=== PATIENT | male | born 1945 | race Caucasian/White ===

== ENCOUNTER 2017-03-13 11:14 | Outpatient (CLI) | payer MEDICARE ==
--- NOTE | 2017-03-13 13:13 | XRAY Report ---
TWO-VIEW CHEST: 03/13/2017 CLINICAL INDICATION: Dyspnea on exertion. FINDINGS: Frontal and lateral views of the chest demonstrate a normal cardiac silhouette. The lungs are clear. No effusion or pneumothorax is present. IMPRESSION: NORMAL CHEST. JOB #: [id number] EXT JOB #:[id number]
== END 2017-03-13 11:15 | disposition home or self-care (01) ==
LOC: DI 11:14
PROVIDERS: ATTEND Physician Assistant
DX: R06.09 Other forms of dyspnea (principal); I51.7 Cardiomegaly; I35.0 Nonrheumatic aortic (valve) stenosis
CPT/HCPCS: 71020; 93306

== ENCOUNTER 2017-03-13 13:24 | Outpatient (CLI) | payer MEDICARE | END 2017-03-13 13:25 | disposition critical access hospital (66) | LOC: EMS 13:24 | PROVIDERS: ATTEND Surgery | DX: M25.512 Pain in left shoulder (principal); M25.511 Pain in right shoulder; V00.811A Fall from moving wheelchair (powered), initial encounter; Y92.89 Other specified places as the place of occurrence of the external cause | CPT/HCPCS: A0425; A0429 ==

== ENCOUNTER 2017-03-13 13:31 | Emergency (ER) | payer MEDICARE ==
[2017-03-13] MEDS ORDERED: HYDROcod/ACETAM 5/325 MG TABLET PO STA (14:54)
[2017-03-13] MEDS ORDERED: HYDROcod/ACETAM 5/325 MG TABLET ONE (15:03)
--- NOTE | 2017-03-13 16:05 | XRAY Preliminary Report ---
Exam: XR Shoulder 3 View BILAT IMPRESSION: 1. Impacted fracture of right humeral surgical neck and vertically oriented fracture through the grea ter tuberosity to proximal diaphysis. 2. Unusual appearance of left humeral head on the AP view, question projectional artifact versus impa ction of medial humeral head. 3. 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 [facility] SITE ID: [id number]
--- NOTE | 2017-03-13 16:07 | XRAY Report ---
EXAM: BILATERAL SHOULDER RADIOGRAPHY EXAM DATE: 03/13/2017 03:33 PM. CLINICAL HISTORY: Bilateral shoulder pain-- fell out of wheelchair. COMPARISON: None. TECHNIQUE: 3 views each shoulder. FINDINGS: RIGHT: Bones: Impacted fracture of humeral surgical neck. Vertically oriented fracture lucency through the g reater tuberosity to proximal diaphysis. Joints: No subluxation. Mild to moderate degenerative changes glenohumeral and acromioclavicular join ts. Soft tissues: No periarticular calcification. LEFT: Bones: Unusual double density superior humeral head on the AP view, question projectional artifact ve rsus mild impaction fracture of medial aspect of the humeral head. Joints: No subluxation. Moderate acromioclavicular and mild glenohumeral DJD. Soft tissues: Smooth calcification along the superior acromioclavicular joint. IMPRESSION: 1. Impacted fracture of right humeral surgical neck and vertically oriented fracture through the grea ter tuberosity to proximal diaphysis. 2. Unusual appearance of left humeral head on the AP view, question projectional artifact versus impa ction of medial humeral head. 3. 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 [facility] Referring Provider Line: [phone] SITE ID: [id number]
[2017-03-13] MEDS ORDERED: oxyCOD/ACETAMIN 5 MG/325 MG TABLET PO STA (16:14)
--- NOTE | 2017-03-13 16:24 | ED Physician Documentation ---
PD HPI UPPER EXT INJURY - Stated complaint Stated Complaint: JEFRY SHOULDER PX - Chief complaint Chief Complaint: Ext Problem - History obtained from History obtained from: Patient - History of Present Illness Location: Right, Left, Shoulder Type of injury: Fall Where injury occurred: Other ([facility].) Timing - onset: Today (Just prior to arrival.) - Additonal information Additional information: The patient is a morbidly obese male who [place] [facility] just prior to arrival, when the front wheels of his wheelchair got stuck between boards. He landed on his chest and right shoulder, and presents now complaining of pain in both shoulders, but more on the right than the left, as well as pain in his upper back. He denies headache, chest pain, or shortness of breath. Review of Systems Constitutional: denies: Fever Eyes: denies: Decreased vision Nose: denies: Congestion Cardiac: denies: Chest pain / pressure Respiratory: denies: Cough GI: denies: Abdominal Pain, Nausea, Vomiting Skin: reports: Abrasion (s) (Reports very slight abrasion at his left knee.). denies: Rash Musculoskeletal: reports: Neck pain, Back pain, Extremity pain (Right shoulder more than left.) Neurologic: denies: Headache, Head injury, LOC PD PAST MEDICAL HISTORY - Past Medical History Cardiovascular: Hypertension Respiratory: Sleep apnea Endocrine/Autoimmune: Type 2 diabetes : Benign prostate hypertrophy - Past Surgical History Past Surgical History: Yes General: Other Ortho: Other - Present Medications Home Medications: Ambulatory Orders Medication Instructions Recorded Confirmed Aspirin [Aspir 81] 81 mg PO DAILY 01/28/15 03/13/17 Citalopram Hydrobromide 40 mg PO DAILY 01/28/15 03/13/17 [Citalopram HBr] Finasteride 5 mg PO DAILY 01/28/15 03/13/17 Insulin NPH Human [NovoLIN N] 55 units SQ DAILY 01/28/15 03/13/17 Lisinopril 20 mg PO DAILY 01/28/15 03/13/17 Metformin HCl [Metformin HCl ER] 1,000 mg PO DAILY 01/28/15 03/13/17 Simvastatin 40 mg PO DAILY 01/27/16 03/13/17 Terazosin [Hytrin] 15 mg PO DAILY 01/27/16 03/13/17 oxyCODONE [Roxicodone] 10 mg PO Q4HR 01/27/16 03/13/17 oxyCODONE/ACET 5/325 [Percocet 5 1 - 2 tab PO Q4-6H PRN #20 tablet 03/13/17 mg/325 mg] - Allergies Allergies/Adverse Reactions: Allergies Allergy/AdvReac Type Severity Reaction Status Date / Time No Known Drug Allergies Allergy Verified 01/28/15 00:38 - Social History Does the pt smoke?: No Smoking Status: Never smoker Does the pt drink ETOH?: No Does the pt have substance abuse?: No - Immunizations Immunizations are current?: Yes - POLST Patient has POLST: No PD ED PE NORMAL - Vitals Vital signs reviewed: Yes (normal) - General General: Alert and oriented X 3, Other (Morbidly obese.) - HEENT HEENT: Atraumatic, EOMI - Neck Neck: No bony TTP, Other (He can turn his head from side to side without significant discomfort in his neck.) - Cardiac Cardiac: RRR, Other (1/6 systolic murmur.) - Respiratory Respiratory: No respiratory distress, Clear bilaterally, Other (No chest wall tenderness.) - Abdomen Abdomen: Soft, Non tender - Back Back: Other (There is tenderness to palpation of the mid thoracic spine.) - Derm Derm: No rash - Extremities Extremities: No deformity, Other (There is tenderness to palpation of the right shoulder, particularly of the proximal humerus. He has decreased range of motion secondary to pain. There is also mild tenderness to palpation of the left shoulder and superior aspect. He does tolerate full passive range of motion of the left shoulder. Distal neurovascular is intact. Examination of his lower extremities reveals a very small superficial abrasion over the prepatellar aspect of the left knee. Otherwise no injuries of the lower extremities are detected.) - Neuro Neuro: Alert and oriented X 3, No motor deficit, No sensory deficit Results - Vitals Vitals: Oxygen O2 Source [] Room air O2 Source Room air - Rads (name of study) Bilateral shoulder xrays Radiology: Prelim report reviewed, EMP read contemporaneously, See rad report ( 1. Impacted fracture of right humeral surgical neck and vertically oriented fracture through the greater tuberosity to proximal diaphysis. 2. Unusual appearance of left humeral head on the AP view, question projectional artifact versus impaction of medial humeral head. 3. 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 X- rays of his left shoulder and his thoracic spine reveal no evidence of fracture or dislocation. Treatment in the emergency department included application of a right arm sling. Vicodin one tablet was administered orally without any improvement of the patient's symptoms. Subsequently Percocet one tablet was administered orally. I discussed with him and his the diagnosis and expected course of injury, treatment and outpatient follow-up, as well as potentially worrisome signs or symptoms that should prompt reevaluation in the emergency department. Departure - Departure Disposition: 01 Home, Self Care Clinical Impression: Closed fracture of right proximal humerus Qualifiers: Encounter type: initial encounter Fracture morphology: other fracture Fracture alignment: nondisplaced Qualified Code(s): S42.294A - Other nondisplaced fracture of upper end of right humerus, initial encounter for closed fracture Fall Qualifiers: Encounter type: initial encounter Qualified Code(s): W19.XXXA - Unspecified fall, initial encounter Condition: Stable Instructions: ED Fx Upper Ext Follow-Up: Corrina Campbell PA-C [Primary Care Provider] - [facility] [Provider Group] Prescriptions: oxyCODONE/ACET 5/325 [Percocet 5 mg/325 mg] 1 - 2 tab PO Q4-6H PRN #20 tablet PRN Reason: Pain Comments: Apply ice pack to your shoulder intermittently for the next 3 or 4 days. Use the arm sling for comfort. You can use Percocet as prescribed if needed for pain. Follow up with your primary physician within 1 week. Call to schedule appointment. Return to the emergency department if you develop markedly increasing pain despite the pain medication, or otherwise worsening symptoms. Discharge Date/Time: 03/13/17 18:26
[2017-03-13] MEDS ORDERED: oxyCOD/ACETAMIN 5 MG/325 MG TABLET PO ONE (16:33)
--- NOTE | 2017-03-13 18:14 | XRAY Preliminary Report ---
Exam: XR Thoracic Spine 2 View IMPRESSION: No findings of fracture or subluxation of thoracic spine. [facility] SITE ID: [id number]
--- NOTE | 2017-03-13 18:16 | XRAY Report ---
EXAM: THORACIC SPINE RADIOGRAPHY EXAM DATE: 03/13/2017 05:53 PM. CLINICAL HISTORY: Fall; tenderness thoracic spine. COMPARISON: Chest x-ray 01/28/2015. TECHNIQUE: 2 views. FINDINGS: Alignment: No subluxation or scoliosis. Bones: No fracture visualized. Upper thoracic spine difficult to visualize on lateral images due to o verlapping densities. Disks: Disk height is maintained. Soft Tissues: Negative for pleural effusion and pneumothorax. IMPRESSION: No findings of fracture or subluxation of thoracic spine. [facility] Referring Provider Line: [phone] SITE ID: [id number]
[2017-03-13 18:45] VITALS: BP 128/68
== END 2017-03-13 18:26 | disposition home or self-care (01) ==
LOC: EDUNIT# → ED 13:31
DX: S42.211A Unspecified displaced fracture of surgical neck of right humerus, initial encounter for closed fracture (principal); S42.251A Displaced fracture of greater tuberosity of right humerus, initial encounter for closed fracture; S80.212A Abrasion, left knee, initial encounter; W05.0XXA Fall from non-moving wheelchair, initial encounter; Y92.89 Other specified places as the place of occurrence of the external cause; M19.012 Primary osteoarthritis, left shoulder; M19.011 Primary osteoarthritis, right shoulder; I10 Essential (primary) hypertension; G47.30 Sleep apnea, unspecified; E11.9 Type 2 diabetes mellitus without complications; Z79.4 Long term (current) use of insulin; N40.0 Benign prostatic hyperplasia without lower urinary tract symptoms; Z79.82 Long term (current) use of aspirin; E66.01 Morbid (severe) obesity due to excess calories; R06.09 Other forms of dyspnea; I51.7 Cardiomegaly; I35.0 Nonrheumatic aortic (valve) stenosis
CPT/HCPCS: 71020; 72070; 73030; 93306; 99283; A9270

== ENCOUNTER 2017-03-15 07:48 | Emergency (ER) | payer MEDICARE ==
--- NOTE | 2017-03-15 08:09 | ED Physician Documentation ---
History of Present Illness - Stated complaint Stated Complaint: JEFRY SHOULDER/NECK PX - Chief complaint Chief Complaint: Ext Problem - Additonal information Additional information: hx from pt family and EMR 72 male not on blood thinrica fell forward out of his wheelchair on [place] 2 days ago seen in ER for upper T spine and jefry shoulder pain T spine xrays were neg R prox humerus fx possible L humeral head compression fx rx percocet limited # referred to ortho now has pain L elbow as well and out of percocet Review of Systems Cardiac: denies: Chest pain / pressure GI: denies: Abdominal Pain Musculoskeletal: reports: Back pain, Extremity pain, Joint pain Neurologic: denies: Focal weakness, Numbness, Headache Endocrine: denies: Easy bruising / bleeding PD PAST MEDICAL HISTORY - Past Medical History Past Medical History: Yes Cardiovascular: Hypertension Respiratory: Sleep apnea Endocrine/Autoimmune: Type 2 diabetes : Benign prostate hypertrophy - Past Surgical History Past Surgical History: Yes General: Other Ortho: Other - Present Medications Home Medications: Ambulatory Orders Medication Instructions Recorded Confirmed Aspirin [Aspir 81] 81 mg PO DAILY 01/28/15 03/15/17 Citalopram Hydrobromide 40 mg PO DAILY 01/28/15 03/15/17 [Citalopram HBr] Finasteride 5 mg PO DAILY 01/28/15 03/15/17 Insulin NPH Human [NovoLIN N] 55 units SQ DAILY 01/28/15 03/15/17 Lisinopril 20 mg PO DAILY 01/28/15 03/15/17 Metformin HCl [Metformin HCl ER] 1,000 mg PO DAILY 01/28/15 03/15/17 Simvastatin 40 mg PO DAILY 01/27/16 03/15/17 Terazosin [Hytrin] 15 mg PO DAILY 01/27/16 03/15/17 oxyCODONE [Roxicodone] 10 mg PO Q4HR 01/27/16 03/15/17 oxyCODONE/ACET 5/325 [Percocet 5 1 - 2 tab PO Q4-6H PRN #20 tablet 03/13/17 mg/325 mg] Oxycodone HCl/Acetaminophen 1 each PO Q6HR PRN #20 tablet 03/16/17 [Percocet 5-325 mg Tablet] - Allergies Allergies/Adverse Reactions: Allergies Allergy/AdvReac Type Severity Reaction Status Date / Time No Known Drug Allergies Allergy Verified 01/28/15 00:38 - Social History Does the pt smoke?: No Smoking Status: Never smoker Does the pt drink ETOH?: No Does the pt have substance abuse?: No - Immunizations Immunizations are current?: Yes - POLST Patient has POLST: No PD ED PE NORMAL - Vitals Vital signs reviewed: Yes - General General: Alert and oriented X 3 - HEENT HEENT: Atraumatic - Neck Neck: No bony TTP - Cardiac Cardiac: RRR. No: No murmur (+ murmus not new) - Respiratory Respiratory: No respiratory distress, Clear bilaterally - Back Back: Other (TTP upper T spine - already imaged) - Derm Derm: Normal color - Extremities Extremities: Other (L elbow s deformity, pain to antecub fossa region, able to flex ext pronate and supinat, MSV intact. TTP jefry shoudler as expected did not range as know fx) Results - Vitals Vitals: Vital Signs - 24 hr 03/15/17 03/16/17 03/16/17 22:14 07:07 12:19 Temperature 36.1 C L 36.8 C Heart Rate 73 97 93 Respiratory 15 18 20 Rate Blood Pressure 103/64 127/51 L 117/42 L O2 Saturation 99 96 96 Oxygen O2 Source [] Room air O2 Source Room air - Labs Labs: Laboratory Tests 03/15/17 03/15/17 03/15/17 10:41 13:00 13:00 WBC 8.4 RBC 2.61 L Hgb 8.3 L Hct 24.1 L MCV 92.3 MCH 31.7 H MCHC 34.4 RDW 17.7 H Plt Count 171 MPV 7.1 L Neut # 6.8 H Lymph # 0.8 L Dane # 0.6 Eos # 0.2 Baso # 0.0 Absolute Nucleated RBC 0.00 Nucleated RBCs 0.0 Sodium 133 L Potassium 4.6 Chloride 104 Carbon Dioxide 21 Anion Gap 8.0 BUN 44 H Creatinine 1.8 H Estimated GFR (MDRD) 37 L Glucose 208 H POC Whole Bld Glucose 234 H Lactic Acid Calcium 8.4 L Urine Color Urine Clarity Urine pH Ur Specific [place] Urine Protein Urine Glucose (UA) Urine Ketones Urine Occult Blood Urine Nitrite Urine Bilirubin Urine Urobilinogen Ur Leukocyte Esterase Urine RBC Urine WBC Ur Squamous Epith Cells Amorphous Sediment Urine Bacteria Urine Casts Ur Microscopic Review Urine Culture Comments 03/15/17 03/15/17 03/16/17 13:00 14:45 08:06 WBC RBC Hgb Hct MCV MCH MCHC RDW Plt Count MPV Neut # Lymph # Dane # Eos # Baso # Absolute Nucleated RBC Nucleated RBCs Sodium Potassium Chloride Carbon Dioxide Anion Gap BUN Creatinine Estimated GFR (MDRD) Glucose POC Whole Bld Glucose 169 H Lactic Acid 1.7 Calcium Urine Color YELLOW Urine Clarity CLOUDY Urine pH 5.0 Ur Specific [place] >=1.030 H Urine Protein NEGATIVE Urine Glucose (UA) NEGATIVE Urine Ketones NEGATIVE Urine Occult Blood LARGE H Urine Nitrite NEGATIVE Urine Bilirubin NEGATIVE Urine Urobilinogen 0.2 (NORMAL) Ur Leukocyte Esterase NEGATIVE Urine RBC TNTC H Urine WBC 0-3 Ur Squamous Epith Cells FEW Squamous Amorphous Sediment Few Urine Bacteria Few Urine Casts 6-10 Hyaline Casts Ur Microscopic Review INDICATED Urine Culture Comments NOT INDICATED - Rads (name of study) elbow Radiology: See rad report (jt effusion may indicate occult fx) CXR Radiology: See rad report (no acute) Procedures - Splint (location) LUE Splint applied by: Tech Type of splint: Sugar godwin Other: Patient tolerated well, No complications, Neurovascular intact, Sling provided PD MEDICAL DECISION MAKING - ED course ED course: 72 male in a wheelchair usually can walk a few steps and transfer with help but now has R humeral head and likely L humeral head and L elbow fx as well (L humeral head appears impacted per rad read and elbow effusion typically represent radial head fx but will need ortho fup and repeat imaging) now has sling on R shoulder and splint + sling on L too large for family to assist - usually they pull on his arm to get him up he cannot catch himself if he stumbles or falls don't feel pt safe to return home his is amenable to short term SNF for PT then pt unexpectedly had a low SBP of 84, went to reassess pt - no visible changes no new complaints gave IVF (500 before line blew) and checked labs (baseline anemia and renal insuff, neg lactate) CXR (no acute) neg UA subsequent BPs better d/w ortho Dr Hsieh and unfortunately this situation is not an indication for surgery either [facility] was contacted by case management and reviewed pt case but declined to pay for SNF rehab I spoke to [facility] multiple times and they state that 1) based on [facility] PT eval stating pt would benefit from learning to transfer but that PT did not feel that pt could participate for physical therapy and 2) [facility] feels the pts needs are custody, he does not qualify for SNF rehab to be covered two physicians reviewed this case - first Dr Vu Hsieh and then the case was also reviewed by Dr Delmar Fleming, both clinical review physicians - and it has been determined that pt does not qualify for SNF for PT and rehab [facility] advised re appeals process and [facility] is also plans to send a letter explaining reason for denial within 3 days pt may qualify for home PT - asked review staff to put in the referral for this service family with choice to self pay but cannot afford quote from [facility], therefore decided to try and take pt home, SW able to arrange for [facility] to deliver a hospital bed tomorrow but pt not able to safely get out of bed - even with gait belt and nursing assistance getting up from bed in ER was nearly impossible, and at home at this time he has a low soft bed - family just does not think they can safely assist him though they would be willing to if at all possible SW also tried to place pt in respite - tried [facility] - for a variety of reasons none are able to take him today but might be able to tomorrow - see SW notes and pt does not qualify for admit so in the end the plan is for him to board in ER overnight - tomorrow is Thursday and more facilities will have intake managers available - will try again to place in respite - and if that still fails at least pt will have a hospital bed delivered by [facility] and that will make transfers easier for family I will be on tomorrow and so will the same SW pt to take his own meds and use his own CPAP while boarding in the ER turned over to PM EMP Dr Tapia - and I will be back in AM to continue efforts to secure safe dispo resumed care 7 AM 03/[address] LUE - could only get shoulder due to emchanics of getting pt into CT machine - but that did confirm he has a non displaced left humeral head / surgical neck fx, radial head is still only suspected based on ant post fat pads seen on plain films SW again worked all day trying to get pt placed in respite but he was denied by every facility (see SW noted) so unfortunately despite 2 full days in the ER trying to get the pt placement while he recovers, so such placement was simply not possible without insurance coverage for same so for now pt is going to have to go home [facility] was able to get a hospital bed delivered to his home to which will help make it easier for his family to care for him, also he has a gait belt that we used during his ER stay, and nurse Abigail and pt worked together and were fairly successful managing safe transfers Departure - Departure Disposition: 01 Home, Self Care Clinical Impression: Fracture of humeral head, closed Qualifiers: Encounter type: subsequent encounter Laterality: unspecified laterality Fracture healing: with routine healing Qualified Code(s): S42.293D - Other displaced fracture of upper end of unspecified humerus, subsequent encounter for fracture with routine healing Elbow fracture, left Qualifiers: Encounter type: subsequent encounter Fracture type: closed Fracture healing: with routine healing Qualified Code(s): S42.402D - Unspecified fracture of lower end of left humerus, subsequent encounter for fracture with routine healing Condition: Fair Instructions: ED Fx Shoulder, ED Fx Elbow, ED Splint Care Fiberglass Follow-Up: [facility] [Provider Group] Prescriptions: Oxycodone HCl/Acetaminophen [Percocet 5-325 mg Tablet] 1 each PO Q6HR PRN #20 tablet PRN Reason: Severe Pain Comments: You have suffered numerous upper extremity injuries There is a known proximal right humeral head fracture (shoulder), a probable impacted left humeral head (shoulder) , and a probable left radial head fracture (elbow). You will need to wear a splint on the left elbow and a sling on both shoulders. Unfortunately this is going to make it very difficult you to transfer and get around. I tried to get you into a detention facility for rehab and physical therapy but your insurance company declined to authorize payment for this. You can still go but would have to pay out of pocket We also tried to get you into a respite bed, but ultimately that was not possible either. Social work was able to get a hospital bed delivered to your home to help make it easier for you. And [facility] ir going to try and arrange home health. Please follow up with your PMD and orthopedics Return if worse Discharge Date/Time: 03/16/17 16:11
--- NOTE | 2017-03-15 08:50 | XRAY Preliminary Report ---
Exam: XR Elbow 3 View LT IMPRESSION: A joint effusion is present which may indicate the presence of a radiographically occult fracture. [facility] SITE ID: [id number]
--- NOTE | 2017-03-15 08:53 | XRAY Report ---
EXAM: LEFT ELBOW RADIOGRAPHY EXAM DATE: 03/15/2017 08:38 AM. CLINICAL HISTORY: Fall pain. COMPARISON: None. TECHNIQUE: 3 views. FINDINGS: Bones: Normal. No fractures or bone lesions. Joints: Joint alignment is normal. A joint effusion is present. Soft Tissues: Normal. No soft tissue swelling. IMPRESSION: A joint effusion is present which may indicate the presence of a radiographically occult fracture. [facility] Referring Provider Line: [phone] SITE ID: [id number]
[2017-03-15] MEDS ORDERED: oxyCOD/ACETAMIN 5 MG/325 MG TABLET PO STA ×2 (09:48→16:49)
[2017-03-15] MEDS ORDERED: oxyCOD/ACETAMIN 5 MG/325 MG TABLET PO ONE ×3 (10:06→21:19)
[2017-03-15] MEDS ORDERED: SODIUM CHLORIDE 0.9% 1,000 ML IV ONE (11:49)
[2017-03-15] MEDS ORDERED: INSULIN NPH HUMAN 100 UNIT/1 ML 10 ML MDV SUBQ STA (11:49)
[2017-03-15] MEDS ORDERED: INSULIN NPH HUMAN 100 UNIT/1 ML 10 ML MDV SUBQ ONE (12:26)
[2017-03-15 13:09] LABS: BASOPHILS % (AUTO) 0.1 %; EOSINOPHILS # (AUTO) 0.2 10^3/uL (0.0-0.7); EOSINOPHILS % (AUTO) 2.1 %; HCT - HEMATOCRIT 24.1 % (42.0-52.0); HGB - HEMOGLOBIN 8.3 g/dL (14.0-18.0); LYMPHOCYTES # (AUTO) 0.8 10^3/uL (1.5-3.5); LYMPHOCYTES % (AUTO) 9.5 %; MEAN CORPUSCULAR HEMOGLOBIN 31.7 pg (27.0-31.0); MEAN CORPUSCULAR HGB CONC 34.4 g/dL (32.0-36.0); MEAN CORPUSCULAR VOLUME 92.3 fL (80.0-94.0); MEAN PLATELET VOLUME 7.1 fL (7.4-11.4); MONOCYTES # (AUTO) 0.6 10^3/uL (0.0-1.0); MONOCYTES % (AUTO) 7.2 %; NEUTROPHILS # (AUTO) 6.8 10^3/uL (1.5-6.6); NEUTROPHILS % (AUTO) 81.1 %; RED BLOOD COUNT 2.61 10^6/uL (4.70-6.10); RED CELL DISTRIBUTION WIDTH 17.7 % (12.0-15.0); UNCORRECTED WHITE BLOOD COUNT 8.4 x10^3/uL; WHITE BLOOD COUNT 8.4 x10^3/uL (4.8-10.8)
[2017-03-15 13:16] LABS: CALCIUM 8.4 mg/dL (8.5-10.3); CREATININE 1.8 mg/dL (0.6-1.2); POTASSIUM 4.6 mmol/L (3.5-5.0)
--- NOTE | 2017-03-15 13:58 | XRAY Preliminary Report ---
Exam: XR Chest 2 View PA/LAT IMPRESSION: Technically limited frontal view. No evident acute cardiopulmonary abnormality. [facility] SITE ID: [id number]
--- NOTE | 2017-03-15 14:00 | XRAY Report ---
EXAM: CHEST RADIOGRAPHY EXAM DATE: 03/15/2017 01:33 PM. CLINICAL HISTORY: Low blood pressure after a fall. COMPARISON: 03/13/2017 and 01/28/2015. TECHNIQUE: 2 views. FINDINGS: Suboptimal frontal view with prominent overlying grid artifact. Lungs/Pleura: Soft tissue causes attenuation over the bases. No evident focal opacity. No pleural eff usion or pneumothorax. Mediastinum: Normal cardiomediastinal contour. Mild atherosclerotic calcifications within the aortic arch. Other: The thoracic spine is ankylosed. IMPRESSION: Technically limited frontal view. No evident acute cardiopulmonary abnormality. [facility] Referring Provider Line: [phone] SITE ID: [id number]
[2017-03-15 15:04] LABS: UA w/ MICROSCOPIC CHARGE YES
[2017-03-15 15:05] LABS: BILIRUBIN,URINE NEGATIVE (NEGATIVE); WBC,URINE 0-3 /HPF (0-3)
[2017-03-15 15:06] LABS: UR CULTURE IF IND NOT INDICATED
[2017-03-15] MEDS: oxyCOD/ACETAMIN 5 MG/325 MG TABLET PO SCH (21:16)
[2017-03-16] MEDS: oxyCOD/ACETAMIN 5 MG/325 MG TABLET PO SCH ×2 (03:10→12:48)
[2017-03-16] MEDS ORDERED: oxyCOD/ACETAMIN 5 MG/325 MG TABLET PO ONE ×2 (03:12→12:51)
--- NOTE | 2017-03-16 08:10 | CT Preliminary Report ---
Exam: CT Upper Extremity Left W/O IMPRESSION: 1. Motion artifact obscures fine bony detail. However, there is a probable nondisplaced left humeral head/surgical neck fracture. 2. Moderate glenohumeral and mild acromioclavicular degenerative joint disease. [facility] SITE ID: [id number]
--- NOTE | 2017-03-16 08:11 | CT Report ---
EXAM: LEFT SHOULDER CT WITHOUT CONTRAST EXAM DATE: 03/16/2017 07:53 AM. CLINICAL HISTORY: Left shoulder injury with probable humeral head and radial fractures. COMPARISON: X-ray 03/13/2017. TECHNIQUE: Thin-section axial images were acquired of the shoulder without contrast. Post-processing: Coronal and sagittal reformats. Other: None. In accordance with CT protocol optimization, one or more of the following dose reduction techniques w ere utilized for this exam: automated exposure control, adjustment of mA and/or KV based on patient s ize, or use of iterative reconstructive technique. FINDINGS: Patient did not hold still during the exam with motion artifact which obscures fine bony detail. Bones: Moderate degenerative joint disease of the glenohumeral joint with joint space narrowing and h umeral and glenoid osteophytes. Subtle trabecular irregularity through the humeral head, likely a nondisplaced fracture through the h umeral head/neck. Joints: Degenerative joint disease of both the AC joint and glenohumeral joints. Musculature: Normal. No fatty atrophy. Other: None. IMPRESSION: 1. Motion artifact obscures fine bony detail. However, there is a probable nondisplaced left humeral head/surgical neck fracture. 2. Moderate glenohumeral and mild acromioclavicular degenerative joint disease. [facility] Referring Provider Line: [phone] SITE ID: [id number]
[2017-03-16] MEDS ORDERED: PATIENT OWN MED PO SCH (09:00)
[2017-03-16 12:21] VITALS: BP 117/42
== END 2017-03-16 16:11 | disposition home or self-care (01) ==
LOC: ED 07:48
DX: S42.215A Unspecified nondisplaced fracture of surgical neck of left humerus, initial encounter for closed fracture (principal); S52.122A Displaced fracture of head of left radius, initial encounter for closed fracture; S42.201A Unspecified fracture of upper end of right humerus, initial encounter for closed fracture; W05.0XXA Fall from non-moving wheelchair, initial encounter; Y92.89 Other specified places as the place of occurrence of the external cause; I95.9 Hypotension, unspecified; D64.9 Anemia, unspecified; N28.9 Disorder of kidney and ureter, unspecified; I10 Essential (primary) hypertension; E11.9 Type 2 diabetes mellitus without complications; Z79.4 Long term (current) use of insulin; Z79.82 Long term (current) use of aspirin
CPT/HCPCS: 29105; 36415; 51701; 71020; 73080; 73200; 80048; 81001; 83605; 85025; 96360; 97162; 99284; 99285; A9270; J1815; 81003; 87086

== ENCOUNTER 2018-03-09 19:21 | Emergency (ER) | payer MEDICARE ==
[2018-03-09] MEDS ORDERED: SODIUM CHLORIDE 0.9% 1,000 ML IV ONE (20:11)
[2018-03-09 20:23] LABS: BASOPHILS % (AUTO) 0.2 %; HGB - HEMOGLOBIN 8.5 g/dL (14.0-18.0); LYMPHOCYTES # (AUTO) 0.4 10^3/uL (1.5-3.5); LYMPHOCYTES % (AUTO) 5.2 %; MEAN CORPUSCULAR HEMOGLOBIN 30.6 pg (27.0-31.0); MEAN CORPUSCULAR HGB CONC 34.5 g/dL (32.0-36.0); MEAN CORPUSCULAR VOLUME 88.8 fL (80.0-94.0); MEAN PLATELET VOLUME 6.8 fL (7.4-11.4); MONOCYTES # (AUTO) 0.7 10^3/uL (0.0-1.0); MONOCYTES % (AUTO) 9.2 %; NEUTROPHILS # (AUTO) 6.8 10^3/uL (1.5-6.6); NEUTROPHILS % (AUTO) 85.4 %; PLT - PLATELET COUNT 285 10^3/uL (130-450); RED BLOOD COUNT 2.78 10^6/uL (4.70-6.10); RED CELL DISTRIBUTION WIDTH 17.5 % (12.0-15.0)
--- NOTE | 2018-03-09 20:26 | ED Physician Documentation ---
PD HPI ABD PAIN - Stated complaint Stated Complaint: WEAK/MALE - Chief complaint Chief Complaint: Neuro - History obtained from History obtained from: Patient - History of Present Illness Timing - onset: How many days ago (3) Timing - details: Gradual onset, Still present Quality: Cramping, Aching Location: Suprapubic Radiation: Lower back, Left flank, Right flank Worsened by: Position, Palpation Associated symptoms: Nausea, Diarrhea, Dysuria. No: Fever, Constipation - Additional information Additional information: Patient is a 73 year old male with a history of diabetes and anemia who is presenting to the emergency department for generally not feeling well dysuria and diarrhea. patient reports that the diarrhea has been going on for years and that the dysuria and generalized weakness have been going on for the last couple of days. Review of Systems Constitutional: reports: Chills, Sweats Eyes: reports: Reviewed and negative Nose: reports: Reviewed and negative Cardiac: denies: Chest pain / pressure, Palpitations Respiratory: denies: Dyspnea, Cough GI: reports: Abdominal Pain, Nausea. denies: Vomiting, Constipation, Diarrhea : reports: Dysuria, Frequency, Hesitancy Skin: denies: Rash, Lesions Immunocompromised: denies: Immunocompromised PD PAST MEDICAL HISTORY - Past Medical History Cardiovascular: Hypertension Respiratory: Sleep apnea Endocrine/Autoimmune: Type 2 diabetes : Benign prostate hypertrophy - Past Surgical History Past Surgical History: Yes General: Other Ortho: Spine surgery, Other - Present Medications Home Medications: Ambulatory Orders Medication Instructions Recorded Confirmed Aspirin [Aspir 81] 81 mg PO DAILY 01/28/15 03/15/17 Citalopram Hydrobromide 40 mg PO DAILY 01/28/15 03/15/17 [Citalopram HBr] Finasteride 5 mg PO DAILY 01/28/15 03/15/17 Insulin NPH Human [NovoLIN N] 55 units SQ BID 01/28/15 03/15/17 Metformin HCl [Metformin HCl ER] 1,000 mg PO BID 01/28/15 03/15/17 Simvastatin 40 mg PO DAILY 01/27/16 03/15/17 Terazosin [Hytrin] 15 mg PO DAILY 01/27/16 03/15/17 Levofloxacin [Levaquin] 750 mg PO DAILY #4 tablet 03/09/18 Oxybutynin Chloride [Ditropan Xl] 30 mg PO BID 03/09/18 03/09/18 Phenazopyridine HCl [Pyridium] 200 mg PO TID PRN #6 tablet 03/09/18 - Allergies Allergies/Adverse Reactions: Allergies Allergy/AdvReac Type Severity Reaction Status Date / Time No Known Drug Allergies Allergy Verified 01/28/15 00:38 - Social History Does the pt smoke?: No Smoking Status: Never smoker Does the pt drink ETOH?: No Does the pt have substance abuse?: No - Immunizations Immunizations are current?: Yes - POLST Patient has POLST: No PD ED PE NORMAL - Vitals Vital signs reviewed: Yes - General General: Alert and oriented X 3, Other (obese) - HEENT HEENT: Atraumatic - Cardiac Cardiac: RRR - Respiratory Respiratory: No respiratory distress - Abdomen Abdomen: Soft, Non distended - Derm Derm: Other (pale) - Extremities Extremities: No deformity - Neuro Neuro: Alert and oriented X 3, No motor deficit, Normal speech Eye Opening: Spontaneous Results - Vitals Vitals: Vital Signs - 24 hr 03/09/18 03/09/18 19:33 19:54 Temperature 37.2 C Heart Rate 96 90 Respiratory 18 20 Rate Blood Pressure 132/46 H 149/63 H O2 Saturation 95 95 Oxygen O2 Source [With Activity] Room air O2 Source Room air - Labs Labs: Laboratory Tests 03/09/18 03/09/18 03/09/18 20:00 20:00 21:05 WBC 8.0 RBC 2.78 L Hgb 8.5 L Hct 24.7 L MCV 88.8 MCH 30.6 MCHC 34.5 RDW 17.5 H Plt Count 285 MPV 6.8 L Neut # (Auto) 6.8 H Lymph # (Auto) 0.4 L [place] # (Auto) 0.7 Eos # (Auto) 0.0 Baso # (Auto) 0.0 Absolute Nucleated RBC 0.00 Nucleated RBC % 0.0 Sodium 130 L Potassium 4.7 Chloride 97 L Carbon Dioxide 21 Anion Gap 12.0 BUN 47 H Creatinine 2.3 H Estimated GFR (MDRD) 28 L Glucose 216 H Calcium 8.3 L Total Bilirubin 0.6 AST 24 ALT 22 Alkaline Phosphatase 84 Total Protein 7.0 Albumin 3.2 Globulin 3.8 Albumin/Globulin Ratio 0.8 L Lipase 21 L Urine Color DARK YELLOW Urine Clarity CLOUDY Urine pH 5.5 Ur Specific [place] 1.025 Urine Protein 100 H Urine Glucose (UA) NEGATIVE Urine Ketones NEGATIVE Urine Occult Blood LARGE H Urine Nitrite POSITIVE H Urine Bilirubin NEGATIVE Urine Urobilinogen 0.2 (NORMAL) Ur Leukocyte Esterase LARGE H Urine RBC 11-25 H Urine WBC >25 H Ur Squamous Epith Cells RARE Squamous Urine Bacteria Few Ur Microscopic Review INDICATED Urine Culture Comments INDICATED PD MEDICAL DECISION MAKING - ED course Complexity details: reviewed old records, reviewed results, re-evaluated patient, considered differential, d/w patient, d/w family ED course: Patient was seen and examined at bedside. IV access was gained and labs were drawn. patient was treated with a fluid bolus. patient was found to have a urinary tract infection. patient was treated with levaquin. Patient required no further work up and was stable for discharge with outpatient follow up. - Sepsis Event Vital Signs: Vital Signs - 24 hr 03/09/18 03/09/18 19:33 19:54 Temperature 37.2 C Heart Rate 96 90 Respiratory 18 20 Rate Blood Pressure 132/46 H 149/63 H O2 Saturation 95 95 Oxygen O2 Source [With Activity] Room air O2 Source Room air Departure - Departure Disposition: 01 Home, Self Care Clinical Impression: Urinary tract infection Condition: Good Instructions: ED UTI Cystitis Male Follow-Up: Fidel Starr MD [Primary Care Provider] - Within 3 Days Prescriptions: Levofloxacin [Levaquin] 750 mg PO DAILY #4 tablet Phenazopyridine HCl [Pyridium] 200 mg PO TID PRN #6 tablet PRN Reason: dysuria Comments: Your symptoms today are being caused by a urinary tract infection. You had your first dose of antibiotics today and will need to be on them for the next 4 days. it is important that you stay well hydrated during the same time period as well. You will be prescribed pyridium as well that will likely change the color of your urine. You should follow up with your doctor if your symptoms persist. You may return to the emergency department at any time for new, worsening or uncontrollable symptoms.
[2018-03-09 20:44] LABS: ALBUMIN 3.2 g/dL (3.2-5.5); ALBUMIN/GLOBULIN RATIO 0.8 (1.0-2.2); BILIRUBIN,TOTAL 0.6 mg/dL (0.2-1.0); CALCIUM 8.3 mg/dL (8.5-10.3); CREATININE 2.3 mg/dL (0.6-1.2)
[2018-03-09 21:18] LABS: BILIRUBIN,URINE NEGATIVE (NEGATIVE); GLUCOSE, URINE (UA) NEGATIVE (NEGATIVE); KETONES,URINE (UA) NEGATIVE (NEGATIVE); LEUKOCYTE ESTERASE, URINE LARGE (NEGATIVE); NITRITE,URINE POSITIVE (NEGATIVE); OCCULT BLOOD,URINE LARGE (NEGATIVE); PH,URINE 5.5 PH (5.0-7.5); PROTEIN,URINE 100 mg/dL (NEGATIVE); UROBILINOGEN,URINE 0.2 (NORMAL) E.U./dL (NORMAL)
[2018-03-09 21:26] LABS: CLARITY,URINE CLOUDY (CLEAR)
[2018-03-09 21:27] LABS: BACTERIA,URINE Few /HPF (None Seen); SQUAMOUS EPITHELIAL CELL,UR RARE Squamous (<= Few)
[2018-03-09] MEDS ORDERED: levoFLOXacin 250 MG TABLET PO STA (21:31)
[2018-03-09 21:56] VITALS: BP 145/59
== END 2018-03-09 22:20 | disposition home or self-care (01) ==
LOC: ED 19:21
DX: N39.0 Urinary tract infection, site not specified (principal); I45.81 Long QT syndrome; E11.9 Type 2 diabetes mellitus without complications; Z79.4 Long term (current) use of insulin; I10 Essential (primary) hypertension; Z79.82 Long term (current) use of aspirin
CPT/HCPCS: 36415; 80053; 81001; 83690; 85025; 87086; 93005; 96360; 99283; 99284; A9270; 81003

== ENCOUNTER 2018-12-07 21:22 | Outpatient (CLI) | payer SELFPAY | END 2018-12-07 21:23 | disposition EMS.NT | LOC: EMS 21:22 | PROVIDERS: ATTEND Surgery | DX: M79.661 Pain in right lower leg (principal); W01.0XXA Fall on same level from slipping, tripping and stumbling without subsequent striking against object, initial encounter; Y93.01 Activity, walking, marching and hiking; Y92.008 Other place in unspecified non-institutional (private) residence as the place of occurrence of the external cause ==

== ENCOUNTER 2018-12-08 10:27 | Outpatient (CLI) | payer MEDICARE, MEDICAID | END 2018-12-08 10:28 | disposition critical access hospital (66) | LOC: EMS 10:27 | PROVIDERS: ATTEND Surgery | DX: M25.561 Pain in right knee (principal); M79.661 Pain in right lower leg; W01.0XXA Fall on same level from slipping, tripping and stumbling without subsequent striking against object, initial encounter | CPT/HCPCS: A0425; A0429 ==

== ENCOUNTER 2018-12-08 10:45 | Emergency (ER) | payer MEDICARE, MEDICAID ==
[2018-12-08 10:58] VITALS: BP 156/55
--- NOTE | 2018-12-08 11:55 | ED Physician Documentation ---
PD HPI LOWER EXT INJURY - Stated complaint Stated Complaint: GLF - Chief complaint Chief Complaint: Ext Problem - History obtained from History obtained from: Patient - History of Present Illness PD HPI LOW EXT INJURY LOCATION: Right, Knee Type of injury: Fall (He slipped on some urine on the floor as he was getting out of his wheelchair and had a twisting motion of the right knee as he fell. He denies other injury. He is having swelling in the right knee today and pain with standing and he feels that his knee may is unreliable.) Where injury occurred: Home Timing - onset: Last night Timing - details: Abrupt onset, Still present Worsened by: Moving Associated symptoms: Swelling. No: Weakness, Numbness, Discolored Similar symptoms before: Has not had sx before Recently seen: Not recently seen Review of Systems Constitutional: denies: Fever, Chills Nose: denies: Rhinorrhea / runny nose, Congestion Throat: denies: Sore throat Respiratory: denies: Cough GI: denies: Abdominal Pain, Nausea, Vomiting : reports: Incontinent (small frequent amounts, seems c/w bladder spasms. Is on meds for that.). denies: Dysuria, Hematuria Neurologic: denies: Altered mental status, Head injury PD PAST MEDICAL HISTORY - Past Medical History Past Medical History: No Cardiovascular: Hypertension Respiratory: Sleep apnea Endocrine/Autoimmune: Type 2 diabetes : Benign prostate hypertrophy - Past Surgical History Past Surgical History: Yes General: Other Ortho: Spine surgery, Other - Present Medications Home Medications: Ambulatory Orders Medication Instructions Recorded Confirmed Aspirin [Aspir 81] 81 mg PO DAILY 01/28/15 03/15/17 Citalopram Hydrobromide 40 mg PO DAILY 01/28/15 03/15/17 [Citalopram HBr] Finasteride 5 mg PO DAILY 01/28/15 03/15/17 Insulin NPH Human [NovoLIN N] 55 units SQ BID 01/28/15 03/15/17 Metformin HCl [Metformin HCl ER] 1,000 mg PO BID 01/28/15 03/15/17 Simvastatin 40 mg PO DAILY 01/27/16 03/15/17 Terazosin [Hytrin] 15 mg PO DAILY 01/27/16 03/15/17 Levofloxacin [Levaquin] 750 mg PO DAILY #4 tablet 03/09/18 Oxybutynin Chloride [Ditropan Xl] 30 mg PO BID 03/09/18 03/09/18 Phenazopyridine HCl [Pyridium] 200 mg PO TID PRN #6 tablet 03/09/18 Oxycodone HCl/Acetaminophen 1 - 2 each PO Q6H PRN #25 tablet 12/08/18 [Percocet 5-325 mg Tablet] - Allergies Allergies/Adverse Reactions: Allergies Allergy/AdvReac Type Severity Reaction Status Date / Time No Known Drug Allergies Allergy Verified 01/28/15 00:38 - Social History Does the pt smoke?: No Smoking Status: Never smoker Does the pt drink ETOH?: No Does the pt have substance abuse?: No - Immunizations Immunizations are current?: Yes - POLST Patient has POLST: No PD ED PE NORMAL - Vitals Vital signs reviewed: Yes - General General: Alert and oriented X 3, Well developed/nourished - Cardiac Cardiac: RRR, No murmur - Respiratory Respiratory: Clear bilaterally - Abdomen Abdomen: Soft, Non tender, Other (obese) - Male Male : Other (normal external genitalia) - Derm Derm: Normal color, Warm and dry - Extremities Extremities: Other (The right knee has moderate swelling. He is most comfortable with it slightly flexed. There is some effusion felt. Range of motion is limited and guarded due to the pain. Unable to assess ligaments well also because of the discomfort. No gross laxity is felt.) - Neuro Neuro: Alert and oriented X 3, No motor deficit, No sensory deficit, Normal speech Results - Vitals Vitals: Vital Signs - 24 hr 12/08/18 10:51 Temperature 37 C Heart Rate 96 Respiratory 20 Rate Blood Pressure 156/55 H O2 Saturation 96 Oxygen O2 Source [With Activity] Room air O2 Source Room air - Labs Labs: Laboratory Tests 12/08/18 12:54 Urine Color YELLOW Urine Clarity CLEAR Urine pH 5.0 Ur Specific [place] 1.020 Urine Protein 30 H Urine Glucose (UA) NEGATIVE Urine Ketones NEGATIVE Urine Occult Blood NEGATIVE Urine Nitrite NEGATIVE Urine Bilirubin NEGATIVE Urine Urobilinogen 0.2 (NORMAL) Ur Leukocyte Esterase NEGATIVE Urine RBC None Seen Urine WBC 0-3 Urine WBC Clumps NONE SEEN Ur Squamous Epith Cells RARE Squamous Urine Bacteria Rare Ur Microscopic Review INDICATED Urine Culture Comments NOT INDICATED - Rads (name of study) right knee Radiology: Prelim report reviewed (Diffuse arthritis of the knee without any obvious fractures. There is a small calcified loose body in the suprapatellar area which should not by that location of effect articular motion.), See rad report PD MEDICAL DECISION MAKING - ED course Complexity details: re-evaluated patient, considered differential (X-ray done to evaluate for fracture. There is no fracture seen on the x-ray. He does have swelling around the knee and some effusion. I did try tapping that on the medial approach but did not get much fluid out and seemed to be hindered by some arthritic changes. He was given a pain medicine orally and that helped on his pain with some improved range of motion. We were unable to fit him with a knee brace due to the girth of his thigh. He will need to continue with the pain medicines to provide enough comfort for him to ambulate at home. He only transfers from bed to wheelchair and does walk with a walker at times. He therefore does not need to have to ambulate very much. We will have a follow-up with orthopedics for possible meniscal injury. His also is concerned that he is unable to hold his urine and seems to have bladder spasms despite several medications for that. She is wondering if he can get a Gloria catheter. We did do a bladder scan which showed a minimal residual. There is no signs of urinary infection. I feel placement of a Gloria catheter would be harmful due to the increased chance of infection and is not back in balance with the benefit of more convenience and him wearing the depends and such.), d/w patient, d/w family () Departure - Departure Disposition: 01 Home, Self Care Clinical Impression: Fall from slip, trip, or stumble Qualifiers: Encounter type: initial encounter Qualified Code(s): W01.0XXA - Fall on same level from slipping, tripping and stumbling without subsequent striking against object, initial encounter Knee strain Qualifiers: Encounter type: initial encounter Laterality: right Qualified Code(s): S86.911A - Strain of unspecified muscle(s) and tendon(s) at lower leg level, right leg, initial encounter Condition: Stable Record reviewed to determine appropriate education?: Yes Instructions: ED Sprain Knee Follow-Up: [facility] [Provider Group] Prescriptions: Oxycodone HCl/Acetaminophen [Percocet 5-325 mg Tablet] 1 - 2 each PO Q6H PRN #25 tablet PRN Reason: pain Comments: No signs of a bladder infection at this time. You do not appear to be in urinary retention as your bladder volume is good. It does sound may be some bladder spasms. Continue with your current medications for these. Regarding your knee, there are no obvious fractures on x-ray. Use some pain medicine as needed for pain. Use the knee brace when up and around to help support the knee. Follow-up with orthopedics in the next several days or early next week, call for an appointment. There may be some injury to some of the ligaments or the cartilage and these would not show up on x-ray. Typically they will get better with the knee brace and time but following up with orthopedics would be prudent.
--- NOTE | 2018-12-08 12:18 | XRAY Report ---
Reason: fall and hurt knee Procedure Date: 12/08/2018 Accession Number: [id number] / [id number] Procedure: XR - Knee 3 View RT CPT Code: FULL RESULT: EXAM: RIGHT KNEE RADIOGRAPHY EXAM DATE: 12/08/2018 12:00 PM. CLINICAL HISTORY: Fall and hurt knee. COMPARISON: KNEE 4 VIEW RT 01/27/2016 6:15 PM. TECHNIQUE: 3 views. FINDINGS: Bones: Normal. No fractures or bone lesions. Joints: Moderate degenerative changes in the patellofemoral compartment. There is a calcified 14 mm intra-articular loose body in the suprapatellar station. Moderate degenerative changes in the medial compartment. Soft Tissues: Normal. No soft tissue swelling. IMPRESSION: 1. Moderate degenerative changes in the patellofemoral compartment. 2. Moderate degenerative changes in the medial compartment. 3. There is a calcified 14 mm intra-articular loose body in the suprapatellar station. RADIA
[2018-12-08] MEDS ORDERED: oxyCODONE 5 MG TABLET PO STA (12:36)
[2018-12-08] MEDS ORDERED: LIDOCAINE MPF 1%-EPI 1:200000 30 ML VIAL SUBQ STA (12:54)
[2018-12-08 13:03] LABS: BILIRUBIN,URINE NEGATIVE (NEGATIVE); GLUCOSE, URINE (UA) NEGATIVE (NEGATIVE); KETONES,URINE (UA) NEGATIVE (NEGATIVE); LEUKOCYTE ESTERASE, URINE NEGATIVE (NEGATIVE); NITRITE,URINE NEGATIVE (NEGATIVE); OCCULT BLOOD,URINE NEGATIVE (NEGATIVE); PROTEIN,URINE 30 mg/dL (NEGATIVE); UROBILINOGEN,URINE 0.2 (NORMAL) E.U./dL (NORMAL)
[2018-12-08 13:24] LABS: CLARITY,URINE CLEAR (CLEAR)
[2018-12-08 13:27] LABS: BACTERIA,URINE Rare /HPF (None Seen); RBC,URINE None Seen /HPF (0-5); SQUAMOUS EPITHELIAL CELL,UR RARE Squamous (<= Few); WBC CLUMPS,URINE NONE SEEN
== END 2018-12-08 15:46 | disposition home or self-care (01) ==
LOC: EDUNIT# → ED 10:45
DX: S86.911A Strain of unspecified muscle(s) and tendon(s) at lower leg level, right leg, initial encounter (principal); W01.0XXA Fall on same level from slipping, tripping and stumbling without subsequent striking against object, initial encounter; Y92.009 Unspecified place in unspecified non-institutional (private) residence as the place of occurrence of the external cause; M17.11 Unilateral primary osteoarthritis, right knee; M23.41 Loose body in knee, right knee; N40.1 Benign prostatic hyperplasia with lower urinary tract symptoms; R32 Unspecified urinary incontinence; I10 Essential (primary) hypertension; E11.9 Type 2 diabetes mellitus without complications; Z79.4 Long term (current) use of insulin; Z79.82 Long term (current) use of aspirin
CPT/HCPCS: 73562; 81001; 99283; A9270; 81003; 87086

== ENCOUNTER 2018-12-08 15:36 | Outpatient (CLI) | payer MEDICARE, MEDICAID | END 2018-12-08 15:37 | disposition home or self-care (01) | LOC: EMS 15:36 | PROVIDERS: ATTEND Surgery | DX: E66.01 Morbid (severe) obesity due to excess calories (principal); S89.91XA Unspecified injury of right lower leg, initial encounter; X58.XXXA Exposure to other specified factors, initial encounter | CPT/HCPCS: A0425; A0428 ==

== ENCOUNTER 2018-12-10 18:18 | Outpatient (CLI) | payer MEDICARE, MEDICAID | END 2018-12-10 18:19 | disposition critical access hospital (66) | LOC: EMS 18:18 | PROVIDERS: ATTEND Surgery | DX: M79.661 Pain in right lower leg (principal); M79.89 Other specified soft tissue disorders | CPT/HCPCS: A0425; A0429 ==

== ENCOUNTER 2018-12-10 18:41 | Emergency (ER) | payer MEDICARE, MEDICAID ==
[2018-12-10] MEDS ORDERED: HYDROcod/ACETAM 5/325 MG TABLET PO STA (21:11)
--- NOTE | 2018-12-10 22:04 | ED Physician Documentation ---
PD HPI LOWER EXT INJURY - Stated complaint Stated Complaint: RIGHT KNEE PAIN - Chief complaint Chief Complaint: General - History obtained from History obtained from: Patient - History of Present Illness PD HPI LOW EXT INJURY LOCATION: Left, Knee Type of injury: Fall Where injury occurred: Home Timing - onset: How many days ago (2) Timing - duration: Days Pain level max: 10 Pain level now: 4 Improved by: Rest, Immobilization Worsened by: Moving, Palpating Associated symptoms: Swelling. No: Weakness, Numbness, Tingling Contributing factors: No: Anticoagulated Recently seen: Emergency Dept - Additional information Additional information: T+R 2 days ago from this ED after slip, fall that caused injury to right knee. right knee xrays at that time did not reveal acute abnormality and he was discharged with rx for oxycodone. Returns via ambulance [facility], called 911 as he has had gradually worsening right knee pain and swelling that is not controlled with the prescribed pain medications. He cannot stand on his own nor with assistance and thus she cannot adequately take care of patient at this time. Review of Systems Cardiac: reports: Reviewed and negative Respiratory: reports: Reviewed and negative GI: reports: Reviewed and negative Musculoskeletal: reports: Extremity pain, Joint pain, Extremity swelling, Joint swelling, Pain with weight bearing. denies: Neck pain, Back pain Neurologic: denies: Generalized weakness, Focal weakness, Numbness, Headache, Head injury PD PAST MEDICAL HISTORY - Past Medical History Past Medical History: Yes Cardiovascular: Hypertension Respiratory: Sleep apnea Endocrine/Autoimmune: Type 2 diabetes : Benign prostate hypertrophy - Past Surgical History Past Surgical History: Yes General: Other Ortho: Spine surgery, Other - Present Medications Home Medications: Ambulatory Orders Medication Instructions Recorded Confirmed Aspirin [Aspir 81] 81 mg PO DAILY 01/28/15 12/11/18 Citalopram Hydrobromide 40 mg PO DAILY 01/28/15 12/11/18 [Citalopram HBr] Finasteride 5 mg PO DAILY 01/28/15 12/11/18 Metformin HCl [Metformin HCl ER] 1,000 mg PO BID 01/28/15 12/11/18 Simvastatin 40 mg PO DAILY 01/27/16 12/11/18 Terazosin [Hytrin] 10 mg PO DAILY 01/27/16 12/11/18 Oxybutynin Chloride [Ditropan Xl] 15 mg PO BID 03/09/18 12/11/18 Ascorbic Acid [Vitamin C] mg PO DAILY 12/11/18 Insulin NPH Human Isophane 55 unit SUBQ BID 12/11/18 12/11/18 [Humulin N] Loperamide [Imodium] PO BID 12/11/18 - Allergies Allergies/Adverse Reactions: Allergies Allergy/AdvReac Type Severity Reaction Status Date / Time No Known Drug Allergies Allergy Verified 12/10/18 18:51 - Social History Does the pt smoke?: No Smoking Status: Never smoker Does the pt drink ETOH?: No Does the pt have substance abuse?: No - Immunizations Immunizations are current?: Yes - POLST Patient has POLST: No PD ED PE NORMAL - Vitals Vital signs reviewed: Yes - General General: Alert and oriented X 3, No acute distress (NAD at rest but obvious painful distress with any movement involving RLE, particularly knee or ankle), Well developed/nourished - HEENT HEENT: Atraumatic, Moist mucous membranes - Neck Neck: Supple, no meningeal sign - Cardiac Cardiac: RRR - Respiratory Respiratory: No respiratory distress, Clear bilaterally - Abdomen Abdomen: Normal bowel sounds, Non tender, Other (morbidly obese) - Derm Derm: Normal color, Warm and dry - Extremities Extremities: Other (right knee is swollen with generalized tenderness but no specific bony tenderness. no erythema and no abnoraml warmth to touch. There is circumferential swelling distal to knee to toes. there is tenderness to palpation right ankle, lateral aspect) - Neuro Eye Opening: Spontaneous Motor: Obeys Commands Verbal: Oriented GCS Score: 15 PD ED PE EXPANDED - Cardiac Cardiac: Murmur Present (3/6 YOGI right 2nd ICS) Results - Vitals Vitals: Vital Signs - 24 hr 12/11/18 12/12/18 14:18 00:44 Temperature 37.4 C 37.0 C Heart Rate 93 90 Respiratory 20 18 Rate Blood Pressure 158/62 H 151/79 H O2 Saturation 98 94 Oxygen O2 Source [] Room air O2 Source CPAP - Labs Labs: Laboratory Tests 12/10/18 12/10/18 12/11/18 22:31 22:31 02:00 WBC 13.4 H RBC 2.86 L Hgb 8.7 L Hct 26.2 L MCV 91.6 MCH 30.3 MCHC 33.1 RDW 17.8 H Plt Count 247 MPV 7.1 L Neut # (Auto) 11.9 H Lymph # (Auto) 0.6 L [place] # (Auto) 0.9 Eos # (Auto) 0.0 Baso # (Auto) 0.0 Absolute Nucleated RBC 0.00 Nucleated RBC % 0.0 Sodium 133 L Potassium 4.9 Chloride 99 L Carbon Dioxide 24 Anion Gap 10.0 BUN 37 H Creatinine 1.6 H Estimated GFR (MDRD) 42 L Glucose 364 H Calcium 8.5 Urine Color YELLOW Urine Clarity CLEAR Urine pH 5.0 Ur Specific [place] 1.025 Urine Protein 30 H Urine Glucose (UA) 500 H Urine Ketones NEGATIVE Urine Occult Blood TRACE-LYSE Urine Nitrite NEGATIVE Urine Bilirubin NEGATIVE Urine Urobilinogen 0.2 (NORMAL) Ur Leukocyte Esterase NEGATIVE Urine RBC 0-5 Urine WBC 0-3 Ur Squamous Epith Cells FEW Squamous Urine Bacteria Rare Urine Mucus Few Strands Ur Microscopic Review INDICATED Urine Culture Comments NOT INDICATED - Rads (name of study) CT right knee Radiology: Prelim report reviewed, See rad report RLE doppler US Radiology: Prelim report reviewed, See rad report right ankle xrays Radiology: Prelim report reviewed, See rad report PD MEDICAL DECISION MAKING - ED course Complexity details: reviewed old records, reviewed results, re-evaluated patient, considered differential, d/w patient ED course: lab abnormalities are comparable to previous (anemia, renal insufficiency). Patient had significant pain during ED stay that required repeated doses of opiates (oxycodone, dilaudid). CT knee shows effusion but no acute fractures. ankle xrays shows lateral malleolar fracture. Patient unable to move around in bed without significant RLE pain and is inappropriate for d/c home due to this degree of pain and immobility. Will consult SW in AM for placement options. Care of patient turned over to oncoming ED physician at end of my shift pending SW consult
[2018-12-10] MEDS ORDERED: HYDROmorphone 1 MG/ML CARPUJECT IM STA (22:20)
[2018-12-10 22:35] LABS: BASOPHILS % (AUTO) 0.1 %; EOSINOPHILS % (AUTO) 0.3 %; HGB - HEMOGLOBIN 8.7 g/dL (14.0-18.0); LYMPHOCYTES # (AUTO) 0.6 10^3/uL (1.5-3.5); LYMPHOCYTES % (AUTO) 4.7 %; MEAN CORPUSCULAR HEMOGLOBIN 30.3 pg (27.0-31.0); MEAN CORPUSCULAR HGB CONC 33.1 g/dL (32.0-36.0); MEAN CORPUSCULAR VOLUME 91.6 fL (80.0-94.0); MEAN PLATELET VOLUME 7.1 fL (7.4-11.4); MONOCYTES # (AUTO) 0.9 10^3/uL (0.0-1.0); MONOCYTES % (AUTO) 6.6 %; NEUTROPHILS # (AUTO) 11.9 10^3/uL (1.5-6.6); NEUTROPHILS % (AUTO) 88.3 %; PLT - PLATELET COUNT 247 10^3/uL (130-450); RED BLOOD COUNT 2.86 10^6/uL (4.70-6.10); RED CELL DISTRIBUTION WIDTH 17.8 % (12.0-15.0); WHITE BLOOD COUNT 13.4 x10^3/uL (4.8-10.8)
[2018-12-10 22:50] LABS: CALCIUM 8.5 mg/dL (8.5-10.3); CREATININE 1.6 mg/dL (0.6-1.2)
--- NOTE | 2018-12-10 23:22 | XRAY Report ---
Reason: fall, ankle tenderness Procedure Date: 12/10/2018 Accession Number: [id number] / [id number] Procedure: XR - Ankle 3 View RT CPT Code: FULL RESULT: EXAM: RIGHT ANKLE RADIOGRAPHY EXAM DATE: 12/10/2018 11:07 PM. CLINICAL HISTORY: Fall, ankle tenderness. COMPARISON: ANKLE 3 VIEW BILAT 01/28/2015 1:09 AM. TECHNIQUE: 3 views. FINDINGS: Bones: There is a nondisplaced oblique fracture involving the distal fibula. No other fracture seen. Plantar calcaneal spur. Joints: Normal. No effusion. No subluxations. The ankle mortise is normally aligned. Soft Tissues: Achilles tendon calcaneus insertion enthesopathy. IMPRESSION: Nondisplaced lateral malleolus fracture. RADIA
--- NOTE | 2018-12-10 23:56 | CT Report ---
Reason: fall, worsening pain Procedure Date: 12/10/2018 Accession Number: [id number] / [id number] Procedure: CT - LOWER EXTREMITY WO - RT CPT Code: FULL RESULT: EXAM: RIGHT KNEE CT WITHOUT CONTRAST EXAM DATE: 12/10/2018 11:15 PM. CLINICAL HISTORY: Fall, worsening pain. COMPARISON: LOWER EXTREMITY BILAT W/O 01/28/2015 5:52 AM. TECHNIQUE: Thin-section axial images were acquired of the knee without contrast. Post-processing: Coronal and sagittal reformats. Other: None. In accordance with CT protocol optimization, one or more of the following dose reduction techniques were utilized for this exam: automated exposure control, adjustment of mA and/or KV based on patient size, or use of iterative reconstructive technique. FINDINGS: Bones: No fracture or bone lesion. Joints: There is severe narrowing of the medial joint compartment with subchondral sclerosis and cystic changes. Moderate to severe narrowing of the patellofemoral compartment also seen with lesser lateral compartment narrowing. There is tricompartment marginal osteophytic spurring as well as chondrocalcinosis. Normal joint alignment. There is a large suprapatellar joint effusion containing a 10 mm loose body. Musculature: Mild diffuse fatty atrophy. Other: No Bakers cyst. Mild prepatellar tissue swelling. IMPRESSION: 1. No right knee fracture. 2. Advanced osteoarthritis. 3. Large joint effusion containing a 10 mm loose body. RADIA
[2018-12-11] MEDS ORDERED: HYDROmorphone 1 MG/ML CARPUJECT IM STA ×3 (00:31→13:34)
--- NOTE | 2018-12-11 00:35 | Ultrasound Report ---
Reason: fall few days ago, increasing pain and swelling Procedure Date: 12/10/2018 Accession Number: [id number] / [id number] Procedure: US - Duplex Ext Veins Right CPT Code: FULL RESULT: EXAM: RIGHT LOWER EXTREMITY VENOUS ULTRASOUND EXAM DATE: 12/10/2018 11:26 PM. CLINICAL HISTORY: Fall few days ago, increasing pain and swelling. COMPARISON: LOWER EXTREMITY RIGHT W/O 12/10/2018 10:54 PM. TECHNIQUE: Real-time sonographic vascular imaging was performed by the accounts officer through the lower extremity utilizing both color-flow and Doppler spectral analysis. Multiple telemarketing representative static images were saved for review. FINDINGS: Common Femoral Vein (CFV): Normal. CFV-GSV Junction: Normal. Profunda Femoral Vein (PFV): Normal. Femoral Vein (FV) Prox: Normal. Femoral Vein (FV) Mid: Normal. Femoral Vein (FV) Dist: Normal. Popliteal Vein: Normal. Posterior Tibial Veins: The visualized portion appears normal. Peroneal Veins: Not well seen. Contralateral Side CFV: Normal. Other: Suprapatellar joint effusion noted. IMPRESSION: Nonvisualization of peroneal calf vein, otherwise no evidence of deep venous thrombosis. RADIA
[2018-12-11] MEDS ORDERED: oxyCODONE 5 MG TABLET PO STA (01:18)
[2018-12-11] MEDS ORDERED: INSULIN NPH HUMAN 100 UNIT/1 ML 10 ML MDV SUBQ STA (01:29)
[2018-12-11 02:53] LABS: BILIRUBIN,URINE NEGATIVE (NEGATIVE); CLARITY,URINE CLEAR (CLEAR); GLUCOSE, URINE (UA) 500 mg/dL (NEGATIVE); KETONES,URINE (UA) NEGATIVE (NEGATIVE); LEUKOCYTE ESTERASE, URINE NEGATIVE (NEGATIVE); NITRITE,URINE NEGATIVE (NEGATIVE); OCCULT BLOOD,URINE TRACE-LYSE (NEGATIVE); PROTEIN,URINE 30 mg/dL (NEGATIVE); UROBILINOGEN,URINE 0.2 (NORMAL) E.U./dL (NORMAL)
[2018-12-11 02:59] LABS: BACTERIA,URINE Rare /HPF (None Seen); MUCUS,URINE Few Strands; RBC,URINE 0-5 /HPF (0-5); SQUAMOUS EPITHELIAL CELL,UR FEW Squamous (<= Few)
--- NOTE | 2018-12-11 10:45 | CT Report ---
Reason: fall, RLE pain Procedure Date: 12/11/2018 Accession Number: [id number] / [id number] Procedure: CT - LOWER EXTREMITY WO - RT CPT Code: FULL RESULT: EXAM: RIGHT HIP CT WITHOUT CONTRAST EXAM DATE: 12/11/2018 09:30 AM. CLINICAL HISTORY: Fall, RLE pain. Right hip pain. COMPARISON: LOWER EXTREMITY RIGHT W/O 12/10/2018 10:54 PM. TECHNIQUE: Thin-section axial images were acquired of the hip without contrast. Post-processing: Coronal and sagittal reformats. Other: None. In accordance with CT protocol optimization, one or more of the following dose reduction techniques were utilized for this exam: automated exposure control, adjustment of mA and/or KV based on patient size, or use of iterative reconstructive technique. FINDINGS: Bones: Moderate spurring superior anterior right acetabulum. Spur versus nondisplaced fracture of indeterminate age 1.3 cm posterior right acetabulum (image 195 series 7). Negative for right femoral neck fracture. 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 Right hip is negative for increased fluid. Musculature: No fatty atrophy. Other: The visualized intraperitoneal structures are unremarkable. IMPRESSION: 1. Negative for right femoral neck fracture. 2. Moderate right hip osteoarthritis. 3. Remote fracture versus osteophyte posterior right acetabulum. 4. Ankylosis right sacroiliac joint. 5. 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 6. Negative for increased right hip joint fluid. RADIA
[2018-12-11] MEDS ORDERED: HYDROmorphone 1 MG/ML CARPUJECT IVP STA (12:37)
--- NOTE | 2018-12-11 15:03 | ED Physician Documentation ---
ED Addendum - Addendum Addendum: 12/11/18 15:03 Discussed the case with Dr. Vu Hsieh from [facility], he requests physical therapy notes faxed to [phone]. 12/11/18 22:56 [facility] reportedly declined SNF coverage. Patient changed to oral Dilaudid rather than IM injections for pain control. Also changed into a walking boot to see if he can transfer with this. We will have him reassessed in the morning to see what his functional status is compared to his baseline.
[2018-12-11] MEDS ORDERED: HYDROmorphone 2 MG TABLET PO STA ×2 (15:58→19:29)
[2018-12-11] MEDS ORDERED: INSULIN NPH HUMAN 100 UNIT/1 ML 10 ML MDV SUBQ SCH (22:00)
[2018-12-12] MEDS ORDERED: HYDROmorphone 2 MG TABLET PO STA (02:44)
[2018-12-12] MEDS: HYDROcod/ACETAM 5/325 MG TABLET PO PRN ×2 (09:28→16:14)
[2018-12-12] MEDS ORDERED: NYSTATIN CREAM 15 GM TUBE TOP STA (10:05)
[2018-12-12] MEDS: DOCUSATE SODIUM 250 MG CAPSULE PO SCH (10:49)
[2018-12-12] MEDS ORDERED: ONDANSETRON ODT 4 MG TABLET TL STA (14:09)
--- NOTE | 2018-12-12 17:47 | ED Physician Documentation ---
ED Addendum - Addendum Addendum: 12/12/18 17:45 Patient received an handoff from Dr. Medina. Patient is currently residing in the ED and awaiting placement. Patient has known lateral malleoli fracture. Throughout the day, assisted nursing with medications for pain and nausea, as well as patient's insulin regimen. Patient is now on a more restrictive diet and do not feel he requires such high dose insulin as he usually does at home based on his blood sugar measurements here. PT was also again consulted as it w as found that the PT recommendations were inconsistent with the patient's needs and abilities. Social work was also involved again today as PT requirements had changed and this may also affect placement. continues to provide home medications which were confirmed in the computer.
[2018-12-12] MEDS: INSULIN NPH HUMAN 100 UNIT/1 ML 10 ML MDV SUBQ SCH (18:34)
[2018-12-12] MEDS ORDERED: INSULIN REGULAR HUMAN 100 UNIT/1 ML 10 ML MDV ONE (18:37)
[2018-12-13] MEDS: HYDROcod/ACETAM 5/325 MG TABLET PO PRN ×3 (00:24→15:24)
[2018-12-13] MEDS: DOCUSATE SODIUM 250 MG CAPSULE PO SCH (09:00)
[2018-12-13] MEDS: INSULIN NPH HUMAN 100 UNIT/1 ML 10 ML MDV SUBQ SCH ×2 (09:00→18:55)
[2018-12-13] MEDS ORDERED: ONDANSETRON ODT 4 MG TABLET TL PRN (15:15)
--- NOTE | 2018-12-13 15:17 | ED Physician Documentation ---
ED Addendum - Addendum Addendum: 12/13/18 15:16 Patient continues on home meds and insulin regimen. Patient has PRN orders for pain. Added PRN orders for nausea control as well today. Patient also has bowel regimen orders. Social work still working on placement.
[2018-12-14] MEDS: DOCUSATE SODIUM 250 MG CAPSULE PO SCH (09:00)
[2018-12-14] MEDS: INSULIN NPH HUMAN 100 UNIT/1 ML 10 ML MDV SUBQ SCH ×2 (09:00→22:10)
--- NOTE | 2018-12-14 13:29 | ED Physician Documentation ---
ED Addendum - Addendum Addendum: 12/14/18 13:27 No significant changes. Patient continues on medications without issue. Social work continues to try for placement of patient. Social work reports that patient does have placement option but is requiring a bariatric bed. This would require prescription by physician and his primary care physician was contacted multiple times regarding this. Patient's primary care physician refuses to prescribe a bariatric bed. It is unclear why the physician is declining to do s o as he has been familiar with the patient during his stay in the ER over the last several days and has been contacted by the ED staff multiple times, as well as social work. Do feel the patient will require admission and a bariatric bed. Will plan to prescribe bariatric bed from the ED with diagnoses being morbid obesity and ankle fracture.
[2018-12-14] MEDS: HYDROcod/ACETAM 5/325 MG TABLET PO PRN (16:39)
[2018-12-14] MEDS: PSYLLIUM PACKET PO PRN (17:00)
[2018-12-15] MEDS: INSULIN NPH HUMAN 100 UNIT/1 ML 10 ML MDV SUBQ SCH ×2 (11:00→21:26)
[2018-12-15] MEDS: DOCUSATE SODIUM 250 MG CAPSULE PO SCH (11:41)
[2018-12-15] MEDS: PSYLLIUM PACKET PO PRN (13:30)
--- NOTE | 2018-12-15 16:42 | ED Physician Documentation ---
ED Addendum - Addendum Addendum: 12/15/18 16:39 No significant changes during shift. Still awaiting placement approval. Bariatric bed in place. Patient's has noted that if patient is not placed tomorrow, she plans to take him home. She now feels that she and her adult son could care for him appropriately. Patient's adult son is not available to help assist with care until tomorrow given his own work and job requirements. Given patient's continued stay and general limited mobility, AMADO vidal and Ludwin were o rdered. Patient is also continuing his home medications which include baby aspirin. At this time, do not feel patient requires higher dose of anticoagulation. Of note, patient's primary care physician contacted the ED staff yesterday stating that he did not refuse or decline to provide assistance or bariatric bed orders. It appears there was a miscommunication. He reports that he is available for assistance if needed.
[2018-12-15] MEDS ORDERED: PSYLLIUM PACKET PO SCH (21:00)
[2018-12-16] MEDS: HYDROcod/ACETAM 5/325 MG TABLET PO PRN (04:35)
[2018-12-16] MEDS: INSULIN NPH HUMAN 100 UNIT/1 ML 10 ML MDV SUBQ SCH (08:15)
[2018-12-16] MEDS: DOCUSATE SODIUM 250 MG CAPSULE PO SCH (08:15)
--- NOTE | 2018-12-16 15:59 | ED Physician Documentation ---
ED Addendum - Addendum Addendum: 12/16/18 15:58 At this time, social work advised that prefers to take patient home as she now has adult son available to assist her. Bariatric bed from a facility will be transported to patient's home. Patient requesting pain medication prescription for home.
[2018-12-16 17:04] VITALS: BP 160/95
== END 2018-12-16 16:25 | disposition home or self-care (01) ==
LOC: EDUNIT# → ED 18:41
DX: S82.64XA Nondisplaced fracture of lateral malleolus of right fibula, initial encounter for closed fracture (principal); M25.461 Effusion, right knee; I10 Essential (primary) hypertension; E11.9 Type 2 diabetes mellitus without complications; Z79.4 Long term (current) use of insulin; Z75.1 Person awaiting admission to adequate facility elsewhere
CPT/HCPCS: 36415; 73610; 73700; 80048; 81001; 85025; 93971; 96372; 99283; 99285; A9270; J1170; J1815; Q0162; 81003; 87086

== ENCOUNTER 2019-03-31 06:12 | Day surgery (SDC) | payer MEDICARE, MEDICAID ==
[2019-03-31] MEDS ORDERED: MIDAZOLAM 2 MG/2 ML VIAL IVP ONE (06:13)
[2019-03-31] MEDS ORDERED: TRIAMCIN/MOXIFLOX OPHTHALMIC 0.6 ML VIAL IO ONE ×3 (06:44→07:34)
[2019-03-31] MEDS ORDERED: TIMOLOL 0.5% OPHTH DROPS ONE (06:45)
[2019-03-31] MEDS ORDERED: LACTATED RINGERS 500 ML IV ONE (06:45)
[2019-03-31] MEDS ORDERED: BRIMONIDINE 0.2% OPHTH DROPS 5 ML ONE (06:45)
[2019-03-31] MEDS ORDERED: BSS/LIDOCAINE/EPINEPHRINE 1 ML SYRINGE ONE ×2 (06:45→08:45)
[2019-03-31] MEDS ORDERED: EPINEPHrine 1 MG/ML AMP ONE (06:45)
[2019-03-31] MEDS ORDERED: VANCOMYCIN OPHTHALMI 8MG/0.8ML 8 MG/0.8 ML SYRINGE IO ONE ×2 (06:45→07:50)
[2019-03-31] MEDS ORDERED: KETOROLAC 0.45% OPHTH DROPS ONE (06:46)
[2019-03-31] MEDS ORDERED: CYCLOPENTOLATE 1% OPHTH DROPS 2 ML ONE (06:46)
[2019-03-31] MEDS ORDERED: PHENYLEPHRINE 2.5% OPHTH 2 ML DROPS ONE (06:46)
[2019-03-31] MEDS ORDERED: PROPARACAINE 0.5% OPHTH DROPS 15 ML ONE (06:46)
[2019-03-31] MEDS ORDERED: CYCLOPENTOLATE 1% OPHTH DROPS 2 ML RIGHTEYE ONE (06:54)
[2019-03-31] MEDS ORDERED: PROPARACAINE 0.5% OPHTH DROPS 15 ML RIGHTEYE ONE ×2 (06:54→07:33)
[2019-03-31] MEDS ORDERED: KETOROLAC 0.45% OPHTH DROPS RIGHTEYE ONE (06:54)
[2019-03-31] MEDS ORDERED: PHENYLEPHRINE 2.5% OPHTH 2 ML DROPS RIGHTEYE ONE (06:54)
--- NOTE | 2019-03-31 07:03 | ANESTHESIA ---
Pre-Anesthesia VS, & Labs - Diagnosis Right senile combined cataract - Procedure Right phaco with IOL Vital Signs: Temp Pulse Resp BP Pulse Ox 36.3 C L 94 24 171/64 H 99 03/31/19 06:57 03/31/19 06:57 03/31/19 06:57 03/31/19 06:57 03/31/19 06:57 Height 5 ft 10 in Weight (kg) 186.88 kg Body Mass Index 60.2 - NPO >8 hours (Tea at 0530) - Lab Results Lab results reviewed: Yes Home Medications and Allergies Home Medications: Ambulatory Orders Psyllium [Metamucil] 1 each PO DAILY 03/23/19 Aspirin [Aspir 81] 81 mg PO DAILY 01/28/15 Citalopram Hydrobromide [Citalopram HBr] 40 mg PO DAILY 01/28/15 Finasteride 5 mg PO DAILY 01/28/15 Metformin HCl [Metformin HCl ER] 1,000 mg PO BID 01/28/15 Simvastatin 40 mg PO DAILY 01/27/16 Terazosin [Hytrin] 10 mg PO DAILY 01/27/16 Oxybutynin Chloride [Ditropan Xl] 15 mg PO BID 03/09/18 Ascorbic Acid [Vitamin C] 500 mg PO DAILY 12/11/18 Insulin NPH Human Isophane [Humulin N] 55 unit SUBQ BID 12/11/18 Loperamide [Imodium] 2 mg PO BID 12/11/18 Psyllium [Metamucil] 1 each PO DAILY 03/23/19 Allergies/Adverse Reactions: Allergies Allergy/AdvReac Type Severity Reaction Status Date / Time No Known Drug Allergies Allergy Verified 12/10/18 18:51 Anes History & Medical History - Anesthetic History Anesthesia Complications: reports: No previous complications Family history of Anesthesia Complications: Denies Family history of Malignant Hyperthermia: Denies - Medical History Cardiovascular: reports: High cholesterol, Murmur Pulmonary: reports: Sleep apnea, Other Gastrointestinal: reports: None, Colon polyps Urinary: reports: Benign prostate hypertrophy, Kidney stones Neuro: reports: None Musculoskeletal: reports: Osteoarthritis, Fatigue Endocrine/Autoimmune: reports: Type 2 diabetes Blood Disorders: reports: None Skin: reports: None Smoking Status: Never smoker Psychosocial: reports: No issues indicated - Surgical History General: Colonoscopy, Other Orthopedic: Spine surgery, Other Exam General: Alert, Oriented x3, Cooperative Dental: WNL Mouth Opening: Greater than 4 Fingerbreadths Neck Mobility: Normal Mallampati classification: III Thyromental Distance: 4-6 cm Respiratory: Lungs clear Cardiovascular: Other (Irregular, III/IV YOGI) Mental/Cognitive Status: Alert/Oriented X3 Cognitive Status: Within normal limits Plan Anesthesia Type: MAC Consent for Procedure(s) Verified and Reviewed: Yes Code Status: Attempt Resuscitation ASA classification: 3-Severe systemic disease Is this case an emergency?: No
[2019-03-31] MEDS ORDERED: EPINEPHrine 1 MG/ML AMP IVP ONE (07:32)
[2019-03-31] MEDS ORDERED: CHONDR SULF/HYALURONATE SYRINGE IO ONE (07:32)
[2019-03-31] MEDS ORDERED: BRIMONIDINE 0.2% OPHTH DROPS 5 ML OPTH ONE (07:32)
[2019-03-31] MEDS ORDERED: TIMOLOL 0.5% OPHTH DROPS OPTH ONE (07:32)
[2019-03-31] MEDS ORDERED: BSS/LIDOCAINE/EPINEPHRINE 1 ML SYRINGE IO ONE (07:33)
[2019-03-31 08:16] VITALS: BP 134/54
--- NOTE | 2019-03-31 08:25 | OPERATIVE REPORT ---
DATE OF SERVICE: 03/31/2019 Physician: Jon Darnell MD PREOPERATIVE DIAGNOSIS: Visually significant cataract, right eye. This was his first cataract surge ry. POSTOPERATIVE DIAGNOSIS: Visually significant cataract, right eye. This was his first cataract surg ivana. DESCRIPTION OF PROCEDURE: Phacoemulsification with posterior chamber intraocular lens implant, right eye. SURGEON: Jon Darnell MD ANESTHESIA: Monitored anesthesia care. COMPLICATIONS: None. OPERATIVE INDICATIONS: This is a 74-year-old man with progressive vision loss in the right eye due t o 3-4+ nuclear sclerotic, 1+ cortical and 2+ posterior subcapsular cataract. Best corrected visual a cuity was 20/70 with glare to hand motion vision in the right eye. Indications for surgery are overa ll decrease in vision, difficulty seeing words on a computer screen, difficulty reading; difficulty s eeing words, closed caption or game scores on TV and difficulty seeing street signs. He was consente d at length concerning risks and benefits of cataract surgery, after which he expressed a desire to p roceed with surgery. OPERATIVE PROCEDURE: Patient was taken into OR #3 and placed under monitored anesthesia care. A ai gical timeout was conducted confirming correct patient, correct procedure, and correct surgical site. He was given topical anesthesia, and then prepped and draped in the usual sterile fashion. The eye was entered at the 12 and 9 o'clock positions. Intracameral Shugarcaine was injected into the anter ior chamber, followed by Viscoat. A continuous-tear curvilinear capsulorrhexis was performed. The n ucleus was hydrodissected and phacoemulsified. The cortex was evacuated using automated infusion and aspiration. Provisc was injected in the capsular bag, and an 18.5 diopter intraocular lens was inse rted in the bag. Approximately 0.8 mL of a mixture of triamcinolone, moxifloxacin and vancomycin was injected subconjunctivally in the superior quadrant for infection and inflammation prophylaxis. I a nd A was used to evacuate the viscoelastic materials. The eye was inflated to physiologic pressure u sing a balanced salt solution and found to be watertight. Patient was taken from the operating room in good condition and given postoperative instructions. TD: 03/31/2019 08:05
== END 2019-03-31 06:13 | disposition home or self-care (01) ==
LOC: SDS 06:12
PROVIDERS: ATTEND Ophthalmology
PROC: 08RJ3JZ Replacement of Right Lens with Synthetic Substitute, Percutaneous Approach (ICD-10-PCS; principal; 2019-03-31 07:30)
DX: E11.36 Type 2 diabetes mellitus with diabetic cataract (principal); G47.30 Sleep apnea, unspecified; I10 Essential (primary) hypertension; D64.9 Anemia, unspecified; E66.01 Morbid (severe) obesity due to excess calories; Z68.44 Body mass index [BMI] 60.0-69.9, adult; E78.5 Hyperlipidemia, unspecified; N32.81 Overactive bladder; N40.0 Benign prostatic hyperplasia without lower urinary tract symptoms; M19.90 Unspecified osteoarthritis, unspecified site; R53.83 Other fatigue; K46.9 Unspecified abdominal hernia without obstruction or gangrene; Z79.82 Long term (current) use of aspirin; Z79.84 Long term (current) use of oral hypoglycemic drugs; Z87.891 Personal history of nicotine dependence
CPT/HCPCS: 66984; A9270; J3490; V2632

== ENCOUNTER 2019-05-05 06:18 | Day surgery (SDC) | payer MEDICARE, MEDICAID ==
[2019-05-05] MEDS ORDERED: fentaNYL 100 MCG/2 ML VIAL IVP ONE (06:19)
[2019-05-05] MEDS ORDERED: MIDAZOLAM 2 MG/2 ML VIAL IVP ONE (06:19)
[2019-05-05] MEDS ORDERED: PHENYLEPHRINE 2.5% OPHTH 2 ML DROPS ONE (06:33)
[2019-05-05] MEDS ORDERED: KETOROLAC 0.45% OPHTH DROPS ONE (06:33)
[2019-05-05] MEDS ORDERED: PROPARACAINE 0.5% OPHTH DROPS 15 ML ONE (06:34)
[2019-05-05] MEDS ORDERED: CYCLOPENTOLATE 1% OPHTH DROPS 2 ML ONE (06:34)
[2019-05-05] MEDS ORDERED: PHENYLEPHRINE 2.5% OPHTH 2 ML DROPS LEFTEYE ONE (06:45)
[2019-05-05] MEDS ORDERED: CYCLOPENTOLATE 1% OPHTH DROPS 2 ML LEFTEYE ONE (06:45)
[2019-05-05] MEDS ORDERED: PROPARACAINE 0.5% OPHTH DROPS 15 ML LEFTEYE ONE ×2 (06:45→07:21)
[2019-05-05] MEDS ORDERED: KETOROLAC 0.45% OPHTH DROPS LEFTEYE ONE (06:45)
[2019-05-05] MEDS ORDERED: LACTATED RINGERS 500 ML IV ONE (06:50)
[2019-05-05] MEDS ORDERED: TRIAMCIN/MOXIFLOX OPHTHALMIC 0.6 ML VIAL IO ONE (07:04)
[2019-05-05] MEDS ORDERED: VANCOMYCIN OPHTHALMI 8MG/0.8ML 8 MG/0.8 ML SYRINGE IO ONE (07:05)
[2019-05-05] MEDS ORDERED: BRIMONIDINE 0.2% OPHTH DROPS 5 ML ONE (07:05)
[2019-05-05] MEDS ORDERED: TIMOLOL 0.5% OPHTH DROPS ONE (07:05)
[2019-05-05] MEDS ORDERED: BSS/LIDOCAINE/EPINEPHRINE 1 ML SYRINGE ONE (07:05)
--- NOTE | 2019-05-05 07:06 | ANESTHESIA ---
Pre-Anesthesia VS, & Labs - Diagnosis L senile combined cataract - Procedure L extraction cataract with IOL Vital Signs: Temp Pulse Resp BP Pulse Ox 36. C L 97 24 155/95 H 98 05/05/19 06:42 05/05/19 06:42 05/05/19 06:42 05/05/19 06:42 05/05/19 06:42 Height 5 ft 10 in Weight (kg) 187.1 kg Body Mass Index 60.2 - NPO Last Fluid Intake: 0545 H20 w meds - Lab Results Current Lab Results: Laboratory Tests 05/05/19 06:49: POC Whole Bld Glucose 148 H Home Medications and Allergies Aspirin [Aspir 81] 81 mg PO DAILY 01/28/15 Citalopram Hydrobromide [Citalopram HBr] 40 mg PO DAILY 01/28/15 Finasteride 5 mg PO DAILY 01/28/15 Metformin HCl [Metformin HCl ER] 1,000 mg PO BID 01/28/15 Simvastatin 40 mg PO DAILY 01/27/16 Terazosin [Hytrin] 10 mg PO DAILY 01/27/16 Oxybutynin Chloride [Ditropan Xl] 15 mg PO BID 03/09/18 Ascorbic Acid [Vitamin C] 500 mg PO DAILY 12/11/18 Insulin NPH Human Isophane [Humulin N] 55 unit SUBQ BID 12/11/18 Loperamide [Imodium] 2 mg PO BID 12/11/18 Psyllium [Metamucil] 1 each PO DAILY 03/23/19 Allergies/Adverse Reactions: Allergies Allergy/AdvReac Type Severity Reaction Status Date / Time No Known Drug Allergies Allergy Verified 12/10/18 18:51 Anes History & Medical History - Anesthetic History Anesthesia Complications: reports: No previous complications Family history of Anesthesia Complications: Denies Family history of Malignant Hyperthermia: Denies - Medical History Cardiovascular: reports: High cholesterol, Murmur Pulmonary: reports: Sleep apnea, Other Gastrointestinal: reports: None, Colon polyps Urinary: reports: Benign prostate hypertrophy, Kidney stones Neuro: reports: None Musculoskeletal: reports: Osteoarthritis, Fatigue Endocrine/Autoimmune: reports: Type 2 diabetes Blood Disorders: reports: None Skin: reports: None Smoking Status: Never smoker - Surgical History General: Colonoscopy, Other Orthopedic: Spine surgery, Other Exam General: Alert, Oriented x3, Cooperative Dental: Poor dentition (nothing loose) Mouth Openin Fingerbreadth Neck Mobility: Normal Mallampati classification: II Thyromental Distance: 4-6 cm Respiratory: Lungs clear, Decreased breath sounds Cardiovascular: Regular rate Neurological: Normal speech Mental/Cognitive Status: Alert/Oriented X3, Normal for patient Cognitive Status: Within normal limits Plan Anesthesia Type: MAC Consent for Procedure(s) Verified and Reviewed: Yes Code Status: Attempt Resuscitation ASA classification: 3-Severe systemic disease Is this case an emergency?: No
[2019-05-05] MEDS ORDERED: TIMOLOL 0.5% OPHTH DROPS OPTH ONE (07:29)
[2019-05-05] MEDS ORDERED: CHONDR SULF/HYALURONATE SYRINGE IO ONE (07:29)
[2019-05-05] MEDS ORDERED: EPINEPHrine 1 MG/ML AMP IVP ONE (07:29)
[2019-05-05] MEDS ORDERED: BRIMONIDINE 0.2% OPHTH DROPS 5 ML OPTH ONE (07:29)
[2019-05-05] MEDS ORDERED: BSS/LIDOCAINE/EPINEPHRINE 1 ML SYRINGE IO ONE (07:30)
[2019-05-05 08:19] VITALS: BP 133/56
--- NOTE | 2019-05-05 11:02 | OPERATIVE REPORT ---
DATE OF SERVICE: 05/05/2019 Physician: Jon Darnell MD PREOPERATIVE DIAGNOSIS: Visually significant cataract, left eye. Cataract surgery was performed on the right eye on March 31, 2019. POSTOPERATIVE DIAGNOSIS: Visually significant cataract, left eye. Cataract surgery was performed on the right eye on March 31, 2019. PROCEDURE: Phacoemulsification with posterior chamber intraocular lens implant, left eye. SURGEON: Jon Darnell MD ANESTHESIA: Monitored anesthesia care. COMPLICATIONS: None. OPERATIVE INDICATIONS: This is a 74-year-old man with progressive vision loss in the left eye due to 3-4+ nuclear sclerotic cataract. Best corrected visual acuity was 20/50 with glare to hand motion in the left eye. INDICATIONS FOR SURGERY: Overall decrease in vision, difficulty seeing words on a computer screen, and difficulty reading. He was consented at length concerning risks and benefits of cataract surgery, after which he expressed a desire to proceed with surgery. OPERATIVE PROCEDURE: The patient was taken to OR #3 and placed under monitored anesthesia care. Surgical timeout was conducted confirming correct patient, correct procedure, and correct surgical site. He was given topical anesthesia and prepped and draped in the usual sterile fashion. The eye was entered at the 6 and 3 o'clock positions. Intracameral Shugarcaine was injected into the anterior chamber followed by Viscoat. A continuous-tear curvilinear capsulorrhexis was performed. The nucleus was hydrodissected and phacoemulsified. The cortex was evacuated using automated infusion and aspiration. Provisc was injected in the capsular bag, and an 18.5 diopter intraocular lens inserted in the bag. Approximately 0.25 mL of a mixture of triamcinolone and moxifloxacin was injected transclerally into the vitreous. An additional 0.55 mL of a mixture of triamcinolone, moxifloxacin, and vancomycin was injected subconjunctivally in the superior quadrant for infection and inflammation prophylaxis. I and A was used to evacuate the viscoelastic materials. The eye was inflated to physiologic pressure using balanced salt solution and found to be watertight. The patient was taken from the operating room in good condition and given postoperative instructions. TD: 05/05/2019 08:04 DORON
== END 2019-05-05 06:19 | disposition home or self-care (01) ==
LOC: SDS 06:18
PROVIDERS: ATTEND Ophthalmology
PROC: 08RK3JZ Replacement of Left Lens with Synthetic Substitute, Percutaneous Approach (ICD-10-PCS; principal; 2019-05-05 07:30)
DX: H25.812 Combined forms of age-related cataract, left eye (principal); E11.36 Type 2 diabetes mellitus with diabetic cataract; I10 Essential (primary) hypertension; E66.01 Morbid (severe) obesity due to excess calories; G47.30 Sleep apnea, unspecified; N40.0 Benign prostatic hyperplasia without lower urinary tract symptoms; Z79.899 Other long term (current) drug therapy; Z79.82 Long term (current) use of aspirin; Z79.4 Long term (current) use of insulin; Z98.41 Cataract extraction status, right eye; Z68.44 Body mass index [BMI] 60.0-69.9, adult
CPT/HCPCS: 66984; A9270; J3490; V2632

== ENCOUNTER 2019-08-09 10:36 | Outpatient (CLI) | payer MEDICARE, MEDICAID ==
--- NOTE | 2019-08-09 12:16 | SLEEP CARE CONSULTATION ---
Information from patient questionnaire entered by Michelle Adams. I have reviewed and concur with the information entered by Michelle Adams. This document represents the service I personally performed and the decisions made by me, Rose Marie Mazariegos MD, [facility]. History of Present Illness Reason for Visit: New patient Chief Complaint: reports: Other (for new bipap) Ever fallen asleep while driving: No Takes day naps: Yes Prior sleep studies: Yes Year and Where: about 20 years ago Additional HPI information: I had the pleasure of seeing Mr. Montiel today regarding obstructive sleep apnea- hypopnea. As you know, he is a 74 year old gentleman who was diagnosed with the sleep-disordered breathing at [facility] in [place] about 20 years ago. No record is available. He was prescribed a BiPAP device set at 16/13 cmH2O. He uses the Respironics autoBiPAP every night and all night. The compliance data s how usage in 180 out of the past 180 nights, averaging 11.7 hours a night. The residual AHI is 6.2 and average time in large leak per day is 7.4 minutes. He wears a Respironics Comfort Gel nasal mask. He gets his supplies from [employer]. He finds the treatment very beneficial. He cannot sleep without the BiPAP. [place] Sleepiness Scale score is 12. CPAP Compliance Data - Data Reviewed with Patient Average duration of nightly device use: 11h 45m Compliance rate %: 100 Current pressure setting (cmH2O): 13/16 Humidity settin Average residual AHI: 6.2 Average large leak: 7m 23s Subjective Initial [place] Sleepiness Scale score: 12 Past Medical History Past Medical History: reports: Diabetes, Arthritis, Anemia, Depression Social History The patient's occupation is retired. Patient is and lives in [place]. Have you smoked in the past 12 months: No Cigarettes per day (20/pack): 20 Years of smokin Quit date: 1968 Smoking Pack Years: 25.0 Alcohol use: Yes Alcohol amount and frequency: 2-3 times/year Allergies and Home Medications Drug allergies reviewed: Yes (NKDA) Home medication list reviewed: Yes (metformin, terazosin, simvastatin, oxybutynin, loperamide, insulin, finaste) Review of Systems Cardiovascular: reports: irregular heart rate or pulse Respiratory: reports: shortness of breath Gastrointestinal: reports: diarrhea Urinary: reports: incontinence, impotence Neurological: reports: gait or balance problems Psychiatric: denies: Attention Deficit Hyperactivity, anxiety, depression, mood disorder, claustrophobia, other Ear/Nose/Throat: reports: nasal congestion, nose bleeds, dry mouth/throat Endocrine: reports: sluggishness Musculoskeletal: reports: joint pain, neck pain, mobility problems Immunologic: reports: sneezing Physical Exam Vital signs obtained and entered by: Dr. Mazariegos Heart Rate: 76 O2 Saturation: 95 Height: 5 ft 10 in Weight: 400 lb (estimate) Body Mass Index: 57.4 BMI Classification: Obesity Class 3 Neck circumference: 21 Mood/affect: normal HEENT: No craniofacial malformation Nostrils: patent to airflow Turbinates: normal Septum: midline Mouth and throat: narrow oropharynx Soft palate: long Hard palate: normal Uvula: normal Uvula visualization: 25% Mallampati Class III Tongue: normal in size Tonsils: small Chin and jaw: normal size and position Neck: normal w/o lymphadenopathy or thyromegaly Heart: regular rate and rhythm, murmur Lungs: clear bilaterally Abdomen: soft, non-tender Extremities: 1+ edema Neurologic: intact, no focal deficits Impression and Plan IMPRESSION: 1. Obstructive Sleep Apnea-Hypopnea Syndrome. The severity is unknown as we do not have any of the records. The patient has had good treatment compliance. The current pressure setting appears slightly ineffective and comfortable. The patient experiences improvement on the treatment. Narrow oropharynx and obesity are common predisposing factors for obstructive sleep apnea-hypopnea syndrome. Pathophysiology of sleep-disordered breathing was discussed. Because the CPAP is now older than the useful life of 5 years, I will order the patient a new BiPAP set at 16/13 cmH2O. Plan: 1. Prescription made for a BiPAP, heated humidifier, and related supplies. The patient would like to use [employer]. 2. Try newer nasal mask, e.g. Respironics DreamWear nasal cushion mask 3. Avoid alcohol, sedative and muscle relaxant around bedtime. 4. Attempt to lose weight. 5. Return for follow up after one month on the new machine. I spent 100% of this visit face to face with the patient with greater than 50% of this was spent time counseling the patient and coordination of care.
== END 2019-08-09 10:37 | disposition home or self-care (01) ==
LOC: SC 10:36
PROVIDERS: ATTEND Internal Medicine Pulmonary Disease
DX: G47.33 Obstructive sleep apnea (adult) (pediatric) (principal); E66.9 Obesity, unspecified; Z68.43 Body mass index [BMI] 50.0-59.9, adult
CPT/HCPCS: 99203; G0463; 99212

== ENCOUNTER 2019-11-10 16:32 | Outpatient (CLI) | payer MEDICARE, MEDICAID ==
--- NOTE | 2019-11-10 18:01 | SLEEP CARE CONSULTATION ---
Information from patient questionnaire entered by Edna Orlando. I have reviewed and concur with the information entered by Edna Orlando. This document represents the service I personally performed and the decisions made by me, Leslie Bedolla, RN, MSN, MEDICAID SPECIALIST. History of Present Illness Service Date and Time: 11/10/20191599 Previous diagnosis: Extremely Severe, Obstructive Sleep Apnea-Hypopnea Syndrome AHI: 107.4 (in 1999) Reason for follow up: first compliance after device update Equipment type: BiPAP Equipment obtained from: [facility] (getting supplies but unable to be fitted with mask and those sent did not fit so using his old mask.) Mask style: Nasal Backup mask available: Yes Last cushion change: 6 weeks CPAP Compliance Data - Data Reviewed with Patient Average duration of nightly device use: 12.75 Compliance rate %: 100 Current pressure setting (cmH2O): 16/13 Humidity settin Heated hose settin Average residual AHI: 9.3 Central apnea: 0.7 Obstructive apnea: 8.1 Hypopnea: 0.4 Average large leak: 0 Subjective Patient concerns: reports: mask leak noise (rare and resolves with adjusting ), nasal congestion (occasionally but not bothering his ). denies: aerophagia, mask discomfort, air blowing in eyes, condensation in mask/hose, dry mouth, nose, throat, epistaxis, other Observed to snore while using device: No Current pressure setting perceived as: comfortable On therapy, patient: reports: sleeping better, more rested overall. denies: drowsiness while driving (does not drive) Initial [place] Sleepiness Scale score: 12 (in 2019) Physical Exam Height: 5 ft 10 in Weight: 415 lb Body Mass Index: 59.5 BMI Classification: Morbidly Obese Impression and Plan 1. Obstructive Sleep Apnea-Hypopnea Syndrome, extremely severe , with good treatment compliance and slightly elevated residual apnea control. On BiPAP therapy, the patient has better sleep quality and is more rested overall. However, he requires about 12-13 hours of sleep a day including naps. His spouse stated this is his usual pattern. However, I informed her how most people require 7-9 hours of sleep and extra sleep of this amount could be an indication of a medical problem. Thus she is advised to follow up with primary care for further evaluation. She states he has chronic anemia which could add to sleep requirement. The patients BiPAP pressure will be increased to 18/14 cmH20 For elevation of residual AHI. Patient advised to contact me if pressure change is uncomfortable so that it can be adjusted. Goals for apnea control discussed. Patient is to contact [facility] - to send appropriate cushions for current old style of mask until he can try a new style in 5 months. Spouse had to buy his old style online as masks since by [facility] did not fit. I will also add mask concerns on prescription. Patient's apnea severity and rationale for treatment to reduce apnea, improve sleep quality and reduce cardiovascular and cerebrovascular e vents was reviewed. . * * ChangeBiPAP pressure to 18/14 cmH2O * Notify me if snoring with mask or feeling that the pressure is too much or too little * Attempt to lose weight * Call this office if any problems using CPAP * Follow up with PCP for further evaluation of increased sleep requirement of 12-13 hours. * Return for follow up in 2 months , or sooner if concerns arise Visit Type: Telehealth Phone (to reduce risk of Covid 19 exposure) Patient Location: Home Other Participants: Spouse/Significant Other (patient hard of hearing and spouse assisted with communication on speaker phone) Location of Provider: Home Patient agrees and consents to this telehealth visit type: Yes Patient agrees to have their insurance billed: Yes Time Spent with Patient (minutes): 10+ Provider Statement: I spent 100% of the Telehealth Phone Call with the patient with greater than 50% spent counseling the patient and coordination of care.
== END 2019-11-10 16:33 | disposition home or self-care (01) ==
LOC: SC 16:32
PROVIDERS: ATTEND Nurse Practitioner Family
DX: G47.33 Obstructive sleep apnea (adult) (pediatric) (principal); E66.01 Morbid (severe) obesity due to excess calories; Z68.43 Body mass index [BMI] 50.0-59.9, adult

== ENCOUNTER 2019-11-21 16:57 | Outpatient (CLI) | payer MEDICARE, MEDICAID | END 2019-11-21 16:58 | disposition critical access hospital (66) | LOC: EMS 16:57 | PROVIDERS: ATTEND Surgery | DX: R41.0 Disorientation, unspecified (principal); R47.9 Unspecified speech disturbances | CPT/HCPCS: A0425; A0429 ==

== ENCOUNTER 2019-12-01 13:21 | Outpatient (CLI) | payer MEDICARE, MEDICAID ==
--- NOTE | 2019-12-02 08:40 | Ultrasound Report ---
Reason: AMS Procedure Date: 12/01/2019 Accession Number: [id number] / [id number] Procedure: US - Carotid Doppler Complete CPT Code: Final Report FULL RESULT: PROCEDURE: Carotid Doppler Complete INDICATIONS: AMS TECHNIQUE: Color and pulse Doppler interrogation was performed of both carotid systems, with image documentation and velocity measurements. COMPARISON: None. FINDINGS: Right side: Common carotid artery peak systolic velocity: 75 cm/sec. Internal carotid artery peak systolic velocity: 76 cm/sec. Internal carotid artery end diastolic velocity: 15 cm/sec. External carotid artery peak systolic velocity: 89 cm/sec. ICA/CCA peak systolic ratio: 1. West scale imaging description: There is mild hypoechoic plaque within the carotid bulb. Percent internal carotid artery stenosis: Less than 50%. Vertebral artery: Flow direction is antegrade. Left side: Common carotid artery peak systolic velocity: 119 cm/sec. Internal carotid artery peak systolic velocity: 56 cm/sec. Internal carotid artery end diastolic velocity: 15 cm/sec. External carotid artery peak systolic velocity: 49 cm/sec. ICA/CCA peak systolic ratio: 0.6 . West scale imaging description: There is mild hypoechoic plaque in the carotid bulb. Percent internal carotid artery stenosis: Less than 50% . Vertebral artery: Flow direction is antegrade. IMPRESSION: 1. Bilateral mild narrowing of less than 50% in the carotid bulbs. The estimate of stenosis included in the report of the imaging study was calculated using the NASCET method Reviewed by: Boom Alexander MD on 12/02/2019 8:39 AM PDT Approved by: Boom Alexander MD on 12/02/2019 8:39 AM PDT Station ID: [id number]
== END 2019-12-01 13:22 | disposition home or self-care (01) ==
LOC: DI 13:21
PROVIDERS: ATTEND Internal Medicine
DX: R41.82 Altered mental status, unspecified (principal)
CPT/HCPCS: 93880

== ENCOUNTER 2019-12-06 10:32 | Outpatient (CLI) | payer MEDICARE, MEDICAID | END 2019-12-06 10:33 | disposition home or self-care (01) | LOC: DI 10:32 | PROVIDERS: ATTEND Internal Medicine | DX: R41.82 Altered mental status, unspecified (principal); I51.7 Cardiomegaly | CPT/HCPCS: 93306 ==

== ENCOUNTER 2019-12-19 09:38 | Outpatient (CLI) | payer MEDICARE, MEDICAID | END 2019-12-19 09:39 | disposition critical access hospital (66) | LOC: EMS 09:38 | PROVIDERS: ATTEND Surgery | DX: R41.82 Altered mental status, unspecified (principal) | CPT/HCPCS: A0425; A0429 ==

== ENCOUNTER 2019-12-19 09:52 | Observation (INO) | payer MEDICARE, MEDICAID ==
--- NOTE | 2019-12-19 10:17 | ED Physician Documentation ---
PD HPI ALTERED MENTAL STATUS - Stated complaint Stated Complaint: CODE STROKE - History obtained from History obtained from: Patient, Family, EMS - History of Present Illness Timing - onset: Today Timing - duration: Hours (He was noted by family members to have some confusion or difficulty expressing himself noted around 9-9 30 this morning. He had not talked with his family previous to that this morning so not really clear the exact onset time. Enroute to the hospital, Medics noted he was able to talk clearly) Timing - details: Waxing and waning, Other (unknown onset pattern) Quality / character: Confused, Other (difficulty expressing himself/ mumbling speech intermittently.) Associated symptoms: No: Fever, Headache, Dyspnea Basline status: Disoriented, Wheelchair, Home Treatment [employer]: Accucheck Similar symptoms before: No diagnosis (Had similar symptoms about a month ago with normal CT and CTA of the head and other labs with the urinalysis at the time showing signs of a urinary infection. It was thought he may be having mentation changes related to urinary tract infection. He was in the hospital for a day or 2 with antibiotic) Recently seen: Emergency Dept, Admitted (a month ago with UTI and confusion/speech problems.) Review of Systems Constitutional: denies: Fever, Chills Nose: denies: Rhinorrhea / runny nose, Congestion Throat: denies: Sore throat Cardiac: denies: Chest pain / pressure Respiratory: denies: Cough GI: denies: Abdominal Pain Skin: denies: Abrasion (s), Laceration (s) Neurologic: reports: Difficulty speaking, Confused. denies: Focal weakness, Numbness, Syncope, Headache, Head injury Endocrine: denies: Weight loss Immunocompromised: denies: Immunocompromised PD PAST MEDICAL HISTORY - Past Medical History Cardiovascular: High cholesterol, Murmur Respiratory: Sleep apnea, Other Neuro: None Endocrine/Autoimmune: Type 2 diabetes GI: None, Colon polyps : Benign prostate hypertrophy, Kidney stones HEENT: Chronic vision loss, Chronic hearing loss Psych: Depression Musculoskeletal: Osteoarthritis, Fatigue Derm: None - Past Surgical History Past Surgical History: Yes General: Colonoscopy, Other Ortho: Spine surgery, Other - Present Medications Home Medications: Ambulatory Orders Medication Instructions Recorded Confirmed Finasteride 5 mg PO DAILY 01/28/15 12/19/19 Metformin HCl [Metformin ER 1,000 mg PO BID 01/28/15 12/19/19 Osmotic] Simvastatin 40 mg PO QPM 01/27/16 12/19/19 Insulin NPH Human Isophane 55 unit SUBQ BID 12/11/18 12/19/19 [Humulin N] Loperamide [Imodium] 4 mg PO DAILY 12/11/18 12/19/19 Citalopram Hydrobromide [Celexa] 40 mg PO DAILY 11/22/19 12/19/19 Finasteride [Proscar] 5 mg PO DAILY 11/22/19 12/19/19 Oxybutynin Chloride [Oxybutynin 45 mg PO DAILY 11/22/19 12/19/19 Chloride ER] Terazosin HCl 10 mg PO QPM 11/22/19 12/19/19 Clopidogrel [Plavix] 75 mg PO DAILY #30 tablet 11/23/19 12/19/19 - Allergies Allergies/Adverse Reactions: Allergies Allergy/AdvReac Type Severity Reaction Status Date / Time No Known Drug Allergies Allergy Verified 11/21/19 17:28 - Social History Does the pt smoke?: No Smoking Status: Never smoker Does the pt drink ETOH?: No Does the pt have substance abuse?: No - Immunizations Immunizations are current?: Yes - POLST Patient has POLST: No POLST Status: Full Code PD ED PE NORMAL - Vitals Vital signs reviewed: Yes - General General: Alert and oriented X 3 (but is somewhat somnolent), No acute distress, Well developed/nourished - HEENT HEENT: Atraumatic, Moist mucous membranes, Pharynx benign - Neck Neck: Supple, no meningeal sign, No adenopathy - Cardiac Cardiac: RRR, No murmur - Respiratory Respiratory: Clear bilaterally - Abdomen Abdomen: Soft, Non tender, Other (obese) - Male Male : Deferred - Rectal Rectal: Deferred - Back Back: No CVA TTP - Derm Derm: Normal color, Warm and dry - Extremities Extremities: No edema, No calf tenderness / cord - Neuro Neuro: control and recovery combat rescue 2-12 intact, No motor deficit, No sensory deficit, Normal speech (initially, but then on recheck was having some mumbling type speech and seemed to ponder answers before answering. No focal weaknesses. ) Results - Vitals Vitals: Vital Signs - 24 hr 12/19/19 12/19/19 12/19/19 10:00 11:01 11:30 Temperature 36.9 C Heart Rate 71 72 70 Respiratory 12 11 L 16 Rate Blood Pressure 152/102 H 151/74 H 109/79 O2 Saturation 100 100 100 12/19/19 12/19/19 12/19/19 12:00 12:30 13:00 Temperature Heart Rate 70 67 72 Respiratory 22 16 16 Rate Blood Pressure 146/63 H 140/83 H 159/62 H O2 Saturation 98 96 100 Oxygen O2 Source [With Activity] Room air O2 Source Room air - Labs Labs: Laboratory Tests 12/19/19 12/19/19 12/19/19 10:35 10:35 10:35 WBC 7.3 RBC 2.89 L Hgb 9.0 L Hct 27.2 L MCV 94.1 H MCH 31.1 H MCHC 33.1 RDW 17.9 H Plt Count 205 MPV 9.1 Neut # (Auto) 5.8 Lymph # (Auto) 0.9 L Collin # (Auto) 0.4 Eos # (Auto) 0.1 Baso # (Auto) 0.0 Absolute Nucleated RBC 0.00 Nucleated RBC % 0.0 ESR 55 H PT INR APTT Sodium 134 L Potassium 4.4 Chloride 100 L Carbon Dioxide 23 Anion Gap 11.0 BUN 29 H Creatinine 1.2 Estimated GFR (MDRD) 59 L Glucose 170 H Lactic Acid Calcium 8.5 Magnesium 1.7 Total Bilirubin 0.8 AST < 10 L ALT 10 Alkaline Phosphatase 68 B-Natriuretic Peptide Total Protein 6.9 Albumin 3.7 Globulin 3.2 Albumin/Globulin Ratio 1.2 Lipase 23 Vitamin B12 TSH Urine Color Urine Clarity Urine pH Ur Specific Volin Urine Protein Urine Glucose (UA) Urine Ketones Urine Occult Blood Urine Nitrite Urine Bilirubin Urine Urobilinogen Ur Leukocyte Esterase Urine RBC Urine WBC Ur Squamous Epith Cells Urine Bacteria Ur Microscopic Review Urine Culture Comments Urine Opiates Screen Ur Oxycodone Screen Urine Methadone Screen Ur Propoxyphene Screen Ur Barbiturates Screen Ur Tricyclics Screen Ur Phencyclidine Scrn Ur Amphetamine Screen U Methamphetamines Scrn U Benzodiazepines Scrn Urine Cocaine Screen U Cannabinoids Screen Ethyl Alcohol 12/19/19 12/19/19 12/19/19 10:35 10:35 10:35 WBC RBC Hgb Hct MCV MCH MCHC RDW Plt Count MPV Neut # (Auto) Lymph # (Auto) Collin # (Auto) Eos # (Auto) Baso # (Auto) Absolute Nucleated RBC Nucleated RBC % ESR PT 11.9 INR 1.0 APTT 31.5 Sodium Potassium Chloride Carbon Dioxide Anion Gap BUN Creatinine Estimated GFR (MDRD) Glucose Lactic Acid 1.5 Calcium Magnesium Total Bilirubin AST ALT Alkaline Phosphatase B-Natriuretic Peptide 81 Total Protein Albumin Globulin Albumin/Globulin Ratio Lipase Vitamin B12 TSH Urine Color Urine Clarity Urine pH Ur Specific Volin Urine Protein Urine Glucose (UA) Urine Ketones Urine Occult Blood Urine Nitrite Urine Bilirubin Urine Urobilinogen Ur Leukocyte Esterase Urine RBC Urine WBC Ur Squamous Epith Cells Urine Bacteria Ur Microscopic Review Urine Culture Comments Urine Opiates Screen Ur Oxycodone Screen Urine Methadone Screen Ur Propoxyphene Screen Ur Barbiturates Screen Ur Tricyclics Screen Ur Phencyclidine Scrn Ur Amphetamine Screen U Methamphetamines Scrn U Benzodiazepines Scrn Urine Cocaine Screen U Cannabinoids Screen Ethyl Alcohol 12/19/19 12/19/19 12/19/19 12:28 12:28 13:00 WBC RBC Hgb Hct MCV MCH MCHC RDW Plt Count MPV Neut # (Auto) Lymph # (Auto) Collin # (Auto) Eos # (Auto) Baso # (Auto) Absolute Nucleated RBC Nucleated RBC % ESR PT INR APTT Sodium Potassium Chloride Carbon Dioxide Anion Gap BUN Creatinine Estimated GFR (MDRD) Glucose Lactic Acid Calcium Magnesium Total Bilirubin AST ALT Alkaline Phosphatase B-Natriuretic Peptide Total Protein Albumin Globulin Albumin/Globulin Ratio Lipase Vitamin B12 TSH Urine Color YELLOW Urine Clarity CLEAR Urine pH 5.5 Ur Specific Volin 1.020 Urine Protein 30 H Urine Glucose (UA) NEGATIVE Urine Ketones NEGATIVE Urine Occult Blood NEGATIVE Urine Nitrite NEGATIVE Urine Bilirubin NEGATIVE Urine Urobilinogen 0.2 (NORMAL) Ur Leukocyte Esterase NEGATIVE Urine RBC 0-5 Urine WBC 0-3 Ur Squamous Epith Cells RARE Squamous Urine Bacteria Rare Ur Microscopic Review INDICATED Urine Culture Comments NOT INDICATED Urine Opiates Screen NEGATIVE Ur Oxycodone Screen NEGATIVE Urine Methadone Screen NEGATIVE Ur Propoxyphene Screen NEGATIVE Ur Barbiturates Screen NEGATIVE Ur Tricyclics Screen NEGATIVE Ur Phencyclidine Scrn NEGATIVE Ur Amphetamine Screen NEGATIVE U Methamphetamines Scrn NEGATIVE U Benzodiazepines Scrn NEGATIVE Urine Cocaine Screen NEGATIVE U Cannabinoids Screen NEGATIVE Ethyl Alcohol < 5.0 12/19/19 12/19/19 13:00 13:00 WBC RBC Hgb Hct MCV MCH MCHC RDW Plt Count MPV Neut # (Auto) Lymph # (Auto) Collin # (Auto) Eos # (Auto) Baso # (Auto) Absolute Nucleated RBC Nucleated RBC % ESR PT INR APTT Sodium Potassium Chloride Carbon Dioxide Anion Gap BUN Creatinine Estimated GFR (MDRD) Glucose Lactic Acid Calcium Magnesium Total Bilirubin AST ALT Alkaline Phosphatase B-Natriuretic Peptide Total Protein Albumin Globulin Albumin/Globulin Ratio Lipase Vitamin B12 93 L TSH 1.31 Urine Color Urine Clarity Urine pH Ur Specific Volin Urine Protein Urine Glucose (UA) Urine Ketones Urine Occult Blood Urine Nitrite Urine Bilirubin Urine Urobilinogen Ur Leukocyte Esterase Urine RBC Urine WBC Ur Squamous Epith Cells Urine Bacteria Ur Microscopic Review Urine Culture Comments Urine Opiates Screen Ur Oxycodone Screen Urine Methadone Screen Ur Propoxyphene Screen Ur Barbiturates Screen Ur Tricyclics Screen Ur Phencyclidine Scrn Ur Amphetamine Screen U Methamphetamines Scrn U Benzodiazepines Scrn Urine Cocaine Screen U Cannabinoids Screen Ethyl Alcohol PD MEDICAL DECISION MAKING - ED course Complexity details: considered differential (He is having undulating levels of conversational ability with some element of confusion or sluggish response and at times saying mumbling or incoherent type words. There is no focal weakness. He does not seem to be upset at it like a true expressive aphasia. I think it is more metabolic or infect), d/w patient Departure - Departure Disposition: ED Place in Observation Clinical Impression: Aphasia, Confusion Condition: Stable Discharge Date/Time: 12/19/19 14:27
--- NOTE | 2019-12-19 10:34 | CT Report ---
PROCEDURE: Head W/O Stroke Protocol INDICATIONS: expressive aphasia this morning, noted 9:30 am TECHNIQUE: Noncontrast 4.5 mm thick angled axial sections acquired from the foramen magnum to the vertex, with c oronal reformats. For radiation dose reduction, the following was used: automated exposure control, adjustment of mA and/or kV according to patient size. COMPARISON: 11/21/2019 FINDINGS: Image quality: Excellent. CSF spaces: Basal cisterns are patent. No extra-axial fluid collections. Ventricles are normal in size and shape. Brain: No midline shift. No intracranial masses or hemorrhage. West-white matter interface is norm al. Age-related volume loss. There is intracranial internal carotid atherosclerotic calcification. Skull and face: Calvarium and visualized facial bones are intact, without suspicious lesions. Sinuses: Previous complete opacification of the right maxillary sinus has resolved. There is mild muc osal thickening and a small mucus retention cyst. IMPRESSION: 1. No evidence acute stroke, hemorrhage, or mass. 2. Age-related volume loss. 3. Resolution of right maxillary sinus opacification. This study fulfills neurological imaging criteria for inclusion or exclusion of acute stroke therapie s based on available published neurological imaging guidelines. Above discussed with CUAUHTEMOC MCCORD at the time of dictation on 12/19/2019 at 1026 hours. Reviewed by: Mirza Wise MD on 12/19/2019 10:33 AM PDT Approved by: Mirza Wise MD on 12/19/2019 10:33 AM PDT Station ID: [id number]
[2019-12-19 10:40] LABS: BASOPHILS % (AUTO) 0.3 %; EOSINOPHILS # (AUTO) 0.1 10^3/uL (0.0-0.7); EOSINOPHILS % (AUTO) 1.9 %; LYMPHOCYTES # (AUTO) 0.9 10^3/uL (1.5-3.5); LYMPHOCYTES % (AUTO) 11.8 %; MEAN CORPUSCULAR HEMOGLOBIN 31.1 pg (27.0-31.0); MEAN CORPUSCULAR HGB CONC 33.1 g/dL (32.0-36.0); MEAN CORPUSCULAR VOLUME 94.1 fL (80.0-94.0); MEAN PLATELET VOLUME 9.1 fL (7.4-11.4); MONOCYTES # (AUTO) 0.4 10^3/uL (0.0-1.0); MONOCYTES % (AUTO) 5.6 %; NEUTROPHILS # (AUTO) 5.8 10^3/uL (1.5-6.6); NEUTROPHILS % (AUTO) 79.9 %; PLT - PLATELET COUNT 205 10^3/uL (130-450); RED BLOOD COUNT 2.89 10^6/uL (4.70-6.10); RED CELL DISTRIBUTION WIDTH 17.9 % (12.0-15.0); WHITE BLOOD COUNT 7.3 x10^3/uL (4.8-10.8)
--- NOTE | 2019-12-19 10:43 | CT Report ---
PROCEDURE: ANGIO HEAD W/WO INDICATIONS: L sided facial droop CONTRAST: IV CONTRAST: Optiray 320 ml: 100 PO CONTRAST: *NO PO CONTRAST TECHNIQUE: Precontrast 4.5 mm thick angled axial sections acquired from the foramen magnum to the vertex. Afte r the administration of intravenous contrast, 1 mm thick sections acquired through the [place] of [place] is. Postcontrast 4.5 mm thick sections then re-acquired from the foramen magnum to the vertex. 3-di mensional pcehirb-sfuumetpq-jzmewkfemn (MIP) and/or volume rendering reformats were acquired of the c entral intracranial vasculature. For radiation dose reduction, the following was used: automated ex posure control, adjustment of mA and/or kV according to patient size. COMPARISON: None FINDINGS: Image quality: Excellent. Anterior circulation: Intracranial internal carotid arteries are normal in size and flow. The flow within the paired anterior cerebral arteries is normal and symmetric. The flow within the middle cer ebral arteries is normal and symmetric. The anterior communicating artery is seen. No aneurysms are seen. Mild bilateral ICA calcification. Posterior circulation: Visualized portions of the vertebral arteries demonstrate normal caliber, and join to form a normal appearing basilar artery. Flow within the posterior cerebral arteries is norm al and symmetric. No aneurysms are seen. CSF spaces: Ventricles are normal in size and shape. Basal cisterns are patent. No extra-axial flu id collections. Brain: No midline shift. No intracranial bleeds or masses. West-white matter interface appears int act. Skull and face: Calvarium and facial bones appear intact, without suspicious lesions. Sinuses: Mucosal thickening in the visible maxillary, frontal, sphenoid sinuses, and ethmoid air cell s. IMPRESSION: 1. No CT evidence of acute vascular occlusion or aneurysm. 2. Mild internal carotid artery atherosclerotic calcification. 3. Mild pansinusitis. Reviewed by: Myesha Farrar MD on 12/19/2019 10:42 AM PDT Approved by: Myesha Farrar MD on 12/19/2019 10:42 AM PDT Station ID: [id number]
--- NOTE | 2019-12-19 10:44 | XRAY Report ---
PROCEDURE: Chest 1 View X-Ray INDICATIONS: chest pain TECHNIQUE: One view of the chest was acquired. COMPARISON: None. FINDINGS: Surgical changes and devices: None. Lungs and pleura: Diffuse interstitial thickening bilaterally. No pneumothorax, focal consolidation, or pleural effusion.. Mediastinum: Indistinct, congested central vasculature. Moderate cardiomegaly. Bones and chest wall: No suspicious bony lesions. Overlying soft tissues appear unremarkable. IMPRESSION: 1. Moderate cardiomegaly, indistinct central vessels, and thickened interstitial markings suggesting CHF and/or volume overload. Correlate with BNP. Reviewed by: Myesha Farrar MD on 12/19/2019 10:43 AM PDT Approved by: Myesha Farrar MD on 12/19/2019 10:43 AM PDT Station ID: [id number]
[2019-12-19 10:51] LABS: PT - PROTHROMBIN TIME 11.9 secs (9.9-12.6)
[2019-12-19] MEDS ORDERED: IOVERSOL 320 100 ML VIAL IVP ONE ×2 (10:54→15:14)
[2019-12-19 10:59] LABS: PARTIAL THROMBOPLASTIN TIME 31.5 secs (24.9-33.3)
[2019-12-19 11:04] LABS: ALBUMIN 3.7 g/dL (3.2-5.5); ALBUMIN/GLOBULIN RATIO 1.2 (1.0-2.2); ALKALINE PHOSPHATASE 68 IU/L (42-121); ALT ALANINE AMINOTRANSFERASE 10 IU/L (10-60); AST ASPARTATE AMINOTRANSFERASE < 10 IU/L (10-42); BILIRUBIN,TOTAL 0.8 mg/dL (0.2-1.0); BUN - BLOOD UREA NITROGEN 29 mg/dL (6-20); CALCIUM 8.5 mg/dL (8.5-10.3); CARBON DIOXIDE - CO2 23 mmol/L (21-32); CHLORIDE 100 mmol/L (101-111); CREATININE 1.2 mg/dL (0.6-1.2); GLUCOSE 170 mg/dL (70-100); LIPASE 23 U/L (22-51); MAGNESIUM 1.7 mg/dL (1.7-2.8); SODIUM 134 mmol/L (135-145); TOTAL PROTEIN 6.9 g/dL (6.7-8.2)
--- NOTE | 2019-12-19 11:50 | CT Report ---
PROCEDURE: ANGIO NECK W INDICATIONS: L sided facial droop, L neck pain CONTRAST: IV CONTRAST: Optiray 320 ml: 100 PO CONTRAST: *NO PO CONTRAST TECHNIQUE: After the administration of intravenous contrast, 1.5 mm axial sections acquired from the aortic arch to the [place] of [place]. Coronal 3-D maximum intensity projection (MIP) and/or volume rendering ref ormats were then performed. For radiation dose reduction, the following was used: automated exposur e control, adjustment of mA and/or kV according to patient size. COMPARISON: CT angioma head 12/19/2019, CT head 12/19/2019. FINDINGS: Image quality: Excellent. The origins of the left and right common, internal and exterrnal carotid arteries demonstrate no area s of hemodynamically significant stenosis, vascular occlusion or aneurysmal dilation. Origin of the r ight vertebral artery demonstrates no areas of hemodynamically significant stenosis, vascular occlusi on or aneurysmal dilation. Artifact is present at the origin of the left vertebral artery, obscuring evaluation. Aortic arch demonstrates conventional anatomy. Limited, visualized portions of the subcla vian vasculature are unremarkable. IMPRESSION: 1. There are no areas of hemodynamically significant stenosis, vascular occlusion or aneurysmal dilat ion within the neck vasculature. The estimate of stenosis included in the report of the imaging study was calculated using the NASCET method Reviewed by: Virginia Wisdom MD on 12/19/2019 11:48 AM PDT Approved by: Virginia Wisdom MD on 12/19/2019 11:48 AM PDT Station ID: [id number]
[2019-12-19 12:35] LABS: BILIRUBIN,URINE NEGATIVE (NEGATIVE); GLUCOSE, URINE (UA) NEGATIVE (NEGATIVE); KETONES,URINE (UA) NEGATIVE (NEGATIVE); LEUKOCYTE ESTERASE, URINE NEGATIVE (NEGATIVE); NITRITE,URINE NEGATIVE (NEGATIVE); OCCULT BLOOD,URINE NEGATIVE (NEGATIVE); PH,URINE 5.5 PH (5.0-7.5); PROTEIN,URINE 30 mg/dL (NEGATIVE); UROBILINOGEN,URINE 0.2 (NORMAL) E.U./dL (NORMAL)
[2019-12-19 12:37] LABS: CLARITY,URINE CLEAR (CLEAR)
[2019-12-19] MEDS ORDERED: ASPIRIN CHEW 81 MG TABLET PO STA (12:55)
[2019-12-19 12:58] LABS: BACTERIA,URINE Rare /HPF (None Seen); RBC,URINE 0-5 /HPF (0-5); SQUAMOUS EPITHELIAL CELL,UR RARE Squamous (<= Few)
[2019-12-19] MEDS ORDERED: SODIUM CHLORIDE FLUSH 0.9% 10 ML SYRINGE IVP PRN (13:19)
[2019-12-19] MEDS ORDERED: ACETAMINOPHEN 325 MG TABLET PO PRN (13:19)
[2019-12-19] MEDS ORDERED: ONDANSETRON 4 MG/2 ML VIAL IVP PRN (13:19)
[2019-12-19 13:33] LABS: MUDS CUTOFF CONCENTRATIONS CUTOFF CONC BELOW:
[2019-12-19 13:48] LABS: AMPHETAMINE SCREEN,URINE NEGATIVE (NEGATIVE); BENZODIAZEPINES SCREEN, URINE NEGATIVE (NEGATIVE); COCAINE SCREEN URINE NEGATIVE (NEGATIVE); METHADONE SCREEN, URINE NEGATIVE (NEGATIVE); METHAMPHETAMINES SCREEN, URINE NEGATIVE (NEGATIVE); OPIATE SCREEN, URINE NEGATIVE (NEGATIVE); OXYCODONE SCREEN, URINE NEGATIVE (NEGATIVE); PROPOXYPHENE SCREEN, URINE NEGATIVE (NEGATIVE); TRICYCLIC ANTIDEPRESSANT,URINE NEGATIVE (NEGATIVE)
--- NOTE | 2019-12-19 14:25 | PHARMACY PROGRESS NOTE ---
- Best Possible Medication History Admit Date and Time: 12/19/19 1319 Processed by: Pharmacy Medication History completed: Yes Patient Interview: Pt unable to participate Secondary Source(s): Physician records, Insurance records As the person ultimately responsible for medication therapy, providers are able to order a medication from an existing home medication list in [facility] via the "Reconcile Routine" prior to Confirmation of that medication by geophysical support specialist. Such practice is discouraged except when the physician, in their clinical judgment, deems that a medical need exists for a medication without regard to previous use.
[2019-12-19] MEDS: LACTATED RINGERS 1,000 ML IV SCH (14:39)
[2019-12-19] MEDS: CYANOCOBALAMIN 500 MCG TABLET PO SCH (14:39)
--- NOTE | 2019-12-19 16:23 | HISTORY & PHYSICAL EXAMINATION ---
Chief Complaint - Chief Complaint Chief Complaint: Difficulty speaking History of Present Illness - Admitted From Admitted From:: Home - History Obtained From Records Reviewed: Yes History obtained from: Spouse, ER Physician, EMR Exam Limitations: Patient is unable to provide a history due to aphasia - History of Present Illness HPI Comment/Other: This is a 74-year-old male with a past medical history significant for Type 2 diabetes mellitus on insulin, depression who presents today after his spouse noticed that his speech was different this morning. She states woke up at about 9 AM knows that he had difficulty speaking and what he was trying to say did not make sense. The patient was admitted 1 month ago for similar presentation which was felt secondary to urinary tract infection. He improved during the hospita lization and his reports that he had been back to his baseline over the past month up until this morning. He was worked up for stroke during last hospitalization CT of the head as well as CTA of the head and neck were unremarkable. He was discharged on aspirin and Plavix for 30 days and his reports that he just completed a 30 days of Plavix and he has continued to take the aspirin. She reports that he also had an open MRI at [facility] in [place] about a week ago and they are awaiting the results of that. She has been contacting Dr. Starr's office on a daily basis to follow-up on these results. She states the patient did not have any complaints over the past week and went to sleep last night in his usual state of health. Reports that he has been urinating more frequently overnight but otherwise he was his usual self. No recent sick contacts or any cold or upper respiratory tract infection symptoms. She states he has been eating well and drinking plenty of fluids over the past few days. History is limited from the patient as he has difficulty speaking but when asked if he had any chest pain, dyspnea, nausea, vomiting he reported no symptoms. In the emergency department, his labs were found to be unremarkable. CT the head was unremarkable. CTA of the head and neck also showed no acute abnormalities. Given his ongoing symptoms, medicine was consulted for admissio n. He did receive 325 mg of aspirin in the emergency department. I did discuss with the patient's regarding goals of care and she states the patient has stated in the past he would want to be a DNR. History - Past Medical History Cardiovascular: reports: High cholesterol, Murmur Respiratory: reports: Sleep apnea, Other Neuro: reports: None Endocrine/Autoimmune: reports: Type 2 diabetes GI: reports: None, Colon polyps : reports: Benign prostate hypertrophy, Kidney stones HEENT: reports: Chronic vision loss, Chronic hearing loss Psych: reports: Depression Musculoskeletal: reports: Osteoarthritis, Fatigue Derm: reports: None MRSA Hx?: No - Past Surgical History General: reports: Colonoscopy, Other Ortho: reports: Spine surgery, Other - Family & Social History Family History Comment/Other: No significant past medical history is reported. Living arrangement: At home Living Situation: With spouse/s.o. Social History Notes: He lives at home with his , Alva. He no longer smokes but he did smoke 2 packs a day for about 20 years. - POLST Patient has POLST: No Meds/Allgy - Home Medications Home Medications: Ambulatory Orders Medication Instructions Recorded Confirmed Finasteride 5 mg PO DAILY 01/28/15 12/19/19 Metformin HCl [Metformin ER 1,000 mg PO BID 01/28/15 12/19/19 Osmotic] Simvastatin 40 mg PO QPM 01/27/16 12/19/19 Insulin NPH Human Isophane 55 unit SUBQ BID 12/11/18 12/19/19 [Humulin N] Loperamide [Imodium] 4 mg PO DAILY 12/11/18 12/19/19 Citalopram Hydrobromide [Celexa] 40 mg PO DAILY 11/22/19 12/19/19 Finasteride [Proscar] 5 mg PO DAILY 11/22/19 12/19/19 Oxybutynin Chloride [Oxybutynin 45 mg PO DAILY 11/22/19 12/19/19 Chloride ER] Terazosin HCl 10 mg PO QPM 11/22/19 12/19/19 Clopidogrel [Plavix] 75 mg PO DAILY #30 tablet 11/23/19 12/19/19 - Allergies Allergies/Adverse Reactions: Allergies Allergy/AdvReac Type Severity Reaction Status Date / Time No Known Drug Allergies Allergy Verified 11/21/19 17:28 Review of Systems - Cardiovascular Cariovascular: denies: Chest pain, Exertional dyspnea, Decr. exercise tolerance - Gastrointestinal Gastrointestinal: denies: Nausea, Vomiting - Neurological Neurological: denies: Focal weakness, Numbness - All Other Systems All Other Systems: reports: Other (Review of systems is limited as the patient has difficulty answering questions.) Prior Level of Functionality: He ambulates with the use of a wheelchair. Exam - Vital Signs Reviewed Vital Signs: Yes Vital Signs: Vital Signs x48h Temp Pulse Pulse Resp BP BP Pulse Ox 12/19/19 14:28 37.0 C 85 18 122/54 L 97 12/19/19 14:00 72 18 182/75 H 100 12/19/19 13:30 84 18 139/60 H 99 12/19/19 13:00 72 16 159/62 H 100 12/19/19 12:30 67 16 140/83 H 96 12/19/19 12:00 70 22 146/63 H 98 12/19/19 11:30 70 16 109/79 100 12/19/19 11:01 72 11 L 151/74 H 100 12/19/19 10:00 36.9 C 71 12 152/102 H 100 - Physical Exam General Appearance: positive: No acute distress, Alert Eyes Bilateral: positive: Normal inspection, PERRL, Conjunctivae nml ENT: positive: ENT inspection nml Neck: positive: Nml inspection. negative: Stiff neck Respiratory: positive: No respiratory distress. negative: Wheezes, Rales Cardiovascular: negative: No murmur, Tachycardia, Bradycardia, Systolic murmur Abdomen: positive: Non-tender, No distention. negative: Tenderness, Guarding, Rebound Skin: positive: Warm, Dry Extremities: positive: No pedal edema Neurologic/Psychiatric: positive: Disoriented to place (He does not know where he is.), Disoriented to time (When asked what month it is he said it was 2014. When asked what year it was he said it was also 2014.), Slurred/abnml speech (His speech is dysarthric at times but coherent at other times. He keeps on repeating single words despite asking different questions.), Other (He has no focal deficits on exam as he is moving all 4 extremities. He reports decreased sensations bilateral upper extremities. Cranil nerves are grossly intact.). negative: Disoriented to person Conclusion/Plan - Problem List (1) Aphasia Conclusion/Plan: Presents with aphasia and some dysarthria. He appears to have comprehension intact as he tries to answer questions appropriately but unfortunately his answers do not always make sense. He does at times answer questions appropriately so his symptoms appear to be waxing and waning. Imaging has been unremarkable. He had a similar presentation 1 month ago which resolved on its own. Work-up at that time was unremarkable for stroke. There was concern he had a UTI during that infection. At this time there is no concern for infection as his urinalysis is relatively unremarkable. He does have a history of B12 deficiency and I wonder if this could be contributing to his current neurologic status as he is not currently receiving therapy for this. He did have an outpatient MRI completed 1 week ago and results are pending. Given his ongoing symptoms, we will observe him overnight. We will attempt to obtain records from his MRI at [facility] in [place] as completed 1 week ago. We will start him on B12 supplementation. We will monitor him for any signs of infection that could suggest meningitis/encephalitis. If he does not improve over next 24 hours, will consider a lumbar puncture. We will also consider repeating a CT of the head to evaluate for possible infarct. We will check ammonia, TSH, urine drug screen. Neurochecks. (2) Diabetes mellitus treated with insulin and oral medication Conclusion/Plan: His last A1c was less than 6%. We will continue him on his home insulin regimen and sliding scale. Carb controlled diet. 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 Suspect his iron deficiency anemia as well as B12 deficiency. We will start him on oral iron sup plementation as well as vitamin B12. Monitor CBC while hospitalized. (4) Vitamin B12 deficiency Conclusion/Plan: His vitamin B12 level is decreased at 93. This could be contributing to his neurologic status. We will start him on supplementation with 1000 mcg daily (5) Depression Conclusion/Plan: Continue his home Celexa. (6) BPH (benign prostatic hyperplasia) Conclusion/Plan: Continue home finasteride and terazosin. - Lab Results Fish Bones: 12/19/19 10:35 12/19/19 10:35 - Diagnostic Imaging Results Diagnostic Imaging Results: positive: Final report reviewed Core Measures - Anticipated LOS I expect patient to be DC'd or transferred within 96 hours.: Yes - Issues Hospital Issues and Management Plan: 74-year-old male who presents with dysarthria and aphasia of unclear etiology. Will observe overnight given his ongoing symptoms. We will check further lab work and repeat B12 as he was deficient in the past. Consider lumbar puncture if symptoms persist. Also consider repeating a CT head to evaluate for possible ischemia.
[2019-12-19] MEDS: SODIUM CHLORIDE FLUSH 0.9% 10 ML SYRINGE IVP SCH (17:13)
[2019-12-19] MEDS: INSULIN ASPART 300 UNIT/3 ML PEN SUBQ SCH ×2 (17:41→20:46)
[2019-12-19] MEDS: INSULIN NPH HUMAN 300 UNIT/3 ML VIAL SUBQ SCH (20:43)
[2019-12-19] MEDS: TERAZOSIN 5 MG CAPSULE PO SCH (20:45)
[2019-12-19] MEDS: ATORVASTATIN 10 MG TABLET PO SCH (20:45)
[2019-12-20] MEDS: SODIUM CHLORIDE FLUSH 0.9% 10 ML SYRINGE IVP SCH ×4 (00:50→23:57)
[2019-12-20] MEDS: LACTATED RINGERS 1,000 ML IV SCH ×3 (01:13→20:57)
[2019-12-20 05:39] LABS: BASOPHILS % (AUTO) 0.2 %; EOSINOPHILS # (AUTO) 0.1 10^3/uL (0.0-0.7); EOSINOPHILS % (AUTO) 1.5 %; HGB - HEMOGLOBIN 8.4 g/dL (14.0-18.0); LYMPHOCYTES # (AUTO) 1.1 10^3/uL (1.5-3.5); LYMPHOCYTES % (AUTO) 12.2 %; MEAN CORPUSCULAR HEMOGLOBIN 30.5 pg (27.0-31.0); MEAN CORPUSCULAR HGB CONC 32.8 g/dL (32.0-36.0); MEAN CORPUSCULAR VOLUME 93.1 fL (80.0-94.0); MEAN PLATELET VOLUME 9.2 fL (7.4-11.4); MONOCYTES # (AUTO) 0.7 10^3/uL (0.0-1.0); MONOCYTES % (AUTO) 7.4 %; NEUTROPHILS # (AUTO) 6.8 10^3/uL (1.5-6.6); NEUTROPHILS % (AUTO) 78.1 %; PLT - PLATELET COUNT 219 10^3/uL (130-450); RED BLOOD COUNT 2.75 10^6/uL (4.70-6.10); RED CELL DISTRIBUTION WIDTH 17.9 % (12.0-15.0); WHITE BLOOD COUNT 8.7 x10^3/uL (4.8-10.8)
[2019-12-20 05:51] LABS: CALCIUM 8.3 mg/dL (8.5-10.3); CREATININE 1.1 mg/dL (0.6-1.2); MAGNESIUM 1.7 mg/dL (1.7-2.8); PHOSPHORUS 3.3 mg/dL (2.5-4.6)
[2019-12-20] MEDS ORDERED: CLOPIDOGREL 75 MG TABLET PO SCH (09:00)
[2019-12-20] MEDS ORDERED: FINASTERIDE 5 MG TABLET PO SCH (09:00)
[2019-12-20] MEDS ORDERED: ASPIRIN EC 81 MG TABLET PO SCH (09:00)
[2019-12-20] MEDS: CITALOPRAM HYDROBROMIDE 20 MG TABLET PO SCH (09:25)
[2019-12-20] MEDS: FERROUS SULFATE 325 MG TABLET PO SCH (09:25)
[2019-12-20] MEDS: CYANOCOBALAMIN 500 MCG TABLET PO SCH (09:26)
[2019-12-20] MEDS: ENOXAPARIN 40 MG/0.4 ML SYRINGE SUBQ SCH (09:27)
[2019-12-20] MEDS: polyethylene glycoL 3350 17 GM PACKET PO SCH (09:27)
[2019-12-20] MEDS: INSULIN ASPART 300 UNIT/3 ML PEN SUBQ SCH ×4 (09:30→20:53)
[2019-12-20] MEDS: INSULIN NPH HUMAN 300 UNIT/3 ML VIAL SUBQ SCH ×2 (09:30→20:53)
--- NOTE | 2019-12-20 14:16 | PROVIDER PROGRESS NOTE ---
Subjective - Prog Note Date Prog Note Date: 12/20/19 Prog Note Time: 14:32 - Subjective Pt reports feeling: Improved Subjective: He is tearful. As his speech is come back and his word finding skills of come back, he finds himself dismayed by his memory loss. He does not remember much beyond the last few minutes. He does not remember what he had for breakfast. He cannot remember what he did for Father's Day, and he cannot remember his grandchildren's names. He gets very tearful at this. reports that he does have some slight memory problems that have been getting worse over the last 3 years but nothing like this. She feels he is not back at baseline. While his speech and sentence structure is intact, judgment and memory are still impaired. He denies any headaches, visual disturbances, facial paresthesias, dizziness, or focal neurological deficits. Current Medications - Current Medications Current Medications: Active Medications Acetaminophen (Tylenol) 650 mg PO Q4HR PRN PRN Reason: Pain 1 to 4 Atorvastatin Calcium (Lipitor) 20 mg PO QPM [facility] Last Admin: 12/19/19 20:45 Dose: 20 mg Documented by: Citalopram Hydrobromide (Celexa) 40 mg PO DAILY [facility] Last Admin: 12/20/19 09:25 Dose: 40 mg Documented by: Cyanocobalamin (Vitamin B-12) 1,000 mcg PO DAILY [facility] Last Admin: 12/20/19 09:26 Dose: 1,000 mcg Documented by: Enoxaparin Sodium (Lovenox) 40 mg SUBQ DAILY [facility] Last Admin: 12/20/19 09:27 Dose: 40 mg Documented by: Ferrous Sulfate (Feosol) 325 mg PO DAILYWM [facility] Last Admin: 12/20/19 09:25 Dose: 325 mg Documented by: Finasteride (Proscar) 5 mg PO DAILY [facility] Last Admin: 12/20/19 09:26 Dose: 5 mg Documented by: Lactated Ringer's (Lr) 1,000 mls @ 100 mls/hr IV .Q10H [facility] Last Admin: 12/20/19 11:02 Dose: 100 mls/hr Documented by: Insulin Aspart (Novolog) 1 - 5 unit SUBQ 0800,1200,1700,2100 [facility]; Protocol Last Admin: 12/20/19 12:14 Dose: 2 unit Documented by: Insulin Human NPH (Humulin N) 55 unit SUBQ BID [facility] Last Admin: 12/20/19 09:30 Dose: 55 unit Documented by: Ondansetron HCl (Zofran Inj) 4 mg IVP Q6HR PRN PRN Reason: Nausea / Vomiting Polyethylene Glycol (Miralax) 17 gm PO DAILY [facility] Last Admin: 12/20/19 09:27 Dose: 17 gm Documented by: Sodium Chloride (Normal Saline Flush 0.9%) 10 ml IVP PRN PRN PRN Reason: NEEDED PER PROVIDER ORDERS Last Admin: 12/19/19 14:39 Dose: 10 ml Documented by: Sodium Chloride (Normal Saline Flush 0.9%) 10 ml IVP 0100,0900,1700 [facility] Last Admin: 12/20/19 09:30 Dose: Not Given Documented by: Terazosin HCl (Hytrin) 10 mg PO QPM [facility] Last Admin: 12/19/19 20:45 Dose: 10 mg Documented by: Finasteride 5 mg PO DAILY 01/28/15 Metformin HCl [Metformin ER Osmotic] 1,000 mg PO BID 01/28/15 Simvastatin 40 mg PO QPM 01/27/16 Insulin NPH Human Isophane [Humulin N] 55 unit SUBQ BID 12/11/18 Loperamide [Imodium] 4 mg PO DAILY 12/11/18 Citalopram Hydrobromide [Celexa] 40 mg PO DAILY 11/22/19 Finasteride [Proscar] 5 mg PO DAILY 11/22/19 Oxybutynin Chloride [Oxybutynin Chloride ER] 45 mg PO DAILY 11/22/19 Terazosin HCl 10 mg PO QPM 11/22/19 Objective - Vital Signs/Intake & Output Reviewed Vital Signs: Yes Vital Signs: Vital Signs x48h Temp Pulse Resp BP Pulse Ox 12/20/19 11:19 36.7 C 69 20 145/71 H 97 12/20/19 07:45 37.0 C 71 22 113/51 L 99 Intake & Output: Intake & Output 12/17/19 12/18/19 12/19/19 12/20/19 23:59 23:59 23:59 23:59 Intake Total 790 3661.667 Output Total 1150 1951 Balance -360 1710.667 - Objective General Appearance: positive: No acute distress, Alert, Other (5 feet 10 inches white male who weighs 186 kg. Corpulent appearance as he lays comfortably in bed. at the bedside) Eyes Bilateral: positive: PERRL, EOMI ENT: positive: Pharynx nml Neck: negative: Lymphadenopathy (R), Lymphadenopathy (L), Stiff neck, Carotid bruit Respiratory: positive: Chest non-tender, Other (Diminished breath sounds at the bases with slow unlabored respiration). negative: Wheezes, Rales, Rhonchi Cardiovascular: positive: Regular rate & rhythm. negative: JVD present, Gallop/S4 Abdomen: positive: Non-tender, Nml bowel sounds, Other (Hugely obese pannus, unable to assess for organomegaly). negative: Guarding, Rebound Skin: positive: Warm, Dry Extremities: positive: Non-tender, Full ROM, Nml appearance, Pedal edema Neurologic/Psychiatric: positive: Oriented x3, CN's nml (2-12), Motor nml - Lab Results Fish Bones: 12/20/19 05:28 12/20/19 05:28 Other Labs: Lab Results x24hrs 12/20/19 12/20/19 Range/Units 05:28 05:28 WBC 8.7 (4.8-10.8) x10^3/uL RBC 2.75 L (4.70-6.10) 10^6/uL Hgb 8.4 L (14.0-18.0) g/dL Hct 25.6 L (42.0-52.0) % MCV 93.1 (80.0-94.0) fL MCH 30.5 (27.0-31.0) pg MCHC 32.8 (32.0-36.0) g/dL RDW 17.9 H (12.0-15.0) % Plt Count 219 (130-450) 10^3/uL MPV 9.2 (7.4-11.4) fL Neut # (Auto) 6.8 H (1.5-6.6) 10^3/uL Lymph # (Auto) 1.1 L (1.5-3.5) 10^3/uL [place] # (Auto) 0.7 (0.0-1.0) 10^3/uL Eos # (Auto) 0.1 (0.0-0.7) 10^3/uL Baso # (Auto) 0.0 (0.0-0.1) 10^3/uL Absolute Nucleated RBC 0.00 x10^3/uL Nucleated RBC % 0.0 /100WBC Sodium 134 L (135-145) mmol/L Potassium 3.8 (3.5-5.0) mmol/L Chloride 103 (101-111) mmol/L Carbon Dioxide 24 (21-32) mmol/L Anion Gap 7.0 (6-13) BUN 25 H (6-20) mg/dL Creatinine 1.1 (0.6-1.2) mg/dL Estimated GFR (MDRD) 65 L (>89) Glucose 113 H (70-100) mg/dL Calcium 8.3 L (8.5-10.3) mg/dL Phosphorus 3.3 (2.5-4.6) mg/dL Magnesium 1.7 (1.7-2.8) mg/dL ABX Reporting Has patient been on IV antibiotics over the past 48 hours?: No Assessment/Plan - Problem List (1) Aphasia Impression: Resolved. He presented with aphasia and some dysarthria. He appeared to have comprehension intact as he tries to answer questions appropriately but unf ortunately his answers did not always make sense. He did at times answer questions appropriately so his symptoms appeared to be waxing and waning. Head CT shows age-related volume loss and resolution of right maxillary sinus opacification. But no acute intracranial abnormalities when compared to his November 21, 2019 study. His visualized intracranial/neck arterial system do not show any deficits. No aneurysms. We called Dr. Starr's office to get the MRI report. We did leave a voicemail but no call back yet. We then called [facility] diagnostic imaging in [place] and they were able to give us a written report for 12/12/2019. He has prominent ill-defined central pontine and mild periventricular and juxtacortical white matter FLAIR hyperintensities which are nonspecific. Attributed to sequela of chronic small vessel ischemic disease in this age group. Alternative differential considerations for central pontine flair hyperintensities include central pontine myelinolysis, hypertensive ence phalopathy, demyelinating disorders, etc. He had a similar presentation 1 month ago which resolved on its own. Work-up at that time was unremarkable for stroke. There was concern he had a UTI during that admission. Currently the differential diagnosis includes: TIA, infection, drug toxicity, recreational substance, electrolyte disturbance.At this time there is no concern for infection as his urinalysis is relatively unremarkable. He does have a history of B12 deficiency and we wonder if this could be contributing to his current neurologic status as he is not currently receiving therapy for this. He does have mild hyponatremia. Hyponatremia is associated with central pontine myelinolysis. But the hyponatremia, in review the medical record, has never been below 133. Does not really severe enough hyponatremia to give you this. Blood pressure has been in the 130s to 150s. Once this afternoon he was 182 systolic. He did not have hypertensive encephalopathy with his last admit. His current tox screen is negative so no recreational substances. Sedating medications could be citalopram or oxybutynin. He could get occasionally hypoglycemic but that has not been the case when we checked his labs or his is reported his episodes. Given his ongoing symptoms, he was observed overnight last night and he has had clearing of his mentation. He can speak in sentences, is oriented to person, place, time but can't remember anything of the last few days. Can't remember that he saw his kids on Father's Day. Can't remember the grandkids names and he starts to tear up with that. Plan: He has been started on B12 supplementation. Telemetry has been negative for 24 hours for arrhythmia. We will continue to monitor him for any signs of infection that could suggest meningitis/encephalitis. Since he has improved, no LP. We will also consider repeating a CT of the head to evaluate for possible infarct. Observe one more night to see if memory returns. (2) Diabetes mellitus treated with insulin and oral medication Conclusion/Plan: His last A1c was less than 6%. We will continue him on his home insulin regimen and sliding scale. Carb controlled diet.His reports that he takes 50 units of Humulin in the morning and was recently reduced from 55 units. 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 Suspect his iron defi ciency anemia as well as B12 deficiency. We will start him on oral iron supplementation as well as vitamin B12. Monitor CBC while hospitalized. (4) Vitamin B12 deficiency Conclusion/Plan: His vitamin B12 level is decreased at 93. This could be contributing to his neurologic status. We will start him on supplementation with 1000 mcg daily (5) Depression Conclusion/Plan: Continue his home Celexa. (6) BPH (benign prostatic hyperplasia) Conclusion/Plan: Continue home finasteride and terazosin.
[2019-12-20] MEDS: ATORVASTATIN 10 MG TABLET PO SCH (20:55)
[2019-12-20] MEDS: TERAZOSIN 5 MG CAPSULE PO SCH (21:26)
[2019-12-21 05:49] LABS: BASOPHILS % (AUTO) 0.3 %; EOSINOPHILS # (AUTO) 0.2 10^3/uL (0.0-0.7); EOSINOPHILS % (AUTO) 2.8 %; HGB - HEMOGLOBIN 8.7 g/dL (14.0-18.0); LYMPHOCYTES # (AUTO) 1.2 10^3/uL (1.5-3.5); LYMPHOCYTES % (AUTO) 15.5 %; MEAN CORPUSCULAR HEMOGLOBIN 30.9 pg (27.0-31.0); MEAN CORPUSCULAR HGB CONC 32.8 g/dL (32.0-36.0); MEAN PLATELET VOLUME 9.4 fL (7.4-11.4); MONOCYTES # (AUTO) 0.6 10^3/uL (0.0-1.0); NEUTROPHILS # (AUTO) 5.5 10^3/uL (1.5-6.6); NEUTROPHILS % (AUTO) 72.9 %; PLT - PLATELET COUNT 218 10^3/uL (130-450); RED BLOOD COUNT 2.82 10^6/uL (4.70-6.10); RED CELL DISTRIBUTION WIDTH 17.8 % (12.0-15.0); WHITE BLOOD COUNT 7.6 x10^3/uL (4.8-10.8)
[2019-12-21 06:04] LABS: CALCIUM 8.9 mg/dL (8.5-10.3); CREATININE 1.1 mg/dL (0.6-1.2); MAGNESIUM 1.9 mg/dL (1.7-2.8); PHOSPHORUS 3.8 mg/dL (2.5-4.6)
[2019-12-21] MEDS: LACTATED RINGERS 1,000 ML IV SCH (08:09)
[2019-12-21] MEDS ORDERED: LACTATED RINGERS 1,000 ML IV SCH (08:13)
[2019-12-21] MEDS: CITALOPRAM HYDROBROMIDE 20 MG TABLET PO SCH (08:34)
[2019-12-21] MEDS: ENOXAPARIN 40 MG/0.4 ML SYRINGE SUBQ SCH (08:34)
[2019-12-21] MEDS: FERROUS SULFATE 325 MG TABLET PO SCH (08:35)
[2019-12-21] MEDS: INSULIN ASPART 300 UNIT/3 ML PEN SUBQ SCH (08:35)
[2019-12-21] MEDS: CYANOCOBALAMIN 500 MCG TABLET PO SCH (08:35)
[2019-12-21] MEDS: polyethylene glycoL 3350 17 GM PACKET PO SCH (08:35)
[2019-12-21] MEDS: INSULIN NPH HUMAN 300 UNIT/3 ML VIAL SUBQ SCH (08:40)
[2019-12-21] MEDS: SODIUM CHLORIDE FLUSH 0.9% 10 ML SYRINGE IVP SCH (08:41)
[2019-12-21] MEDS ORDERED: ASPIRIN CHEW 81 MG TABLET ONE (08:43)
[2019-12-21] MEDS ORDERED: ASPIRIN EC 81 MG TABLET PO SCH (09:00)
[2019-12-21] MEDS ORDERED: FINASTERIDE 5 MG TABLET PO SCH (09:00)
[2019-12-21] MEDS ORDERED: PATIENT OWN MED PO SCH (09:00)
[2019-12-21 09:02] VITALS: BP 169/79
--- NOTE | 2019-12-21 10:52 | Discharge Plan ---
Discharge Plan Problem Reviewed?: Yes Disposition: Home, Self Care Condition: Stable Prescriptions: Aspirin [Aspirin EC] 81 mg PO DAILY #100 tablet. Mecobalamin [B12 Active] 1,000 mcg PO DAILY #30 tab.chew Ferrous Sulfate 325 mg PO DAILY #30 tablet Diet: Diabetic Activity Restrictions: Activity as Tolerated Shower Restrictions: No Assistance Devices: Wheelchair Weight Bearing: Other (Pivot) Instruction Topics: Transient Ischemic Attack Dc Health Concerns: You were in the hospital for trouble speaking and confusion. It appears to have been a TIA. In addition, you are very B12 deficient, which may be adding to the confusion. You are being discharged home with new prescriptions for B12 supplement tablets, Iron tablets, and it is recommended that you take a daily baby aspirin with your daily Plavix. Other medications should all be resumed as you took before hospitalization. The prescriptions were electronically sent to your [facility] pharmacy in [place]. You need to have a Neurologist, since you have had recurrence of these same symptoms (trouble speaking and worsening memory). Please see your PCP in the next several days to get a referral to Neurology. Plan of Treatment: As above. Care Goals: Improvement in symptoms and stabilization are the goals. Assessment: Written reminders are being provided to the patient and his at bedside, who understands. Additional Instructions or Follow Up instructions: If you have new or worsening symptoms, call your PCP for advice or come to the ER. No Smoking: If you smoke, Please STOP! Call for help. Follow-up with: Fidel Starr MD [Primary Care Provider] -
--- NOTE | 2019-12-21 11:16 | DISCHARGE SUMMARY ---
Discharge Summary Admit Date: 12/19/19 Discharge Date: 12/21/19 Discharging Provider: Dr Gabby Khoury Primary Care Provider: Dr Fidel Starr Code Status: Do Not Attempt Resuscitation Condition at Discharge: Stable Discharge Disposition: 01 Home, Self Care - HPI History of Present Illness: From the admission H&P of Dr Blas Cerrato: This is a 74-year-old male with a past medical history significant for Type 2 diabetes mellitus on insulin, depression who presents today after his spouse noticed that his speech was different this morning. She states woke up at about 9 AM knows that he had difficulty speaking and what he was trying to say did not make sense. The patient was admitted 1 month ago for similar presentation which was felt secondary to urinary tract infection. He improved during the hospitalization and his reports that he had been back to his baseline over the past month up until this morning. He was worked up for stroke during last hospitalization CT of the head as well as CTA of the head and neck were unremarkable. He was discharged on aspirin and Plavix for 30 days and his reports that he just completed a 30 days of Plavix and he has continued to take the aspirin. She reports that he also had an open MRI at [facility] in [place] about a week ago and they are awaiting the results of that. She has been contacting Dr. Starr's office on a daily basis to follow-up on these results. She states the patient did not have any complaints over the past week and went to sleep last night in his usual state of health. Reports that he has been urinating more frequently overnight but otherwise he was his usual self. No recent sick contacts or any cold or upper respiratory tract infection symptoms. She states he has been eating well and drinking plenty of fluids over the past few days. History is limited from the patient as he has difficulty speaking but when asked if he had any chest pain, dyspnea, nausea, vomiting he reported no symptoms. In the emergency department, his labs were found to be unremarkable. CT of the head was unremarkable. CTA of the head and neck also showed no acute abnormalities. Given his ongoing symptoms, the Hospitalist Team was consulted for management of TIA vs CVA. He did receive 325 mg of aspirin in the emergency department. I did discuss with the patient's regarding goals of care and she states the patient has stated in the past he would want to be a DNR. - HOSPITAL COURSE Hospital Course: (1) TIA He presented with aphasia and confusion. He appeared to have comprehension intact as he tried to answer questions appropriately but unfortunately his answers did not always make sense. He did at times answer questions appropriately so his symptoms appeared to be waxing and waning. Head CT showed age-related volume loss and resolution of right maxillary sinus opacification, but no acute intracranial abnormalities when compared to his November 21, 2019 study. His visualized intracranial/neck arterial system did not show any deficits. No aneurysms. We called Dr. Starr's office to get the outpatient MRI report. We also called [facility] diagnostic imaging in [place] and they were able to give us a written report from 12/12/2019 imaging. He has prominent ill-defined central pontine and mild periventricular and juxtacortical white matter FLAIR hyperintensities which are nonspecific, attributed to sequela of chronic small vessel ischemic disease in this age group. Alternative differential consider ations for central pontine flair hyperintensities are central pontine myelinolysis, hypertensive encephalopathy, demyelinating disorders, etc. He had a similar presentation 1 month ago which resolved on its own. Work-up at that time was unremarkable for stroke. There was concern he had a UTI during that admission also. We considered TIA, infection, drug toxicity, recreational substance, electrolyte disturbance. At this admission, there is no concern for infection as his urinalysis was relatively unremarkable. He does have a history of B12 deficiency and we wondered if this could be contributing to his current neurologic status, as he was not currently receiving therapy for this. He did have mild hyponatremia, and hyponatremia is associated with central pontine myelinolysis. But the hyponatremia, in review the medical record, has never been below 133. Blood pressure has been in the 130s to 150s; he did not have hypertensive encephalopathy. His current tox screen was negative so no recreational substance cause. Sedating medications could be his Citalopram or Oxybutynin. He could get occasionally hypoglycemic but that has not been the case when we checked his prior labs. Given his ongoing symptoms, he was observed over 2 nights and had clearing of his mentation but some memory problems were still noted. He was put on daily baby aspirin plus Plavix. He was also started on B12 supplementation and discharged with these. He needs a Neurologist for further evaluation and management. (2) Poor memory His speech returned and he could speak in normal sentences, was oriented to person, place, time but could not remember anything of the last few days. Could not remember that he saw his kids on Father's Day or remember the grandkids names and he started to become tearful with that. He no longer drives a vehicle. Neurology outpatient evaluation and further management was advised. (3) Diabetes mellitus treated with insulin and oral medication His last A1c was less than 6%. He was kept on his home insulin regimen and sliding scale and carb controlled diet. His reported that he now takes 50 units of Humulin in the morning, and was recently reduced from 55 units. 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 He was fou nd to have iron deficiency anemia as well as B12 deficiency. We started him on oral iron supplementation as well as vitamin B12, and he was discharged with new prescriptions for these. (5) Vitamin B12 deficiency His vitamin B12 level was decreased at 93. This could be contributing to his neurologic status. We started him on supplementation at 1000 mcg daily. (6) Depression Continued on his home Celexa. (7) BPH (benign prostatic hyperplasia) Continued on his home Finasteride and Terazosin. (8) Morbid obesity, BMI 58.8 Weight loss is advised. He is nearly wheelchair-bound, but does walk short distances, like to the bathroom, in his house. - ALLERGIES Allergies/Adverse Reactions: Allergies Allergy/AdvReac Type Severity Reaction Status Date / Time No Known Drug Allergies Allergy Verified 11/21/19 17:28 - MEDICATIONS Home Medications: Ambulatory Orders Medication Instructions Recorded Confirmed Finasteride 5 mg PO DAILY 01/28/15 12/19/19 Metformin HCl [Metformin ER 1,000 mg PO BID 01/28/15 12/19/19 Osmotic] Simvastatin 40 mg PO QPM 01/27/16 12/19/19 Loperamide [Imodium] 4 mg PO DAILY 12/11/18 12/19/19 Citalopram Hydrobromide [Celexa] 40 mg PO DAILY 11/22/19 12/19/19 Finasteride [Proscar] 5 mg PO DAILY 11/22/19 12/19/19 Oxybutynin Chloride [Oxybutynin 45 mg PO DAILY 11/22/19 12/19/19 Chloride ER] Terazosin HCl 10 mg PO QPM 11/22/19 12/19/19 Clopidogrel [Plavix] 75 mg PO DAILY #30 tablet 11/23/19 12/19/19 Aspirin [Aspirin EC] 81 mg PO DAILY #100 tablet. 12/21/19 Clopidogrel [Plavix] 75 mg PO DAILY #30 tablet 12/21/19 Ferrous Sulfate 325 mg PO DAILY #30 tablet 12/21/19 Insulin NPH Human Isophane 30 unit SUBQ BID #0 12/21/19 12/19/19 [Humulin N] Mecobalamin [B12 Active] 1,000 mcg PO DAILY #30 tab.chew 12/21/19 - PHYSICAL EXAM AT DISCHARGE General Appearance: positive: No acute distress, Alert, Other (Male pattern baldness.) Eyes Bilateral: positive: Normal inspection, EOMI ENT: positive: ENT inspection nml, No signs of dehydration Neck: positive: Nml inspection, No JVD Respiratory: positive: No respiratory distress Cardiovascular: positive: Regular rate & rhythm Abdomen: positive: Other (Obese with a very large pannus down to his knees) Skin: positive: Pallor Extremities: positive: No pedal edema Neurologic/Psychiatric: positive: Oriented x3, Other (No gross motor weakness. Memory is poor.) - LABS Result Diagrams: 12/21/19 05:29 12/21/19 05:29 - DIAGNOSTIC IMAGING Diagnostic Imaging Results: Final report reviewed - FOLLOW UP Follow Up: See PCP in the next week for hospital follow-up and referral to a Neurologist. - TIME SPENT Time Spent in Discharge (Minutes): 45
[2019-12-21] MEDS ORDERED: CLOPIDOGREL 75 MG TABLET PO SCH (13:00)
== END 2019-12-21 12:50 | disposition home or self-care (01) ==
LOC: EDUNIT# → ED 09:52 → MS2 13:19
PROVIDERS: ADMIT Internal Medicine; ATTEND Internal Medicine
DX: G45.9 Transient cerebral ischemic attack, unspecified (principal); R41.3 Other amnesia; E11.9 Type 2 diabetes mellitus without complications; Z79.4 Long term (current) use of insulin; D50.9 Iron deficiency anemia, unspecified; D51.3 Other dietary vitamin B12 deficiency anemia; F32.9 Major depressive disorder, single episode, unspecified; N40.0 Benign prostatic hyperplasia without lower urinary tract symptoms; E66.01 Morbid (severe) obesity due to excess calories; Z68.43 Body mass index [BMI] 50.0-59.9, adult; Z79.82 Long term (current) use of aspirin; E87.1 Hypo-osmolality and hyponatremia; Z87.891 Personal history of nicotine dependence; Z66 Do not resuscitate
CPT/HCPCS: 36415; 70496; 70498; 71045; 80048; 80053; 80306; 81001; 82140; 82607; 83605; 83690; 83735; 83880; 84100; 84443; 85025; 85610; 85651; 85730; 96360; 96361; 96372; 99284; 99285; A9270; G0378; J1650; J1815; J7120; J8499; Q9967; 70450; 80320; 81003; 87086; 93005

== ENCOUNTER 2020-01-12 09:28 | Outpatient (CLI) | payer MEDICARE, MEDICAID | END 2020-01-12 12:51 | disposition critical access hospital (66) | LOC: EMS 09:28 | PROVIDERS: ATTEND Surgery | DX: R29.810 Facial weakness (principal); R47.9 Unspecified speech disturbances | CPT/HCPCS: A0425; A0427 ==

== ENCOUNTER 2020-01-12 09:43 | Emergency (ER) | payer MEDICARE, MEDICAID ==
--- NOTE | 2020-01-12 10:03 | CT Report ---
PROCEDURE: HEAD WO INDICATIONS: Left-sided facial droop TECHNIQUE: Noncontrast 4.5 mm thick angled axial sections acquired from the foramen magnum to the vertex. For r adiation dose reduction, the following was used: automated exposure control, adjustment of mA and/or kV according to patient size. COMPARISON: 12/17/[address] angiogram head/neck FINDINGS: Image quality: Excellent. CSF spaces: Global cerebral volume loss with passive expansion of the ventricles and extra-axial spac es, similar to the prior study. Cisterns patent. No findings of mass effect or midline shift. Brain: No acute intracranial hemorrhage. No findings of vasogenic edema. West-white matter differenti ation is maintained without CT evidence of acute large territory infarct. Skull and face: Calvarium and visualized facial bones are intact, without suspicious lesions. Sinuses: Right paranasal sinus inflammatory changes are similar. Remaining paranasal sinuses and mast oid air cells clear. IMPRESSION: No acute intracranial abnormality. MRI recommended if there is clinical concern for acute ischemia. Reviewed by: Amrit Perez MD on 01/12/2020 10:02 AM PDT Approved by: Amrit Perez MD on 01/12/2020 10:02 AM PDT Station ID: [id number]
[2020-01-12 10:18] LABS: BASOPHILS % (AUTO) 0.1 %; EOSINOPHILS # (AUTO) 0.1 10^3/uL (0.0-0.7); HGB - HEMOGLOBIN 8.9 g/dL (14.0-18.0); LYMPHOCYTES # (AUTO) 0.9 10^3/uL (1.5-3.5); LYMPHOCYTES % (AUTO) 11.8 %; MEAN CORPUSCULAR HEMOGLOBIN 30.5 pg (27.0-31.0); MEAN CORPUSCULAR HGB CONC 32.1 g/dL (32.0-36.0); MEAN CORPUSCULAR VOLUME 94.9 fL (80.0-94.0); MEAN PLATELET VOLUME 9.1 fL (7.4-11.4); MONOCYTES # (AUTO) 0.5 10^3/uL (0.0-1.0); NEUTROPHILS # (AUTO) 6.3 10^3/uL (1.5-6.6); NEUTROPHILS % (AUTO) 80.5 %; PLT - PLATELET COUNT 215 10^3/uL (130-450); RED BLOOD COUNT 2.92 10^6/uL (4.70-6.10); RED CELL DISTRIBUTION WIDTH 18.5 % (12.0-15.0); WHITE BLOOD COUNT 7.8 x10^3/uL (4.8-10.8)
[2020-01-12 10:23] LABS: INR 1.1 (0.8-1.2); PT - PROTHROMBIN TIME 12.2 secs (9.9-12.6)
[2020-01-12 10:31] LABS: ALBUMIN 3.8 g/dL (3.2-5.5); ALBUMIN/GLOBULIN RATIO 1.2 (1.0-2.2); BILIRUBIN,TOTAL 0.7 mg/dL (0.2-1.0); CALCIUM 8.6 mg/dL (8.5-10.3); CREATININE 1.2 mg/dL (0.6-1.2)
--- NOTE | 2020-01-12 10:39 | ED Physician Documentation ---
History of Present Illness - Stated complaint Stated Complaint: STROKE LIKE SYMPTOMS - Chief complaint Chief Complaint: Neuro - History obtained from History obtained from: Patient, Family, EMS - Additonal information Additional information: Patient is brought to the emergency department for chief complaint of left facial droop that was present when he awoke this morning. Patient was last known to be normal at 2100 last night. The patient denies any other complaints at this time. No weakness anywhere else. No shortness of breath or chest pain. No nausea or vomiting. The patient states he has been able to swallow. Review of records reveals that the patient has been admitted here for strokelike symptoms twice in the last couple of months, 1 of which was just 3 weeks ago. In both instances, the patient had speech difficulties, confusion, or cranial nerve dysfunction. The patient in both instances had CT scan of the head and CTA of the head and neck, all of which were unremarkable. The patient, unfortunately, was not a candidate for MRI, as his body habitus is too large for scanner in both cases, it was recommended that the patient follow-up with neurology, and that he see his primary care physician for referral to neurology. Patient had no dysrhythmia on either admission. He is on aspirin at baseline, and his primary care physician restarted Plavix for him after a month-long trial of Plavix between his 2 admissions. Patient has no other complaints at this time. arrived about 1 hour into the patient's stay and stated that she also was concerned the patient did not know her name this morning or their sons. She states that if she told the patient her name, then he could repeat it, but that when she asked him what her name was upon arrival, he just said "melon". No other confusion or complaints at this time. Review of Systems Ten Systems: 10 systems reviewed and negative Constitutional: reports: Reviewed and negative Eyes: reports: Reviewed and negative Ears: reports: Reviewed and negative Nose: reports: Reviewed and negative Throat: reports: Reviewed and negative Cardiac: reports: Reviewed and negative Respiratory: reports: Reviewed and negative GI: reports: Reviewed and negative : reports: Reviewed and negative Skin: reports: Reviewed and negative Musculoskeletal: reports: Reviewed and negative Neurologic: reports: Focal weakness Psychiatric: reports: Reviewed and negative Endocrine: reports: Reviewed and negative Immunocompromised: reports: Reviewed and negative PD PAST MEDICAL HISTORY - Past Medical History Past Medical History: Yes Cardiovascular: High cholesterol, Murmur Respiratory: Sleep apnea, Other Neuro: None Endocrine/Autoimmune: Type 2 diabetes GI: None, Colon polyps : Benign prostate hypertrophy, Kidney stones HEENT: Chronic vision loss, Chronic hearing loss Psych: Depression Musculoskeletal: Osteoarthritis, Fatigue Derm: None - Past Surgical History Past Surgical History: Yes General: Colonoscopy, Other Ortho: Spine surgery, Other - Present Medications Home Medications: Ambulatory Orders Medication Instructions Recorded Confirmed Finasteride 5 mg PO DAILY 01/28/15 12/19/19 Metformin HCl [Metformin ER 1,000 mg PO BID 01/28/15 12/19/19 Osmotic] Simvastatin 40 mg PO QPM 01/27/16 12/19/19 Loperamide [Imodium] 4 mg PO DAILY 12/11/18 12/19/19 Citalopram Hydrobromide [Celexa] 40 mg PO DAILY 11/22/19 12/19/19 Finasteride [Proscar] 5 mg PO DAILY 11/22/19 12/19/19 Oxybutynin Chloride [Oxybutynin 45 mg PO DAILY 11/22/19 12/19/19 Chloride ER] Terazosin HCl 10 mg PO QPM 11/22/19 12/19/19 Clopidogrel [Plavix] 75 mg PO DAILY #30 tablet 11/23/19 12/19/19 Aspirin [Aspirin EC] 81 mg PO DAILY #100 tablet. 12/21/19 Clopidogrel [Plavix] 75 mg PO DAILY #30 tablet 12/21/19 Ferrous Sulfate 325 mg PO DAILY #30 tablet 12/21/19 Insulin NPH Human Isophane 30 unit SUBQ BID #0 12/21/19 12/19/19 [Humulin N] Mecobalamin [B12 Active] 1,000 mcg PO DAILY #30 tab.chew 12/21/19 - Allergies Allergies/Adverse Reactions: Allergies Allergy/AdvReac Type Severity Reaction Status Date / Time No Known Drug Allergies Allergy Verified 11/21/19 17:28 - Social History Does the pt smoke?: No Smoking Status: Never smoker Does the pt drink ETOH?: No Does the pt have substance abuse?: No - Immunizations Immunizations are current?: Yes - POLST Patient has POLST: No POLST Status: Full Code PD ED PE NORMAL - Vitals Vital signs reviewed: Yes - General General: No acute distress, Well developed/nourished, Other (Patient is alert and oriented to self and the fact that he is at the hospital.) - HEENT HEENT: Atraumatic, PERRL, EOMI, Moist mucous membranes - Neck Neck: Supple, no meningeal sign - Cardiac Cardiac: RRR, No murmur, Strong equal pulses - Respiratory Respiratory: No respiratory distress, Clear bilaterally - Abdomen Abdomen: Soft, Non tender, Other (Patient is morbidly obese.) - Derm Derm: Normal color, Warm and dry - Extremities Extremities: No deformity, No calf tenderness / cord - Neuro Neuro: No motor deficit (With exception of cranial nerves, as noted.), No sensory deficit, Normal speech, Other (Patient has mild left facial droop compared to the right side. He is alert and answers questions appropriately, without aphasia.) - Psych Psych: Normal mood, Normal affect Results - Vitals Vitals: Vital Signs - 24 hr 01/12/20 01/12/20 01/12/20 09:47 10:17 10:54 Temperature 37 C Heart Rate 76 71 71 Respiratory 16 14 12 Rate Blood Pressure 141/75 H 151/110 H 139/71 H O2 Saturation 97 99 100 01/12/20 01/12/20 01/12/20 11:24 11:30 12:00 Temperature Heart Rate 72 74 81 Respiratory 16 18 21 Rate Blood Pressure 160/101 H 163/88 H 131/62 H O2 Saturation 100 97 100 01/12/20 01/12/20 01/12/20 12:30 13:00 13:45 Temperature Heart Rate 73 74 98 Respiratory 14 16 14 Rate Blood Pressure 140/60 H 133/66 H 106/78 O2 Saturation 99 98 100 01/12/20 01/12/20 14:30 15:42 Temperature Heart Rate 83 79 Respiratory 16 Rate Blood Pressure 121/60 119/53 L O2 Saturation 99 Oxygen O2 Source [With Activity] Room air O2 Source Room air - EKG (time done) 10:07 Rate: Rate (enter#) Rhythm: NSR [place]: Normal Intervals: Normal UT, LBBB (Incomplete) QRS: Normal Ischemia: Normal ST segments. No: T wave inversion Compare to prior EKG: Old EKG unavailable Computer interpretation: Agree with computer - Labs Labs: Laboratory Tests 01/12/20 01/12/20 01/12/20 10:12 10:12 10:12 WBC 7.8 RBC 2.92 L Hgb 8.9 L Hct 27.7 L MCV 94.9 H MCH 30.5 MCHC 32.1 RDW 18.5 H Plt Count 215 MPV 9.1 Neut # (Auto) 6.3 Lymph # (Auto) 0.9 L Moore # (Auto) 0.5 Eos # (Auto) 0.1 Baso # (Auto) 0.0 Absolute Nucleated RBC 0.00 Nucleated RBC % 0.0 PT 12.2 INR 1.1 Sodium 134 L Potassium 4.5 Chloride 101 Carbon Dioxide 22 Anion Gap 11.0 BUN 30 H Creatinine 1.2 Estimated GFR (MDRD) 59 L Glucose 166 H Calcium 8.6 Total Bilirubin 0.7 AST 11 ALT 11 Alkaline Phosphatase 56 Total Protein 7.0 Albumin 3.8 Globulin 3.2 Albumin/Globulin Ratio 1.2 Lipase 23 Urine Color Urine Clarity Urine pH Ur Specific [place] Urine Protein Urine Glucose (UA) Urine Ketones Urine Occult Blood Urine Nitrite Urine Bilirubin Urine Urobilinogen Ur Leukocyte Esterase Urine RBC Urine WBC Ur Squamous Epith Cells Urine Crystals Urine Bacteria Ur Microscopic Review Urine Culture Comments 01/12/20 11:11 WBC RBC Hgb Hct MCV MCH MCHC RDW Plt Count MPV Neut # (Auto) Lymph # (Auto) Moore # (Auto) Eos # (Auto) Baso # (Auto) Absolute Nucleated RBC Nucleated RBC % PT INR Sodium Potassium Chloride Carbon Dioxide Anion Gap BUN Creatinine Estimated GFR (MDRD) Glucose Calcium Total Bilirubin AST ALT Alkaline Phosphatase Total Protein Albumin Globulin Albumin/Globulin Ratio Lipase Urine Color YELLOW Urine Clarity CLEAR Urine pH 5.5 Ur Specific [place] 1.025 Urine Protein 100 H Urine Glucose (UA) NEGATIVE Urine Ketones NEGATIVE Urine Occult Blood NEGATIVE Urine Nitrite NEGATIVE Urine Bilirubin NEGATIVE Urine Urobilinogen 0.2 (NORMAL) Ur Leukocyte Esterase NEGATIVE Urine RBC 0-5 Urine WBC 0-3 Ur Squamous Epith Cells FEW Squamous Urine Crystals 6-10 Uric Acid Urine Bacteria Few Ur Microscopic Review INDICATED Urine Culture Comments NOT INDICATED - Rads (name of study) CT head Radiology: Final report received, EMP read indepedently, See rad report (Final radiologist impression: No acute intracranial abnormality. MRI recommended if there is clinical concern for acute ischemia.) PD MEDICAL DECISION MAKING - ED course Complexity details: reviewed old records, reviewed results, re-evaluated patient, considered differential, d/w patient, d/w family ED course: The patient arrived more than 12 hours after he was last known well, and as such, was not a candidate for TPA. He was not able to comply in entirety with the NIH stroke scale examination, as he is unable to lift his legs and had certain other physical limitations. He was sent for CT scan of the head without contrast, and this was found to be unremarkable, except for age-related changes and evidence of microvascular disease. Patient was worked up with laboratory studies, which were also unremarked well. Urinalysis was also performed. I had a very long discussion with the patient's regarding these episodes and the patient's condition overall. The patient has been extensively evaluated repeatedly at our hospital in the last couple of months, and repeatedly, the recommendation has been made for neurology referral and follow-up. I have discussed with the that there is nothing that can be emergently or even urgently done for microvascular disease, and that this is often a chronic situation in patients of older age. The patient is already on Plavix and aspirin for preventative purposes, and has no dysrhythmia to indicate that he would have a an embolic source of his symptoms. On reevaluation, the patient's left facial droop has completely resolved. The patient's continues to be concerned because he called her "micheleton". I have discussed with her that in general, the patient is able to carry on a coherent conversation, and that this finding in and of itself, in the face of an otherwise negative work-up, is not an indication for hospital admission, as there is really nothing else to be offered by admission. The patient is able to manage his secretions and has swallowed water in the emergency department. The now states that she does not feel she can take care of the patient at home in his current state, because she cannot rely on him to communicate with her and let her know his needs. At this point in time, I have discussed with the patient's that we have done all of the evaluation and work-up that we can do here at our hospital, and that we do not have inpatient neurology here. As such, if the patient is to have an inpatient stay, he will need to go to a facility where neurology is available. I did speak with Dr. Holloway, who is the physician liaison for [facility], and he did ultimately arrange transfer to [facility] with excepting physician Dr. Zelaya. The patient remained stable throughout his stay in the emergency Departure - Departure Disposition: 02 Transfer Acute Care Hosp Clinical Impression: TIA (transient ischemic attack), Confusion Condition: Serious
[2020-01-12 11:20] LABS: BILIRUBIN,URINE NEGATIVE (NEGATIVE); GLUCOSE, URINE (UA) NEGATIVE (NEGATIVE); KETONES,URINE (UA) NEGATIVE (NEGATIVE); LEUKOCYTE ESTERASE, URINE NEGATIVE (NEGATIVE); NITRITE,URINE NEGATIVE (NEGATIVE); OCCULT BLOOD,URINE NEGATIVE (NEGATIVE); PH,URINE 5.5 PH (5.0-7.5); PROTEIN,URINE 100 mg/dL (NEGATIVE); UROBILINOGEN,URINE 0.2 (NORMAL) E.U./dL (NORMAL)
[2020-01-12 11:25] LABS: CLARITY,URINE CLEAR (CLEAR)
[2020-01-12 11:36] LABS: BACTERIA,URINE Few /HPF (None Seen); CRYSTALS,URINE 6-10 Uric Acid /LPF; RBC,URINE 0-5 /HPF (0-5); SQUAMOUS EPITHELIAL CELL,UR FEW Squamous (<= Few)
[2020-01-12 16:32] VITALS: BP 155/74
== END 2020-01-12 16:41 | disposition short-term general hospital (02) ==
LOC: EDUNIT# → ED 09:43
DX: G45.9 Transient cerebral ischemic attack, unspecified (principal); E66.01 Morbid (severe) obesity due to excess calories; E11.9 Type 2 diabetes mellitus without complications; Z79.01 Long term (current) use of anticoagulants; Z79.4 Long term (current) use of insulin
CPT/HCPCS: 36415; 70450; 80053; 81001; 81003; 83690; 85025; 85610; 87086; 93005; 99285

== ENCOUNTER 2020-02-09 09:08 | Outpatient (CLI) | payer MEDICARE, MEDICAID | END 2020-02-09 09:09 | disposition critical access hospital (66) | LOC: EMS 09:08 | PROVIDERS: ATTEND Surgery | DX: R56.9 Unspecified convulsions (principal) | CPT/HCPCS: A0425; A0427 ==

== ENCOUNTER 2020-02-09 09:23 | Emergency (ER) | payer MEDICARE, MEDICAID ==
--- NOTE | 2020-02-09 09:31 | ED Physician Documentation ---
PD HPI SEIZURE - Stated complaint Stated Complaint: SZ - Chief complaint Chief Complaint: Neuro - History obtained from History obtained from: Family, EMS - History of Present Illness Timing - onset: Today (just HEALTH AND SAFETY REPRESENTATIVE) Witnessed: Witnessed (by ) Number of seizures: Multiple (may have had one at 3 am, but not clear, per . Definite seizure activity this morning HEALTH AND SAFETY REPRESENTATIVE. EMS found pt post ictal and poorly responsive.) Description of seizure activity: Generalized Injury during seizure: No: Fell, Head injury Associated symptoms: No: Headache, Chest pain History of seizures: First seizure. No: Known seizure disorder Contributing factors: Other (recent TIA episodes, last January 11). No: Substance abuse, EtOH withdrawal Similar symptoms before: Has not had sx before Recently seen: Emergency Dept, Admitted (He was admitted at [facility] in December 12 after being seen here for TIA type symptoms with left-sided weakness. He was sent to [facility] because of his body habitus prohibited MRI here. Reportedly had an MRI there without any signs of CVA. D/C with ASA/plavix) Review of Systems Constitutional: denies: Fever Nose: denies: Rhinorrhea / runny nose, Congestion Throat: denies: Sore throat Respiratory: denies: Cough GI: denies: Vomiting, Diarrhea, Bloody / black stool Skin: denies: Abrasion (s), Laceration (s) Neurologic: reports: Generalized weakness. denies: Headache, Head injury Psychiatric: denies: Depressed, Delusions, Anxiety PD PAST MEDICAL HISTORY - Past Medical History Cardiovascular: High cholesterol, Murmur Respiratory: Sleep apnea, Other Neuro: None Endocrine/Autoimmune: Type 2 diabetes GI: None, Colon polyps : Benign prostate hypertrophy, Kidney stones HEENT: Chronic vision loss, Chronic hearing loss Psych: Depression Musculoskeletal: Osteoarthritis, Fatigue Derm: None - Past Surgical History Past Surgical History: Yes General: Colonoscopy, Other Ortho: Spine surgery, Other - Present Medications Home Medications: Ambulatory Orders Medication Instructions Recorded Confirmed Finasteride 5 mg PO DAILY 01/28/15 12/19/19 Metformin HCl [Metformin ER 1,000 mg PO BID 01/28/15 12/19/19 Osmotic] Simvastatin 40 mg PO QPM 01/27/16 12/19/19 Loperamide [Imodium] 4 mg PO DAILY 12/11/18 12/19/19 Citalopram Hydrobromide [Celexa] 40 mg PO DAILY 11/22/19 12/19/19 Finasteride [Proscar] 5 mg PO DAILY 11/22/19 12/19/19 Oxybutynin Chloride [Oxybutynin 45 mg PO DAILY 11/22/19 12/19/19 Chloride ER] Terazosin HCl 10 mg PO QPM 11/22/19 12/19/19 Clopidogrel [Plavix] 75 mg PO DAILY #30 tablet 11/23/19 12/19/19 Aspirin [Aspirin EC] 81 mg PO DAILY #100 tablet. 12/21/19 Clopidogrel [Plavix] 75 mg PO DAILY #30 tablet 12/21/19 Ferrous Sulfate 325 mg PO DAILY #30 tablet 12/21/19 Insulin NPH Human Isophane 30 unit SUBQ BID #0 12/21/19 12/19/19 [Humulin N] Mecobalamin [B12 Active] 1,000 mcg PO DAILY #30 tab.chew 12/21/19 levETIRAcetam [Keppra] 500 mg PO BID #100 tablet 02/09/20 - Allergies Allergies/Adverse Reactions: Allergies Allergy/AdvReac Type Severity Reaction Status Date / Time No Known Drug Allergies Allergy Verified 11/21/19 17:28 - Living Situation Living Situation: reports: With spouse/s.o. Living Arrangement: reports: At home, Other (minimal physical activity at baseline) - Social History Does the pt smoke?: No Smoking Status: Never smoker Does the pt drink ETOH?: No Does the pt have substance abuse?: No - Immunizations Immunizations are current?: Yes - POLST Patient has POLST: No POLST Status: Full Code PD ED PE NORMAL - Vitals Vital signs reviewed: Yes - General General: Well developed/nourished. No: Alert and oriented X 3 (Somnolent but opens eyes to tactile and verbal. Not really answering questions well however.) - HEENT HEENT: Atraumatic, Ears normal, Moist mucous membranes. No: Pharynx benign (tongue abrasion right side and inside of lower lip. ) - Neck Neck: Supple, no meningeal sign, No bony TTP, No adenopathy - Cardiac Cardiac: No murmur. No: RRR (tachycardic) - Respiratory Respiratory: Clear bilaterally - Abdomen Abdomen: Soft (very obese), Non tender - Derm Derm: Normal color, Warm and dry - Extremities Extremities: No edema, No calf tenderness / cord Results - Vitals Vitals: Vital Signs - 24 hr 02/09/20 02/09/20 02/09/20 09:27 09:54 10:00 Temperature 36.9 C Heart Rate 120 H 103 H 91 Respiratory 28 H 25 H 23 Rate Blood Pressure 144/82 H 119/84 H 116/62 O2 Saturation 100 95 95 02/09/20 02/09/20 02/09/20 10:15 10:30 10:45 Temperature Heart Rate 125 H 119 H 118 H Respiratory 23 21 23 Rate Blood Pressure 114/62 93/43 L 104/60 O2 Saturation 96 98 97 02/09/20 02/09/20 02/09/20 11:00 11:30 12:00 Temperature Heart Rate 97 91 83 Respiratory 16 14 14 Rate Blood Pressure 104/60 117/82 H 113/56 L O2 Saturation 97 99 100 02/09/20 02/09/20 02/09/20 13:20 14:00 14:30 Temperature Heart Rate 84 75 70 Respiratory 16 18 12 Rate Blood Pressure 120/64 114/56 L 111/64 O2 Saturation 97 100 100 02/09/20 15:00 Temperature Heart Rate 69 Respiratory 14 Rate Blood Pressure 112/72 O2 Saturation 100 Oxygen O2 Source [With Activity] Room air O2 Source Room air - Labs Labs: Laboratory Tests 02/09/20 02/09/20 10:05 10:05 WBC 14.8 H RBC 2.79 L Hgb 8.6 L Hct 26.4 L MCV 94.6 H MCH 30.8 MCHC 32.6 RDW 18.2 H Plt Count 236 MPV 9.4 Neut # (Auto) 12.5 H Lymph # (Auto) 1.4 L [place] # (Auto) 0.7 Eos # (Auto) 0.1 Baso # (Auto) 0.0 Absolute Nucleated RBC 0.00 Nucleated RBC % 0.0 Sodium 140 Potassium 3.7 Chloride 101 Carbon Dioxide 17 L Anion Gap 22.0 H BUN 25 H Creatinine 1.4 H Estimated GFR (MDRD) 49 L Glucose 262 H Calcium 8.6 Magnesium 1.4 L Total Bilirubin 0.4 AST < 10 L ALT 10 Alkaline Phosphatase 71 Total Protein 6.8 Albumin 3.6 Globulin 3.2 Albumin/Globulin Ratio 1.1 Lipase 16 L Ethyl Alcohol < 5.0 - Rads (name of study) head CT Radiology: Prelim report reviewed (no interval change; no acute ICH.), See rad report PD MEDICAL DECISION MAKING - ED course Complexity details: re-evaluated patient (The patient has been here now 4 hours and is still slowly arousing. He opens his eyes and answers questions well. He does get up into a sitting position with the some assistance but still seems a bit foggy and confused. He does not seem well enough to be able to head home just yet.), considered differential (Sounds likely to be a new onset seizure. Presume ischemic. CT of the head did not show any acute bleed. He does not have any focal weaknesses. He is slowly arousing but still postictal.), d/w patient, d/w family (), d/w data integrity consultant (Talked with Dr. Jacques Heaton neurology who suggested adding Keppra to the patient's medications. 250 twice a day for 3 or 4 days then 500 twice a day for 3 to 4 days and then potentially up to 750 twice a day.) ED course: prolonged post ictal phase with slow improvement toward baseline mentation and then strength, to where he could sit himself up. subsequently comfortable enough bringing him home (offered to her to stay until alert more closely to baseline). I talked with [facility] who advised starting Keppra. Did not seem need for admission nor transfer for Neuro. Feder[facility] Hospitalist as needed other med problems. I talk with Hospitalist here as was look more prolonged post ictal, was already 4 hours, but did not meet OBS criteria. Will watch in ER for further improvement. Departure - Departure Disposition: 01 Home, Self Care Clinical Impression: Generalized seizure Condition: Stable Record reviewed to determine appropriate education?: Yes Instructions: ED Seizure New Onset Unk Cause Follow-Up: Fidel Starr MD [Primary Care Provider] - Prescriptions: levETIRAcetam [Keppra] 500 mg PO BID #100 tablet Comments: Continue usual medications. Stay well-hydrated. Start levetiracetam 250 mg twice daily for 3 days then increase to 500 mg twice daily. Follow-up with your primary care, call for an appointment. Follow-up with the [facility] neurology, call the office number for which you it had an appointment. Return to the ER if recurrent problems. Discharge Date/Time: 02/09/20 15:28
[2020-02-09] MEDS ORDERED: SODIUM CHLORIDE 0.9% 1,000 ML IV STA (09:34)
--- NOTE | 2020-02-09 10:02 | CT Report ---
PROCEDURE: HEAD WO INDICATIONS: Seizure, altered mentation TECHNIQUE: Noncontrast 4.5 mm thick angled axial sections acquired from the foramen magnum to the vertex. For r adiation dose reduction, the following was used: automated exposure control, adjustment of mA and/or kV according to patient size. COMPARISON: Significant 18/08/[address] angiogram of the head. FINDINGS: Image quality: Excellent. CSF spaces: There is global cerebral volume loss with opacification of the ventricles and extra-axia l spaces. Basal cisterns are patent. No extra-axial fluid collections. Brain: Chronic microvascular ischemic changes are redemonstrated. No midline shift. No intracranial masses or hemorrhage. West-white matter interface is normal. Skull and face: Calvarium and visualized facial bones are intact, without suspicious lesions. Sinuses: Visualized sinuses and mastoids are predominantly clear. IMPRESSION: No acute intracranial finding. Global cerebral volume loss and chronic microvascular isc hemic changes are present, similar to 12/19/2019 examination Reviewed by: Amrit Perez MD on 02/09/2020 10:01 AM PDT Approved by: Amrit Perez MD on 02/09/2020 10:01 AM PDT Station ID: [id number]
[2020-02-09 10:16] LABS: BASOPHILS % (AUTO) 0.3 %; EOSINOPHILS # (AUTO) 0.1 10^3/uL (0.0-0.7); EOSINOPHILS % (AUTO) 0.6 %; HGB - HEMOGLOBIN 8.6 g/dL (14.0-18.0); LYMPHOCYTES # (AUTO) 1.4 10^3/uL (1.5-3.5); LYMPHOCYTES % (AUTO) 9.4 %; MEAN CORPUSCULAR HEMOGLOBIN 30.8 pg (27.0-31.0); MEAN CORPUSCULAR HGB CONC 32.6 g/dL (32.0-36.0); MEAN CORPUSCULAR VOLUME 94.6 fL (80.0-94.0); MEAN PLATELET VOLUME 9.4 fL (7.4-11.4); MONOCYTES # (AUTO) 0.7 10^3/uL (0.0-1.0); NEUTROPHILS # (AUTO) 12.5 10^3/uL (1.5-6.6); NEUTROPHILS % (AUTO) 84.1 %; PLT - PLATELET COUNT 236 10^3/uL (130-450); RED BLOOD COUNT 2.79 10^6/uL (4.70-6.10); RED CELL DISTRIBUTION WIDTH 18.2 % (12.0-15.0); WHITE BLOOD COUNT 14.8 x10^3/uL (4.8-10.8)
[2020-02-09 10:30] LABS: ALBUMIN 3.6 g/dL (3.2-5.5); ALBUMIN/GLOBULIN RATIO 1.1 (1.0-2.2); ALKALINE PHOSPHATASE 71 IU/L (42-121); ALT ALANINE AMINOTRANSFERASE 10 IU/L (10-60); AST ASPARTATE AMINOTRANSFERASE < 10 IU/L (10-42); BILIRUBIN,TOTAL 0.4 mg/dL (0.2-1.0); BUN - BLOOD UREA NITROGEN 25 mg/dL (6-20); CALCIUM 8.6 mg/dL (8.5-10.3); CARBON DIOXIDE - CO2 17 mmol/L (21-32); CHLORIDE 101 mmol/L (101-111); CREATININE 1.4 mg/dL (0.6-1.2); GLUCOSE 262 mg/dL (70-100); LIPASE 16 U/L (22-51); MAGNESIUM 1.4 mg/dL (1.7-2.8); SODIUM 140 mmol/L (135-145); TOTAL PROTEIN 6.8 g/dL (6.7-8.2)
[2020-02-09] MEDS ORDERED: levETIRAcetam INJ 500 MG in SODIUM CHLORIDE 0.9% 100ML 100 ML IV STA (13:32)
[2020-02-09 15:27] VITALS: BP 112/72
== END 2020-02-09 15:28 | disposition home or self-care (01) ==
LOC: EDUNIT# → ED 09:23
DX: R56.9 Unspecified convulsions (principal); E11.9 Type 2 diabetes mellitus without complications; Z79.4 Long term (current) use of insulin
CPT/HCPCS: 36415; 70450; 80053; 80320; 83690; 83735; 85025; 93005; 96365; 99283

== ENCOUNTER 2020-04-10 16:57 | Inpatient (IN) | payer MEDICARE, MEDICAID ==
[2020-04-10 17:49] LABS: BASOPHILS % (AUTO) 0.2 %; EOSINOPHILS % (AUTO) 0.1 %; HGB - HEMOGLOBIN 8.6 g/dL (14.0-18.0); LYMPHOCYTES # (AUTO) 0.4 10^3/uL (1.5-3.5); LYMPHOCYTES % (AUTO) 2.9 %; MEAN CORPUSCULAR HGB CONC 31.7 g/dL (32.0-36.0); MEAN CORPUSCULAR VOLUME 94.4 fL (80.0-94.0); MEAN PLATELET VOLUME 9.6 fL (7.4-11.4); NEUTROPHILS # (AUTO) 12.4 10^3/uL (1.5-6.6); NEUTROPHILS % (AUTO) 89.1 %; PLT - PLATELET COUNT 239 10^3/uL (130-450); RED BLOOD COUNT 2.87 10^6/uL (4.70-6.10); RED CELL DISTRIBUTION WIDTH 18.3 % (12.0-15.0)
[2020-04-10 17:56] LABS: INR 1.4 (0.8-1.2); PT - PROTHROMBIN TIME 14.9 secs (9.9-12.6)
--- NOTE | 2020-04-10 18:02 | XRAY Report ---
PROCEDURE: Chest 1 View X-Ray INDICATIONS: Chest Pain TECHNIQUE: One view of the chest was acquired. COMPARISON: Chest x-ray 12/19/2019 FINDINGS: Surgical changes and devices: None. Lungs and pleura: No pleural effusions or pneumothorax. Mild increased pulmonary vascularity is pres ent. Mediastinum: Mediastinal contours appear normal. Heart size is enlarged. Bones and chest wall: No suspicious bony lesions. Overlying soft tissues appear unremarkable. IMPRESSION: Increased vascularity with cardiomegaly suggestive of edema. Reviewed by: Virginia Wisdom MD on 04/10/2020 6:01 PM PDT Approved by: Virginia Wisdom MD on 04/10/2020 6:01 PM PDT Station ID: [id number]
[2020-04-10 18:03] LABS: ALBUMIN 3.7 g/dL (3.2-5.5); ALBUMIN/GLOBULIN RATIO 1.1 (1.0-2.2); BILIRUBIN,TOTAL 1.1 mg/dL (0.2-1.0); CREATININE 1.7 mg/dL (0.6-1.2); PARTIAL THROMBOPLASTIN TIME 22.7 secs (24.9-33.3)
--- NOTE | 2020-04-10 18:07 | ED Physician Documentation ---
History of Present Illness - Stated complaint Stated Complaint: SOA/HIGH HEART RATE - Chief complaint Chief Complaint: Resp - Additonal information Additional information: 75-year-old male was brought into the emergency department for evaluation of dyspnea. On presentation he is noted to be in atrial fib with a heart rate variable in the low 100s to the 120s. His denies to me that he has any previous history of atrial fib though our most recent EKG does show fibrillation previous to this. This gentleman is morbidly obese and his reports that for much of the last week he has not been able to catch his breath. Especially worth with any turning or activity. He denies chest pain. No new leg swelling cough or fever. He is not anticoagulated. He was seen today at the clinic for concerns of a urinary tract infection. The provider that saw him felt that his breathing was more dyspneic than appropriate for body habitus and advised that he come to the ER reports that he is on Bipap at night-time. He has a hx of htn, dm, seizure dx, depression Review of Systems Constitutional: denies: Fever, Chills Eyes: reports: Reviewed and negative Ears: reports: Reviewed and negative Nose: reports: Reviewed and negative Throat: reports: Reviewed and negative Cardiac: denies: Chest pain / pressure, Palpitations, Pedal edema, Calf pain Respiratory: reports: Dyspnea. denies: Cough, Hemoptysis, Wheezing GI: reports: Reviewed and negative : reports: Reviewed and negative Skin: reports: Reviewed and negative Musculoskeletal: reports: Reviewed and negative Neurologic: reports: Seizure (d/o), Reviewed and negative. denies: Generalized weakness, Focal weakness, Numbness, Difficulty speaking, Near syncope, Syncope, Head injury, LOC PD PAST MEDICAL HISTORY - Past Medical History Past Medical History: Yes Cardiovascular: High cholesterol, Murmur Respiratory: Sleep apnea, Other Neuro: None Endocrine/Autoimmune: Type 2 diabetes GI: None, Colon polyps : Benign prostate hypertrophy, Kidney stones HEENT: Chronic vision loss, Chronic hearing loss Psych: Depression Musculoskeletal: Osteoarthritis, Fatigue Derm: None - Past Surgical History Past Surgical History: Yes General: Colonoscopy, Other Ortho: Spine surgery, Other - Present Medications Home Medications: Ambulatory Orders Medication Instructions Recorded Confirmed Finasteride 5 mg PO DAILY 01/28/15 12/19/19 Metformin HCl [Metformin ER 1,000 mg PO BID 01/28/15 12/19/19 Osmotic] Simvastatin 40 mg PO QPM 01/27/16 12/19/19 Loperamide [Imodium] 4 mg PO DAILY 12/11/18 12/19/19 Citalopram Hydrobromide [Celexa] 40 mg PO DAILY 11/22/19 12/19/19 Finasteride [Proscar] 5 mg PO DAILY 11/22/19 12/19/19 Oxybutynin Chloride [Oxybutynin 45 mg PO DAILY 11/22/19 12/19/19 Chloride ER] Terazosin HCl 10 mg PO QPM 11/22/19 12/19/19 Clopidogrel [Plavix] 75 mg PO DAILY #30 tablet 11/23/19 12/19/19 Aspirin [Aspirin EC] 81 mg PO DAILY #100 tablet. 12/21/19 Clopidogrel [Plavix] 75 mg PO DAILY #30 tablet 12/21/19 Ferrous Sulfate 325 mg PO DAILY #30 tablet 12/21/19 Insulin NPH Human Isophane 30 unit SUBQ BID #0 12/21/19 12/19/19 [Humulin N] Mecobalamin [B12 Active] 1,000 mcg PO DAILY #30 tab.chew 12/21/19 levETIRAcetam [Keppra] 500 mg PO BID #100 tablet 02/09/20 - Allergies Allergies/Adverse Reactions: Allergies Allergy/AdvReac Type Severity Reaction Status Date / Time No Known Drug Allergies Allergy Verified 11/21/19 17:28 - Social History Does the pt smoke?: No Smoking Status: Never smoker Does the pt drink ETOH?: No Does the pt have substance abuse?: No - Immunizations Immunizations are current?: Yes - POLST Patient has POLST: No POLST Status: Full Code PD ED PE EXPANDED - General General: Alert, Other (morbidely obese) - HEENT HEENT: Atraumatic, Pharynx normal - Neck Neck: Supple w/out meningeal sx. No: Stiff neck, Brudzinki's - Cardiac Cardiac: Irregularly irregular, Radial strong equal, Pedal strong equal, Cap refill < 2 sec - Respiratory Respiratory: Clear to ausultation cheo, Labored (RR 34; sats 98% on room air. difficulty taking full breath) - Abdomen Abdomen: Normal Bowel sounds. No: Tender to palpation - Extremities Extremities: Normal, Pedal edema bilateral (unchanged from baseline) - Neuro Neuro: Alert and Oriented X 3, CNII-XII intact, Normal speech - GCS Eye Opening: Spontaneous Motor: Obeys Commands Verbal: Oriented Total: 15 Results - Vitals Vitals: Vital Signs - 24 hr 04/10/20 04/10/20 04/10/20 17:08 17:13 18:25 Temperature 37.1 C 37.4 C Heart Rate 122 H 68 103 H Respiratory 22 28 H Rate Blood Pressure 146/110 H 146/110 H 139/119 H O2 Saturation 90 L 95 04/10/20 20:19 Temperature Heart Rate 86 Respiratory Rate Blood Pressure 119/58 L O2 Saturation Oxygen O2 Source [] Room air O2 Source Room air - EKG (time done) 1708 Rate: Rate (enter#) (118) Rhythm: Atrial fibrillation Intervals: RBBB Compare to prior EKG: Unchanged from prior EKG Computer interpretation: Agree with computer - Labs Labs: Laboratory Tests 04/10/20 04/10/20 04/10/20 17:39 17:39 17:39 WBC 14.0 H RBC 2.87 L Hgb 8.6 L Hct 27.1 L MCV 94.4 H MCH 30.0 MCHC 31.7 L RDW 18.3 H Plt Count 239 MPV 9.6 Neut # (Auto) 12.4 H Lymph # (Auto) 0.4 L [place] # (Auto) 1.0 Eos # (Auto) 0.0 Baso # (Auto) 0.0 Absolute Nucleated RBC 0.00 Nucleated RBC % 0.0 PT 14.9 H INR 1.4 H APTT 22.7 L Sodium 134 L Potassium 4.6 Chloride 104 Carbon Dioxide 20 L Anion Gap 10.0 BUN 37 H Creatinine 1.7 H Estimated GFR (MDRD) 39 L Glucose 155 H Lactic Acid Calcium 8.0 L Total Bilirubin 1.1 H AST 11 ALT 10 Alkaline Phosphatase 67 Troponin I High Sens B-Natriuretic Peptide Total Protein 7.0 Albumin 3.7 Globulin 3.3 Albumin/Globulin Ratio 1.1 Lipase 15 L Urine Color Urine Clarity Urine pH Ur Specific [place] Urine Protein Urine Glucose (UA) Urine Ketones Urine Occult Blood Urine Nitrite Urine Bilirubin Urine Urobilinogen Ur Leukocyte Esterase Urine RBC Urine WBC Ur Squamous Epith Cells Urine Bacteria Ur Microscopic Review Urine Culture Comments 04/10/20 04/10/20 04/10/20 17:39 17:39 18:08 WBC RBC Hgb Hct MCV MCH MCHC RDW Plt Count MPV Neut # (Auto) Lymph # (Auto) [place] # (Auto) Eos # (Auto) Baso # (Auto) Absolute Nucleated RBC Nucleated RBC % PT INR APTT Sodium Potassium Chloride Carbon Dioxide Anion Gap BUN Creatinine Estimated GFR (MDRD) Glucose Lactic Acid 1.3 Calcium Total Bilirubin AST ALT Alkaline Phosphatase Troponin I High Sens 9.6 B-Natriuretic Peptide 185 H Total Protein Albumin Globulin Albumin/Globulin Ratio Lipase Urine Color Urine Clarity Urine pH Ur Specific [place] Urine Protein Urine Glucose (UA) Urine Ketones Urine Occult Blood Urine Nitrite Urine Bilirubin Urine Urobilinogen Ur Leukocyte Esterase Urine RBC Urine WBC Ur Squamous Epith Cells Urine Bacteria Ur Microscopic Review Urine Culture Comments 04/10/20 20:10 WBC RBC Hgb Hct MCV MCH MCHC RDW Plt Count MPV Neut # (Auto) Lymph # (Auto) [place] # (Auto) Eos # (Auto) Baso # (Auto) Absolute Nucleated RBC Nucleated RBC % PT INR APTT Sodium Potassium Chloride Carbon Dioxide Anion Gap BUN Creatinine Estimated GFR (MDRD) Glucose Lactic Acid Calcium Total Bilirubin AST ALT Alkaline Phosphatase Troponin I High Sens B-Natriuretic Peptide Total Protein Albumin Globulin Albumin/Globulin Ratio Lipase Urine Color YELLOW Urine Clarity HAZY Urine pH >=9.0 H Ur Specific [place] 1.015 Urine Protein 100 H Urine Glucose (UA) NEGATIVE Urine Ketones NEGATIVE Urine Occult Blood LARGE H Urine Nitrite POSITIVE H Urine Bilirubin NEGATIVE Urine Urobilinogen 0.2 (NORMAL) Ur Leukocyte Esterase LARGE H Urine RBC TNTC H Urine WBC >25 H Ur Squamous Epith Cells NONE SEEN Urine Bacteria Moderate H Ur Microscopic Review INDICATED Urine Culture Comments INDICATED - Rads (name of study) CT angion chest Radiology: Final report received (Mild increased vascularity minimal effusion suggestive of edema. Cardiomegaly with minimal pericardial effusion. No central pulmonary embolism. Distal branches are suboptimally evaluated secondary to contrast opacification) cxr Radiology: Final report received (Increased vascularity with cardiomegaly suggestive of edema) PD MEDICAL DECISION MAKING - ED course Complexity details: reviewed old records, reviewed results, re-evaluated patient, considered differential, d/w trial consultant (yousef) ED course: 75-year-old male brought to the emergency department for evaluation of dyspnea. He was at his primary care clinic earlier today and found to have a urinary tract infection. However as he was tachycardic and dyspneic they requested that he come into the emergency department. His reports to me that over the last week he has had increasing dyspnea with even minimal exertion. - Note today that he is in atrial fibrillation. Last ED presentation also showed atrial fibrillation. Patient has a very high chads 2 score. He is on Plavix and aspirin but not anticoagulated otherwise. - Given dyspnea a chest x-ray was performed. No obvious focal infiltrates but x-ray does suggest cardiomegaly and perhaps volume overload. High-sensitivity troponin was negative and his B OR FIRST ASSIST REGISTERED NURSE was only 185. This may be falsely low given his obesity. A echocardiogram completed in November of this year showed preserved ejection fraction at 65%. It is not clear to me at this time that this gentleman is in congestive heart failure. - A CT angio of the lungs was completed to rule out a pulmonary embolus. A large central embolus was not seen though it was somewhat limited study. - His urine is noted to be infected with worsening renal insufficiency. This case was discussed with the nighttime hospitalist Dr. Miller. We will bring this gentleman into the hospital overnight for evaluation and management of sepsis and dyspnea Though he does not have an elevated lactic acid, he is tachypneic and does have leukocytosis with a positive urine. Vancomycin and ceftriaxone as well as blood cultures are ordered. Fluid volume was deferred given suggestion of pulmonary vascular overload on x-ray. - findings and plan discussed extensively with his - Sepsis Event Current Stage of Sepsis: Sepsis Possible source of Sepsis: Genitourinary Mental/Cognitive Status: Normal for patient Reason for not giving 30ml/kg crystalloid fluids: Fluid overload potential Capillary refill: Less than 2 seconds Peripheral Pulse Strength: 2+ Slightly Diminished Peripheral Pulse Location: Pedal Bedside ultrasound performed: No Sepsis Comment: difficult to establish dx of sepsis. Noted tachypnea, leukocytosis. lactate is not elevated. Source of infection is considered urine. Pt presented for dyspnea and noted UTI by primary provider. BNP not markedly elevated, but CXR somewhat suggestive of fluid overload, fluid bolus was not given Departure - Departure Disposition: 66 [facility] DC/Xfer Clinical Impression: Dyspnea Qualifiers: Dyspnea type: other forms of dyspnea Qualified Code(s): R06.09 - Other forms of dyspnea Sepsis Qualifiers: Sepsis type: sepsis due to unspecified organism Sepsis acute organ dysfunction status: with acute organ dysfunction Severe sepsis acute organ dysfunction type: acute respiratory failure Acute respiratory failure type: with hypercapnia Severe sepsis shock status: without septic shock Qualified Code(s): A41.9 - Sepsis, unspecified organism; R65.20 - Severe sepsis without septic shock; J96.02 - Acute respiratory failure with hypercapnia
[2020-04-10] MEDS ORDERED: SODIUM CHLORIDE 0.9% 1,000 ML IV STA (19:17)
[2020-04-10] MEDS ORDERED: IOVERSOL 320 100 ML VIAL IVP ONE ×2 (19:33→20:07)
--- NOTE | 2020-04-10 20:20 | CT Report ---
PROCEDURE: ANGIO CHEST W/WO INDICATIONS: dyspnea; r/o PE CONTRAST: IV CONTRAST: Optiray 320 ml: 80 PO CONTRAST: *NO PO CONTRAST TECHNIQUE: After the administration of intravenous contrast, 2 mm thick sections acquired from the pulmonary api thompson to the posterior costophrenic angles. 3-dimensional maximum intensity projection (MIP) coronal a nd sagittal reformats were then acquired through the thorax. For radiation dose reduction, the follow ing was used: automated exposure control, adjustment of mA and/or kV according to patient size. COMPARISON: Chest x-ray 04/10/2020. FINDINGS: Image quality: Contrast opacification is suboptimal for branches distal to the main pulmonary arterie s. Pulmonary arteries: Pulmonary arteries are normal in size, and demonstrate no intraluminal filling d efects to suggest central pulmonary embolism. Lungs and pleura: Lungs are clear. Mild appearance of increased vascularity with minimal effusions. Central and peripheral airways are patent. Mediastinum: Heart size is mildly prominent with minimal pericardial effusion. No mediastinal or hi lar adenopathy. Thoracic aorta is normal in caliber and enhancement. Esophagus is normal in caliber , without hiatal hernia. Bones and chest wall: No suspicious bony lesions. Ribs and thoracic spine appear intact throughout. The thyroid is normal. No axillary or supraclavicular adenopathy. Abdomen: Visualized upper abdominal solid organs appear normal in the early arterial phase of enhanc ement. IMPRESSION: 1. Mild increased vascularity minimal effusion suggestive of edema. 2. Cardiomegaly with minimal pericardial effusion. 3. No central pulmonary embolism. Distal branches are suboptimally evaluated secondary to contrast op acification. Reviewed by: Virginia Wisdom MD on 04/10/2020 8:19 PM PDT Approved by: Virginia Wisdom MD on 04/10/2020 8:19 PM PDT Station ID: [id number]
[2020-04-10 20:23] LABS: BILIRUBIN,URINE NEGATIVE (NEGATIVE); GLUCOSE, URINE (UA) NEGATIVE (NEGATIVE); KETONES,URINE (UA) NEGATIVE (NEGATIVE); LEUKOCYTE ESTERASE, URINE LARGE (NEGATIVE); NITRITE,URINE POSITIVE (NEGATIVE); OCCULT BLOOD,URINE LARGE (NEGATIVE); PH,URINE >=9.0 PH (5.0-7.5); PROTEIN,URINE 100 mg/dL (NEGATIVE); UROBILINOGEN,URINE 0.2 (NORMAL) E.U./dL (NORMAL)
[2020-04-10 20:24] LABS: CLARITY,URINE HAZY (CLEAR)
[2020-04-10 20:35] LABS: RBC,URINE TNTC /HPF (0-5); SQUAMOUS EPITHELIAL CELL,UR NONE SEEN (<= Few)
[2020-04-10 20:36] LABS: BACTERIA,URINE Moderate /HPF (None Seen)
[2020-04-10] MEDS ORDERED: cefTRIAXone 1 GM in SODIUM CHLORIDE 0.9% MINIBAG 100 ML IV STA (20:56)
[2020-04-10] MEDS ORDERED: ONDANSETRON 4 MG/2 ML VIAL IVP PRN (21:00)
--- NOTE | 2020-04-10 21:10 | HISTORY & PHYSICAL EXAMINATION ---
Chief Complaint - Chief Complaint Chief Complaint: Shortness of breath History of Present Illness - Admitted From Admitted From:: Home - History Obtained From Records Reviewed: Yes History obtained from: Patient, Spouse, ER Provider, EMR - History of Present Illness HPI Comment/Other: This is a 75-year-old male with a past medical history significant for type 2 diabetes mellitus on insulin, BPH, morbid obesity, seizure disorder, and reported history of stroke who presents today from his primary care provider's office due to dyspnea and elevated heart rate. His tells me that today they went to the primary care provider as he had been complaining of dysuria and urgency for the past few days and they are concerned he may have had a urinary tract infection. He also became more short of breath over this past few days and he wanted to address this as well. At his primary care provider's office, he was found to be tachycardic in the 120s and quite dyspneic and so he was referred to the emergency department immediately. The patient states he began feeling short of breath over the weekend. He reports no cough except for today. He has not noticed any lower extremity edema. He reports no fevers or chills. He denies any chest pain. Both he and his deny any prior history of atrial fibrillation. His tells me that his primary care provider was about to order a Holter monitor for the patient in hopes of detecting an irregular heartbeat. He does complain of some nasal congestion and sore throat. He has not left the house since August except for doctor appointments. He was diagnosed with seizures a couple of months ago and has been on Keppra. He has been seeing a neurologist and he has told the patient and his that his prior aphasic episodes where he was hospitalized here were strokes. The patient is on aspirin and Plavix. His has not noticed any bleeding except for today there was a little bit of hematuria. He has not had any dark tarry stools. He is chronically anemic. She does notice easy bruising when the patient injects insulin. In the emergency department, he was found to be afebrile with a temperature of 37.4 C. Initial heart is in the 110s and in atrial fibrillation. He was t achypneic with respiratory rate in the high 20s. He was saturating 95% on room air. His labs were significant for white count of 14 with a left shift. His hemoglobin is 8.6. His creatinine was 1.7. Lactic acid was 1.3. His troponin was 9.6. His BNP was 185. Urinalysis was significant for positive nitrites, large leukocyte Estrace, or 25 WBCs, and moderate bacteria as well as large occult blood and too numerous to count RBCs. He was given vancomycin and ceftriaxone IV in the emergency department. He underwent a CT angiogram which was negative for pulmonary embolism but did show evidence of congestive heart failure. Given the above findings, medicine was consulted for admission. I did discuss goals of care with the patient and his and he would like to be a DNR. History - Past Medical History Cardiovascular: reports: High cholesterol, Atrial fibrillation, Murmur Respiratory: reports: Sleep apnea Neuro: reports: CVA, Seizure disorder Endocrine/Autoimmune: reports: Type 2 diabetes GI: reports: None, Colon polyps : reports: Benign prostate hypertrophy, Kidney stones HEENT: reports: Chronic vision loss, Chronic hearing loss Psych: reports: Depression Musculoskeletal: reports: Osteoarthritis, Fatigue Derm: reports: None MRSA Hx?: No - Past Surgical History General: reports: Colonoscopy Ortho: reports: Spine surgery - Family & Social History Family History Comment/Other: His mother in her 90s from dementia. His father in his 90s from a motor vehicle accident. Denies a history of stroke, heart disease, diabetes in the family. Living arrangement: At home Living Situation: With spouse/s.o. Social History Notes: He lives at home with his , Alva. He quit smoking 40 years ago. Previously smoked a pack a day for about 10 years. He reports no recent alcohol use. - POLST Patient has POLST: No POLST Status: Full Code Meds/Allgy - Home Medications Home Medications: Ambulatory Orders Medication Instructions Recorded Confirmed Finasteride 5 mg PO DAILY 01/28/15 12/19/19 Metformin HCl [Metformin ER 1,000 mg PO BID 01/28/15 12/19/19 Osmotic] Simvastatin 40 mg PO QPM 01/27/16 12/19/19 Loperamide [Imodium] 4 mg PO DAILY 12/11/18 12/19/19 Citalopram Hydrobromide [Celexa] 40 mg PO DAILY 11/22/19 12/19/19 Finasteride [Proscar] 5 mg PO DAILY 11/22/19 12/19/19 Oxybutynin Chloride [Oxybutynin 45 mg PO DAILY 11/22/19 12/19/19 Chloride ER] Terazosin HCl 10 mg PO QPM 11/22/19 12/19/19 Clopidogrel [Plavix] 75 mg PO DAILY #30 tablet 11/23/19 12/19/19 Aspirin [Aspirin EC] 81 mg PO DAILY #100 tablet. 12/21/19 Clopidogrel [Plavix] 75 mg PO DAILY #30 tablet 12/21/19 Ferrous Sulfate 325 mg PO DAILY #30 tablet 12/21/19 Insulin NPH Human Isophane 30 unit SUBQ BID #0 12/21/19 12/19/19 [Humulin N] Mecobalamin [B12 Active] 1,000 mcg PO DAILY #30 tab.chew 12/21/19 levETIRAcetam [Keppra] 500 mg PO BID #100 tablet 02/09/20 - Allergies Allergies/Adverse Reactions: Allergies Allergy/AdvReac Type Severity Reaction Status Date / Time No Known Drug Allergies Allergy Verified 11/21/19 17:28 Review of Systems - Constitutional Constitutional: denies: Fatigue, Fever, Chills, Weakness, Poor appetite - Eyes Eyes: denies: Blurred vision - Ears, Nose & Throat Ears, Nose & Throat: reports: Nasal congestion, Sore throat. denies: Nasal discharge - Cardiovascular Cariovascular: reports: Lightheadedness, Exertional dyspnea, Decr. exercise tolerance. denies: Palpitations, Chest pain, Edema - Respiratory Respiratory: reports: Cough, Snoring, SOB at rest, SOB with exertion. denies: Sputum production - Gastrointestinal Gastrointestinal: denies: Abdominal pain, Nausea, Vomiting - Genitourinary Genitourinary: reports: Dysuria, Urgency, Hematuria. denies: Flank pain - Integumentary Integumentary: denies: Rash - Neurological Neurological: reports: Dizziness. denies: General weakness, Focal weakness, Numbness - Hematologic/Lymphatic Hematologic/Lymphatic: reports: Anemia, Bruising. denies: Bleeding tendencies - All Other Systems All Other Systems: reports: Reviewed and negative Prior Level of Functionality: He is dependent on a wheelchair at baseline. His assists him with ADLs. Exam - Vital Signs Reviewed Vital Signs: Yes Vital Signs: Vital Signs x48h Temp Pulse Resp BP Pulse Ox 04/10/20 20:19 86 119/58 L 04/10/20 18:25 103 H 139/119 H 04/10/20 17:13 37.4 C 68 28 H 146/110 H 95 04/10/20 17:08 37.1 C 122 H 22 146/110 H 90 L - Physical Exam General Appearance: positive: Alert, Mild distress Eyes Bilateral: positive: Normal inspection, Conjunctivae nml ENT: positive: ENT inspection nml Neck: positive: Nml inspection Respiratory: positive: Other (He is tachypneic. Breath sounds are diminished in the bases and limited due to body habitus. No wheezing. No obvious crackles noted.) Cardiovascular: positive: Irregularly irregular. negative: Regular rate & rhythm, Tachycardia, Bradycardia, Systolic murmur Abdomen: positive: Non-tender, No distention, Other (There are a few small areas of ecchymosis over his abdomen where he injects insulin.). negative: Te nderness, Guarding, Rebound Skin: positive: Warm, Dry Extremities: positive: Pedal edema (He has +1 pitting edema in the bilateral lower extremities up to the knees.) Neurologic/Psychiatric: positive: Other (No focal deficits on exam.). negative: Disoriented to person, Disoriented to place Sepsis Event Note (H) - Evaluation Current Stage of Sepsis: Sepsis Possible source of Sepsis: positive: Genitourinary - Sepsis Criteria Sepsis Criteria: Recorded Respiratory Rate greater than 20, WBC count greater than 12,000 or less than 4000, Renal: urine output less than 0.5ml/kg/hr for 2 hours or creatinine gr Conclusion/Plan - Problem List (1) Sepsis Conclusion/Plan: I suspect that he may be septic secondary to urinary tract infection. His white count is elevated he does have renal dysfunction. He was tachycardic initially as well although this is likely just related to the age fibrillation. Suspect this is secondary to a urinary tract infection. His lactic acid is normal and he is normotensive. CT of the chest did not reveal any obvious infiltrate. We will place him on ceftriaxone and vancomycin IV given his prior cultures. We will hold off on IV fluids at this time given the concern for heart failure.. Follow-up blood cultures. Trend his CBC. Monitor for fevers (2) Urinary tract infection Conclusion/Plan: He most certainly has a urinary tract infection given his urinalysis and the fact that he has symptoms. He may also be septic given his elevated white count. The tachycardia and acute kidney injury could potentially be explained by his heart failure but sepsis is difficult to exclude at this time. His prior cultures have grown enterococcus and Aerococcus. We will place him on vancomycin and ceftriaxone IV empirically. Follow-up his urine cultures and de- escalate when appropriate. (3) Suspected CHF (congestive heart failure) Conclusion/Plan: Suspect that he may have new onset heart failure. His BNP is only mildly elevated but given his obesity, this is likely lower than what would be expe cted. CTA of the chest was negative for pulmonary embolism but did reveal some mild pulmonary vascular congestion this was also evident on the chest x-ray. Echocardiogram back in November revealed a preserved ejection fraction and diastolic function was indeterminate. Although he is not hypoxic, he is quite dyspneic. We we will give him Lasix IV tonight and monitor his renal function tomorrow. We will obtain an echocardiogram. Daily weights. Strict I's and O's. Low- sodium diet. (4) Acute kidney injury Conclusion/Plan: His creatinine is elevated at 1.7 his baseline is approximately 1.1. Most recent labs from a few months ago revealed a creatinine of 1.4. The etiology was acute kidney injury is not clear at this time. This could be cardiorenal given the heart failure. He did receive contrast for a CT angiogram today. Given the concern for possible heart failure, we will give him a small dose of Lasix IV. We will recheck his renal function in the morning. Avoid nephrotoxins. Monitor his urine output. (5) Atrial fibrillation Conclusion/Plan: This was present on his prior EKGs but this is a new diagnosis to the patient reportedly. He is currently rate controlled. We will likely start him on a beta-romario tomorrow. We will check an echocardiogram. We discussed anticoagulation and we will start him on anticoagulation once we confirm there is no evidence of bleeding. Given his obesity, he will need Coumadin. (6) History of seizures Conclusion/Plan: Stable. Continue Keppra. 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 He does appear to have a history of vitamin B12 deficiency and iron deficiency which may potentially be contributing to his anemia. We will continue his oral iron and vitamin B12 supplements. We will check a stool for occult blood as he should be anticoagulated for the atrial fibrillation and want to ensure there is no evidence of bleeding. (8) BPH (benign prostatic hyperplasia) Conclusion/Plan: We will continue his home medications. (9) Diabetes mellitus treated with insulin and oral medication Conclusion/Plan: Blood glucose currently well controlled. We will continue his home insulin but hold the metformin. Carb controlled diet. - Lab Results Lab results reviewed: Yes Fish Bones: 04/10/20 17:39 04/10/20 17:39 - Diagnostic Imaging Results Diagnostic Imaging Results: positive: Final report reviewed - EKG Results EKG Interpreted Independently: Yes EKG Comparison: Unchanged from prior EKG EKG Findings: EKG shows atrial fibrillation which was present on prior EKG. No obvious ischemic changes. Right bundle branch block noted. Core Measures - Anticipated LOS I expect patient to be DC'd or transferred within 96 hours.: Yes - Issues Hospital Issues and Management Plan: 75-year-old male presents with dyspnea from his primary care provider's office found to have possible CHF as well as sepsis due to UTI. We will admit for IV antibiotics and likely diuresis at some point given the CHF. Will obtain ech ocardiogram. - DVT/VTE - Prophylaxis VTE/DVT Device ordered at admit?: Yes VTE/DVT Prophylaxis med ordered at admit?: No
[2020-04-10] MEDS ORDERED: cefTRIAXone 1 GM VIAL ONE (21:12)
[2020-04-10] MEDS ORDERED: VANCOMYCIN IV ONE (22:00)
[2020-04-10] MEDS ORDERED: SODIUM CHLORIDE 0.9% IV ONE (22:00)
[2020-04-10] MEDS ORDERED: FUROSEMIDE 20 MG/2 ML VIAL IVP STA (22:31)
[2020-04-10] MEDS: SODIUM CHLORIDE FLUSH 0.9% 10 ML SYRINGE IVP PRN (23:16)
[2020-04-10] MEDS: ACETAMINOPHEN 325 MG TABLET PO PRN (23:22)
[2020-04-10] MEDS ORDERED: traMADol 50 MG TABLET PO STA (23:25)
[2020-04-10] MEDS ORDERED: SODIUM CHLORIDE 0.9% 500 ML IV ONE (23:40)
[2020-04-11] MEDS: traZODone 50 MG TABLET PO SCH ×2 (01:20→21:47)
[2020-04-11] MEDS: NYSTATIN POWDER 15 GM TOP SCH ×3 (01:39→22:28)
[2020-04-11] MEDS: SODIUM CHLORIDE FLUSH 0.9% 10 ML SYRINGE IVP SCH ×3 (02:58→17:02)
[2020-04-11 05:14] LABS: BASOPHILS % (AUTO) 0.2 %; EOSINOPHILS # (AUTO) 0.1 10^3/uL (0.0-0.7); EOSINOPHILS % (AUTO) 0.8 %; HGB - HEMOGLOBIN 8.4 g/dL (14.0-18.0); LYMPHOCYTES # (AUTO) 0.3 10^3/uL (1.5-3.5); LYMPHOCYTES % (AUTO) 1.7 %; MEAN CORPUSCULAR HEMOGLOBIN 29.5 pg (27.0-31.0); MEAN CORPUSCULAR VOLUME 95.1 fL (80.0-94.0); MEAN PLATELET VOLUME 9.6 fL (7.4-11.4); MONOCYTES # (AUTO) 1.3 10^3/uL (0.0-1.0); MONOCYTES % (AUTO) 7.5 %; NEUTROPHILS # (AUTO) 15.1 10^3/uL (1.5-6.6); NEUTROPHILS % (AUTO) 89.2 %; PLT - PLATELET COUNT 246 10^3/uL (130-450); RED BLOOD COUNT 2.85 10^6/uL (4.70-6.10); RED CELL DISTRIBUTION WIDTH 18.3 % (12.0-15.0); WHITE BLOOD COUNT 16.9 x10^3/uL (4.8-10.8)
[2020-04-11 05:31] LABS: CALCIUM 8.2 mg/dL (8.5-10.3); MAGNESIUM 1.6 mg/dL (1.7-2.8); PHOSPHORUS 3.4 mg/dL (2.5-4.6)
[2020-04-11] MEDS ORDERED: SODIUM CHLORIDE 0.9% IV ONE (06:00)
[2020-04-11] MEDS ORDERED: VANCOMYCIN IV ONE (06:00)
[2020-04-11] MEDS ORDERED: VANCOMYCIN INJ 1 GM, VANCOMYCIN INJ 250 MG in SODIUM CHLORIDE 0.9% 500 ML IV ONE (06:23)
[2020-04-11] MEDS ORDERED: VANCOMYCIN 500 MG VIAL ONE (06:25)
[2020-04-11] MEDS ORDERED: SODIUM CHLORIDE 0.9% 500 ML IV ONE (06:25)
[2020-04-11] MEDS ORDERED: VANCOMYCIN 1 GM VIAL ONE (06:33)
[2020-04-11] MEDS: INSULIN ASPART 300 UNIT/3 ML PEN SUBQ SCH ×4 (08:13→21:45)
[2020-04-11] MEDS: INSULIN NPH HUMAN 300 UNIT/3 ML VIAL SUBQ SCH ×2 (08:13→21:45)
[2020-04-11] MEDS: levETIRAcetam 250 MG TABLET PO SCH ×2 (08:15→21:46)
[2020-04-11] MEDS: FINASTERIDE 5 MG TABLET PO SCH (08:16)
[2020-04-11] MEDS: CITALOPRAM HYDROBROMIDE 20 MG TABLET PO SCH (08:16)
[2020-04-11] MEDS: FERROUS SULFATE 325 MG TABLET PO SCH (08:16)
[2020-04-11] MEDS: ACETAMINOPHEN 325 MG TABLET PO PRN (09:44)
[2020-04-11] MEDS ORDERED: PIPERACILLIN/TAZOBACTAM 4.5 GM in SODIUM CHLORIDE 0.9% MINIBAG 100 ML IV SCH (10:30)
--- NOTE | 2020-04-11 11:26 | Ultrasound Report ---
PROCEDURE: Retroperitoneal INDICATIONS: UTI. DAVIDE. BPH. History of stones. TECHNIQUE: Real-time scanning was performed of the retroperitoneal organs, with image documentation. COMPARISON: None. FINDINGS: Suboptimal examination secondary to patient body habitus. Kidneys: Kidneys are atrophic in size. Right kidney measures 13.1 cm long; left kidney measures 13. 3 cm long. Right renal cortical thickness is 1.3 cm; left renal cortical thickness is 1.5 cm. Bilate ral hypoechoic foci are present suggestive of cysts the largest on the left measuring 23 x 20 x 24 mm and the largest on the right measuring 55 x 49 x 51 mm. There is a mild appearance of pelvic caliect asis on the right. Nonshadowing focus of increased echogenicity is noted within the right kidney poss ibly nonshadowing stone or vascular calcification. Bladder: Prevoid volume 95.7 cc. Patient unable to void. Ureteral jets were not visualized. No bladde r masses clearly identified. IMPRESSION: 1. Bilateral renal atrophy. 2. Bilateral renal cysts. 3. Mild appearance of pyelocaliectasis on the right. Reviewed by: Virginia Wisdom MD on 04/11/2020 11:25 AM PDT Approved by: Virginia Wisdom MD on 04/11/2020 11:25 AM PDT Station ID: [id number]
[2020-04-11] MEDS ORDERED: MAGNESIUM SULFATE 2 GRAM 2 GM/50 ML BAG IV SCH (12:57)
--- NOTE | 2020-04-11 13:07 | PROVIDER PROGRESS NOTE ---
Subjective - Prog Note Date Prog Note Date: 04/11/20 Prog Note Time: 13:05 - Subjective Pt reports feeling: Improved Subjective: Patient states he is feeling "a little better" today than yesterday in terms of his breathing. He endorses dyspnea at rest and is unable to lay flat in bed. When asked about his labored breathing and grunting, patient says his grunting is "normal" and "not new". He is still experiencing urinary urgency, frequency, and dysuria. Reports feeling lightheaded these past few days when sitting up, but not today. He is unable to sit up in bed by himself today due to generalized fatigue and weakness from hospitalization. Patient is eating and drinking well. He denies any fever, chills, headaches. No cough, sore throat, congestion, hemoptysis. No chest pain, palpitations, PND, or edema. He does have baseline orthopnea and uses CPAP at home. No N/V, abdominal pain, or bowel habit changes. He denies joint or muscle pain. No unusual weakness, tingling, or numbness. Current Medications - Current Medications Current Medications: Active Medications Acetaminophen (Tylenol) 650 mg PO Q4HR PRN PRN Reason: Pain 1 to 4 Last Admin: 04/11/20 09:44 Dose: 650 mg Documented by: Atorvastatin Calcium (Lipitor) 20 mg PO QPM [facility] Citalopram Hydrobromide (Celexa) 40 mg PO DAILY [facility] Last Admin: 04/11/20 08:16 Dose: 40 mg Documented by: Ferrous Sulfate (Feosol) 325 mg PO DAILY [facility] Last Admin: 04/11/20 08:16 Dose: 325 mg Documented by: Finasteride (Proscar) 5 mg PO DAILY [facility] Last Admin: 04/11/20 08:16 Dose: 5 mg Documented by: Piperacillin Sod/Tazobactam (Sod 3.375 gm/ Sodium Chloride) 100 mls @ 25 mls/hr IV Q8H [facility] Magnesium Sulfate (Magnesium Sulfate) 2 gm in 50 mls @ 25 mls/hr IV ONCE [facility] Stop: 04/11/20 17:00 Insulin Aspart (Novolog) 1 - 9 unit SUBQ 0800,1200,1700,2100 [facility]; Protocol Last Admin: 04/11/20 11:59 Dose: 3 unit Documented by: Insulin Human NPH (Humulin N) 30 unit SUBQ BID [facility] Last Admin: 04/11/20 08:13 Dose: 30 unit Documented by: Levetiracetam (Keppra) 500 mg PO BID [facility] Last Admin: 04/11/20 08:15 Dose: 500 mg Documented by: Nystatin (Nystop) 1 applic TOP BID [facility] Last Admin: 04/11/20 08:17 Dose: 1 applic Documented by: Ondansetron HCl (Zofran Inj) 4 mg IVP Q6HR PRN PRN Reason: Nausea / Vomiting Sodium Chloride (Normal Saline Flush 0.9%) 10 ml IVP PRN PRN PRN Reason: NEEDED PER PROVIDER ORDERS Last Admin: 04/10/20 23:16 Dose: 10 ml Documented by: Sodium Chloride (Normal Saline Flush 0.9%) 10 ml IVP 0100,0900,1700 [facility] Last Admin: 04/11/20 08:17 Dose: 10 ml Documented by: Terazosin HCl (Hytrin) 10 mg PO QPM [facility] Trazodone HCl (Desyrel) 50 mg PO QPM [facility] Last Admin: 04/11/20 01:20 Dose: Not Given Documented by: Finasteride 5 mg PO DAILY 01/28/15 Metformin HCl [Metformin ER Osmotic] 1,000 mg PO BID 01/28/15 Loperamide [Imodium] 4 mg PO DAILY 12/11/18 Citalopram Hydrobromide [Celexa] 40 mg PO DAILY 11/22/19 Finasteride [Proscar] 5 mg PO DAILY 11/22/19 Oxybutynin Chloride [Oxybutynin Chloride ER] 45 mg PO DAILY 11/22/19 Terazosin HCl 10 mg PO QPM 11/22/19 Atorvastatin Calcium 40 mg PO QPM 04/11/20 Levetiracetam [Keppra] 500 mg PO BID 04/11/20 Losartan Potassium 04/11/20 Tamsulosin [Flomax] 04/11/20 Objective - Vital Signs/Intake & Output Reviewed Vital Signs: Yes Vital Signs: Vital Signs x48h Temp Pulse Resp BP BP Pulse Ox 04/11/20 12:28 37.4 C 125 H 22 130/80 98 04/11/20 07:45 36.5 C 84 26 H 143/104 H 87 L Intake & Output: Intake & Output 04/08/20 04/09/20 04/10/20 04/11/20 23:59 23:59 23:59 23:59 Intake Total 1100 1580 Balance 1100 1580 - Objective General Appearance: positive: Mild distress (shallow and labored breathing at rest and with speech), Other (super obese white male, looks fatigued) Eyes Bilateral: positive: Normal inspection, PERRL, No lid inflammation, Conjunctivae nml, No scleral icterus ENT: positive: Dry mucous membranes Neck: positive: Nml inspection, Trachea midline (Neck is soft, supple. Unable to appreciate neck vein due to body habitus.), Other Respiratory: positive: Chest non-tender, Wheezes, Other (Respiration labored and shallow. Expiratory wheezes in bilateral upper lobes and diminished in bilateral lower lobes. He also grunts intermittently to breath and states that this is normal for him. Can't finish >2 sentences. Again, states this is norm al) Cardiovascular: positive: Irregularly irregular, Other (distant heart sound. Unable to hear distinct S1/S2.) Peripheral Pulses: 2+ Radial (R), 2+ Radial (L), 2+ Dorsalis pedis (R), 2+ Dorsalis pedis (L), 2+ Posterior tibialis (R), 2+ Posterior tibialis (L) Abdomen: positive: Non-tender, Nml bowel sounds, Other (protuberant abdomen, unable to feel organs.) Skin: positive: Color nml, Warm, Dry, Skin rash (of wet, pink , lorenza intertrigo when panus is lifted up) Extremities: positive: Non-tender, Nml appearance, Pedal edema (bilateral +1 edema) Neurologic/Psychiatric: positive: Oriented x3, Other (sensation to touch intact in bilateral UE and LE. 4/5 strength bilateral UE and 3/5 strength bilateral LE.) - Lab Results Fish Bones: 04/11/20 04:45 04/11/20 04:45 Other Labs: Lab Results x24hrs 04/11/20 04/11/20 04/11/20 Range/Units 11:34 07:21 04:45 WBC (4.8-10.8) x10^3/uL RBC (4.70-6.10) 10^6/uL Hgb (14.0-18.0) g/dL Hct (42.0-52.0) % MCV (80.0-94.0) fL MCH (27.0-31.0) pg MCHC (32.0-36.0) g/dL RDW (12.0-15.0) % Plt Count (130-450) 10^3/uL MPV (7.4-11.4) fL Neut # (Auto) (1.5-6.6) 10^3/uL Lymph # (Auto) (1.5-3.5) 10^3/uL [place] # (Auto) (0.0-1.0) 10^3/uL Eos # (Auto) (0.0-0.7) 10^3/uL Baso # (Auto) (0.0-0.1) 10^3/uL Absolute Nucleated RBC x10^3/uL Nucleated RBC % /100WBC PT (9.9-12.6) secs INR (0.8-1.2) APTT (24.9-33.3) secs Sodium (135-145) mmol/L Potassium (3.5-5.0) mmol/L Chloride (101-111) mmol/L Carbon Dioxide (21-32) mmol/L Anion Gap (6-13) BUN (6-20) mg/dL Creatinine (0.6-1.2) mg/dL Estimated GFR (MDRD) (>89) Glucose (70-100) mg/dL POC Whole Bld Glucose 209 H 156 H (70 - 100) mg/dL Lactic Acid (0.5-2.2) mmol/L Calcium (8.5-10.3) mg/dL Phosphorus (2.5-4.6) mg/dL Magnesium (1.7-2.8) mg/dL Iron (45-182) ug/dL TIBC (250-450) ug/dL % Saturation (20-50) % Transferrin (180-329) mg/dL Ferritin 80.5 (23.9-336.2) ng/mL Total Bilirubin (0.2-1.0) mg/dL AST (10-42) IU/L ALT (10-60) IU/L Alkaline Phosphatase (42-121) IU/L Troponin I High Sens (2.3-19.7) ng/L B-Natriuretic Peptide (5-100) pg/mL Total Protein (6.7-8.2) g/dL Albumin (3.2-5.5) g/dL Globulin (2.1-4.2) g/dL Albumin/Globulin Ratio (1.0-2.2) Lipase (22-51) U/L Urine Color Urine Clarity (CLEAR) Urine pH (5.0-7.5) PH Ur Specific [place] (1.002-1.030) Urine Protein (NEGATIVE) mg/dL Urine Glucose (UA) (NEGATIVE) mg/dL Urine Ketones (NEGATIVE) mg/dL Urine Occult Blood (NEGATIVE) Urine Nitrite (NEGATIVE) Urine Bilirubin (NEGATIVE) Urine Urobilinogen (NORMAL) E.U./dL Ur Leukocyte Esterase (NEGATIVE) Urine RBC (0-5) /HPF Urine WBC (0-3) /HPF Ur Squamous Epith Cells (<= Few) Urine Bacteria (None Seen) /HPF Ur Microscopic Review Urine Culture Comments 04/11/20 04/11/20 04/10/20 Range/Units 04:45 04:45 20:10 WBC 16.9 H (4.8-10.8) x10^3/uL RBC 2.85 L (4.70-6.10) 10^6/uL Hgb 8.4 L (14.0-18.0) g/dL Hct 27.1 L (42.0-52.0) % MCV 95.1 H (80.0-94.0) fL MCH 29.5 (27.0-31.0) pg MCHC 31.0 L (32.0-36.0) g/dL RDW 18.3 H (12.0-15.0) % Plt Count 246 (130-450) 10^3/uL MPV 9.6 (7.4-11.4) fL Neut # (Auto) 15.1 H (1.5-6.6) 10^3/uL Lymph # (Auto) 0.3 L (1.5-3.5) 10^3/uL [place] # (Auto) 1.3 H (0.0-1.0) 10^3/uL Eos # (Auto) 0.1 (0.0-0.7) 10^3/uL Baso # (Auto) 0.0 (0.0-0.1) 10^3/uL Absolute Nucleated RBC 0.00 x10^3/uL Nucleated RBC % 0.0 /100WBC PT (9.9-12.6) secs INR (0.8-1.2) APTT (24.9-33.3) secs Sodium 134 L (135-145) mmol/L Potassium 4.3 (3.5-5.0) mmol/L Chloride 105 (101-111) mmol/L Carbon Dioxide 18 L (21-32) mmol/L Anion Gap 11.0 (6-13) BUN 42 H (6-20) mg/dL Creatinine 2.0 H (0.6-1.2) mg/dL Estimated GFR (MDRD) 33 L (>89) Glucose 183 H (70-100) mg/dL POC Whole Bld Glucose (70 - 100) mg/dL Lactic Acid (0.5-2.2) mmol/L Calcium 8.2 L (8.5-10.3) mg/dL Phosphorus 3.4 (2.5-4.6) mg/dL Magnesium 1.6 L (1.7-2.8) mg/dL Iron 17 L (45-182) ug/dL TIBC 283 (250-450) ug/dL % Saturation 6 L (20-50) % Transferrin 202 (180-329) mg/dL Ferritin (23.9-336.2) ng/mL Total Bilirubin (0.2-1.0) mg/dL AST (10-42) IU/L ALT (10-60) IU/L Alkaline Phosphatase (42-121) IU/L Troponin I High Sens (2.3-19.7) ng/L B-Natriuretic Peptide (5-100) pg/mL Total Protein (6.7-8.2) g/dL Albumin (3.2-5.5) g/dL Globulin (2.1-4.2) g/dL Albumin/Globulin Ratio (1.0-2.2) Lipase (22-51) U/L Urine Color YELLOW Urine Clarity HAZY (CLEAR) Urine pH >=9.0 H (5.0-7.5) PH Ur Specific [place] 1.015 (1.002-1.030) Urine Protein 100 H (NEGATIVE) mg/dL Urine Glucose (UA) NEGATIVE (NEGATIVE) mg/dL Urine Ketones NEGATIVE (NEGATIVE) mg/dL Urine Occult Blood LARGE H (NEGATIVE) Urine Nitrite POSITIVE H (NEGATIVE) Urine Bilirubin NEGATIVE (NEGATIVE) Urine Urobilinogen 0.2 (NORMAL) (NORMAL) E.U./dL Ur Leukocyte Esterase LARGE H (NEGATIVE) Urine RBC TNTC H (0-5) /HPF Urine WBC >25 H (0-3) /HPF Ur Squamous Epith Cells NONE SEEN (<= Few) Urine Bacteria Moderate H (None Seen) /HPF Ur Microscopic Review INDICATED Urine Culture Comments INDICATED 04/10/20 04/10/20 04/10/20 Range/Units 18:08 17:39 17:39 WBC (4.8-10.8) x10^3/uL RBC (4.70-6.10) 10^6/uL Hgb (14.0-18.0) g/dL Hct (42.0-52.0) % MCV (80.0-94.0) fL MCH (27.0-31.0) pg MCHC (32.0-36.0) g/dL RDW (12.0-15.0) % Plt Count (130-450) 10^3/uL MPV (7.4-11.4) fL Neut # (Auto) (1.5-6.6) 10^3/uL Lymph # (Auto) (1.5-3.5) 10^3/uL [place] # (Auto) (0.0-1.0) 10^3/uL Eos # (Auto) (0.0-0.7) 10^3/uL Baso # (Auto) (0.0-0.1) 10^3/uL Absolute Nucleated RBC x10^3/uL Nucleated RBC % /100WBC PT (9.9-12.6) secs INR (0.8-1.2) APTT (24.9-33.3) secs Sodium (135-145) mmol/L Potassium (3.5-5.0) mmol/L Chloride (101-111) mmol/L Carbon Dioxide (21-32) mmol/L Anion Gap (6-13) BUN (6-20) mg/dL Creatinine (0.6-1.2) mg/dL Estimated GFR (MDRD) (>89) Glucose (70-100) mg/dL POC Whole Bld Glucose (70 - 100) mg/dL Lactic Acid 1.3 (0.5-2.2) mmol/L Calcium (8.5-10.3) mg/dL Phosphorus (2.5-4.6) mg/dL Magnesium (1.7-2.8) mg/dL Iron (45-182) ug/dL TIBC (250-450) ug/dL % Saturation (20-50) % Transferrin (180-329) mg/dL Ferritin (23.9-336.2) ng/mL Total Bilirubin (0.2-1.0) mg/dL AST (10-42) IU/L ALT (10-60) IU/L Alkaline Phosphatase (42-121) IU/L Troponin I High Sens 9.6 (2.3-19.7) ng/L B-Natriuretic Peptide 185 H (5-100) pg/mL Total Protein (6.7-8.2) g/dL Albumin (3.2-5.5) g/dL Globulin (2.1-4.2) g/dL Albumin/Globulin Ratio (1.0-2.2) Lipase (22-51) U/L Urine Color Urine Clarity (CLEAR) Urine pH (5.0-7.5) PH Ur Specific [place] (1.002-1.030) Urine Protein (NEGATIVE) mg/dL Urine Glucose (UA) (NEGATIVE) mg/dL Urine Ketones (NEGATIVE) mg/dL Urine Occult Blood (NEGATIVE) Urine Nitrite (NEGATIVE) Urine Bilirubin (NEGATIVE) Urine Urobilinogen (NORMAL) E.U./dL Ur Leukocyte Esterase (NEGATIVE) Urine RBC (0-5) /HPF Urine WBC (0-3) /HPF Ur Squamous Epith Cells (<= Few) Urine Bacteria (None Seen) /HPF Ur Microscopic Review Urine Culture Comments 04/10/20 04/10/20 04/10/20 Range/Units 17:39 17:39 17:39 WBC 14.0 H (4.8-10.8) x10^3/uL RBC 2.87 L (4.70-6.10) 10^6/uL Hgb 8.6 L (14.0-18.0) g/dL Hct 27.1 L (42.0-52.0) % MCV 94.4 H (80.0-94.0) fL MCH 30.0 (27.0-31.0) pg MCHC 31.7 L (32.0-36.0) g/dL RDW 18.3 H (12.0-15.0) % Plt Count 239 (130-450) 10^3/uL MPV 9.6 (7.4-11.4) fL Neut # (Auto) 12.4 H (1.5-6.6) 10^3/uL Lymph # (Auto) 0.4 L (1.5-3.5) 10^3/uL [place] # (Auto) 1.0 (0.0-1.0) 10^3/uL Eos # (Auto) 0.0 (0.0-0.7) 10^3/uL Baso # (Auto) 0.0 (0.0-0.1) 10^3/uL Absolute Nucleated RBC 0.00 x10^3/uL Nucleated RBC % 0.0 /100WBC PT 14.9 H (9.9-12.6) secs INR 1.4 H (0.8-1.2) APTT 22.7 L (24.9-33.3) secs Sodium 134 L (135-145) mmol/L Potassium 4.6 (3.5-5.0) mmol/L Chloride 104 (101-111) mmol/L Carbon Dioxide 20 L (21-32) mmol/L Anion Gap 10.0 (6-13) BUN 37 H (6-20) mg/dL Creatinine 1.7 H (0.6-1.2) mg/dL Estimated GFR (MDRD) 39 L (>89) Glucose 155 H (70-100) mg/dL POC Whole Bld Glucose (70 - 100) mg/dL Lactic Acid (0.5-2.2) mmol/L Calcium 8.0 L (8.5-10.3) mg/dL Phosphorus (2.5-4.6) mg/dL Magnesium (1.7-2.8) mg/dL Iron (45-182) ug/dL TIBC (250-450) ug/dL % Saturation (20-50) % Transferrin (180-329) mg/dL Ferritin (23.9-336.2) ng/mL Total Bilirubin 1.1 H (0.2-1.0) mg/dL AST 11 (10-42) IU/L ALT 10 (10-60) IU/L Alkaline Phosphatase 67 (42-121) IU/L Troponin I High Sens (2.3-19.7) ng/L B-Natriuretic Peptide (5-100) pg/mL Total Protein 7.0 (6.7-8.2) g/dL Albumin 3.7 (3.2-5.5) g/dL Globulin 3.3 (2.1-4.2) g/dL Albumin/Globulin Ratio 1.1 (1.0-2.2) Lipase 15 L (22-51) U/L Urine Color Urine Clarity (CLEAR) Urine pH (5.0-7.5) PH Ur Specific [place] (1.002-1.030) Urine Protein (NEGATIVE) mg/dL Urine Glucose (UA) (NEGATIVE) mg/dL Urine Ketones (NEGATIVE) mg/dL Urine Occult Blood (NEGATIVE) Urine Nitrite (NEGATIVE) Urine Bilirubin (NEGATIVE) Urine Urobilinogen (NORMAL) E.U./dL Ur Leukocyte Esterase (NEGATIVE) Urine RBC (0-5) /HPF Urine WBC (0-3) /HPF Ur Squamous Epith Cells (<= Few) Urine Bacteria (None Seen) /HPF Ur Microscopic Review Urine Culture Comments - Diagnostic Imaging Diagnostic Imaging Results: positive: Final report reviewed, Discussed with radiologist ABX Reporting Has patient been on IV antibiotics over the past 48 hours?: Yes Sepsis Event Note (H) - Evaluation Current Stage of Sepsis: Sepsis Possible source of Sepsis: positive: Genitourinary Confirmed Source and Organism (if known) of Sepsis: gram neg bacteremia - Sepsis Criteria Sepsis Criteria: Recorded Respiratory Rate greater than 20, WBC count greater than 12,000 or less than 4000, Renal: urine output less than 0.5ml/kg/hr for 2 hours or creatinine gr Assessment/Plan - Problem List (1) Bacteremia Impression: Blood cultures from 04/10/20 came back positive for gram-negative rods. Likely from urinary tract. IV zosyn was started today and will continue for the next 10 days. Will follow-up with blood cultures tomorrow. Echo was done this AM, report pending. Will review to r/o endocarditis. Continue to trend CBC and monitor vitals. (2) Sepsis Conclusion/Plan: Likely septic secondary to urinary tract infection. His white count is elevated he does have renal dysfunction. He was tachycardic initially as well although this is likely just related to the age fibrillation. Suspect this is secondary to a urinary tract infection. His lactic acid is normal and he is normotensive. CT of the chest did not reveal any obvious infiltrate. Started on IV zosyn and ceftriaxone and vancomycin d/c today. Continue to trend CBC and monitor vitals. (3) Urinary tract infection Conclusion/Plan: He most certainly has a urinary tract infection given his urinalysis and the fact that he has symptoms. He may also be septic given his elevated white co unt. The tachycardia and acute kidney injury could potentially be explained by his heart failure but sepsis is difficult to exclude at this time. His prior cultures have grown enterococcus and Aerococcus. Blood cultures grew gram- negative robs. IV zosyn started. (4) Suspected CHF (congestive heart failure) Conclusion/Plan: Suspect that he may have new onset heart failure. His BNP is only mildly elevated but given his obesity, this is likely lower than what would be expected. CTA of the chest was negative for pulmonary embolism but did reveal some mild pulmonary vascular congestion this was also evident on the chest x- ray. Echocardiogram back in November revealed a preserved ejection fraction and diastolic function was indeterminate. He remains dyspneic and on supplemental O2. One dose of IV lasix given overnight. Bump in creatinine overnight (2.0 from 1.7). Echo obtained this AM, results pending. Daily weights. Strict I's and O's. Low-sodium diet. (5) Acute kidney injury Conclusion/Plan: Most recent creatinine is 2.0 from 1.7. His baseline is 1.1 Slight increase in creatinine this morning possibly due to IV lasix or contrast given overnight. Most recent labs from a few months ago revealed a creatinine of 1.4. The etiology was acute kidney injury is not clear at this time. This could be c ardiorenal given the heart failure. Will repeat creatinine level today and trend. Avoid nephrotoxins. Monitor his urine output. (6) Atrial fibrillation Conclusion/Plan: This was present on his prior EKGs (02/09/20) but this is a new diagnosis to the patient reportedly. Will start him on beta romario today for rate control. We will check an echocardiogram. Anticoagulation therapy was discussed with patient. Will start him on Coumadin once he is clear of bleeding. (7) History of seizures Conclusion/Plan: Stable. Continue Keppra. 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 He does appear to have a history of vitamin B12 deficiency and iron deficiency which may potentially be contributing to his anemia. We will continue his oral iron and vitamin B12 supplements. We will check a stool for occult blood as he should be anticoagulated for the atrial fibrillation and want to ensure there is no evidence of bleeding. (9) BPH (benign prostatic hyperplasia) Conclusion/Plan: We will continue his home medications. (10) Diabetes mellitus treated with insulin and oral medication Conclusion/Plan: Blood glucose currently well controlled. We will continue his home insulin but hold the metformin. Carb controlled diet.
[2020-04-11] MEDS: PIPERACILLIN/TAZOBACTAM 3.375 GM in SODIUM CHLORIDE 0.9% MINIBAG 100 ML IV SCH ×2 (14:10→22:23)
[2020-04-11] MEDS ORDERED: polyethylene glycoL 3350 17 GM PACKET PO SCH (14:46)
[2020-04-11] MEDS ORDERED: CYANOCOBALAMIN 1,000 MCG/ML VIAL IM SCH (15:00)
--- NOTE | 2020-04-11 15:29 | PHARMACY PROGRESS NOTE ---
- Best Possible Medication History Admit Date and Time: 04/10/20 2100 Processed by: Pharmacy Medication History completed: Yes Patient Interview: Completed Secondary Source(s): Other family member (PATIENT INTERVIEWED BY PHARMACY. PATIENT'S ABLE TO CONFIRM HOME MEDICATIONS WITH MED LIST ), Pharmacy records, Insurance records As the person ultimately responsible for medication therapy, providers are able to order a medication from an existing home medication list in [facility] via the "Reconcile Routine" prior to Confirmation of that medication by support service tech. Such practice is discouraged except when the physician, in their clinical ju dgment, deems that a medical need exists for a medication without regard to previous use.
[2020-04-11 16:11] LABS: ABG PCO2 29 mmHg (34-45); ABG PO2 80 mmHg (80-100)
[2020-04-11 16:12] LABS: ABG BASE EXCESS -6.6 mmol/L (-2.0-3.0); ABG HCO3 17.3 mmol/L (22.0-26.0); ABG OXYGEN SATURATION 95 % (94-98); ABG TCO2 18.2 MMOL/L (21.0-29.0); ALLEN TEST POSITIVE
[2020-04-11] MEDS ORDERED: ATORVASTATIN 10 MG TABLET PO SCH (21:00)
[2020-04-11] MEDS ORDERED: cefTRIAXone 2 GM in SODIUM CHLORIDE 0.9% MINIBAG 100 ML IV SCH (21:00)
[2020-04-11] MEDS: TERAZOSIN 1 MG CAPSULE PO SCH (22:28)
[2020-04-12] MEDS: SODIUM CHLORIDE FLUSH 0.9% 10 ML SYRINGE IVP PRN (00:14)
[2020-04-12] MEDS: SODIUM CHLORIDE FLUSH 0.9% 10 ML SYRINGE IVP SCH ×3 (00:18→17:05)
[2020-04-12 05:19] LABS: BASOPHILS % (AUTO) 0.2 %; EOSINOPHILS % (AUTO) 0.1 %; HGB - HEMOGLOBIN 7.6 g/dL (14.0-18.0); LYMPHOCYTES # (AUTO) 0.5 10^3/uL (1.5-3.5); LYMPHOCYTES % (AUTO) 3.8 %; MEAN CORPUSCULAR HEMOGLOBIN 28.8 pg (27.0-31.0); MEAN CORPUSCULAR VOLUME 92.8 fL (80.0-94.0); MEAN PLATELET VOLUME 9.3 fL (7.4-11.4); MONOCYTES # (AUTO) 0.8 10^3/uL (0.0-1.0); MONOCYTES % (AUTO) 6.8 %; NEUTROPHILS # (AUTO) 10.9 10^3/uL (1.5-6.6); NEUTROPHILS % (AUTO) 88.5 %; PLT - PLATELET COUNT 200 10^3/uL (130-450); RED BLOOD COUNT 2.64 10^6/uL (4.70-6.10); RED CELL DISTRIBUTION WIDTH 18.4 % (12.0-15.0); WHITE BLOOD COUNT 12.3 x10^3/uL (4.8-10.8)
[2020-04-12 05:35] LABS: CALCIUM 8.1 mg/dL (8.5-10.3); CREATININE 2.4 mg/dL (0.6-1.2); PHOSPHORUS 3.5 mg/dL (2.5-4.6)
[2020-04-12] MEDS: PIPERACILLIN/TAZOBACTAM 3.375 GM in SODIUM CHLORIDE 0.9% MINIBAG 100 ML IV SCH ×3 (06:41→22:03)
[2020-04-12] MEDS: INSULIN ASPART 300 UNIT/3 ML PEN SUBQ SCH ×4 (08:17→22:00)
[2020-04-12] MEDS: polyethylene glycoL 3350 17 GM PACKET PO SCH ×2 (08:18→09:12)
[2020-04-12] MEDS: FINASTERIDE 5 MG TABLET PO SCH (09:06)
[2020-04-12] MEDS: levETIRAcetam 250 MG TABLET PO SCH ×2 (09:06→21:49)
[2020-04-12] MEDS: FERROUS SULFATE 325 MG TABLET PO SCH (09:06)
[2020-04-12] MEDS: HEPARIN 5,000 UNIT/ML VIAL SUBQ SCH ×2 (09:06→22:01)
[2020-04-12] MEDS: NYSTATIN POWDER 15 GM TOP SCH ×2 (09:12→21:49)
[2020-04-12] MEDS: CITALOPRAM HYDROBROMIDE 20 MG TABLET PO SCH (09:16)
[2020-04-12] MEDS: INSULIN NPH HUMAN 300 UNIT/3 ML VIAL SUBQ SCH ×2 (09:17→21:58)
[2020-04-12 09:22] LABS: ABG PH 7.38 (7.35-7.45)
[2020-04-12 09:23] LABS: ABG BASE EXCESS -5.7 mmol/L (-2.0-3.0); ABG HCO3 18.8 mmol/L (22.0-26.0); ABG OXYGEN SATURATION 96 % (94-98); ABG PCO2 33 mmHg (34-45); ABG PO2 88 mmHg (80-100); ABG TCO2 19.8 MMOL/L (21.0-29.0); ALLEN TEST POSITIVE
[2020-04-12 09:36] LABS: FOLATE 14.35 ng/mL (5.90 - >24.8)
[2020-04-12] MEDS ORDERED: levETIRAcetam 250 MG TABLET PO SCH (13:00)
[2020-04-12] MEDS: ASPIRIN EC 81 MG TABLET PO SCH (13:47)
[2020-04-12] MEDS: TAMSULOSIN 0.4 MG CAPSULE PO SCH (13:47)
[2020-04-12] MEDS: METOPROLOL TARTRATE 25 MG TABLET PO SCH ×2 (13:47→22:02)
--- NOTE | 2020-04-12 15:07 | PROVIDER PROGRESS NOTE ---
<Erica Hanna - Last Filed: 04/13/20 15:24> Subjective - Prog Note Date Prog Note Date: 04/12/20 - Subjective Pt reports feeling: Worse (Patient reports feeling more short of breath this morning) Subjective: Patient reports feeling worse this morning compared to yesterday. He is more out of breath even with his CPAP on. He reports not being able to sleep on his back and feels better sleeping on his side with his head of the bed elevated. He denies chills, lightheadedness. No chest pain, nausea, or vomiting. Would like to sit up today to eat and feels like he is able to do so with help. Denies hematuria or dysuria today. Current Medications - Current Medications Current Medications: Active Medications Acetaminophen (Tylenol) 650 mg PO Q4HR PRN PRN Reason: Pain 1 to 4 Last Admin: 04/11/20 09:44 Dose: 650 mg Documented by: Aspirin (Ecotrin) 81 mg PO DAILY [facility] Last Admin: 04/13/20 09:31 Dose: 81 mg Documented by: Atorvastatin Calcium (Lipitor) 40 mg PO QPM [facility] Last Admin: 04/12/20 21:49 Dose: 40 mg Documented by: Citalopram Hydrobromide (Celexa) 40 mg PO DAILY [facility] Last Admin: 04/13/20 09:32 Dose: 40 mg Documented by: Clopidogrel Bisulfate (Plavix) 75 mg PO DAILY [facility] Last Admin: 04/13/20 09:32 Dose: 75 mg Documented by: Ferrous Sulfate (Feosol) 325 mg PO DAILY [facility] Last Admin: 04/13/20 09:31 Dose: 325 mg Documented by: Finasteride (Proscar) 5 mg PO DAILY [facility] Last Admin: 04/13/20 09:33 Dose: 5 mg Documented by: Heparin Sodium (Porcine) () 5,000 unit SUBQ BID [facility] Last Admin: 04/13/20 09:34 Dose: 5,000 unit Documented by: Piperacillin Sod/Tazobactam (Sod 3.375 gm/ Sodium Chloride) 100 mls @ 25 mls/hr IV Q8H [facility] Last Infusion: 04/13/20 09:34 Dose: Infused Documented by: Lactated Ringer's (Lr) 1,000 mls @ 83.333 mls/hr IV .Q12H [facility] Last Admin: 04/13/20 09:37 Dose: 83.333 mls/hr Documented by: Insulin Aspart (Novolog) 1 - 9 unit SUBQ 0800,1200,1700,2100 [facility]; Protocol Last Admin: 04/13/20 09:34 Dose: Not Given Documented by: Insulin Human NPH (Humulin N) 30 unit SUBQ BID [facility] Last Admin: 04/13/20 09:35 Dose: 30 unit Documented by: Levetiracetam (Keppra) 500 mg PO BID [facility] Last Admin: 04/13/20 09:31 Dose: 500 mg Documented by: Losartan Potassium (Cozaar) 25 mg PO DAILY [facility] Last Admin: 04/13/20 09:31 Dose: 25 mg Documented by: Metoprolol Tartrate (Lopressor) 50 mg PO BID [facility] Nystatin (Nystop) 1 applic TOP BID [facility] Last Admin: 04/13/20 09:33 Dose: 1 applic Documented by: Ondansetron HCl (Zofran Inj) 4 mg IVP Q6HR PRN PRN Reason: Nausea / Vomiting Polyethylene Glycol (Miralax) 17 gm PO DAILY [facility] Last Admin: 04/13/20 10:26 Dose: Not Given Documented by: Sodium Chloride (Normal Saline Flush 0.9%) 10 ml IVP PRN PRN PRN Reason: NEEDED PER PROVIDER ORDERS Last Admin: 04/12/20 00:14 Dose: 10 ml Documented by: Sodium Chloride (Normal Saline Flush 0.9%) 10 ml IVP 0100,0900,1700 [facility] Last Admin: 04/13/20 02:09 Dose: 10 ml Documented by: Tamsulosin HCl (Flomax) 0.4 mg PO DAILY [facility] Last Admin: 04/13/20 09:32 Dose: 0.4 mg Documented by: Terazosin HCl (Hytrin) 10 mg PO QPM [facility] Last Admin: 04/12/20 22:30 Dose: Not Given Documented by: Trazodone HCl (Desyrel) 50 mg PO QPM [facility] Last Admin: 04/12/20 21:49 Dose: 50 mg Documented by: Loperamide [Imodium] 4 mg PO DAILY 12/11/18 Finasteride [Proscar] 5 mg PO DAILY 11/22/19 Oxybutynin Chloride [Oxybutynin Chloride ER] 30 mg PO DAILY 11/22/19 Terazosin HCl 10 mg PO QPM 11/22/19 Atorvastatin Calcium 40 mg PO QPM 04/11/20 Citalopram Hydrobromide [Citalopram HBr] 40 mg PO DAILY 04/11/20 Insulin NPH Human Isophane [Humulin N] 50 units PO BID 04/11/20 Losartan Potassium 25 mg PO DAILY 04/11/20 Oxybutynin Chloride [Oxybutynin Chloride ER] 15 mg PO QPM 04/11/20 Tamsulosin [Flomax] 0.4 mg PO DAILY 04/11/20 metFORMIN [Glucophage] 1,000 mg PO BID 04/11/20 Objective - Vital Signs/Intake & Output Reviewed Vital Signs: Yes Vital Signs: Vital Signs x48h Temp Pulse Resp BP BP Pulse Ox 04/12/20 13:47 138/72 H 04/12/20 13:00 37.1 C 116 H 24 138/74 H 98 04/12/20 07:26 22 147/83 H 95 Intake & Output: Intake & Output 04/09/20 04/10/20 04/11/20 04/12/20 23:59 23:59 23:59 23:59 Intake Total 1100 3380 910 Balance 1100 3380 910 - Objective General Appearance: positive: Moderate distress, Other (Patient is lying on his right side with CPAP on. He appears to be breathing shallow and grunting.) Eyes Bilateral: positive: Normal inspection, PERRL, Conjunctivae nml, No scleral icterus ENT: positive: Other (moist mucous membranes) Neck: positive: Trachea midline, Other (neck is soft and supple, not able to appreciate neck vein due to body habitus.) Respiratory: positive: Chest non-tender, Wheezes, Other (Expiratory wheeze throughout. Diminished lung sound bilaterally. Tachypneic with shallow breaths and grunting.) Cardiovascular: positive: Irregularly irregular (Distant heart sounds due to chest thickness. Unable to auscultate m/r/g.), Tachycardia Peripheral Pulses: 1+ Posterior tibialis (R), 1+ Posterior tibialis (L), 2+ Radial (R), 2+ Radial (L), 2+ Dorsalis pedis (R), 2+ Dorsalis pedis (L) Abdomen: positive: Non-tender, Nml bowel sounds, Other (Obese abdomen, unable to palpate organs.) Skin: positive: Color nml, Warm, Skin rash (Funmi intertrigo under panus), Other Extremities: positive: Non-tender, Nml appearance, Pedal edema Neurologic/Psychiatric: positive: Oriented x3, Sensation nml, Weakness (4/5 strength bilateral UE, 3/5 strength bilateral LE) - Lab Results Fish Bones: 04/13/20 04:45 04/13/20 04:45 Other Labs: Lab Results x24hrs 04/12/20 04/12/20 04/12/20 Range/Units 11:27 09:07 07:24 WBC (4.8-10.8) x10^3/uL RBC (4.70-6.10) 10^6/uL Hgb (14.0-18.0) g/dL Hct (42.0-52.0) % MCV (80.0-94.0) fL MCH (27.0-31.0) pg MCHC (32.0-36.0) g/dL RDW (12.0-15.0) % Plt Count (130-450) 10^3/uL MPV (7.4-11.4) fL Neut # (Auto) (1.5-6.6) 10^3/uL Lymph # (Auto) (1.5-3.5) 10^3/uL Rice # (Auto) (0.0-1.0) 10^3/uL Eos # (Auto) (0.0-0.7) 10^3/uL Baso # (Auto) (0.0-0.1) 10^3/uL Absolute Nucleated RBC x10^3/uL Nucleated RBC % /100WBC Bld Gas Analysis Time 0917 Sample Site LEFT RADIAL Patient Temperature 97.1 CELSIUS ABG pH 7.38 (7.35-7.45) ABG pCO2 33 L (34-45) mmHg ABG pO2 88 (80-100) mmHg ABG HCO3 18.8 L (22.0-26.0) mmol/L ABG Total CO2 19.8 L (21.0-29.0) MMOL/L ABG O2 Saturation 96 (94-98) % ABG Base Excess -5.7 L (-2.0-3.0) mmol/L Chung Test POSITIVE Room Air O2 Delivery Device BiPAP Vent Mode SYNCHRONOUS FiO2 21.10 EPAP 14 cmH2O IPAP 18 cmH2O Sodium (135-145) mmol/L Potassium (3.5-5.0) mmol/L Chloride (101-111) mmol/L Carbon Dioxide (21-32) mmol/L Anion Gap (6-13) BUN (6-20) mg/dL Creatinine (0.6-1.2) mg/dL Estimated GFR (MDRD) (>89) Glucose (70-100) mg/dL POC Whole Bld Glucose 222 H 170 H (70 - 100) mg/dL Calcium (8.5-10.3) mg/dL Phosphorus (2.5-4.6) mg/dL Magnesium (1.7-2.8) mg/dL Vitamin B12 (180-914) pg/mL Folate (5.90 - >24.8) ng/mL 04/12/20 04/12/20 04/12/20 Range/Units 05:09 05:00 05:00 WBC 12.3 H (4.8-10.8) x10^3/uL RBC 2.64 L (4.70-6.10) 10^6/uL Hgb 7.6 L (14.0-18.0) g/dL Hct 24.5 L (42.0-52.0) % MCV 92.8 (80.0-94.0) fL MCH 28.8 (27.0-31.0) pg MCHC 31.0 L (32.0-36.0) g/dL RDW 18.4 H (12.0-15.0) % Plt Count 200 (130-450) 10^3/uL MPV 9.3 (7.4-11.4) fL Neut # (Auto) 10.9 H (1.5-6.6) 10^3/uL Lymph # (Auto) 0.5 L (1.5-3.5) 10^3/uL Rice # (Auto) 0.8 (0.0-1.0) 10^3/uL Eos # (Auto) 0.0 (0.0-0.7) 10^3/uL Baso # (Auto) 0.0 (0.0-0.1) 10^3/uL Absolute Nucleated RBC 0.00 x10^3/uL Nucleated RBC % 0.0 /100WBC Bld Gas Analysis Time Sample Site Patient Temperature CELSIUS ABG pH (7.35-7.45) ABG pCO2 (34-45) mmHg ABG pO2 (80-100) mmHg ABG HCO3 (22.0-26.0) mmol/L ABG Total CO2 (21.0-29.0) MMOL/L ABG O2 Saturation (94-98) % ABG Base Excess (-2.0-3.0) mmol/L Chung Test Room Air O2 Delivery Device Vent Mode FiO2 EPAP cmH2O IPAP cmH2O Sodium 133 L (135-145) mmol/L Potassium 4.2 (3.5-5.0) mmol/L Chloride 105 (101-111) mmol/L Carbon Dioxide 18 L (21-32) mmol/L Anion Gap 10.0 (6-13) BUN 45 H (6-20) mg/dL Creatinine 2.4 H (0.6-1.2) mg/dL Estimated GFR (MDRD) 26 L (>89) Glucose 176 H (70-100) mg/dL POC Whole Bld Glucose (70 - 100) mg/dL Calcium 8.1 L (8.5-10.3) mg/dL Phosphorus 3.5 (2.5-4.6) mg/dL Magnesium 2.0 (1.7-2.8) mg/dL Vitamin B12 6033 H (180-914) pg/mL Folate 14.35 (5.90 - >24.8) ng/mL 04/11/20 04/11/20 04/11/20 Range/Units 20:54 16:55 16:02 WBC (4.8-10.8) x10^3/uL RBC (4.70-6.10) 10^6/uL Hgb (14.0-18.0) g/dL Hct (42.0-52.0) % MCV (80.0-94.0) fL MCH (27.0-31.0) pg MCHC (32.0-36.0) g/dL RDW (12.0-15.0) % Plt Count (130-450) 10^3/uL MPV (7.4-11.4) fL Neut # (Auto) (1.5-6.6) 10^3/uL Lymph # (Auto) (1.5-3.5) 10^3/uL Rice # (Auto) (0.0-1.0) 10^3/uL Eos # (Auto) (0.0-0.7) 10^3/uL Baso # (Auto) (0.0-0.1) 10^3/uL Absolute Nucleated RBC x10^3/uL Nucleated RBC % /100WBC Bld Gas Analysis Time 1612 Sample Site LEFT RADIAL Patient Temperature CELSIUS ABG pH 7.40 (7.35-7.45) ABG pCO2 29 L (34-45) mmHg ABG pO2 80 (80-100) mmHg ABG HCO3 17.3 L (22.0-26.0) mmol/L ABG Total CO2 18.2 L (21.0-29.0) MMOL/L ABG O2 Saturation 95 (94-98) % ABG Base Excess -6.6 L (-2.0-3.0) mmol/L Chung Test POSITIVE Room Air YES O2 Delivery Device BiPAP Vent Mode FiO2 EPAP 6 cmH2O IPAP 12 cmH2O Sodium (135-145) mmol/L Potassium (3.5-5.0) mmol/L Chloride (101-111) mmol/L Carbon Dioxide (21-32) mmol/L Anion Gap (6-13) BUN (6-20) mg/dL Creatinine (0.6-1.2) mg/dL Estimated GFR (MDRD) (>89) Glucose (70-100) mg/dL POC Whole Bld Glucose 217 H 229 H (70 - 100) mg/dL Calcium (8.5-10.3) mg/dL Phosphorus (2.5-4.6) mg/dL Magnesium (1.7-2.8) mg/dL Vitamin B12 (180-914) pg/mL Folate (5.90 - >24.8) ng/mL - Diagnostic Imaging Diagnostic Imaging Results: positive: Other (Nothing to review) ABX Reporting Has patient been on IV antibiotics over the past 48 hours?: Yes Sepsis Event Note (H) - Evaluation Current Stage of Sepsis: Sepsis Possible source of Sepsis: positive: Genitourinary Confirmed Source and Organism (if known) of Sepsis: Proteus mirabilis, urinary tract. - Sepsis Criteria Sepsis Criteria: Recorded Respiratory Rate greater than 20, WBC count greater than 12,000 or less than 4000, Renal: urine output less than 0.5ml/kg/hr for 2 hours or creatinine gr Assessment/Plan - Problem List (1) Bacteremia Impression: Blood cultures from 04/10/20 came back positive for proteus sp. Urine culture positive for proteus mirabilis. Plan is to continue IV zosyn today and will transition over to PO ciprofloxacin tomorrow for 10 days. Continue to trend CBC and monitor vitals. (2) Sepsis Conclusion/Plan: Likely septic secondary to urinary tract infection. His white count is down t rending. He remains tachycardic today. Likely due to sepsis. Continue to trend CBC and monitor vitals. (3) Urinary tract infection Conclusion/Plan: Urine culture positive for proteus mirabilis as stated above. Will continue with IV zosyn today and transition to PO ciprofloxacin. (4) Suspected CHF (congestive heart failure) Conclusion/Plan: Suspect that he may have new onset heart failure. His BNP is only mildly el evated but given his obesity, this is likely lower than what would be expected. CTA of the chest was negative for pulmonary embolism but did reveal some mild pulmonary vascular congestion this was also evident on the chest x-ray. Echocardiogram back in November revealed a preserved ejection fraction and diastolic function was indeterminate. He remains dyspneic and on supplemental O2. One dose of IV lasix given yesterday. Creatinine continues to be elevated (2.4 from 2.0) Daily weights. Strict I's and O's. Low-sodium diet. (5) Acute kidney injury Conclusion/Plan: Most recent creatinine is 2.4 from 2.0. His baseline is 1.1 Slight increase in creatinine this morning possibly due to IV lasix or contrast given yesterday. Most recent labs from a few months ago revealed a creatinine of 1.4. The etiology was acute kidney injury is not clear at this time. This could be cardiorenal given the heart failure. Will repeat creatinine level today and tren d. Avoid nephrotoxins. Monitor his urine output. (6) Atrial fibrillation Conclusion/Plan: This was present on his prior EKGs (02/09/20) but this is a new diagnosis to the patient reportedly. He was rate controlled most of yesterday but went into afib RVR overnight around 4 am. Will start him on beta romario today for rate control. Anticoagulation therapy was discussed with patient. Will start him on Coumadin once he is clear of bleeding. (7) History of seizures Conclusion/Plan: Stable. Continue Keppra. 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 He does appear to have a history of vitamin B12 deficiency and iron deficiency which may potentially be contributing to his anemia. We will continue his oral iron and vitamin B12 supplements. We will check a stool for occult blood as he should be anticoagulated for the atrial fibrillation and want to ensure there is no evidence of bleeding. (9) BPH (benign prostatic hyperplasia) Conclusion/Plan: We will continue his home medications. (10) Diabetes mellitus treated with insulin and oral medication Conclusion/Plan: Blood glucose currently well controlled. We will continue his home insulin but hold the metformin. Carb controlled diet. <Graciela Barreto L - Last Filed: 04/13/20 17:00> Objective - Vital Signs/Intake & Output Vital Signs: Vital Signs x48h Temp Pulse Resp BP Pulse Ox 04/13/20 15:17 36.4 C L 104 H 20 102/64 95 Intake & Output: Intake & Output 04/10/20 04/11/20 04/12/20 04/13/20 23:59 23:59 23:59 23:59 Intake Total 1100 3380 1260 740.000 Balance 1100 3380 1260 740.000 - Lab Results Fish Bones: 04/13/20 04:45 04/13/20 04:45 Other Labs: Lab Results x24hrs 04/13/20 04/13/20 04/13/20 Range/Units 11:17 07:24 04:45 WBC (4.8-10.8) x10^3/uL RBC (4.70-6.10) 10^6/uL Hgb (14.0-18.0) g/dL Hct (42.0-52.0) % MCV (80.0-94.0) fL MCH (27.0-31.0) pg MCHC (32.0-36.0) g/dL RDW (12.0-15.0) % Plt Count (130-450) 10^3/uL MPV (7.4-11.4) fL Neut # (Auto) (1.5-6.6) 10^3/uL Lymph # (Auto) (1.5-3.5) 10^3/uL Rice # (Auto) (0.0-1.0) 10^3/uL Eos # (Auto) (0.0-0.7) 10^3/uL Baso # (Auto) (0.0-0.1) 10^3/uL Absolute Nucleated RBC x10^3/uL Nucleated RBC % /100WBC Sodium 134 L (135-145) mmol/L Potassium 4.4 (3.5-5.0) mmol/L Chloride 104 (101-111) mmol/L Carbon Dioxide 18 L (21-32) mmol/L Anion Gap 12.0 (6-13) BUN 52 H (6-20) mg/dL Creatinine 2.6 H (0.6-1.2) mg/dL Estimated GFR (MDRD) 24 L (>89) Glucose 145 H (70-100) mg/dL POC Whole Bld Glucose 188 H 122 H (70 - 100) mg/dL Calcium 8.1 L (8.5-10.3) mg/dL Phosphorus 4.2 (2.5-4.6) mg/dL Magnesium 2.0 (1.7-2.8) mg/dL 04/13/20 04/12/20 04/12/20 Range/Units 04:45 20:42 17:02 WBC 9.9 (4.8-10.8) x10^3/uL RBC 2.76 L (4.70-6.10) 10^6/uL Hgb 7.9 L (14.0-18.0) g/dL Hct 25.5 L (42.0-52.0) % MCV 92.4 (80.0-94.0) fL MCH 28.6 (27.0-31.0) pg MCHC 31.0 L (32.0-36.0) g/dL RDW 18.5 H (12.0-15.0) % Plt Count 218 (130-450) 10^3/uL MPV 9.5 (7.4-11.4) fL Neut # (Auto) 9.1 H (1.5-6.6) 10^3/uL Lymph # (Auto) 0.3 L (1.5-3.5) 10^3/uL Rice # (Auto) 0.4 (0.0-1.0) 10^3/uL Eos # (Auto) 0.0 (0.0-0.7) 10^3/uL Baso # (Auto) 0.0 (0.0-0.1) 10^3/uL Absolute Nucleated RBC 0.00 x10^3/uL Nucleated RBC % 0.0 /100WBC Sodium (135-145) mmol/L Potassium (3.5-5.0) mmol/L Chloride (101-111) mmol/L Carbon Dioxide (21-32) mmol/L Anion Gap (6-13) BUN (6-20) mg/dL Creatinine (0.6-1.2) mg/dL Estimated GFR (MDRD) (>89) Glucose (70-100) mg/dL POC Whole Bld Glucose 167 H 168 H (70 - 100) mg/dL Calcium (8.5-10.3) mg/dL Phosphorus (2.5-4.6) mg/dL Magnesium (1.7-2.8) mg/dL Assessment/Plan - Problem List (1) Bacteremia Impression: Attestation that the patient has been seen and examined. Continues to slowly progress with regards to a now documented Proteus bacteremia and UTI. Once sensitivities come back we will then decide when to transition to p.o. medications or he may need to stay on IV. He is working with physical therapy. We will request palliative care consultation to help negotiate transition of care to possible end-of-life care in the next few months. Physical therapy will continue to work with this patient to improve his mobility. We will continue to watch his acute kidney injury.
[2020-04-12] MEDS: ATORVASTATIN 40 MG TABLET PO SCH (21:49)
[2020-04-12] MEDS: traZODone 50 MG TABLET PO SCH (21:49)
[2020-04-12] MEDS: TERAZOSIN 1 MG CAPSULE PO SCH (22:30)
[2020-04-13] MEDS: SODIUM CHLORIDE FLUSH 0.9% 10 ML SYRINGE IVP SCH ×3 (02:09→17:34)
[2020-04-13 05:24] LABS: BASOPHILS % (AUTO) 0.2 %; HGB - HEMOGLOBIN 7.9 g/dL (14.0-18.0); LYMPHOCYTES # (AUTO) 0.3 10^3/uL (1.5-3.5); MEAN CORPUSCULAR HEMOGLOBIN 28.6 pg (27.0-31.0); MEAN CORPUSCULAR VOLUME 92.4 fL (80.0-94.0); MEAN PLATELET VOLUME 9.5 fL (7.4-11.4); MONOCYTES # (AUTO) 0.4 10^3/uL (0.0-1.0); MONOCYTES % (AUTO) 4.4 %; NEUTROPHILS # (AUTO) 9.1 10^3/uL (1.5-6.6); NEUTROPHILS % (AUTO) 91.9 %; PLT - PLATELET COUNT 218 10^3/uL (130-450); RED BLOOD COUNT 2.76 10^6/uL (4.70-6.10); RED CELL DISTRIBUTION WIDTH 18.5 % (12.0-15.0); WHITE BLOOD COUNT 9.9 x10^3/uL (4.8-10.8)
[2020-04-13] MEDS: PIPERACILLIN/TAZOBACTAM 3.375 GM in SODIUM CHLORIDE 0.9% MINIBAG 100 ML IV SCH ×3 (05:33→21:40)
[2020-04-13 05:37] LABS: CALCIUM 8.1 mg/dL (8.5-10.3); CREATININE 2.6 mg/dL (0.6-1.2); PHOSPHORUS 4.2 mg/dL (2.5-4.6)
[2020-04-13] MEDS ORDERED: CITALOPRAM HYDROBROMIDE 40 MG PO SCH (09:00)
[2020-04-13] MEDS ORDERED: LOSARTAN 50 MG TABLET PO SCH (09:00)
[2020-04-13] MEDS: FERROUS SULFATE 325 MG TABLET PO SCH (09:31)
[2020-04-13] MEDS: levETIRAcetam 250 MG TABLET PO SCH ×2 (09:31→21:33)
[2020-04-13] MEDS: ASPIRIN EC 81 MG TABLET PO SCH (09:31)
[2020-04-13] MEDS: TAMSULOSIN 0.4 MG CAPSULE PO SCH (09:32)
[2020-04-13] MEDS: METOPROLOL TARTRATE 25 MG TABLET PO SCH ×2 (09:32→21:33)
[2020-04-13] MEDS: CITALOPRAM HYDROBROMIDE 20 MG TABLET PO SCH (09:32)
[2020-04-13] MEDS: CLOPIDOGREL 75 MG TABLET PO SCH (09:32)
[2020-04-13] MEDS: FINASTERIDE 5 MG TABLET PO SCH (09:33)
[2020-04-13] MEDS: NYSTATIN POWDER 15 GM TOP SCH ×2 (09:33→21:41)
[2020-04-13] MEDS: HEPARIN 5,000 UNIT/ML VIAL SUBQ SCH ×2 (09:34→21:29)
[2020-04-13] MEDS: INSULIN ASPART 300 UNIT/3 ML PEN SUBQ SCH ×4 (09:34→21:30)
[2020-04-13] MEDS: INSULIN NPH HUMAN 300 UNIT/3 ML VIAL SUBQ SCH ×2 (09:35→21:32)
[2020-04-13] MEDS: LACTATED RINGERS 1,000 ML IV SCH (09:37)
[2020-04-13] MEDS ORDERED: METOPROLOL TARTRATE 50 MG TABLET PO STA (10:20)
[2020-04-13] MEDS: polyethylene glycoL 3350 17 GM PACKET PO SCH (10:26)
--- NOTE | 2020-04-13 13:20 | CONSULTATION NOTE ---
Palliative Care Consultation - Referral Referring Provider: Graciela Barreto MD Time of Visit: [id number] Referral setting: Hospitalized patient () Referral Reason: Goals of Care/Hx of Strokes/CHF/FTT - Information Sources Records reviewed: RN notes reviewed, Previous records reviewed History/Review of Systems obtained from: Patient, Family ( Alva at visit) Exam limitations: Clinical condition (patient with mild STM deficits/cog decline) - History of Present Illness Brief History of Present Illness: This is a 75-year-old gentleman who has had ongoing multiple health problems, layered upon the complexity of his class III obesity. In review patient has been acutely admitted for bacteremia, sepsis, UTI, his white count is coming down, unfortunately he also has CHF, atrial fib, acute kidney injury, And presents with respiratory effort with wheezing, and concern regarding functional decline. Patient has recently seen the neurologist, and what was originally thought is TIAs, or actually strokes, he was due to have a brainwave test in April. This was diagnosed after he had 3 occasions of TIAs (now surmised may have been abscence seizures, and a full-blown seizure.) Unfortunately related to diffic ulty getting neurology referral, he did finally see them last . Patient is also with cognitive deficits, increased short-term memory issues, difficulty concentrating with reading, word finding, and per his , carries the diagnosis of dementia. In reflection, patient has had declining health with his multiple health problems, over the last year, with his declining functional status this is made caregiving more complicated. Patient is fairly wheelchair bound, since his ankle fracture last year, he is ambulatory with a walker as the wheelchair will not fit into the bathroom to toilet. He does need help though with phyllis-care, and is very dependent currently on his . Unfortunately patient was having increased symptoms of dysuria, had been having sedation attributed to the Keppra, increased incontinence, until his acute admit to the hospital. Patient was being supported by [facility], though after last seizure they were waiting neurology report for furthering rehab services. Both patient and are quite concerned with this acute episode, his confusion, respiratory distress, wheezing that he was not "going to make it". Both perceived patient's quality of life, and health is deteriorating, patient had expressed wishes to be a DO NOT RESUSCITATE. Palliative care has been asked to meet with patient and regarding goals of care today. Medical/Surgical History - Past Medical History Cardiovascular: reports: Congestive heart failure, High cholesterol, Atrial fibrillation, Murmur Respiratory: reports: Shortness of breath, Sleep apnea Neuro: Dementia, CVA, Seizure disorder Endocrine/Autoimmune: reports: Type 2 diabetes GI: reports: None, Colon polyps : reports: Benign prostate hypertrophy, Incontinence, Renal insuffiency, Kidney stones HEENT: reports: Chronic vision loss, Chronic hearing loss Psych: reports: Depression Musculoskeletal: reports: Osteoarthritis, Fatigue, Chronic back pain Derm: reports: Other (candidiasis) MRSA Hx?: No Other Past Medical History: uses C-pap w/sleeping; CLASS III morbid obesity - Past Surgical History General: reports: Colonoscopy Ortho: reports: Spine surgery - Substance History Use: Uses substance without health or social issues: NONE, Tobacco (hx of smoking) Social History - Living Situation Living arrangement: At home Living Situation: With spouse/s.o. 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 He and his have been 53 years, they moved from [place] to be closer to their son [place] on the [place]. His oldest son lives about 2 blocks away, they also have 2 other sons, one in [place] and one in [place]. Alva is the main caregiver, but is concerned regarding her limitations particularly with his obesity and needing more assistance. Patient is quite fearful of falling, knowing it takes a lift assist to get him up. They are members of [employer], and their moncho is important to them. Family History - Family History Family History: Mother: , Alzheimer's Disease, Father: , Other family: Alive and Well (they have 3 sons) Medications/Allergies - Medications Active Medication List: Active Medications Acetaminophen (Tylenol) 650 mg PO Q4HR PRN PRN Reason: Pain 1 to 4 Last Admin: 04/11/20 09:44 Dose: 650 mg Documented by: Aspirin (Ecotrin) 81 mg PO DAILY [facility] Last Admin: 04/13/20 09:31 Dose: 81 mg Documented by: Atorvastatin Calcium (Lipitor) 40 mg PO QPM [facility] Last Admin: 04/12/20 21:49 Dose: 40 mg Documented by: Citalopram Hydrobromide (Celexa) 40 mg PO DAILY [facility] Last Admin: 04/13/20 09:32 Dose: 40 mg Documented by: Clopidogrel Bisulfate (Plavix) 75 mg PO DAILY [facility] Last Admin: 04/13/20 09:32 Dose: 75 mg Documented by: Ferrous Sulfate (Feosol) 325 mg PO DAILY [facility] Last Admin: 04/13/20 09:31 Dose: 325 mg Documented by: Finasteride (Proscar) 5 mg PO DAILY [facility] Last Admin: 04/13/20 09:33 Dose: 5 mg Documented by: Heparin Sodium (Porcine) () 5,000 unit SUBQ BID [facility] Last Admin: 04/13/20 09:34 Dose: 5,000 unit Documented by: Piperacillin Sod/Tazobactam (Sod 3.375 gm/ Sodium Chloride) 100 mls @ 25 mls/hr IV Q8H [facility] Last Infusion: 04/13/20 09:34 Dose: Infused Documented by: Lactated Ringer's (Lr) 1,000 mls @ 83.333 mls/hr IV .Q12H [facility] Last Admin: 04/13/20 09:37 Dose: 83.333 mls/hr Documented by: Insulin Aspart (Novolog) 1 - 9 unit SUBQ 0800,1200,1700,2100 [facility]; Protocol Last Admin: 04/13/20 11:52 Dose: 3 unit Documented by: Insulin Human NPH (Humulin N) 30 unit SUBQ BID [facility] Last Admin: 04/13/20 09:35 Dose: 30 unit Documented by: Levetiracetam (Keppra) 500 mg PO BID [facility] Last Admin: 04/13/20 09:31 Dose: 500 mg Documented by: Losartan Potassium (Cozaar) 25 mg PO DAILY [facility] Last Admin: 04/13/20 09:31 Dose: 25 mg Documented by: Metoprolol Tartrate (Lopressor) 50 mg PO BID [facility] Nystatin (Nystop) 1 applic TOP BID [facility] Last Admin: 04/13/20 09:33 Dose: 1 applic Documented by: Ondansetron HCl (Zofran Inj) 4 mg IVP Q6HR PRN PRN Reason: Nausea / Vomiting Polyethylene Glycol (Miralax) 17 gm PO DAILY [facility] Last Admin: 04/13/20 10:26 Dose: Not Given Documented by: Sodium Chloride (Normal Saline Flush 0.9%) 10 ml IVP PRN PRN PRN Reason: NEEDED PER PROVIDER ORDERS Last Admin: 04/12/20 00:14 Dose: 10 ml Documented by: Sodium Chloride (Normal Saline Flush 0.9%) 10 ml IVP 0100,0900,1700 [facility] Last Admin: 04/13/20 02:09 Dose: 10 ml Documented by: Tamsulosin HCl (Flomax) 0.4 mg PO DAILY [facility] Last Admin: 04/13/20 09:32 Dose: 0.4 mg Documented by: Terazosin HCl (Hytrin) 10 mg PO QPM [facility] Last Admin: 04/12/20 22:30 Dose: Not Given Documented by: Trazodone HCl (Desyrel) 50 mg PO QPM [facility] Last Admin: 04/12/20 21:49 Dose: 50 mg Documented by: Loperamide [Imodium] 4 mg PO DAILY 12/11/18 Finasteride [Proscar] 5 mg PO DAILY 11/22/19 Oxybutynin Chloride [Oxybutynin Chloride ER] 30 mg PO DAILY 11/22/19 Terazosin HCl 10 mg PO QPM 11/22/19 Atorvastatin Calcium 40 mg PO QPM 04/11/20 Citalopram Hydrobromide [Citalopram HBr] 40 mg PO DAILY 04/11/20 Insulin NPH Human Isophane [Humulin N] 50 units PO BID 04/11/20 Losartan Potassium 25 mg PO DAILY 04/11/20 Oxybutynin Chloride [Oxybutynin Chloride ER] 15 mg PO QPM 04/11/20 Tamsulosin [Flomax] 0.4 mg PO DAILY 04/11/20 metFORMIN [Glucophage] 1,000 mg PO BID 04/11/20 - Allergies Allergies/Adverse Reactions: Allergies Allergy/AdvReac Type Severity Reaction Status Date / Time No Known Drug Allergies Allergy Verified 11/21/19 17:28 Review of Systems - Constitutional Constitutional: reports: Fatigue, Weakness, Poor appetite - Eyes Eyes: reports: Vision loss - Ears, Nose & Throat Ears, Nose & Throat: reports: Hearing loss, Dry mouth - Cardiovascular Cardiovascular: reports: Irregular heart rate, Exertional dyspnea, Decr. exercise tolerance, Orthopnea. denies: Palpitations, Chest pain - Respiratory Respiratory: reports: Wheezing, SOB at rest, SOB with exertion - Gastrointestinal Gastrointestinal: reports: Abdominal distention, Diarrhea (baseline; use benefiber / immodium at home), Bloating, Poor appetite, Early satiety - Genitourinary Genitourinary: reports: Incontinence - Musculoskeletal Musculoskeletal: reports: Back pain, Stiffness, Limited range of motion, Muscle weakness, Transfer issues (usually use wheelchair at home) - Integumentary Integumentary: reports: Rash (struggles with candidiasis), Dryness - Neurological Neurological: reports: General weakness, Numbness, Memory problems, Seizures, Other (tremors for several days) - Psychiatric Psychiatric: reports: Depression, Anxiety - Endocrine Endocrine: reports: Diabetes type 2 - Hematologic/Lymphatic Hematologic/Lymphatic: reports: Anemia (worsening; neg hemocult;) - All Other Systems All Other Systems: reports: Reviewed and negative Physical Exam - Vital Signs Vital Signs: Vital Signs x48h Temp Pulse Resp BP Pulse Ox 04/13/20 07:33 37.1 C 124 H 24 129/59 L 94 - Physical Exam General Appearance: positive: Moderate distress (with respiratory effort), Lethargic (was able to stay engaged; though perceives has had not sleep and wanted to nap) Eyes Bilateral: positive: Normal inspection ENT: positive: Other (poor dentition) Neck: positive: Other (large thickened neck) Cardiovascular: positive: Tachycardia Respiratory: positive: No respiratory distress (patient denies distress; reports better than on admit but not at baseline; appears with significant effort), Wheezes (throught out) Abdomen: positive: Soft, Obese Skin: positive: Pallor, Dryness Extremities: positive: Pedal edema Neurologic/Psychiatric: positive: Disoriented to time, Weakness (noted difficulty with bed mobililty; awaiting PT/OT evaluation), Depressed mood/affect, Flat affect Palliative Care - POLST Patient has POLST: Yes POLST Status: DNR, Comfort Measures (completed during visit) Pain: Pain worsening, Location (LE; sharp shooting; fluctuates; gets very cold hands/feet) Feelings of wellbeing/Perceived Quality of Life: Poor, Worsening Sleep: Sleeps poorly Performance Status: Patient has had functional decline, has been sleeping much more, who originally attributed this to the sedation from the Keppra. This is compounded by intermittent insomnia. Patient is mostly wheelchair-bound, ambulating with a walker only in the bathroom. For to be able to manage him, he does need to be able to transfer, have some bed mobility, and ambulate short distances.Patient currently is quite weak, difficulty assisting with bed mobilit y, is pending therapy evaluation. - Palliative Care Discussion: Patient's understanding of his illness, as he is continued to deteriorate. He does understand the significance of his declining functional status, and the impact as far as being able to be cared for at home. He has been worried about his worsening health status, with his hospitalization, he is/was worried he was not going to make it. We did discuss looking at the future, particular around the POLST, he does not feel like he would want to go through this again, he is tired of being sick, and does not see his quality of life as improving. Discussion included the spectrum/continuum of care, the reality is given patient's morbid obesity, will have difficulty finding SNF placement. He had broke both shoulders about 4 years ago, and sat in the ED for 7 days. His immediate goal, once he starts feeling better, with tingling regained some functional status feel the return home. Though he understands if this continues to decline, it will be too hard for his to meet his care needs. He has had [facility] with last seizure, and discharged home. If he were to be able to manage safely, with transfers, and toileting, of concern, feels would be able to manage though does see ongoing decline with concern about long-term planning. We did discuss the seriousness of his current condition, patient with DAVIDE, worsening respiratory status, patient right to improve, would want to transition to comfort measures. He does understand currently he has a do not attempt re suscitation, and when focusing on his goals in the future, fever to continue to decline, he would want comfort focused care. Counseling provided regarding hospice, does not feel even if patient were bedbound that she would be able to meet his needs, they do have a hospital bed. We did discuss in the context of this [place] inpatient unit does have a bariatric's set up if needed. Counseling provided regarding the role of palliative care, it has been coming increased significantly difficult for him to get in to see the doctor, thus his series of unfortunate events that led to his current hospitalization. We did discuss that palliative care is not a emergent service, but can provide support and partner with his PCP to decrease his need to come in for medical appointments. Results - Lab Results Lab results reviewed: Yes Fish Bones: 04/13/20 04:45 04/13/20 04:45 Lab and Imaging Results: Lab Results x24hrs 04/13/20 04/13/20 04/13/20 Range/Units 11:17 07:24 04:45 WBC (4.8-10.8) x10^3/uL RBC (4.70-6.10) 10^6/uL Hgb (14.0-18.0) g/dL Hct (42.0-52.0) % MCV (80.0-94.0) fL MCH (27.0-31.0) pg MCHC (32.0-36.0) g/dL RDW (12.0-15.0) % Plt Count (130-450) 10^3/uL MPV (7.4-11.4) fL Neut # (Auto) (1.5-6.6) 10^3/uL Lymph # (Auto) (1.5-3.5) 10^3/uL Hopkins # (Auto) (0.0-1.0) 10^3/uL Eos # (Auto) (0.0-0.7) 10^3/uL Baso # (Auto) (0.0-0.1) 10^3/uL Absolute Nucleated RBC x10^3/uL Nucleated RBC % /100WBC Sodium 134 L (135-145) mmol/L Potassium 4.4 (3.5-5.0) mmol/L Chloride 104 (101-111) mmol/L Carbon Dioxide 18 L (21-32) mmol/L Anion Gap 12.0 (6-13) BUN 52 H (6-20) mg/dL Creatinine 2.6 H (0.6-1.2) mg/dL Estimated GFR (MDRD) 24 L (>89) Glucose 145 H (70-100) mg/dL POC Whole Bld Glucose 188 H 122 H (70 - 100) mg/dL Calcium 8.1 L (8.5-10.3) mg/dL Phosphorus 4.2 (2.5-4.6) mg/dL Magnesium 2.0 (1.7-2.8) mg/dL 10/04/12/20 04/12/20 Range/Units 04:45 20:42 17:02 WBC 9.9 (4.8-10.8) x10^3/uL RBC 2.76 L (4.70-6.10) 10^6/uL Hgb 7.9 L (14.0-18.0) g/dL Hct 25.5 L (42.0-52.0) % MCV 92.4 (80.0-94.0) fL MCH 28.6 (27.0-31.0) pg MCHC 31.0 L (32.0-36.0) g/dL RDW 18.5 H (12.0-15.0) % Plt Count 218 (130-450) 10^3/uL MPV 9.5 (7.4-11.4) fL Neut # (Auto) 9.1 H (1.5-6.6) 10^3/uL Lymph # (Auto) 0.3 L (1.5-3.5) 10^3/uL Hopkins # (Auto) 0.4 (0.0-1.0) 10^3/uL Eos # (Auto) 0.0 (0.0-0.7) 10^3/uL Baso # (Auto) 0.0 (0.0-0.1) 10^3/uL Absolute Nucleated RBC 0.00 x10^3/uL Nucleated RBC % 0.0 /100WBC Sodium (135-145) mmol/L Potassium (3.5-5.0) mmol/L Chloride (101-111) mmol/L Carbon Dioxide (21-32) mmol/L Anion Gap (6-13) BUN (6-20) mg/dL Creatinine (0.6-1.2) mg/dL Estimated GFR (MDRD) (>89) Glucose (70-100) mg/dL POC Whole Bld Glucose 167 H 168 H (70 - 100) mg/dL Calcium (8.5-10.3) mg/dL Phosphorus (2.5-4.6) mg/dL Magnesium (1.7-2.8) mg/dL Impression and Recommendations - Palliative Care Impression: This is a 75-year-old gentleman who presents acutely with bacteremia, sepsis, UTI, worsening CHF, acute kidney injury, atrial fib, history of seizures, worsening anemia, and declining functional and cognitive status. This is superimposed on the complexity of his class III morbid obesity, and increasing care needs. Palliative care providing support regarding goals of care conversation, and anticipatory guidance. Recommendations/Counseling Done: 1. CDiarrhea. Patient has long-term history of diarrhea, suspect related to gastroparesis with his diabetes. They have managed at home with Imodium and fiber, may need to initiate given his ongoing loose stools. 2. Advanced care planning. Family meeting with myself, patient, [employer] student, to discuss goals of care and long-term planning. Patient's perception of his quality of life as well as his health is that it is deteriorating, patient is hoping for short-term goal to be able to make it back home, even if this does include SNF stay. He does understand with his increasing care needs, may not be able to be managed at home with his . She does exhibit symptoms of caregiver fatigue. Patient would be willing to accept placement, though would be difficult given the complexity of his CLASS III morbid obesity. Patient is tired of multiple hospitalizations, would like to transition to more of a palliative/comfort focused care. Counseling provided regarding the continuum of care palliative care versus hospice care, and the need for a terminal diagnosis to transition to hospice. POLST was completed, copy in medical chart and given to . Also gave her "hard choices for loving People". They are [employer] moncho is very much important to them, they do not see this as a negative are giving up, if patient were to continue to decline and needed to transition to comfort focused care even here in the hospital. Follow-up with hospitalist and social work, will need evaluation for SNF placement, would continue to focus on improving functional status if able to meet patient short-term goal of returning home. Will pursue outpatient referral if patient transitions back to the home setting. Time Spent: 90 minutes with greater than 50% of this spent in counseling regarding family conference, exception goals of care, completing the POLST, coordination of care, and anticipatory guidance. We will plan to see patient on Thursday if still here, if not will depending on placement pursue outpatient referral.
[2020-04-13] MEDS: ACETAMINOPHEN 325 MG TABLET PO PRN (13:39)
--- NOTE | 2020-04-13 15:09 | PROVIDER PROGRESS NOTE ---
<Erica Hanna - Last Filed: 04/13/20 15:31> Subjective - Prog Note Date Prog Note Date: 04/13/20 Prog Note Time: 11:00 - Subjective Pt reports feeling: Improved Subjective: Patient reports feeling a little better and less short of breath today. Although, he is still unable to speak more than 1-2 sentences without having to take a deep breath. He is able to sit up on the side of the bed with help to eat . Reports having a better appetite today and is drinking feeling tired and wants to sleep. Camila is at the bedside, says he looks better today than yesterday but his breathing is still not back to normal. Palliative care conference with patient and Camila today. Please see note. Current Medications - Current Medications Current Medications: Active Medications Generic Name Dose Route Start Last Admin Trade Name Freq PRN Reason Stop Dose Admin Acetaminophen 650 mg 04/10/20 21:00 04/13/20 13:39 Tylenol PO 650 mg Q4HR PRN Administration Pain 1 to 4 Aspirin 81 mg 04/12/20 13:00 04/13/20 09:31 Ecotrin PO 81 mg DAILY OFELIA Administration Atorvastatin Calcium 40 mg 04/12/20 21:00 04/12/20 21:49 Lipitor PO 40 mg QPM OFELIA Administration Citalopram Hydrobromide 40 mg 04/11/20 09:00 04/13/20 09:32 Celexa PO 40 mg DAILY OFELIA Administration Clopidogrel Bisulfate 75 mg 04/13/20 09:00 04/13/20 09:32 Plavix PO 75 mg DAILY OFELIA Administration Ferrous Sulfate 325 mg 04/11/20 09:00 04/13/20 09:31 Feosol PO 325 mg DAILY OFELIA Administration Finasteride 5 mg 04/11/20 09:00 04/13/20 09:33 Proscar PO 5 mg DAILY OFELIA Administration Heparin Sodium (Porcine) 5,000 unit 04/12/20 09:00 04/13/20 09:34 SUBQ 5,000 unit BID OFELIA Administration Piperacillin Sod/Tazobactam 100 mls @ 25 mls/hr 04/11/20 14:00 04/13/20 15:06 Sod 3.375 gm/ Sodium Chloride IV Infused Q8H OFELIA Infusion Lactated Ringer's 1,000 mls @ 83.333 mls/hr 04/13/20 08:00 04/13/20 09:37 Lr IV 83.333 mls/hr .Q12H OFELIA Administration Insulin Aspart 1 - 9 unit 04/11/20 08:00 04/13/20 11:52 Novolog SUBQ 3 unit 0800,1200,1700,2100 OFELIA Administration Protocol Insulin Human NPH 30 unit 04/11/20 09:00 04/13/20 09:35 Humulin N SUBQ 30 unit BID OFELIA Administration Levetiracetam 500 mg 04/11/20 09:00 04/13/20 09:31 Keppra PO 500 mg BID OFELIA Administration Losartan Potassium 25 mg 04/13/20 09:00 04/13/20 09:31 Cozaar PO 25 mg DAILY OFELIA Administration Metoprolol Tartrate 50 mg 04/13/20 21:00 Lopressor PO BID OFELIA Nystatin 1 applic 04/10/20 23:45 04/13/20 09:33 Nystop TOP 1 applic BID OFELIA Administration Ondansetron HCl 4 mg 04/10/20 21:00 Zofran Inj IVP Q6HR PRN Nausea / Vomiting Polyethylene Glycol 17 gm 04/12/20 08:00 04/13/20 10:26 Miralax PO Not Given DAILY [facility] Sodium Chloride 10 ml 04/10/20 21:00 04/12/20 00:14 Normal Saline Flush 0.9% IVP 10 ml PRN PRN Administration NEEDED PER PROVIDER ORDERS Sodium Chloride 10 ml 04/11/20 01:00 04/13/20 13:47 Normal Saline Flush 0.9% IVP Not Given 0100,0900,1700 [facility] Tamsulosin HCl 0.4 mg 04/12/20 13:00 04/13/20 09:32 Flomax PO 0.4 mg DAILY OFELIA Administration Terazosin HCl 10 mg 04/11/20 21:00 04/12/20 22:30 Hytrin PO Not Given QPM [facility] Trazodone HCl 50 mg 04/10/20 23:41 04/12/20 21:49 Desyrel PO 50 mg QPM OFELIA Administration Loperamide [Imodium] 4 mg PO DAILY 12/11/18 Finasteride [Proscar] 5 mg PO DAILY 11/22/19 Oxybutynin Chloride [Oxybutynin Chloride ER] 30 mg PO DAILY 11/22/19 Terazosin HCl 10 mg PO QPM 11/22/19 Atorvastatin Calcium 40 mg PO QPM 04/11/20 Citalopram Hydrobromide [Citalopram HBr] 40 mg PO DAILY 04/11/20 Insulin NPH Human Isophane [Humulin N] 50 units PO BID 04/11/20 Losartan Potassium 25 mg PO DAILY 04/11/20 Oxybutynin Chloride [Oxybutynin Chloride ER] 15 mg PO QPM 04/11/20 Tamsulosin [Flomax] 0.4 mg PO DAILY 04/11/20 metFORMIN [Glucophage] 1,000 mg PO BID 04/11/20 Objective - Vital Signs/Intake & Output Reviewed Vital Signs: Yes Vital Signs: Vital Signs x48h Temp Pulse Resp BP Pulse Ox 04/13/20 07:33 37.1 C 124 H 24 129/59 L 94 Intake & Output: Intake & Output 04/10/20 04/11/20 04/12/20 04/13/20 23:59 23:59 23:59 23:59 Intake Total 1100 3380 1260 640.000 Balance 1100 3380 1260 640.000 - Objective General Appearance: positive: Alert, Mild distress, Other (Breathing is labored when talking or moving/turning in bed.) Eyes Bilateral: positive: Normal inspection, PERRL, Conjunctivae nml, No scleral icterus ENT: positive: No signs of dehydration, Other (moist mucous membranes) Neck: positive: Nml inspection, Thyroid nml, Trachea midline, Other (neck is soft, supple. Unable to evaluate neck veins due to body habitus.) Respiratory: positive: Chest non-tender, Other (Tachypneic, labored breathing. On 3 liters of O2 via nasal cannula. No wheezes, but ocassional grunting.) Cardiovascular: positive: No murmur, No gallop, Irregularly irregular, Tachycardia, Other Peripheral Pulses: 2+ Radial (R), 2+ Radial (L), 2+ Dorsalis pedis (R), 2+ Dorsalis pedis (L), 2+ Posterior tibialis (R), 2+ Posterior tibialis (L) Abdomen: positive: Non-tender, Nml bowel sounds, Other (Protuberant abdomen, unable to palpate organs.) Back: positive: Nml inspection Skin: positive: Color nml, Warm, Dry, Skin rash (Funmi intertrigo underneath panus.) Extremities: positive: Nml appearance, Pedal edema (+1 bilateral edema in the LEs) Neurologic/Psychiatric: positive: Oriented x3, Weakness (4/5 strength bilateral UE, 4/5 bilateral LE) - Lab Results Fish Bones: 04/13/20 04:45 04/13/20 04:45 Other Labs: Lab Results x24hrs 04/13/20 04/13/20 04/13/20 Range/Units 11:17 07:24 04:45 WBC (4.8-10.8) x10^3/uL RBC (4.70-6.10) 10^6/uL Hgb (14.0-18.0) g/dL Hct (42.0-52.0) % MCV (80.0-94.0) fL MCH (27.0-31.0) pg MCHC (32.0-36.0) g/dL RDW (12.0-15.0) % Plt Count (130-450) 10^3/uL MPV (7.4-11.4) fL Neut # (Auto) (1.5-6.6) 10^3/uL Lymph # (Auto) (1.5-3.5) 10^3/uL [place] # (Auto) (0.0-1.0) 10^3/uL Eos # (Auto) (0.0-0.7) 10^3/uL Baso # (Auto) (0.0-0.1) 10^3/uL Absolute Nucleated RBC x10^3/uL Nucleated RBC % /100WBC Sodium 134 L (135-145) mmol/L Potassium 4.4 (3.5-5.0) mmol/L Chloride 104 (101-111) mmol/L Carbon Dioxide 18 L (21-32) mmol/L Anion Gap 12.0 (6-13) BUN 52 H (6-20) mg/dL Creatinine 2.6 H (0.6-1.2) mg/dL Estimated GFR (MDRD) 24 L (>89) Glucose 145 H (70-100) mg/dL POC Whole Bld Glucose 188 H 122 H (70 - 100) mg/dL Calcium 8.1 L (8.5-10.3) mg/dL Phosphorus 4.2 (2.5-4.6) mg/dL Magnesium 2.0 (1.7-2.8) mg/dL 04/13/20 04/12/20 04/12/20 Range/Units 04:45 20:42 17:02 WBC 9.9 (4.8-10.8) x10^3/uL RBC 2.76 L (4.70-6.10) 10^6/uL Hgb 7.9 L (14.0-18.0) g/dL Hct 25.5 L (42.0-52.0) % MCV 92.4 (80.0-94.0) fL MCH 28.6 (27.0-31.0) pg MCHC 31.0 L (32.0-36.0) g/dL RDW 18.5 H (12.0-15.0) % Plt Count 218 (130-450) 10^3/uL MPV 9.5 (7.4-11.4) fL Neut # (Auto) 9.1 H (1.5-6.6) 10^3/uL Lymph # (Auto) 0.3 L (1.5-3.5) 10^3/uL [place] # (Auto) 0.4 (0.0-1.0) 10^3/uL Eos # (Auto) 0.0 (0.0-0.7) 10^3/uL Baso # (Auto) 0.0 (0.0-0.1) 10^3/uL Absolute Nucleated RBC 0.00 x10^3/uL Nucleated RBC % 0.0 /100WBC Sodium (135-145) mmol/L Potassium (3.5-5.0) mmol/L Chloride (101-111) mmol/L Carbon Dioxide (21-32) mmol/L Anion Gap (6-13) BUN (6-20) mg/dL Creatinine (0.6-1.2) mg/dL Estimated GFR (MDRD) (>89) Glucose (70-100) mg/dL POC Whole Bld Glucose 167 H 168 H (70 - 100) mg/dL Calcium (8.5-10.3) mg/dL Phosphorus (2.5-4.6) mg/dL Magnesium (1.7-2.8) mg/dL - Diagnostic Imaging Diagnostic Imaging Results: positive: Final report reviewed Sepsis Event Note (H) - Evaluation Current Stage of Sepsis: Sepsis Possible source of Sepsis: positive: Genitourinary Confirmed Source and Organism (if known) of Sepsis: proteus mirabilis, urinary tract - Sepsis Criteria Sepsis Criteria: Recorded Respiratory Rate greater than 20, WBC count greater than 12,000 or less than 4000, Renal: urine output less than 0.5ml/kg/hr for 2 hours or creatinine gr Assessment/Plan - Problem List (1) Bacteremia Impression: Blood cultures from 04/10/20 came back positive for proteus sp. Urine culture positive for proteus mirabilis. Plan is to transition over to Augmentin per pharmacy recommendation and discontinue IV zosyn. Continue to trend CBC and monitor vitals. (2) Sepsis Conclusion/Plan: Likely septic secondary to urinary tract infection. His white count is down trending. Continue to trend CBC and monitor vitals. (3) Urinary tract infection Conclusion/Plan: Urine culture positive for proteus mirabilis as stated above. Will transition to Augmentin per pharmacy recommendation. (4) Suspected CHF (congestive heart failure) Conclusion/Plan: Suspect that he may have new onset heart failure. His BNP is only mildly elevated but given his obesity, this is likely lower than what would be expected. CTA of the chest was negative for pulmonary embolism but did reveal some mild pulmonary vascular congestion this was also evident on the chest x- ray. Echocardiogram back in November revealed a preserved ejection fraction and diastolic function was indeterminate. He remains dyspneic and on supplemental O2. Creatinine continues to be elevated (2.6 from 2.4) Daily weights. Strict I's and O's. Low-sodium diet. (5) Acute kidney injury Conclusion/Plan: Most recent creatinine is 2.6 from 2.4. His baseline is 1.1 The etiology was acute kidney injury is not clear at this time. Possibly acute tubular necrosis due to IV lasix or contrast two days ago. Most recent labs from a few months ago revealed a creatinine of 1.4. Started patient on maintenance IVF. Will trend creatinine. Avoid nephrotoxins. Monitor his urine output. (6) Atrial fibrillation Conclusion/Plan: This was present on his prior EKGs (02/09/20) but this is a new diagnosis to the patient reportedly. He remains in atrial fibrillation RVR today. His metoprolol dose was increased. Anticoagulation therapy was discussed with patient. Will start him on Coumadin once he is clear of bleeding. (7) History of seizures Conclusion/Plan: Stable. Continue Keppra. 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 He does appear to have a history of vitamin B12 deficiency and iron deficiency which may potentially be contributing to his anemia. We will continue his oral iron and vitamin B12 supplements. We will check a stool for occult blood as he should be anticoagulated for the atrial fibrillation and want to ensure there is no evidence of bleeding. (9) BPH (benign prostatic hyperplasia) Conclusion/Plan: We will continue his home medications. (10) Diabetes mellitus treated with insulin and oral medication Conclusion/Plan: Blood glucose currently well controlled. We will continue his home insulin but hold the metformin. Carb controlled diet. <Graciela Barreto - Last Filed: 04/13/20 16:58> Objective - Vital Signs/Intake & Output Vital Signs: Vital Signs x48h Temp Pulse Resp BP Pulse Ox 04/13/20 15:17 36.4 C L 104 H 20 102/64 95 Intake & Output: Intake & Output 04/10/20 04/11/20 04/12/20 04/13/20 23:59 23:59 23:59 23:59 Intake Total 1100 3380 1260 740.000 Balance 1100 3380 1260 740.000 - Objective Respiratory: positive: Other - Lab Results Fish Bones: 04/13/20 04:45 04/13/20 04:45 Other Labs: Lab Results x24hrs 04/13/20 04/13/20 04/13/20 Range/Units 11:17 07:24 04:45 WBC (4.8-10.8) x10^3/uL RBC (4.70-6.10) 10^6/uL Hgb (14.0-18.0) g/dL Hct (42.0-52.0) % MCV (80.0-94.0) fL MCH (27.0-31.0) pg MCHC (32.0-36.0) g/dL RDW (12.0-15.0) % Plt Count (130-450) 10^3/uL MPV (7.4-11.4) fL Neut # (Auto) (1.5-6.6) 10^3/uL Lymph # (Auto) (1.5-3.5) 10^3/uL [place] # (Auto) (0.0-1.0) 10^3/uL Eos # (Auto) (0.0-0.7) 10^3/uL Baso # (Auto) (0.0-0.1) 10^3/uL Absolute Nucleated RBC x10^3/uL Nucleated RBC % /100WBC Sodium 134 L (135-145) mmol/L Potassium 4.4 (3.5-5.0) mmol/L Chloride 104 (101-111) mmol/L Carbon Dioxide 18 L (21-32) mmol/L Anion Gap 12.0 (6-13) BUN 52 H (6-20) mg/dL Creatinine 2.6 H (0.6-1.2) mg/dL Estimated GFR (MDRD) 24 L (>89) Glucose 145 H (70-100) mg/dL POC Whole Bld Glucose 188 H 122 H (70 - 100) mg/dL Calcium 8.1 L (8.5-10.3) mg/dL Phosphorus 4.2 (2.5-4.6) mg/dL Magnesium 2.0 (1.7-2.8) mg/dL 04/13/20 04/12/20 04/12/20 Range/Units 04:45 20:42 17:02 WBC 9.9 (4.8-10.8) x10^3/uL RBC 2.76 L (4.70-6.10) 10^6/uL Hgb 7.9 L (14.0-18.0) g/dL Hct 25.5 L (42.0-52.0) % MCV 92.4 (80.0-94.0) fL MCH 28.6 (27.0-31.0) pg MCHC 31.0 L (32.0-36.0) g/dL RDW 18.5 H (12.0-15.0) % Plt Count 218 (130-450) 10^3/uL MPV 9.5 (7.4-11.4) fL Neut # (Auto) 9.1 H (1.5-6.6) 10^3/uL Lymph # (Auto) 0.3 L (1.5-3.5) 10^3/uL [place] # (Auto) 0.4 (0.0-1.0) 10^3/uL Eos # (Auto) 0.0 (0.0-0.7) 10^3/uL Baso # (Auto) 0.0 (0.0-0.1) 10^3/uL Absolute Nucleated RBC 0.00 x10^3/uL Nucleated RBC % 0.0 /100WBC Sodium (135-145) mmol/L Potassium (3.5-5.0) mmol/L Chloride (101-111) mmol/L Carbon Dioxide (21-32) mmol/L Anion Gap (6-13) BUN (6-20) mg/dL Creatinine (0.6-1.2) mg/dL Estimated GFR (MDRD) (>89) Glucose (70-100) mg/dL POC Whole Bld Glucose 167 H 168 H (70 - 100) mg/dL Calcium (8.5-10.3) mg/dL Phosphorus (2.5-4.6) mg/dL Magnesium (1.7-2.8) mg/dL ABX Reporting Has patient been on IV antibiotics over the past 48 hours?: Yes Assessment/Plan - Problem List (1) Bacteremia Impression: Patient seen and examined with discussion of case with patient, , and palliative care consultation. Attestation that the note documented by DNP student Erica Hanna is correct and reflects discussion and treatment. At this time we are focusing on treating his bacteremia and will transition him to oral antibiotics. Work with physical therapy to improve his functional status is much as possible. Goal is for him to be strong enough to return to home. We are watching his acute kidney injury and have started IV fluids today to see if dehydration is the problem.
[2020-04-13] MEDS: ATORVASTATIN 40 MG TABLET PO SCH (21:32)
[2020-04-13] MEDS: traZODone 50 MG TABLET PO SCH (21:33)
[2020-04-13] MEDS: SODIUM CHLORIDE FLUSH 0.9% 10 ML SYRINGE IVP PRN (21:40)
[2020-04-14] MEDS: LACTATED RINGERS 1,000 ML IV SCH ×2 (01:02→14:35)
[2020-04-14] MEDS: SODIUM CHLORIDE FLUSH 0.9% 10 ML SYRINGE IVP SCH ×3 (01:02→16:49)
[2020-04-14 05:59] LABS: BASOPHILS % (AUTO) 0.3 %; EOSINOPHILS # (AUTO) 0.1 10^3/uL (0.0-0.7); EOSINOPHILS % (AUTO) 1.3 %; HGB - HEMOGLOBIN 7.6 g/dL (14.0-18.0); LYMPHOCYTES # (AUTO) 0.6 10^3/uL (1.5-3.5); LYMPHOCYTES % (AUTO) 8.1 %; MEAN CORPUSCULAR HEMOGLOBIN 28.7 pg (27.0-31.0); MEAN CORPUSCULAR HGB CONC 30.5 g/dL (32.0-36.0); MEAN PLATELET VOLUME 9.8 fL (7.4-11.4); MONOCYTES # (AUTO) 0.8 10^3/uL (0.0-1.0); MONOCYTES % (AUTO) 11.4 %; NEUTROPHILS # (AUTO) 5.6 10^3/uL (1.5-6.6); NEUTROPHILS % (AUTO) 78.5 %; PLT - PLATELET COUNT 205 10^3/uL (130-450); RED BLOOD COUNT 2.65 10^6/uL (4.70-6.10); RED CELL DISTRIBUTION WIDTH 18.2 % (12.0-15.0); WHITE BLOOD COUNT 7.2 x10^3/uL (4.8-10.8)
[2020-04-14] MEDS: PIPERACILLIN/TAZOBACTAM 3.375 GM in SODIUM CHLORIDE 0.9% MINIBAG 100 ML IV SCH (06:07)
[2020-04-14 06:09] LABS: CALCIUM 8.5 mg/dL (8.5-10.3); CREATININE 2.9 mg/dL (0.6-1.2); MAGNESIUM 2.3 mg/dL (1.7-2.8); PHOSPHORUS 4.8 mg/dL (2.5-4.6)
[2020-04-14] MEDS: INSULIN ASPART 300 UNIT/3 ML PEN SUBQ SCH ×4 (08:21→20:39)
[2020-04-14] MEDS: CLOPIDOGREL 75 MG TABLET PO SCH (08:23)
[2020-04-14] MEDS: FERROUS SULFATE 325 MG TABLET PO SCH (08:24)
[2020-04-14] MEDS: CITALOPRAM HYDROBROMIDE 20 MG TABLET PO SCH (08:24)
[2020-04-14] MEDS: TAMSULOSIN 0.4 MG CAPSULE PO SCH (08:24)
[2020-04-14] MEDS: levETIRAcetam 250 MG TABLET PO SCH ×2 (08:25→20:39)
[2020-04-14] MEDS: ASPIRIN EC 81 MG TABLET PO SCH (08:25)
[2020-04-14] MEDS: FINASTERIDE 5 MG TABLET PO SCH (08:25)
[2020-04-14] MEDS: METOPROLOL TARTRATE 25 MG TABLET PO SCH ×2 (08:25→20:47)
[2020-04-14] MEDS: INSULIN NPH HUMAN 300 UNIT/3 ML VIAL SUBQ SCH ×2 (08:26→20:40)
[2020-04-14] MEDS: HEPARIN 5,000 UNIT/ML VIAL SUBQ SCH ×2 (08:26→20:41)
[2020-04-14] MEDS: NYSTATIN POWDER 15 GM TOP SCH ×2 (08:28→20:40)
[2020-04-14] MEDS: polyethylene glycoL 3350 17 GM PACKET PO SCH (08:28)
[2020-04-14 09:23] LABS: BILIRUBIN,URINE NEGATIVE (NEGATIVE); GLUCOSE, URINE (UA) NEGATIVE (NEGATIVE); KETONES,URINE (UA) NEGATIVE (NEGATIVE); LEUKOCYTE ESTERASE, URINE NEGATIVE (NEGATIVE); NITRITE,URINE NEGATIVE (NEGATIVE); OCCULT BLOOD,URINE MODERATE (NEGATIVE); PROTEIN,URINE 30 mg/dL (NEGATIVE); UROBILINOGEN,URINE 0.2 (NORMAL) E.U./dL (NORMAL)
[2020-04-14 09:28] LABS: CLARITY,URINE HAZY (CLEAR)
[2020-04-14 09:35] LABS: RBC,URINE 0-5 /HPF (0-5); SQUAMOUS EPITHELIAL CELL,UR FEW Squamous (<= Few)
[2020-04-14 09:36] LABS: BACTERIA,URINE Few /HPF (None Seen)
[2020-04-14] MEDS: cefTRIAXone 1 GM in SODIUM CHLORIDE 0.9% MINIBAG 100 ML IV SCH (11:30)
--- NOTE | 2020-04-14 17:17 | PROVIDER PROGRESS NOTE ---
Subjective - Prog Note Date Prog Note Date: 04/14/20 Prog Note Time: 17:39 - Subjective Pt reports feeling: Improved Subjective: When I came in to see him this morning and this afternoon he has no grunting. He still grunts when he lays down to go to sleep. But this morning he was laying flat in bed, no orthopnea, no respiratory distress. That was the first for him during this admission. And this afternoon he is sitting up in his chair, chatting with his . He is incontinent of urine. I discussed his acute kidney insufficiency. She asked me about the risk of his sepsis returning. He is complaining of urgency and frequency and dysuria again. Current Medications - Current Medications Current Medications: Active Medications Acetaminophen (Tylenol) 650 mg PO Q4HR PRN PRN Reason: Pain 1 to 4 Last Admin: 04/13/20 13:39 Dose: 650 mg Documented by: Aspirin (Ecotrin) 81 mg PO DAILY [facility] Last Admin: 04/14/20 08:25 Dose: 81 mg Documented by: Atorvastatin Calcium (Lipitor) 40 mg PO QPM [facility] Last Admin: 04/13/20 21:32 Dose: 40 mg Documented by: Citalopram Hydrobromide (Celexa) 40 mg PO DAILY [facility] Last Admin: 04/14/20 08:24 Dose: 40 mg Documented by: Clopidogrel Bisulfate (Plavix) 75 mg PO DAILY [facility] Last Admin: 04/14/20 08:23 Dose: 75 mg Documented by: Ferrous Sulfate (Feosol) 325 mg PO DAILY [facility] Last Admin: 04/14/20 08:24 Dose: 325 mg Documented by: Finasteride (Proscar) 5 mg PO DAILY [facility] Last Admin: 04/14/20 08:25 Dose: 5 mg Documented by: Heparin Sodium (Porcine) () 5,000 unit SUBQ BID [facility] Last Admin: 04/14/20 08:26 Dose: 5,000 unit Documented by: Lactated Ringer's (Lr) 1,000 mls @ 83.333 mls/hr IV .Q12H [facility] Last Admin: 04/14/20 14:35 Dose: 83.333 mls/hr Documented by: Ceftriaxone Sodium 1 gm/ (Sodium Chloride) 100 mls @ 200 mls/hr IV DAILY [facility] Last Infusion: 04/14/20 12:18 Dose: Infused Documented by: Insulin Aspart (Novolog) 1 - 9 unit SUBQ 0800,1200,1700,2100 [facility]; Protocol Last Admin: 04/14/20 16:53 Dose: 3 unit Documented by: Insulin Human NPH (Humulin N) 30 unit SUBQ BID [facility] Last Admin: 04/14/20 08:26 Dose: 30 unit Documented by: Levetiracetam (Keppra) 500 mg PO BID [facility] Last Admin: 04/14/20 08:25 Dose: 500 mg Documented by: Metoprolol Tartrate (Lopressor) 50 mg PO BID [facility] Last Admin: 04/14/20 08:25 Dose: 50 mg Documented by: Nystatin (Nystop) 1 applic TOP BID [facility] Last Admin: 04/14/20 08:28 Dose: 1 applic Documented by: Ondansetron HCl (Zofran Inj) 4 mg IVP Q6HR PRN PRN Reason: Nausea / Vomiting Polyethylene Glycol (Miralax) 17 gm PO DAILY [facility] Last Admin: 04/14/20 08:28 Dose: Not Given Documented by: Sodium Chloride (Normal Saline Flush 0.9%) 10 ml IVP PRN PRN PRN Reason: NEEDED PER PROVIDER ORDERS Last Admin: 04/13/20 21:40 Dose: 10 ml Documented by: Sodium Chloride (Normal Saline Flush 0.9%) 10 ml IVP 0100,0900,1700 [facility] Last Admin: 04/14/20 16:49 Dose: Not Given Documented by: Tamsulosin HCl (Flomax) 0.4 mg PO DAILY [facility] Last Admin: 04/14/20 08:24 Dose: 0.4 mg Documented by: Trazodone HCl (Desyrel) 50 mg PO QPM [facility] Last Admin: 04/13/20 21:33 Dose: 50 mg Documented by: Loperamide [Imodium] 4 mg PO DAILY 12/11/18 Finasteride [Proscar] 5 mg PO DAILY 11/22/19 Oxybutynin Chloride [Oxybutynin Chloride ER] 30 mg PO DAILY 11/22/19 Terazosin HCl 10 mg PO QPM 11/22/19 Atorvastatin Calcium 40 mg PO QPM 04/11/20 Citalopram Hydrobromide [Citalopram HBr] 40 mg PO DAILY 04/11/20 Insulin NPH Human Isophane [Humulin N] 50 units PO BID 04/11/20 Losartan Potassium 25 mg PO DAILY 04/11/20 Oxybutynin Chloride [Oxybutynin Chloride ER] 15 mg PO QPM 04/11/20 Tamsulosin [Flomax] 0.4 mg PO DAILY 04/11/20 metFORMIN [Glucophage] 1,000 mg PO BID 04/11/20 Objective - Vital Signs/Intake & Output Reviewed Vital Signs: Yes Vital Signs: Vital Signs x48h Temp Pulse Pulse Resp BP Pulse Ox 04/14/20 15:40 36.5 C 100 24 127/88 H 99 04/14/20 13:00 36.4 C L 110 H 20 95 Intake & Output: Intake & Output 04/11/20 04/12/20 04/13/20 04/14/20 23:59 23:59 23:59 23:59 Intake Total 3380 1260 9591.363 8152.000 Output Total 850 Balance 3380 1260 7815.522 5297.000 - Objective General Appearance: positive: Alert, Mild distress (In spite of no grunting, he still gets increased respiratory effort with talking to me. And at rest he still has to use his abdominal wall muscles to take a breath.) Eyes Bilateral: positive: PERRL ENT: positive: Pharynx nml Neck: positive: Other (Too thick of neck for me to assess for JVD) Respiratory: positive: No respiratory distress, Other (Diminished at bases. Sitting upright. The entirety of his abdominal pannus goes up and down as he uses mild accessory muscles for breathing. But he says he feels good.). negative: Wheezes, Rales, Rhonchi Cardiovascular: positive: Irregularly irregular, Other (Distant cardiac tones.). negative: Gallop/S4, Friction rub Abdomen: positive: Non-tender, Nml bowel sounds, Other (Huge, huge abdominal pannus. Lifting it shows drying Funmi intertrigo.) Skin: positive: Warm, Dry Extremities: positive: Full ROM, Pedal edema (But less pedal edema than on admission) Neurologic/Psychiatric: positive: Oriented x3, CN's nml (2-12), Motor nml (He is a fall risk. His huge size makes it a risk for to get him up out of bed and to step 2-3 steps to the chair. Nevertheless nursing was able to do it this afternoon after physical therapy was unable to do it this morning. He is sitting upright, talking to his , and getting ready to eat din) - Lab Results Fish Bones: 04/14/20 05:45 04/14/20 05:45 Other Labs: Lab Results x24hrs 04/14/20 04/14/20 04/14/20 Range/Units 16:32 11:18 08:39 WBC (4.8-10.8) x10^3/uL RBC (4.70-6.10) 10^6/uL Hgb (14.0-18.0) g/dL Hct (42.0-52.0) % MCV (80.0-94.0) fL MCH (27.0-31.0) pg MCHC (32.0-36.0) g/dL RDW (12.0-15.0) % Plt Count (130-450) 10^3/uL MPV (7.4-11.4) fL Neut # (Auto) (1.5-6.6) 10^3/uL Lymph # (Auto) (1.5-3.5) 10^3/uL Osborne # (Auto) (0.0-1.0) 10^3/uL Eos # (Auto) (0.0-0.7) 10^3/uL Baso # (Auto) (0.0-0.1) 10^3/uL Absolute Nucleated RBC x10^3/uL Nucleated RBC % /100WBC Sodium (135-145) mmol/L Potassium (3.5-5.0) mmol/L Chloride (101-111) mmol/L Carbon Dioxide (21-32) mmol/L Anion Gap (6-13) BUN (6-20) mg/dL Creatinine (0.6-1.2) mg/dL Estimated GFR (MDRD) (>89) Glucose (70-100) mg/dL POC Whole Bld Glucose 182 H 156 H (70 - 100) mg/dL Calcium (8.5-10.3) mg/dL Phosphorus (2.5-4.6) mg/dL Magnesium (1.7-2.8) mg/dL Urine Color Urine Clarity (CLEAR) Urine pH (5.0-7.5) PH Ur Specific Cost (1.002-1.030) Urine Protein (NEGATIVE) mg/dL Urine Glucose (UA) (NEGATIVE) mg/dL Urine Ketones (NEGATIVE) mg/dL Urine Occult Blood (NEGATIVE) Urine Nitrite (NEGATIVE) Urine Bilirubin (NEGATIVE) Urine Urobilinogen (NORMAL) E.U./dL Ur Leukocyte Esterase (NEGATIVE) Urine RBC (0-5) /HPF Urine WBC (0-3) /HPF Ur Squamous Epith Cells (<= Few) Urine Bacteria (None Seen) /HPF Urine Culture Comments Urine Sodium 21.0 mmol/L 04/14/20 04/14/20 04/14/20 Range/Units 08:39 07:35 05:45 WBC (4.8-10.8) x10^3/uL RBC (4.70-6.10) 10^6/uL Hgb (14.0-18.0) g/dL Hct (42.0-52.0) % MCV (80.0-94.0) fL MCH (27.0-31.0) pg MCHC (32.0-36.0) g/dL RDW (12.0-15.0) % Plt Count (130-450) 10^3/uL MPV (7.4-11.4) fL Neut # (Auto) (1.5-6.6) 10^3/uL Lymph # (Auto) (1.5-3.5) 10^3/uL Osborne # (Auto) (0.0-1.0) 10^3/uL Eos # (Auto) (0.0-0.7) 10^3/uL Baso # (Auto) (0.0-0.1) 10^3/uL Absolute Nucleated RBC x10^3/uL Nucleated RBC % /100WBC Sodium 137 (135-145) mmol/L Potassium 4.2 (3.5-5.0) mmol/L Chloride 106 (101-111) mmol/L Carbon Dioxide 19 L (21-32) mmol/L Anion Gap 12.0 (6-13) BUN 64 H (6-20) mg/dL Creatinine 2.9 H (0.6-1.2) mg/dL Estimated GFR (MDRD) 21 L (>89) Glucose 123 H (70-100) mg/dL POC Whole Bld Glucose 118 H (70 - 100) mg/dL Calcium 8.5 (8.5-10.3) mg/dL Phosphorus 4.8 H (2.5-4.6) mg/dL Magnesium 2.3 (1.7-2.8) mg/dL Urine Color YELLOW Urine Clarity HAZY (CLEAR) Urine pH 5.0 (5.0-7.5) PH Ur Specific Cost 1.025 (1.002-1.030) Urine Protein 30 H (NEGATIVE) mg/dL Urine Glucose (UA) NEGATIVE (NEGATIVE) mg/dL Urine Ketones NEGATIVE (NEGATIVE) mg/dL Urine Occult Blood MODERATE H (NEGATIVE) Urine Nitrite NEGATIVE (NEGATIVE) Urine Bilirubin NEGATIVE (NEGATIVE) Urine Urobilinogen 0.2 (NORMAL) (NORMAL) E.U./dL Ur Leukocyte Esterase NEGATIVE (NEGATIVE) Urine RBC 0-5 (0-5) /HPF Urine WBC 4-5 (0-3) /HPF Ur Squamous Epith Cells FEW Squamous (<= Few) Urine Bacteria Few (None Seen) /HPF Urine Culture Comments NOT INDICATED Urine Sodium mmol/L 04/14/20 04/13/20 Range/Units 05:45 20:38 WBC 7.2 (4.8-10.8) x10^3/uL RBC 2.65 L (4.70-6.10) 10^6/uL Hgb 7.6 L (14.0-18.0) g/dL Hct 24.9 L (42.0-52.0) % MCV 94.0 (80.0-94.0) fL MCH 28.7 (27.0-31.0) pg MCHC 30.5 L (32.0-36.0) g/dL RDW 18.2 H (12.0-15.0) % Plt Count 205 (130-450) 10^3/uL MPV 9.8 (7.4-11.4) fL Neut # (Auto) 5.6 (1.5-6.6) 10^3/uL Lymph # (Auto) 0.6 L (1.5-3.5) 10^3/uL Osborne # (Auto) 0.8 (0.0-1.0) 10^3/uL Eos # (Auto) 0.1 (0.0-0.7) 10^3/uL Baso # (Auto) 0.0 (0.0-0.1) 10^3/uL Absolute Nucleated RBC 0.00 x10^3/uL Nucleated RBC % 0.0 /100WBC Sodium (135-145) mmol/L Potassium (3.5-5.0) mmol/L Chloride (101-111) mmol/L Carbon Dioxide (21-32) mmol/L Anion Gap (6-13) BUN (6-20) mg/dL Creatinine (0.6-1.2) mg/dL Estimated GFR (MDRD) (>89) Glucose (70-100) mg/dL POC Whole Bld Glucose 147 H (70 - 100) mg/dL Calcium (8.5-10.3) mg/dL Phosphorus (2.5-4.6) mg/dL Magnesium (1.7-2.8) mg/dL Urine Color Urine Clarity (CLEAR) Urine pH (5.0-7.5) PH Ur Specific Cost (1.002-1.030) Urine Protein (NEGATIVE) mg/dL Urine Glucose (UA) (NEGATIVE) mg/dL Urine Ketones (NEGATIVE) mg/dL Urine Occult Blood (NEGATIVE) Urine Nitrite (NEGATIVE) Urine Bilirubin (NEGATIVE) Urine Urobilinogen (NORMAL) E.U./dL Ur Leukocyte Esterase (NEGATIVE) Urine RBC (0-5) /HPF Urine WBC (0-3) /HPF Ur Squamous Epith Cells (<= Few) Urine Bacteria (None Seen) /HPF Urine Culture Comments Urine Sodium mmol/L ABX Reporting Has patient been on IV antibiotics over the past 48 hours?: Yes Sepsis Event Note (H) - Evaluation Current Stage of Sepsis: Resolved Possible source of Sepsis: positive: Genitourinary - Sepsis Criteria Sepsis Criteria: Recorded Respiratory Rate greater than 20, WBC count greater than 12,000 or less than 4000, Renal: urine output less than 0.5ml/kg/hr for 2 hours or creatinine gr Assessment/Plan - Problem List (1) Acute kidney injury Impression: We have been closely following his creatinine since admission. His baseline is 1.1-1.2. January discharge was 1.4. On admission with this acute episode he was 1.7. On admission he received a CT with dye contrast, as well as vancomycin. He has not been hypotensive and echocardiogram does not confirm a reduced ejection fraction. Ultrasound does not show hydronephrosis or obstruction. Yet his creatinine is continued to climb and he is 2.9 today. I am concerned about ATN. I repeated urinalysis and there are no casts. I did speak to Dr. Bethany Dunn, nephrology, and he states that this tends to resolve in 5 to 7 days. We are 4 days right now. So he is saying that I most likely need to sit tight for the next 2 to 3 days and continue to watch his creatinine, avoid nephrotoxic agents. (2) Bacteremia Impression: Blood cultures from 04/10/20 came back positive for gram-negative rods. Likely from urinary tract. Zosyn started April 11 After 1 dose of vancomycin and Rocephin. Zosyn will be stopped today. Pharmacy feels that we can substitute Rocephin now. He is now 5 days of antibiotic therapy. He will need 5 more days of Rocephin to complete 10 days of therapy for bacteremia.. Echo was done and no vegetations. Continue to trend CBC and monitor vitals. (3) Urinary tract infection Conclusion/Plan: He most certainly has a urinary tract infection given his urinalysis and the fact that he has symptoms. He was also probably septic given his elevated white count adn grunting respiration. The tachycardia and acute kidney injury could potentially be explained by his heart failure but sepsis is difficult to exclude at this time. His prior cultures have grown enterococcus and Aerococcus. Blood cultures grew gram-negative robs. IV zosyn started and after 4 days will not be changed to rocephin since sensitivities back per pharmacy. (4) Suspected CHF (congestive heart failure)->>Right-sided heart failure, acute Conclusion/Plan: Suspect that he may have new onset heart failure. His BNP is only mildly elevated but given his obesity, this is likely lower than what would be expected. CTA of the chest was negative for pulmonary embolism but did reveal some mild pulmonary vascular congestion this was also evident on the chest x- ray. Echocardiogram back in November revealed a preserved ejection fraction and diastolic function was indeterminate. Echocardiogram from April 10 shows an ejection fraction of 60 to 65%. Moderate right ventricular enlargement. Ejection fraction 60 to 65% of the left ventricle. Moderate to severe increase in left atrial volume index. Severe right atrial enlargement. Mild to moderate aortic valve sclerosis without stenosis or vegetations. Tricuspid valve not visualized. Tricuspid stenosis not present. Mild tricuspid regurgitation. RVSP at rest is 79 mmHg. As compared to prior echo pulmonary arterial pressure has increased.Weight on admission was 185.9 kg. He is gone up to 191.5 kg. I spoke to nephrology today, this was mainly about his acute kidney injury. They are hoping that we will avoid the Lasix at this time. This is due to the creatinine rise/bump from most likely ATN due to vancomycin and CAT scan dye. At this time he is clinically improving. Today is the first day of seen him laying flat on his back without significant orthopnea. He states he feels okay. Not grunting most of the day but still goes back to grunting respirations when he goes to sleep. (5) Atrial fibrillation Conclusion/Plan: This was present on his prior EKGs (02/09/20) but this is a new diagnosis to the patient reportedly. Will start him on beta romario today for rate control. Anticoagulation therapy was discussed with patient. Check EKG in morning. Assess for rhythm. I do hear atrial fibrillation. Nevertheless would like to see if there is been any improvement and I Would like to start him on a nticoagulation. Coumadin has a severe interaction with SSRIs. Apparently there is platelet inhibition. He is already on Plavix. But I do not think I can start him on a DOAC because of his size. I will discuss with pharmacy before starting anticoagulation. (6) History of seizures Conclusion/Plan: Stable. Continue Keppra. 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 He does appear to have a history of vitamin B12 deficiency and iron deficiency which may potentially be contributing to his anemia. We will continue his oral iron and vitamin B12 supplements. We will check a stool for occult blood as he should be anticoagulated for the atrial fibrillation and want to ensure there is no evidence of bleeding. (8) BPH (benign prostatic hyperplasia) Conclusion/Plan: (9) Sepsis resolved. Conclusion/Plan: Likely septic secondary to urinary tract infection. His white count started at 14.0. Climbed to 16.9 the next day. Since being on appropriate antibiotics his white cell count became normal on April 13-9.9. Today he is 7.2. He was tachycardic initially as well although this is likely just related to the age fibrillation. His lactic acid is normal and he is normotensive. CT of the chest did not reveal any obvious infiltrate. Started on IV zosyn with ceftriaxone and vancomycin d/c after one day. Continue to trend CBC and monitor vitals. (10) Diabetes mellitus treated with insulin and oral medication. April 13: Glucose 122, 188, 154, 147 April 14: 118, 156, 182 Plan: No change in NPH which is 30 units subcu twice daily, supplemented by NovoLog sliding scale before meals.
[2020-04-14 17:21] LABS: VANCOMYCIN,RANDOM < 3.5 ug/mL
[2020-04-14] MEDS: traZODone 50 MG TABLET PO SCH (20:39)
[2020-04-14] MEDS: ATORVASTATIN 40 MG TABLET PO SCH (20:39)
[2020-04-15] MEDS: SODIUM CHLORIDE FLUSH 0.9% 10 ML SYRINGE IVP SCH ×3 (00:14→15:32)
[2020-04-15] MEDS: LACTATED RINGERS 1,000 ML IV SCH ×2 (03:03→15:31)
[2020-04-15 05:40] LABS: BASOPHILS % (AUTO) 0.3 %; EOSINOPHILS # (AUTO) 0.1 10^3/uL (0.0-0.7); EOSINOPHILS % (AUTO) 1.7 %; LYMPHOCYTES # (AUTO) 0.5 10^3/uL (1.5-3.5); LYMPHOCYTES % (AUTO) 6.9 %; MEAN CORPUSCULAR HEMOGLOBIN 29.1 pg (27.0-31.0); MEAN CORPUSCULAR HGB CONC 30.8 g/dL (32.0-36.0); MEAN CORPUSCULAR VOLUME 94.5 fL (80.0-94.0); MEAN PLATELET VOLUME 9.6 fL (7.4-11.4); MONOCYTES # (AUTO) 0.7 10^3/uL (0.0-1.0); MONOCYTES % (AUTO) 9.9 %; NEUTROPHILS # (AUTO) 5.5 10^3/uL (1.5-6.6); NEUTROPHILS % (AUTO) 80.2 %; PLT - PLATELET COUNT 228 10^3/uL (130-450); RED BLOOD COUNT 2.75 10^6/uL (4.70-6.10); WHITE BLOOD COUNT 6.9 x10^3/uL (4.8-10.8)
[2020-04-15 05:46] LABS: INR 1.4 (0.8-1.2); PT - PROTHROMBIN TIME 15.2 secs (9.9-12.6)
[2020-04-15 05:53] LABS: CALCIUM 8.4 mg/dL (8.5-10.3); CREATININE 2.6 mg/dL (0.6-1.2); MAGNESIUM 2.3 mg/dL (1.7-2.8); PHOSPHORUS 4.4 mg/dL (2.5-4.6)
--- NOTE | 2020-04-15 08:06 | PROVIDER PROGRESS NOTE ---
Subjective - Prog Note Date Prog Note Date: 04/15/20 Prog Note Time: 18:53 - Subjective Pt reports feeling: Improved Subjective: He still able to lay flat. He needs 2 person max assist to be able to sit him up in bed. But once he gets going, he is able to actually scoot himself to the side of the bed, and stand but is very precarious. Current Medications - Current Medications Current Medications: Active Medications Acetaminophen (Tylenol) 650 mg PO Q4HR PRN PRN Reason: Pain 1 to 4 Last Admin: 04/15/20 15:31 Dose: 650 mg Documented by: Aspirin (Ecotrin) 81 mg PO DAILY [facility] Last Admin: 04/15/20 08:25 Dose: 81 mg Documented by: Atorvastatin Calcium (Lipitor) 40 mg PO QPM [facility] Last Admin: 04/14/20 20:39 Dose: 40 mg Documented by: Citalopram Hydrobromide (Celexa) 40 mg PO DAILY [facility] Last Admin: 04/15/20 08:25 Dose: 40 mg Documented by: Clopidogrel Bisulfate (Plavix) 75 mg PO DAILY [facility] Last Admin: 04/15/20 08:30 Dose: 75 mg Documented by: Ferrous Sulfate (Feosol) 325 mg PO DAILY [facility] Last Admin: 04/15/20 08:26 Dose: 325 mg Documented by: Finasteride (Proscar) 5 mg PO DAILY [facility] Last Admin: 04/15/20 08:26 Dose: 5 mg Documented by: Heparin Sodium (Porcine) () 5,000 unit SUBQ BID [facility] Last Admin: 04/15/20 08:30 Dose: 5,000 unit Documented by: Lactated Ringer's (Lr) 1,000 mls @ 83.333 mls/hr IV .Q12H [facility] Last Admin: 04/15/20 15:31 Dose: 83.33 mls/hr Documented by: Ceftriaxone Sodium 1 gm/ (Sodium Chloride) 100 mls @ 200 mls/hr IV DAILY [facility] Last Infusion: 04/15/20 09:26 Dose: Infused Documented by: Insulin Aspart (Novolog) 1 - 9 unit SUBQ 0800,1200,1700,2100 [facility]; Protocol Last Admin: 04/15/20 16:58 Dose: 5 unit Documented by: Insulin Human NPH (Humulin N) 30 unit SUBQ BID [facility] Last Admin: 04/15/20 08:32 Dose: 30 unit Documented by: Levetiracetam (Keppra) 500 mg PO BID [facility] Last Admin: 04/15/20 08:26 Dose: 500 mg Documented by: Metoprolol Tartrate (Lopressor) 50 mg PO BID [facility] Last Admin: 04/15/20 08:26 Dose: 50 mg Documented by: Nystatin (Nystop) 1 applic TOP BID [facility] Last Admin: 04/15/20 08:40 Dose: 1 applic Documented by: Ondansetron HCl (Zofran Inj) 4 mg IVP Q6HR PRN PRN Reason: Nausea / Vomiting Oxybutynin Chloride (Er 15 Mg) 1 each PO QPM [facility] Polyethylene Glycol (Miralax) 17 gm PO DAILY [facility] Last Admin: 04/15/20 09:30 Dose: Not Given Documented by: Sodium Chloride (Normal Saline Flush 0.9%) 10 ml IVP PRN PRN PRN Reason: NEEDED PER PROVIDER ORDERS Last Admin: 04/13/20 21:40 Dose: 10 ml Documented by: Sodium Chloride (Normal Saline Flush 0.9%) 10 ml IVP 0100,0900,1700 [facility] Last Admin: 04/15/20 15:32 Dose: Not Given Documented by: Tamsulosin HCl (Flomax) 0.4 mg PO DAILY [facility] Last Admin: 04/15/20 08:27 Dose: 0.4 mg Documented by: Trazodone HCl (Desyrel) 50 mg PO QPM [facility] Last Admin: 04/14/20 20:39 Dose: 50 mg Documented by: Loperamide [Imodium] 4 mg PO DAILY 12/11/18 Finasteride [Proscar] 5 mg PO DAILY 11/22/19 Oxybutynin Chloride [Oxybutynin Chloride ER] 30 mg PO DAILY 11/22/19 Terazosin HCl 10 mg PO QPM 11/22/19 Atorvastatin Calcium 40 mg PO QPM 04/11/20 Citalopram Hydrobromide [Citalopram HBr] 40 mg PO DAILY 04/11/20 Insulin NPH Human Isophane [Humulin N] 50 units PO BID 04/11/20 Losartan Potassium 25 mg PO DAILY 04/11/20 Oxybutynin Chloride [Oxybutynin Chloride ER] 15 mg PO QPM 04/11/20 Tamsulosin [Flomax] 0.4 mg PO DAILY 04/11/20 metFORMIN [Glucophage] 1,000 mg PO BID 04/11/20 Objective - Vital Signs/Intake & Output Reviewed Vital Signs: Yes Vital Signs: Vital Signs x48h Temp Pulse Resp BP BP Pulse Ox 04/15/20 07:33 36.5 C 96 20 134/73 H 97 04/15/20 00:20 36.5 C 96 20 140/88 H 99 Intake & Output: Intake & Output 04/12/20 04/13/20 04/14/20 04/15/20 23:59 23:59 23:59 23:59 Intake Total 1260 6690.615 4366.000 1200 Output Total 850 Balance 1260 4189.775 4153.000 1200 - Objective General Appearance: positive: No acute distress, Alert, Other (Usually overweight morbidly obese pleasant white male. Depressed affect. Alert, cooperative.) Eyes Bilateral: positive: PERRL, EOMI ENT: positive: No signs of dehydration Neck: positive: No JVD Respiratory: positive: Other (Very diminished lung sounds at the bases because he has such a big chest. The effort of trying to sit up and then standing causes increased respiratory distress that will resolve after a minute of sitting). negative: Wheezes, Rales, Rhonchi Cardiovascular: positive: Irregularly irregular (Distant cardiac tones). negative: Gallop/S4, Friction rub Abdomen: positive: Nml bowel sounds, Other (Who usually obese abdominal pannus that protrudes forward and quite a bit of weight sits on his anterior thighs when he sits upright. When he is laying down, I am sure this is a restrictive lung defect.). negative: Guarding, Rebound Skin: positive: Warm, Dry Extremities: positive: Full ROM, Pedal edema Neurologic/Psychiatric: positive: Oriented x3, CN's nml (2-12), Motor nml - Lab Results Fish Bones: 04/15/20 05:27 04/15/20 05:27 Other Labs: Lab Results x24hrs 04/15/20 04/15/20 04/15/20 Range/Units 07:25 05:27 05:27 WBC (4.8-10.8) x10^3/uL RBC (4.70-6.10) 10^6/uL Hgb (14.0-18.0) g/dL Hct (42.0-52.0) % MCV (80.0-94.0) fL MCH (27.0-31.0) pg MCHC (32.0-36.0) g/dL RDW (12.0-15.0) % Plt Count (130-450) 10^3/uL MPV (7.4-11.4) fL Neut # (Auto) (1.5-6.6) 10^3/uL Lymph # (Auto) (1.5-3.5) 10^3/uL [place] # (Auto) (0.0-1.0) 10^3/uL Eos # (Auto) (0.0-0.7) 10^3/uL Baso # (Auto) (0.0-0.1) 10^3/uL Absolute Nucleated RBC x10^3/uL Nucleated RBC % /100WBC PT 15.2 H (9.9-12.6) secs INR 1.4 H (0.8-1.2) Sodium 137 (135-145) mmol/L Potassium 4.2 (3.5-5.0) mmol/L Chloride 107 (101-111) mmol/L Carbon Dioxide 20 L (21-32) mmol/L Anion Gap 10.0 (6-13) BUN 65 H (6-20) mg/dL Creatinine 2.6 H (0.6-1.2) mg/dL Estimated GFR (MDRD) 24 L (>89) Glucose 166 H (70-100) mg/dL POC Whole Bld Glucose 160 H (70 - 100) mg/dL Calcium 8.4 L (8.5-10.3) mg/dL Phosphorus 4.4 (2.5-4.6) mg/dL Magnesium 2.3 (1.7-2.8) mg/dL Urine Color Urine Clarity (CLEAR) Urine pH (5.0-7.5) PH Ur Specific [place] (1.002-1.030) Urine Protein (NEGATIVE) mg/dL Urine Glucose (UA) (NEGATIVE) mg/dL Urine Ketones (NEGATIVE) mg/dL Urine Occult Blood (NEGATIVE) Urine Nitrite (NEGATIVE) Urine Bilirubin (NEGATIVE) Urine Urobilinogen (NORMAL) E.U./dL Ur Leukocyte Esterase (NEGATIVE) Urine RBC (0-5) /HPF Urine WBC (0-3) /HPF Ur Squamous Epith Cells (<= Few) Urine Bacteria (None Seen) /HPF Urine Culture Comments Urine Sodium mmol/L Last Dose Date Last Dose Time Random Vancomycin ug/mL 04/15/20 04/14/20 04/14/20 Range/Units 05:27 20:27 17:00 WBC 6.9 (4.8-10.8) x10^3/uL RBC 2.75 L (4.70-6.10) 10^6/uL Hgb 8.0 L (14.0-18.0) g/dL Hct 26.0 L (42.0-52.0) % MCV 94.5 H (80.0-94.0) fL MCH 29.1 (27.0-31.0) pg MCHC 30.8 L (32.0-36.0) g/dL RDW 18.0 H (12.0-15.0) % Plt Count 228 (130-450) 10^3/uL MPV 9.6 (7.4-11.4) fL Neut # (Auto) 5.5 (1.5-6.6) 10^3/uL Lymph # (Auto) 0.5 L (1.5-3.5) 10^3/uL [place] # (Auto) 0.7 (0.0-1.0) 10^3/uL Eos # (Auto) 0.1 (0.0-0.7) 10^3/uL Baso # (Auto) 0.0 (0.0-0.1) 10^3/uL Absolute Nucleated RBC 0.00 x10^3/uL Nucleated RBC % 0.0 /100WBC PT (9.9-12.6) secs INR (0.8-1.2) Sodium (135-145) mmol/L Potassium (3.5-5.0) mmol/L Chloride (101-111) mmol/L Carbon Dioxide (21-32) mmol/L Anion Gap (6-13) BUN (6-20) mg/dL Creatinine (0.6-1.2) mg/dL Estimated GFR (MDRD) (>89) Glucose (70-100) mg/dL POC Whole Bld Glucose 198 H (70 - 100) mg/dL Calcium (8.5-10.3) mg/dL Phosphorus (2.5-4.6) mg/dL Magnesium (1.7-2.8) mg/dL Urine Color Urine Clarity (CLEAR) Urine pH (5.0-7.5) PH Ur Specific [place] (1.002-1.030) Urine Protein (NEGATIVE) mg/dL Urine Glucose (UA) (NEGATIVE) mg/dL Urine Ketones (NEGATIVE) mg/dL Urine Occult Blood (NEGATIVE) Urine Nitrite (NEGATIVE) Urine Bilirubin (NEGATIVE) Urine Urobilinogen (NORMAL) E.U./dL Ur Leukocyte Esterase (NEGATIVE) Urine RBC (0-5) /HPF Urine WBC (0-3) /HPF Ur Squamous Epith Cells (<= Few) Urine Bacteria (None Seen) /HPF Urine Culture Comments Urine Sodium mmol/L Last Dose Date UNKNOWN Last Dose Time UNKNOWN Random Vancomycin < 3.5 ug/mL 04/14/20 04/14/20 04/14/20 Range/Units 16:32 11:18 08:39 WBC (4.8-10.8) x10^3/uL RBC (4.70-6.10) 10^6/uL Hgb (14.0-18.0) g/dL Hct (42.0-52.0) % MCV (80.0-94.0) fL MCH (27.0-31.0) pg MCHC (32.0-36.0) g/dL RDW (12.0-15.0) % Plt Count (130-450) 10^3/uL MPV (7.4-11.4) fL Neut # (Auto) (1.5-6.6) 10^3/uL Lymph # (Auto) (1.5-3.5) 10^3/uL [place] # (Auto) (0.0-1.0) 10^3/uL Eos # (Auto) (0.0-0.7) 10^3/uL Baso # (Auto) (0.0-0.1) 10^3/uL Absolute Nucleated RBC x10^3/uL Nucleated RBC % /100WBC PT (9.9-12.6) secs INR (0.8-1.2) Sodium (135-145) mmol/L Potassium (3.5-5.0) mmol/L Chloride (101-111) mmol/L Carbon Dioxide (21-32) mmol/L Anion Gap (6-13) BUN (6-20) mg/dL Creatinine (0.6-1.2) mg/dL Estimated GFR (MDRD) (>89) Glucose (70-100) mg/dL POC Whole Bld Glucose 182 H 156 H (70 - 100) mg/dL Calcium (8.5-10.3) mg/dL Phosphorus (2.5-4.6) mg/dL Magnesium (1.7-2.8) mg/dL Urine Color Urine Clarity (CLEAR) Urine pH (5.0-7.5) PH Ur Specific [place] (1.002-1.030) Urine Protein (NEGATIVE) mg/dL Urine Glucose (UA) (NEGATIVE) mg/dL Urine Ketones (NEGATIVE) mg/dL Urine Occult Blood (NEGATIVE) Urine Nitrite (NEGATIVE) Urine Bilirubin (NEGATIVE) Urine Urobilinogen (NORMAL) E.U./dL Ur Leukocyte Esterase (NEGATIVE) Urine RBC (0-5) /HPF Urine WBC (0-3) /HPF Ur Squamous Epith Cells (<= Few) Urine Bacteria (None Seen) /HPF Urine Culture Comments Urine Sodium 21.0 mmol/L Last Dose Date Last Dose Time Random Vancomycin ug/mL 04/14/20 Range/Units 08:39 WBC (4.8-10.8) x10^3/uL RBC (4.70-6.10) 10^6/uL Hgb (14.0-18.0) g/dL Hct (42.0-52.0) % MCV (80.0-94.0) fL MCH (27.0-31.0) pg MCHC (32.0-36.0) g/dL RDW (12.0-15.0) % Plt Count (130-450) 10^3/uL MPV (7.4-11.4) fL Neut # (Auto) (1.5-6.6) 10^3/uL Lymph # (Auto) (1.5-3.5) 10^3/uL [place] # (Auto) (0.0-1.0) 10^3/uL Eos # (Auto) (0.0-0.7) 10^3/uL Baso # (Auto) (0.0-0.1) 10^3/uL Absolute Nucleated RBC x10^3/uL Nucleated RBC % /100WBC PT (9.9-12.6) secs INR (0.8-1.2) Sodium (135-145) mmol/L Potassium (3.5-5.0) mmol/L Chloride (101-111) mmol/L Carbon Dioxide (21-32) mmol/L Anion Gap (6-13) BUN (6-20) mg/dL Creatinine (0.6-1.2) mg/dL Estimated GFR (MDRD) (>89) Glucose (70-100) mg/dL POC Whole Bld Glucose (70 - 100) mg/dL Calcium (8.5-10.3) mg/dL Phosphorus (2.5-4.6) mg/dL Magnesium (1.7-2.8) mg/dL Urine Color YELLOW Urine Clarity HAZY (CLEAR) Urine pH 5.0 (5.0-7.5) PH Ur Specific [place] 1.025 (1.002-1.030) Urine Protein 30 H (NEGATIVE) mg/dL Urine Glucose (UA) NEGATIVE (NEGATIVE) mg/dL Urine Ketones NEGATIVE (NEGATIVE) mg/dL Urine Occult Blood MODERATE H (NEGATIVE) Urine Nitrite NEGATIVE (NEGATIVE) Urine Bilirubin NEGATIVE (NEGATIVE) Urine Urobilinogen 0.2 (NORMAL) (NORMAL) E.U./dL Ur Leukocyte Esterase NEGATIVE (NEGATIVE) Urine RBC 0-5 (0-5) /HPF Urine WBC 4-5 (0-3) /HPF Ur Squamous Epith Cells FEW Squamous (<= Few) Urine Bacteria Few (None Seen) /HPF Urine Culture Comments NOT INDICATED Urine Sodium mmol/L Last Dose Date Last Dose Time Random Vancomycin ug/mL Sepsis Event Note (H) - Evaluation Current Stage of Sepsis: Resolved Possible source of Sepsis: positive: Genitourinary - Sepsis Criteria Sepsis Criteria: Recorded Respiratory Rate greater than 20, WBC count greater than 12,000 or less than 4000, Renal: urine output less than 0.5ml/kg/hr for 2 hours or creatinine gr Assessment/Plan - Problem List (1) Acute kidney injury Impression: We have been closely following his creatinine since admission. His baseline is 1.1-1.2. January discharge was 1.4. On admission with this acute episode he was 1.7. On admission he received a CT with dye contrast, as well as vancomycin. He has not been hypotensive and echocardiogram does not confirm a reduced ejection fraction. Ultrasound does not show hydronephrosis or obstruction. Yet his creatinine continued to climb and He was 2.9 on April 14. I was concerned about ATN. I repeated urinalysis and there were no casts. I did speak to Dr. Bethany Dunn, nephrology, and he states that this tends to resolve in 5 to 7 days. Today we are at [address] Dunn predicted, his creatinine is now starting to drop. We will continue to hold nephrotoxic agents. Hydrate the patient gently (2) Bacteremia With Proteus Impression: Blood cultures from 04/10/20 came back positive for gram-negative rods. Likely from urinary tract. Zosyn started April 11 After 1 dose of vancomycin and Rocephin. Zosyn Stop April 14. Pharmacy feels that we can substitute Rocephin now. He now 6 days of antibiotic therapy. He will need 4 more days of Rocephin to complete 10 days of therapy for bacteremia.. Echo was done and no vegetations. Continue to trend CBC and monitor vitals. (3) Urinary tract infection with proteus Conclusion/Plan: He most certainly has a urinary tract infection given his urinalysis and the fact that he has symptoms. He was also probably septic given his elevated white count and grunting respiration. The tachycardia and acute kidney injury could also be explained by his heart failure but sepsis was difficult to exclude at that time. His prior cultures have grown enterococcus and Aerococcus. Blood cultures grew proteus as well. IV zosyn started and after 4 days will be changed to rocephin since sensitivities back per pharmacy. Today is day 6 of treatment. He will complete 10 days bc of the bacteremia. (4) Right-sided heart failure, acute Conclusion/Plan: Suspect that he may have new onset heart failure on admission. His BNP is only mildly elevated but given his obesity, this is likely lower than what would be expected. CTA of the chest was negative for pulmonary embolism but did reveal some mild pulmonary vascular congestion this was also evident on the chest x- ray. Echocardiogram back in November revealed a preserved ejection fraction and diastolic function was indeterminate. Echocardiogram from April 10 shows an ejection fraction of 60 to 65%. Moderate right ventricular enlargement. Ejection fraction 60 to 65% of the left ventricle. Moderate to severe increase in left atrial volume index. Severe right atrial enlargement. Mild to moderate aortic valve sclerosis without stenosis or vegetations. Tricuspid valve not visualized. Tricuspid stenosis not present. Mild tricuspid regurgitation. RVSP at rest is 79 mmHg. As compared to prior echo pulmonary arterial pressure has increased.Weight on admission was 185.9 kg. He is gone up to 191.5 kg. I spoke to nephrology 04/14, this was mainly about his acute kidney injury. They are hoping that we will avoid the Lasix at this time. This is due to the creatinine rise/bump from most likely ATN due to vancomycin and CAT scan dye. He has been clinically improving without aggressive diuresis. April 14 was the first day of seen him laying flat on his back without significant orthopnea. (5) Atrial fibrillation Conclusion/Plan: This was present on his prior EKGs (02/09/20) but this is a new diagnosis to the patient reportedly. Will Started him on beta romario today for rate control. Anticoagulation therapy was discussed with patient. This morning, repeat EKG does show atrial fibrillation is still present. Nevertheless would like to see if there is been any improvement and I Would like to start him on anticoagulation. Coumadin has a severe interaction with SSRIs. Apparently there is platelet inhibition. He is already on Plavix. But I do not think I can start him on a DOAC because of his size. After discussion with pharmacy, we have opted to start him on (6) History of seizures Conclusion/Plan: Stable. Continue Keppra. 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 He does appear to have a history of vitamin B12 deficiency and iron deficiency which may potentially be contributing to his anemia. We will continue his oral iron and vitamin B12 supplements. We will check a stool for occult blood as he should be anticoagulated for the atrial fibrillation and want to ensure there is no evidence of bleeding. (8) BPH (benign prostatic hyperplasia) Conclusion/Plan: At home he is on Terazosin. He is also on oxybutynin. During this stay he is having urinary incontinence that is really bothering him. He will be sitting in the chair and feel the urge to come on and before he can move, he is incontinent of urine. Plan: Resume oxybutinin first. then if needed, the second. already on flomax. (9) Sepsis resolved. Conclusion/Plan: Likely septic secondary to urinary tract infection. His white count started at 14.0. Climbed to 16.9 the next day. Since being on appropriate antibiotics his white cell count became normal on April 13-9.9>>7.2>>6.9 today He was tachycardic initially as well although this is likely just related to the age fibrillation. His lactic acid is normal and he is normotensive. CT of the chest did not reveal any obvious infiltrate. Started on IV zosyn with ceftriaxone and vancomycin d/c after one day. Plan: continue to trend CBC and monitor vitals. (10) Diabetes mellitus treated with insulin and oral medication. April 13: Glucose 122, 188, 154, 147 April 14: 118, 156, 182, 198 March 18: 160 Plan: No change in NPH which is 30 units subcu twice daily, supplemented by Nov oLog sliding scale before meals.
[2020-04-15] MEDS: INSULIN ASPART 300 UNIT/3 ML PEN SUBQ SCH ×4 (08:24→20:49)
[2020-04-15] MEDS: ASPIRIN EC 81 MG TABLET PO SCH (08:25)
[2020-04-15] MEDS: CITALOPRAM HYDROBROMIDE 20 MG TABLET PO SCH (08:25)
[2020-04-15] MEDS: FINASTERIDE 5 MG TABLET PO SCH (08:26)
[2020-04-15] MEDS: levETIRAcetam 250 MG TABLET PO SCH ×2 (08:26→20:48)
[2020-04-15] MEDS: FERROUS SULFATE 325 MG TABLET PO SCH (08:26)
[2020-04-15] MEDS: METOPROLOL TARTRATE 25 MG TABLET PO SCH ×2 (08:26→20:48)
[2020-04-15] MEDS: TAMSULOSIN 0.4 MG CAPSULE PO SCH (08:27)
[2020-04-15] MEDS: HEPARIN 5,000 UNIT/ML VIAL SUBQ SCH ×2 (08:30→20:49)
[2020-04-15] MEDS: CLOPIDOGREL 75 MG TABLET PO SCH (08:30)
[2020-04-15] MEDS: INSULIN NPH HUMAN 300 UNIT/3 ML VIAL SUBQ SCH ×2 (08:32→20:50)
[2020-04-15] MEDS: cefTRIAXone 1 GM in SODIUM CHLORIDE 0.9% MINIBAG 100 ML IV SCH (08:32)
[2020-04-15] MEDS: NYSTATIN POWDER 15 GM TOP SCH ×2 (08:40→20:51)
[2020-04-15] MEDS: polyethylene glycoL 3350 17 GM PACKET PO SCH (09:30)
[2020-04-15] MEDS: ACETAMINOPHEN 325 MG TABLET PO PRN (15:31)
[2020-04-15] MEDS: ATORVASTATIN 40 MG TABLET PO SCH (20:48)
[2020-04-15] MEDS: OXYBUTYNIN CHLORIDE 15 MG PO SCH (20:48)
[2020-04-15] MEDS: traZODone 50 MG TABLET PO SCH (20:48)
[2020-04-16] MEDS: SODIUM CHLORIDE FLUSH 0.9% 10 ML SYRINGE IVP SCH ×3 (00:37→16:59)
[2020-04-16] MEDS: LACTATED RINGERS 1,000 ML IV SCH ×2 (03:52→08:14)
[2020-04-16 05:09] LABS: BASOPHILS % (AUTO) 0.2 %; EOSINOPHILS # (AUTO) 0.2 10^3/uL (0.0-0.7); EOSINOPHILS % (AUTO) 1.9 %; HGB - HEMOGLOBIN 7.8 g/dL (14.0-18.0); LYMPHOCYTES # (AUTO) 0.7 10^3/uL (1.5-3.5); LYMPHOCYTES % (AUTO) 8.3 %; MEAN CORPUSCULAR HEMOGLOBIN 28.5 pg (27.0-31.0); MEAN CORPUSCULAR HGB CONC 29.8 g/dL (32.0-36.0); MEAN CORPUSCULAR VOLUME 95.6 fL (80.0-94.0); MEAN PLATELET VOLUME 9.8 fL (7.4-11.4); MONOCYTES % (AUTO) 11.6 %; NEUTROPHILS # (AUTO) 6.3 10^3/uL (1.5-6.6); NEUTROPHILS % (AUTO) 76.9 %; PLT - PLATELET COUNT 217 10^3/uL (130-450); RED BLOOD COUNT 2.74 10^6/uL (4.70-6.10); WHITE BLOOD COUNT 8.2 x10^3/uL (4.8-10.8)
[2020-04-16 05:26] LABS: CALCIUM 8.7 mg/dL (8.5-10.3); CREATININE 2.3 mg/dL (0.6-1.2); MAGNESIUM 2.3 mg/dL (1.7-2.8); PHOSPHORUS 3.7 mg/dL (2.5-4.6)
[2020-04-16] MEDS: INSULIN ASPART 300 UNIT/3 ML PEN SUBQ SCH ×4 (07:43→20:35)
[2020-04-16] MEDS: ASPIRIN EC 81 MG TABLET PO SCH (08:16)
[2020-04-16] MEDS: CLOPIDOGREL 75 MG TABLET PO SCH (08:16)
[2020-04-16] MEDS: CITALOPRAM HYDROBROMIDE 20 MG TABLET PO SCH (08:18)
[2020-04-16] MEDS: FERROUS SULFATE 325 MG TABLET PO SCH (08:19)
[2020-04-16] MEDS: FINASTERIDE 5 MG TABLET PO SCH (08:22)
[2020-04-16] MEDS: HEPARIN 5,000 UNIT/ML VIAL SUBQ SCH ×2 (08:23→20:35)
[2020-04-16] MEDS: METOPROLOL TARTRATE 25 MG TABLET PO SCH ×2 (08:26→20:30)
[2020-04-16] MEDS: levETIRAcetam 250 MG TABLET PO SCH ×2 (08:28→20:30)
[2020-04-16] MEDS: NYSTATIN POWDER 15 GM TOP SCH ×2 (08:31→20:32)
[2020-04-16] MEDS: polyethylene glycoL 3350 17 GM PACKET PO SCH (08:37)
[2020-04-16] MEDS: cefTRIAXone 1 GM in SODIUM CHLORIDE 0.9% MINIBAG 100 ML IV SCH (08:42)
[2020-04-16] MEDS: TAMSULOSIN 0.4 MG CAPSULE PO SCH (08:55)
[2020-04-16] MEDS: INSULIN NPH HUMAN 300 UNIT/3 ML VIAL SUBQ SCH ×2 (08:56→20:35)
[2020-04-16] MEDS ORDERED: ALBUTEROL NEB 2.5 MG/3 ML INH PRN (10:24)
[2020-04-16] MEDS: SODIUM CHLORIDE FLUSH 0.9% 10 ML SYRINGE IVP PRN (10:45)
--- NOTE | 2020-04-16 15:13 | PROVIDER PROGRESS NOTE ---
Subjective - Prog Note Date Prog Note Date: 04/16/20 Prog Note Time: 15:09 Objective - Vital Signs/Intake & Output Reviewed Vital Signs: Yes Vital Signs: Vital Signs x48h Temp Pulse Pulse Resp BP BP Pulse Ox 04/16/20 10:47 78 22 04/16/20 08:39 36.3 C L 77 22 130/75 99 04/16/20 08:26 130/75 Intake & Output: Intake & Output 04/13/20 04/14/20 04/15/20 04/16/20 23:59 23:59 23:59 23:59 Intake Total 7276.070 2851.000 3220 2330 Output Total 850 680 425 Balance 2964.278 0695.000 2540 1905 - Objective General Appearance: positive: No acute distress, Alert, Other (Continues to be able to be comfortable in bed laying down. He still grunts with respiration but is only in deep sleep. The grunting that he was doing on admission and that lasted at least 3 days has resolved.) ENT: positive: No signs of dehydration Neck: negative: Stiff neck Respiratory: positive: No respiratory distress, Wheezes. negative: Rales, Rhonchi Cardiovascular: positive: Irregularly irregular. negative: Gallop/S4, Friction rub Abdomen: positive: Other (Huge abdominal pannus, Funmi slowly resolving underneath the intertriginous folds. No tenderness. Hypoactive bowel sounds. Because of the large size, it very difficult to assess for organomegaly. No distention palpable.) Extremities: positive: Full ROM, Pedal edema Neurologic/Psychiatric: positive: Oriented x3, CN's nml (2-12), Motor nml - Lab Results Fish Bones: 04/16/20 04:25 04/16/20 04:25 Other Labs: Lab Results x24hrs 04/16/20 04/16/20 04/16/20 Range/Units 11:14 07:39 04:25 WBC (4.8-10.8) x10^3/uL RBC (4.70-6.10) 10^6/uL Hgb (14.0-18.0) g/dL Hct (42.0-52.0) % MCV (80.0-94.0) fL MCH (27.0-31.0) pg MCHC (32.0-36.0) g/dL RDW (12.0-15.0) % Plt Count (130-450) 10^3/uL MPV (7.4-11.4) fL Neut # (Auto) (1.5-6.6) 10^3/uL Lymph # (Auto) (1.5-3.5) 10^3/uL [place] # (Auto) (0.0-1.0) 10^3/uL Eos # (Auto) (0.0-0.7) 10^3/uL Baso # (Auto) (0.0-0.1) 10^3/uL Absolute Nucleated RBC x10^3/uL Nucleated RBC % /100WBC Sodium 141 (135-145) mmol/L Potassium 4.3 (3.5-5.0) mmol/L Chloride 109 (101-111) mmol/L Carbon Dioxide 23 (21-32) mmol/L Anion Gap 9.0 (6-13) BUN 59 H (6-20) mg/dL Creatinine 2.3 H (0.6-1.2) mg/dL Estimated GFR (MDRD) 28 L (>89) Glucose 169 H (70-100) mg/dL POC Whole Bld Glucose 175 H 140 H (70 - 100) mg/dL Calcium 8.7 (8.5-10.3) mg/dL Phosphorus 3.7 (2.5-4.6) mg/dL Magnesium 2.3 (1.7-2.8) mg/dL Coronavirus (PCR) 04/16/20 04/15/20 04/15/20 Range/Units 04:25 20:23 16:25 WBC 8.2 (4.8-10.8) x10^3/uL RBC 2.74 L (4.70-6.10) 10^6/uL Hgb 7.8 L (14.0-18.0) g/dL Hct 26.2 L (42.0-52.0) % MCV 95.6 H (80.0-94.0) fL MCH 28.5 (27.0-31.0) pg MCHC 29.8 L (32.0-36.0) g/dL RDW 18.0 H (12.0-15.0) % Plt Count 217 (130-450) 10^3/uL MPV 9.8 (7.4-11.4) fL Neut # (Auto) 6.3 (1.5-6.6) 10^3/uL Lymph # (Auto) 0.7 L (1.5-3.5) 10^3/uL [place] # (Auto) 1.0 (0.0-1.0) 10^3/uL Eos # (Auto) 0.2 (0.0-0.7) 10^3/uL Baso # (Auto) 0.0 (0.0-0.1) 10^3/uL Absolute Nucleated RBC 0.00 x10^3/uL Nucleated RBC % 0.0 /100WBC Sodium (135-145) mmol/L Potassium (3.5-5.0) mmol/L Chloride (101-111) mmol/L Carbon Dioxide (21-32) mmol/L Anion Gap (6-13) BUN (6-20) mg/dL Creatinine (0.6-1.2) mg/dL Estimated GFR (MDRD) (>89) Glucose (70-100) mg/dL POC Whole Bld Glucose 186 H 243 H (70 - 100) mg/dL Calcium (8.5-10.3) mg/dL Phosphorus (2.5-4.6) mg/dL Magnesium (1.7-2.8) mg/dL Coronavirus (PCR) 04/15/20 Range/Units 11:50 WBC (4.8-10.8) x10^3/uL RBC (4.70-6.10) 10^6/uL Hgb (14.0-18.0) g/dL Hct (42.0-52.0) % MCV (80.0-94.0) fL MCH (27.0-31.0) pg MCHC (32.0-36.0) g/dL RDW (12.0-15.0) % Plt Count (130-450) 10^3/uL MPV (7.4-11.4) fL Neut # (Auto) (1.5-6.6) 10^3/uL Lymph # (Auto) (1.5-3.5) 10^3/uL [place] # (Auto) (0.0-1.0) 10^3/uL Eos # (Auto) (0.0-0.7) 10^3/uL Baso # (Auto) (0.0-0.1) 10^3/uL Absolute Nucleated RBC x10^3/uL Nucleated RBC % /100WBC Sodium (135-145) mmol/L Potassium (3.5-5.0) mmol/L Chloride (101-111) mmol/L Carbon Dioxide (21-32) mmol/L Anion Gap (6-13) BUN (6-20) mg/dL Creatinine (0.6-1.2) mg/dL Estimated GFR (MDRD) (>89) Glucose (70-100) mg/dL POC Whole Bld Glucose (70 - 100) mg/dL Calcium (8.5-10.3) mg/dL Phosphorus (2.5-4.6) mg/dL Magnesium (1.7-2.8) mg/dL Coronavirus (PCR) NEGATIVE ABX Reporting Has patient been on IV antibiotics over the past 48 hours?: Yes Sepsis Event Note (H) - Evaluation Current Stage of Sepsis: Resolved Possible source of Sepsis: positive: Genitourinary - Sepsis Criteria Sepsis Criteria: Recorded Respiratory Rate greater than 20, WBC count greater than 12,000 or less than 4000, Renal: urine output less than 0.5ml/kg/hr for 2 hours or creatinine gr Assessment/Plan - Problem List (1) Acute kidney injury Impression: We have been closely following his creatinine since admission. His baseline is 1.1-1.2. January discharge was 1.4. On admission with this acute episode he was 1.7. On admission he received a CT with dye contrast, as well as vancomycin. He has not been hypotensive and echocardiogram does not confirm a reduced ejection fraction. Ultrasound does not show hydronephrosis or obstruction. Yet his creatinine continued to climb and He was 2.9 on April 14. I was concerned about ATN. I repeated urinalysis and there were no casts. I did speak to Dr. Bethany Dunn, nephrology, and he states that this tends to resolve in 5 to 7 days. Today we are at [address] Dunn predicted, his creatinine is now starting to drop on day 5. We will continue to hold nephrotoxic agents. Hydrated the patient gently and now stopped IVF. (2) Bacteremia With Proteus Impression: Blood cultures from 04/10/20 came back positive for gram-negative rods. Likely from urinary tract. Zosyn started April 11 After 1 dose of vancomycin and Rocephin. Zosyn Stop April 14. Pharmacy feels that we can substitute Rocephin now. He now 7 days of antibiotic therapy. He will need 5 more days of Rocephin to complete 10 days of therapy for bacteremia.. Echo was done and no vegetations. Continue to trend CBC and monitor vitals. (3) Urinary tract infection with proteus Conclusion/Plan: He most certainly has a urinary tract infection given his urinalysis and the fact that he has symptoms. He was also probably septic given his elevated white count and grunting respiration. The tachycardia and acute kidney injury could also be explained by his heart failure but sepsis was difficult to exclude at that time. His prior cultures have grown enterococcus and Aerococcus. Blood cultures grew proteus as well. IV zosyn started and after 4 days will be changed to rocephin since sensitivities back per pharmacy. Today is day 6 of treatment. He will complete 10 days bc of the bacteremia. (4) Right-sided heart failure, acute Conclusion/Plan: Suspect that he may have new onset heart failure on admission. His BNP is only mildly elevated but given his obesity, this is likely lower than what would be expected. CTA of the chest was negative for pulmonary embolism but did reveal some mild pulmonary vascular congestion this was also evident on the chest x- ray. Echocardiogram back in November revealed a preserved ejection fraction and diastolic function was indeterminate. Echocardiogram from April 10 shows an ejection fraction of 60 to 65%. Moderate right ventricular enlargement. Ejection fraction 60 to 65% of the left ventricle. Moderate to severe increase in left atrial volume index. Severe right atrial enlargement. Mild to moderate aortic valve sclerosis without stenosis or vegetations. Tricuspid valve not visualized. Tricuspid stenosis not present. Mild tricuspid regurgitation. RVSP at rest is 79 mmHg. As compared to prior echo pulmonary arterial pressure has increased.Weight on admission was 185.9 kg. He is gone up to 191.5 kg>>193 kg today. I spoke to nephrology 04/14, this was mainly about his acute kidney injury. They are hoping that we will avoid the Lasix at this time. This is due to the creatinine rise/bump from most likely ATN due to vancomycin and CAT scan dye. He has been clinically improving without aggressive diuresis. April 14 was the first day of seen him laying flat on his back without significant orthopnea. I stopped IVF once his creat came down but he may need lasix before dc. (5) Atrial fibrillation Conclusion/Plan: This was present on his prior EKGs (02/09/20) but this is a new diagnosis to the patient reportedly. Will Started him on beta romario today for rate control. Anticoagulation therapy was discussed with patient. This morning, repeat EKG poon s show atrial fibrillation is still present. Nevertheless would like to see if there is been any improvement and I Would like to start him on anticoagulation. Coumadin has a severe interaction with SSRIs. Apparently there is platelet inhibition. He is already on Plavix. But I do not think I can start him on a DOAC because of his size. After discussion with pharmacy, we have opted to start him on He is fecal occult blood negative. Will start Eliquis today. Nothing yet. With his creatinine, large size, choosing the right medication has proven to be more complicated. Pharmacy will let me know today what they recommend. 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 He does appear to have a history of vitamin B12 deficiency and iron deficiency which may potentially be contributing to his anemia. We will continue his oral iron and vitamin B12 supplements. We checked stool for occult blood as he should be anticoagulated for the atrial fibrillation and want to ensure there is no evidence of bleeding.Fecal occult blood negative. (7) BPH (benign prostatic hyperplasia) Conclusion/Plan: At home he is on Terazosin. He is also on oxybutynin. During this stay he is having urinary incontinence that is really bothering him. He will be sitting in the chair and feel the urge to come on and before he can move, he is incontinent of urine. Plan: Resumed oxybutinin first yesterday, then if needed, the second. already on flomax. doing better he thinks. (8) Diabetes mellitus treated with insulin and oral medication. April 13: Glucose 122, 188, 154, 147 April 14: 118, 156, 182, 198 April 15: 160, 204, 243, 186 April 16: 140, 175 Plan: No change in NPH which is 30 units subcu twice daily, supplemented by NovoLog sliding scale before meals.
[2020-04-16] MEDS ORDERED: WARFARIN 2.5 MG TABLET PO SCH (17:00)
[2020-04-16] MEDS ORDERED: WARFARIN 5 MG TABLET PO SCH (17:00)
[2020-04-16] MEDS: ATORVASTATIN 40 MG TABLET PO SCH (20:30)
[2020-04-16] MEDS: traZODone 50 MG TABLET PO SCH (20:30)
[2020-04-16] MEDS: OXYBUTYNIN CHLORIDE 15 MG PO SCH (20:30)
[2020-04-17] MEDS: SODIUM CHLORIDE FLUSH 0.9% 10 ML SYRINGE IVP SCH ×3 (02:07→17:16)
[2020-04-17 05:18] LABS: BASOPHILS % (AUTO) 0.4 %; EOSINOPHILS # (AUTO) 0.2 10^3/uL (0.0-0.7); EOSINOPHILS % (AUTO) 2.3 %; HGB - HEMOGLOBIN 7.9 g/dL (14.0-18.0); LYMPHOCYTES # (AUTO) 1.2 10^3/uL (1.5-3.5); LYMPHOCYTES % (AUTO) 12.4 %; MEAN CORPUSCULAR HEMOGLOBIN 28.5 pg (27.0-31.0); MEAN CORPUSCULAR HGB CONC 29.9 g/dL (32.0-36.0); MEAN CORPUSCULAR VOLUME 95.3 fL (80.0-94.0); MEAN PLATELET VOLUME 9.4 fL (7.4-11.4); MONOCYTES # (AUTO) 0.8 10^3/uL (0.0-1.0); MONOCYTES % (AUTO) 8.3 %; NEUTROPHILS # (AUTO) 7.2 10^3/uL (1.5-6.6); NEUTROPHILS % (AUTO) 75.1 %; PLT - PLATELET COUNT 256 10^3/uL (130-450); RED BLOOD COUNT 2.77 10^6/uL (4.70-6.10); RED CELL DISTRIBUTION WIDTH 18.1 % (12.0-15.0); WHITE BLOOD COUNT 9.5 x10^3/uL (4.8-10.8)
[2020-04-17 05:31] LABS: CALCIUM 8.5 mg/dL (8.5-10.3); MAGNESIUM 2.2 mg/dL (1.7-2.8); PHOSPHORUS 3.6 mg/dL (2.5-4.6)
[2020-04-17] MEDS: INSULIN ASPART 300 UNIT/3 ML PEN SUBQ SCH ×4 (07:36→20:55)
[2020-04-17] MEDS: cefTRIAXone 1 GM in SODIUM CHLORIDE 0.9% MINIBAG 100 ML IV SCH (08:47)
[2020-04-17] MEDS: ASPIRIN EC 81 MG TABLET PO SCH (08:54)
[2020-04-17] MEDS: CITALOPRAM HYDROBROMIDE 20 MG TABLET PO SCH (08:54)
[2020-04-17] MEDS: FERROUS SULFATE 325 MG TABLET PO SCH (08:55)
[2020-04-17] MEDS: CLOPIDOGREL 75 MG TABLET PO SCH (08:55)
[2020-04-17] MEDS: levETIRAcetam 250 MG TABLET PO SCH ×2 (08:56→20:55)
[2020-04-17] MEDS: FINASTERIDE 5 MG TABLET PO SCH (08:56)
[2020-04-17] MEDS: HEPARIN 5,000 UNIT/ML VIAL SUBQ SCH ×2 (08:56→20:56)
[2020-04-17] MEDS: METOPROLOL TARTRATE 25 MG TABLET PO SCH ×2 (08:57→20:57)
[2020-04-17] MEDS: INSULIN NPH HUMAN 300 UNIT/3 ML VIAL SUBQ SCH ×2 (08:58→20:56)
[2020-04-17] MEDS: TAMSULOSIN 0.4 MG CAPSULE PO SCH (08:58)
[2020-04-17] MEDS: NYSTATIN POWDER 15 GM TOP SCH ×2 (08:59→20:55)
[2020-04-17] MEDS: WARFARIN 5 MG TABLET PO SCH (15:03)
--- NOTE | 2020-04-17 16:07 | PROVIDER PROGRESS NOTE ---
Assessment/Plan - Problem List (1) Acute kidney injury Assessment/Plan: We have been closely following his creatinine since admission. His baseline is 1.1-1.2. January discharge was 1.4. On admission with this acute episode he was 1.7. On admission he received a CT with dye contrast, as well as vancomycin. He has not been hypotensive and echocardiogram does not confirm a reduced ejection fraction. Ultrasound does not show hydronephrosis or obstruction. Yet his creatinine continued to climb and creat was 2.9 on April 14. The last Hospitalist was concerned about ATN and repeated urinalysis and there were no casts. That provider did speak to Dr. Bethany Dunn, nephrology, and he stated that this tends to resolve in 5 to [address] Dunn predicted, his creatinine is now dropping. We will continue to hold nephrotoxic agents. Follow BMP daily. I updated the , who is at bedside, regarding his various diagnoses. (2) Bacteremia Assessment/Plan: Urine cx and Blood cultures came back positive for Proteus. Zosyn started April 11 After 1 dose of vancomycin and Rocephin. Zosyn Stop April 14. Pharmacy felt that we could use Rocephin. Echo was done and no vegetations. He will need to complete 10 days of therapy for bacteremia. Continue to trend CBC and monitor vitals. (3) Urinary tract infection due to Proteus Assessment/Plan: He most certainly has a urinary tract infection given his urinalysis and the fact that he had symptoms. He was also probably septic given his elevated white count and grunting respiration. The tachycardia and acute kidney injury could also be explained by his heart failure but sepsis was difficult to exclude at that time. IV zosyn started and after 4 days will be changed to rocephin since sensitivities back per pharmacy. He will complete 10 days beccause of the bacteremia. (4) Atrial fibrillation Assessment/Plan: This was present on his prior EKGs (02/09/20) but this is a new diagnosis to the patient reportedly. We started him on beta romario for rate control. Anticoagulation therapy was discussed with patient. He is already on Plavix. But I do not think I can start him on a DOAC because of his size. With his creatinine, large size, choosing the right medication has proven to be more complicated. After discussion with pharmacy, we have opted to start him on Coumadin. Follow INR daily (5) Diabetes mellitus Qualifiers: Diabetes mellitus type: type 2 Assessment/Plan: Continue carb controlled diet, sliding scale regular insulin coverage for fingerstick checks and his long-acting treatment and oral medical (6) Acute right-sided heart failure Assessment/Plan: Suspected that he may have new onset heart failure on admission. CTA of the chest was negative for pulmonary embolism but did reveal some mild pulmonary vascular congestion this was also evident on the chest x-ray. Echocardiogram back in November revealed a preserved ejection fraction and diastolic function was indeterminate. Echocardiogram from April 10 shows an ejection fraction of 60 to 65%. Moderate right ventricular enlargement. Moderate to severe increase in left atrial volume index. Severe right atrial enlargement. Mild tricuspid regurgitation. RVSP at rest is 79 mmHg. As compared to prior echo pulmonary arterial pressure has increased. Weight on admission was 185.9 kg. then went up, since he got iv hydration. April 14 was the first day of seen him laying flat on his back without significant orthopnea. IVF were stopped once his creat came down. 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 It is also probably hemodilutional from the IV fluids he has received We will continue his oral iron and vitamin B12 supplements. We checked stool for occult blood and it was neg. (8) BPH (benign prostatic hyperplasia) Assessment/Plan: At home he is on Terazosin. He is also on oxybutynin. During this stay he is having urinary incontinence that is really bothering him. He will be sitting in the chair and feel the urge to come on and before he can move, he is incontinent of urine. We resumed oxybutinin and already on flomax. He is doing better he thinks. (9) Morbid obesity with BMI of 60.0-69.9, adult Assessment/Plan: He is currently on his sleep apnea machine. He is able to cooperate with PT OT. Plan is for discharge to SNF for further rehab. (10) Sepsis Qualifiers: Sepsis acute organ dysfunction status: with acute organ dysfunction Qualif ied Code(s): A41.9 - Sepsis, unspecified organism; R65.20 - Severe sepsis without septic shock; J96.02 - Acute respiratory failure with hypercapnia Assessment/Plan: Resolved - Current Meds Current Meds: Current Medications Generic Name Dose Route Start Last Admin Trade Name Freq PRN Reason Stop Dose Admin Acetaminophen 650 mg 04/10/20 21:00 04/15/20 15:31 Tylenol PO 650 mg Q4HR PRN Administration Pain 1 to 4 Albuterol 2.5 mg 04/16/20 10:24 04/16/20 10:47 INH 2.5 mg RTQ4H PRN Administration Wheezing Aspirin 81 mg 04/12/20 13:00 04/17/20 08:54 Ecotrin PO 81 mg DAILY OFELIA Administration Atorvastatin Calcium 40 mg 04/12/20 21:00 04/16/20 20:30 Lipitor PO 40 mg QPM OFELIA Administration Citalopram Hydrobromide 40 mg 04/11/20 09:00 04/17/20 08:54 Celexa PO 40 mg DAILY OFELIA Administration Clopidogrel Bisulfate 75 mg 04/13/20 09:00 04/17/20 08:55 Plavix PO 75 mg DAILY OFELIA Administration Ferrous Sulfate 325 mg 04/11/20 09:00 04/17/20 08:55 Feosol PO 325 mg DAILY OFELIA Administration Finasteride 5 mg 04/11/20 09:00 04/17/20 08:56 Proscar PO 5 mg DAILY OFELIA Administration Heparin Sodium (Porcine) 5,000 unit 04/12/20 09:00 04/17/20 08:56 SUBQ 5,000 unit BID OFELIA Administration Ceftriaxone Sodium 1 gm/ 100 mls @ 200 mls/hr 04/14/20 11:00 04/17/20 09:20 Sodium Chloride IV Infused DAILY OFELIA Infusion Insulin Aspart 1 - 9 unit 04/11/20 08:00 04/17/20 11:57 Novolog SUBQ 1 unit 0800,1200,1700,2100 OFELIA Administration Protocol Insulin Human NPH 30 unit 04/11/20 09:00 04/17/20 08:58 Humulin N SUBQ 30 unit BID OFELIA Administration Levetiracetam 500 mg 04/11/20 09:00 04/17/20 08:56 Keppra PO 500 mg BID OFELIA Administration Metoprolol Tartrate 50 mg 04/13/20 21:00 04/17/20 08:57 Lopressor PO 50 mg BID OFELIA Administration Nystatin 1 applic 04/10/20 23:45 04/17/20 08:59 Nystop TOP 1 applic BID OFELIA Administration Oxybutynin Chloride 1 each 04/15/20 21:00 04/16/20 20:30 Er 15 Mg PO 1 each QPM OFELIA Administration Sodium Chloride 10 ml 04/10/20 21:00 04/16/20 10:45 Normal Saline Flush 0.9% IVP 10 ml PRN PRN Administration NEEDED PER PROVIDER ORDERS Sodium Chloride 10 ml 04/11/20 01:00 04/17/20 08:43 Normal Saline Flush 0.9% IVP 10 ml 0100,0900,1700 OFELIA Administration Tamsulosin HCl 0.4 mg 04/12/20 13:00 04/17/20 08:58 Flomax PO 0.4 mg DAILY OFELIA Administration Trazodone HCl 50 mg 04/10/20 23:41 04/16/20 20:30 Desyrel PO 50 mg QPM OFELIA Administration Warfarin Sodium 10 mg 04/17/20 14:00 04/17/20 15:03 Coumadin PO 10 mg QDWARFARIN OFELIA Administration - Lab Result Fish Bone Diagrams: 04/17/20 05:05 04/17/20 05:05 - Additional Planning My Orders: My Active Orders 04/17/20 COVID-19 REFERENCE TEST Routine Evaluate and Treat OT [OT] Routine 04/17/20 14:00 Warfarin [Coumadin] 10 mg PO QDWARFARIN 04/18/20 05:00 PT WITH INR [COAG] DAILYLAB 04/19/20 05:00 PT WITH INR [COAG] DAILYLAB Subjective - Subjective Patient Reports: Resting Comfortably (He is napping on his CPAP/BiPAP, is "exhausted after having PT today", per the who was at bedside) Objective Vital Signs: Vital Signs - 24 hr 04/16/20 04/16/20 04/16/20 16:24 19:51 20:30 Temperature 36.3 C L Heart Rate Heart Rate [ 92 105 H Brachial] Heart Rate [ Sitting] Respiratory 22 21 Rate Blood Pressure 147/81 H Blood Pressure [Left Brachial artery] Blood Pressure 144/80 H 147/81 H [Right Brachial artery] Blood Pressure [Sitting] O2 Saturation 98 98 04/16/20 04/17/20 04/17/20 23:45 07:30 08:57 Temperature 36.4 C L 36.1 C L Heart Rate Heart Rate [ 90 87 Brachial] Heart Rate [ Sitting] Respiratory 22 20 Rate Blood Pressure 149/93 H Blood Pressure 127/54 L 159/100 H [Left Brachial artery] Blood Pressure [Right Brachial artery] Blood Pressure [Sitting] O2 Saturation 97 98 04/17/20 04/17/20 04/17/20 11:30 11:47 15:55 Temperature 35.5 C L Heart Rate 86 Heart Rate [ 75 Brachial] Heart Rate [ 135 H Sitting] Respiratory 20 20 Rate Blood Pressure Blood Pressure 152/71 H [Left Brachial artery] Blood Pressure [Right Brachial artery] Blood Pressure 145/98 H [Sitting] O2 Saturation 95 Oxygen O2 Source [With Activity] Room air O2 Source CPAP I&O (Last 24 Hrs): Intake and Output Totals x24h 04/15/20 04/16/20 04/17/20 23:59 23:59 23:59 Intake Total 3220 3702.19 1220 Output Total 680 425 600 Balance 2540 3277.19 620 General: Other (sleeping injh supine position, on his CPAP machine, appears comfortable) HEENT: Mucous membr. moist/pink Neuro: Other (somnolent) Cardiovascular: No murmurs Respiratory: No respiratory distress, Other (No wheezing) Abdomen: Other (Obese, with pannus, non-tender) Extremities: No edema - Results Results: Laboratory Results WBC 9.5 x10^3/uL (4.8-10.8) 04/17/20 05:05 RBC 2.77 10^6/uL (4.70-6.10) L 04/17/20 05:05 Hgb 7.9 g/dL (14.0-18.0) L 04/17/20 05:05 Hct 26.4 % (42.0-52.0) L 04/17/20 05:05 MCV 95.3 fL (80.0-94.0) H 04/17/20 05:05 MCH 28.5 pg (27.0-31.0) 04/17/20 05:05 MCHC 29.9 g/dL (32.0-36.0) L 04/17/20 05:05 RDW 18.1 % (12.0-15.0) H 04/17/20 05:05 Plt Count 256 10^3/uL (130-450) 04/17/20 05:05 MPV 9.4 fL (7.4-11.4) 04/17/20 05:05 Neut # (Auto) 7.2 10^3/uL (1.5-6.6) H 04/17/20 05:05 Lymph # (Auto) 1.2 10^3/uL (1.5-3.5) L 04/17/20 05:05 [place] # (Auto) 0.8 10^3/uL (0.0-1.0) 04/17/20 05:05 Eos # (Auto) 0.2 10^3/uL (0.0-0.7) 04/17/20 05:05 Baso # (Auto) 0.0 10^3/uL (0.0-0.1) 04/17/20 05:05 Absolute Nucleated RBC 0.00 x10^3/uL 04/17/20 05:05 Nucleated RBC % 0.0 /100WBC 04/17/20 05:05 PT 15.2 secs (9.9-12.6) H 04/15/20 05:27 INR 1.4 (0.8-1.2) H 04/15/20 05:27 Whole Blood INR 1.1 (0.8-1.2) 04/17/20 11:08 APTT 22.7 secs (24.9-33.3) L 04/10/20 17:39 Bld Gas Analysis Time 0917 04/12/20 09:07 Sample Site LEFT RADIAL 04/12/20 09:07 Patient Temperature 97.1 CELSIUS 04/12/20 09:07 ABG pH 7.38 (7.35-7.45) 04/12/20 09:07 ABG pCO2 33 mmHg (34-45) L 04/12/20 09:07 ABG pO2 88 mmHg (80-100) 04/12/20 09:07 ABG HCO3 18.8 mmol/L (22.0-26.0) L 04/12/20 09:07 ABG Total CO2 19.8 MMOL/L (21.0-29.0) L 04/12/20 09:07 ABG O2 Saturation 96 % (94-98) 04/12/20 09:07 ABG Base Excess -5.7 mmol/L (-2.0-3.0) L 04/12/20 09:07 Chung Test POSITIVE 04/12/20 09:07 Room Air YES 04/11/20 16:02 O2 Delivery Device BiPAP 04/12/20 09:07 Vent Mode SYNCHRONOUS 04/12/20 09:07 FiO2 21.10 04/12/20 09:07 EPAP 14 cmH2O 04/12/20 09:07 IPAP 18 cmH2O 04/12/20 09:07 Sodium 140 mmol/L (135-145) 04/17/20 05:05 Potassium 4.4 mmol/L (3.5-5.0) 04/17/20 05:05 Chloride 108 mmol/L (101-111) 04/17/20 05:05 Carbon Dioxide 21 mmol/L (21-32) 04/17/20 05:05 Anion Gap 11.0 (6-13) 04/17/20 05:05 BUN 52 mg/dL (6-20) H 04/17/20 05:05 Creatinine 2.0 mg/dL (0.6-1.2) H 04/17/20 05:05 Estimated GFR (MDRD) 33 (>89) L 04/17/20 05:05 Glucose 135 mg/dL (70-100) H 04/17/20 05:05 POC Whole Bld Glucose 176 mg/dL (70 - 100) H 04/17/20 11:07 Lactic Acid 1.3 mmol/L (0.5-2.2) 04/10/20 18:08 Calcium 8.5 mg/dL (8.5-10.3) 04/17/20 05:05 Phosphorus 3.6 mg/dL (2.5-4.6) 04/17/20 05:05 Magnesium 2.2 mg/dL (1.7-2.8) 04/17/20 05:05 Iron 17 ug/dL (45-182) L 04/11/20 04:45 TIBC 283 ug/dL (250-450) 04/11/20 04:45 % Saturation 6 % (20-50) L 04/11/20 04:45 Transferrin 202 mg/dL (180-329) 04/11/20 04:45 Ferritin 80.5 ng/mL (23.9-336.2) 04/11/20 04:45 Total Bilirubin 1.1 mg/dL (0.2-1.0) H 04/10/20 17:39 AST 11 IU/L (10-42) 04/10/20 17:39 ALT 10 IU/L (10-60) 04/10/20 17:39 Alkaline Phosphatase 67 IU/L (42-121) 04/10/20 17:39 Troponin I High Sens 9.6 ng/L (2.3-19.7) 04/10/20 17:39 B-Natriuretic Peptide 185 pg/mL (5-100) H 04/10/20 17:39 Total Protein 7.0 g/dL (6.7-8.2) 04/10/20 17:39 Albumin 3.7 g/dL (3.2-5.5) 04/10/20 17:39 Globulin 3.3 g/dL (2.1-4.2) 04/10/20 17:39 Albumin/Globulin Ratio 1.1 (1.0-2.2) 04/10/20 17:39 Lipase 15 U/L (22-51) L 04/10/20 17:39 Vitamin B12 6033 pg/mL (180-914) H 04/12/20 05:09 Folate 14.35 ng/mL (5.90 - >24.8) 04/12/20 05:09 Urine Color YELLOW 04/14/20 08:39 Urine Clarity HAZY (CLEAR) 04/14/20 08:39 Urine pH 5.0 PH (5.0-7.5) 04/14/20 08:39 Ur Specific [place] 1.025 (1.002-1.030) 04/14/20 08:39 Urine Protein 30 mg/dL (NEGATIVE) H 04/14/20 08:39 Urine Glucose (UA) NEGATIVE mg/dL (NEGATIVE) 04/14/20 08:39 Urine Ketones NEGATIVE mg/dL (NEGATIVE) 04/14/20 08:39 Urine Occult Blood MODERATE (NEGATIVE) H 04/14/20 08:39 Urine Nitrite NEGATIVE (NEGATIVE) 04/14/20 08:39 Urine Bilirubin NEGATIVE (NEGATIVE) 04/14/20 08:39 Urine Urobilinogen 0.2 (NORMAL) E.U./dL (NORMAL) 04/14/20 08:39 Ur Leukocyte Esterase NEGATIVE (NEGATIVE) 04/14/20 08:39 Urine RBC 0-5 /HPF (0-5) 04/14/20 08:39 Urine WBC 4-5 /HPF (0-3) 04/14/20 08:39 Ur Squamous Epith Cells FEW Squamous (<= Few) 04/14/20 08:39 Urine Bacteria Few /HPF (None Seen) 04/14/20 08:39 Ur Microscopic Review INDICATED 04/10/20 20:10 Urine Culture Comments NOT INDICATED 04/14/20 08:39 Urine Sodium 21.0 mmol/L 04/14/20 08:39 Stl Occult Blood (IFOB) NEGATIVE (NEGATIVE) 04/15/20 09:05 Last Dose Date UNKNOWN 04/14/20 17:00 Last Dose Time UNKNOWN 04/14/20 17:00 Random Vancomycin < 3.5 ug/mL 04/14/20 17:00 Coronavirus (PCR) NEGATIVE 04/15/20 11:50 - Procedures Procedures: Procedures PACKED CELL TRANSFUSION (01/28/15) REPLACEMENT OF LEFT LENS WITH SYNTH SUB, PERC APPROACH (05/05/19) REPLACEMENT OF RIGHT LENS WITH SYNTH SUB, PERC APPROACH (03/31/19) VENOUS CATHETERIZATION NEC (01/28/15) Sepsis Event Note (H) - Evaluation Current Stage of Sepsis: Resolved Possible source of Sepsis: positive: Genitourinary - Sepsis Criteria Sepsis Criteria: Recorded Respiratory Rate greater than 20, WBC count greater than 12,000 or less than 4000, Renal: urine output less than 0.5ml/kg/hr for 2 hours or creatinine gr
[2020-04-17] MEDS: traZODone 50 MG TABLET PO SCH (20:55)
[2020-04-17] MEDS: ATORVASTATIN 40 MG TABLET PO SCH (20:55)
[2020-04-17] MEDS: OXYBUTYNIN CHLORIDE 15 MG PO SCH (20:55)
[2020-04-18] MEDS: SODIUM CHLORIDE FLUSH 0.9% 10 ML SYRINGE IVP SCH ×2 (01:36→09:21)
[2020-04-18 06:01] LABS: BASOPHILS % (AUTO) 0.2 %; EOSINOPHILS # (AUTO) 0.2 10^3/uL (0.0-0.7); EOSINOPHILS % (AUTO) 2.1 %; HGB - HEMOGLOBIN 8.1 g/dL (14.0-18.0); LYMPHOCYTES # (AUTO) 1.3 10^3/uL (1.5-3.5); LYMPHOCYTES % (AUTO) 14.6 %; MEAN CORPUSCULAR HEMOGLOBIN 28.3 pg (27.0-31.0); MEAN CORPUSCULAR HGB CONC 29.8 g/dL (32.0-36.0); MEAN CORPUSCULAR VOLUME 95.1 fL (80.0-94.0); MEAN PLATELET VOLUME 9.6 fL (7.4-11.4); MONOCYTES # (AUTO) 0.6 10^3/uL (0.0-1.0); MONOCYTES % (AUTO) 6.8 %; NEUTROPHILS # (AUTO) 6.8 10^3/uL (1.5-6.6); NEUTROPHILS % (AUTO) 74.4 %; PLT - PLATELET COUNT 276 10^3/uL (130-450); RED BLOOD COUNT 2.86 10^6/uL (4.70-6.10); RED CELL DISTRIBUTION WIDTH 18.4 % (12.0-15.0); WHITE BLOOD COUNT 9.2 x10^3/uL (4.8-10.8)
[2020-04-18 06:13] LABS: INR 1.4 (0.8-1.2); PT - PROTHROMBIN TIME 15.2 secs (9.9-12.6)
[2020-04-18 06:18] LABS: CALCIUM 8.6 mg/dL (8.5-10.3); CREATININE 1.7 mg/dL (0.6-1.2); MAGNESIUM 2.1 mg/dL (1.7-2.8); PHOSPHORUS 3.7 mg/dL (2.5-4.6)
[2020-04-18 07:32] VITALS: BP 145/79
[2020-04-18] MEDS: INSULIN ASPART 300 UNIT/3 ML PEN SUBQ SCH ×2 (07:39→11:52)
[2020-04-18] MEDS: cefTRIAXone 1 GM in SODIUM CHLORIDE 0.9% MINIBAG 100 ML IV SCH (09:18)
[2020-04-18] MEDS: TAMSULOSIN 0.4 MG CAPSULE PO SCH (09:23)
[2020-04-18] MEDS: CLOPIDOGREL 75 MG TABLET PO SCH (09:23)
[2020-04-18] MEDS: FINASTERIDE 5 MG TABLET PO SCH (09:23)
[2020-04-18] MEDS: CITALOPRAM HYDROBROMIDE 20 MG TABLET PO SCH (09:24)
[2020-04-18] MEDS: METOPROLOL TARTRATE 25 MG TABLET PO SCH (09:24)
[2020-04-18] MEDS: FERROUS SULFATE 325 MG TABLET PO SCH (09:25)
[2020-04-18] MEDS: levETIRAcetam 250 MG TABLET PO SCH (09:25)
--- NOTE | 2020-04-18 09:25 | Discharge Plan ---
"Discharge Plan for SNF / [facility] - Discharge Plan And Transition Orders Problem Reviewed?: Yes Disposition: [facility] DC/Xfer Allergies and Adverse Reactions: Allergies Allergy/AdvReac Type Severity Reaction Status Date / Time No Known Drug Allergies Allergy Verified 11/21/19 17:28 Health Concerns: You were admitted with sepsis and we found the infection, caused by Proteus bacteria, that was in your urine and then seeded into your bloodstream. In addition you have new Atrial fibrillation and are on a new blood thinner to prevent a stroke. You are on continued treatment for diabetes. Continue working with physical therapy and Occupational Therapy at the shelter facility, is the plan before you go home. Plan of Treatment: As above. Care Goals: Improvement in symptoms and stabilization are the goals. Assessment: The patient and at bedside agree with the plan. Orders were sent to SNF. New prescriptions electronically sent to [facility]. - SNF / [facility] Transition Orders Admit to (Facility): [facility] Discharge Diagnosis: (1) Sepsis Resolved (2) Proteus bacteremia Finishing treatment (3) Urinary tract infection due to Proteus Finishing treatment (4) Acute kidney injury Improving (5) Atrial fibrillation On new Metoprolol and Coumadin (6) Diabetes mellitus Metformin stopped due to DAVIDE (7) Acute right-sided heart failure on prn Lasix (8) Anemia due to multiple mechanisms (9) BPH (benign prostatic hyperplasia) (10) Morbid obesity with BMI of 60.0-69.9, adult (11) Hx of seizures (12) Hx of CAD (13) Hx of sleep apnea on CPAP/BIPAP (14) Code status: DNR Medicare Certification Statement: I certify that Post Hospital shelter care is medically necessary on a continuing basis for any of the conditions for which she/he is receiving care during hospitalization. Notify PCP of admission and forward orders to primary provider for signature. Weight on admission and: Daily Call PCP immediately if weight increases by: 2 kg (Give Lasix if wt up 2kg or more over 24 hr) Other Notification Orders: Call PCP immediately if patient develops dyspnea, chest pain/tightness or edema. House Bowel Program: Yes Additional Bowel Program Orders: If no BM after 2 days, nurse may give M.O.M. 30ml PO PRN and/or ducolax Supp 1 IN and/or JOHNNIE 250mg P.O., and/or senna 1-2 tabs PO. On day 3 nurse may give repeat above order until residents constipation is resolved. Annual Influenza Vaccine (between Feb 27 and September 26): Yes Two-step PPD per [facility] [id number] or approved exception documents: Yes Treatments & Other Orders: Daily PT and OT. Use the patient's own CPAP/BiPAP machine for naps or for bedtime at night Lab Tests or X-ray Orders: Daily INR for 4 days (04/19, 04/20, 04/21, 04/22) and give results to Provider. Goal INR is 2.0-3.0 Medication Orders: PLEASE REFER TO THE DISCHARGE MEDICATION LIST. Insulin Orders?: Yes - Medications New Prescriptions: Warfarin [Coumadin] 10 mg PO QDWARFARIN #60 tablet Insulin NPH Human Isophane [Humulin N] 30 units PO BID #1 amp Cephalexin [Keflex] 500 mg PO BID #6 capsule Furosemide [Lasix] 20 mg PO DAILY PRN #30 tablet PRN Reason: As Needed Per Provider Orders Metoprolol Tartrate [Lopressor] 50 mg PO BID #60 tablet - Diet Type: Geriatric Texture: Regular Liquids: Thin May have monthly special meal: Yes - Therapies | Activity Therapy: Evaluation | Treat if indicated: PT, OT Rehabilitation Potential: Maximize functional status Activity: Activity as Tolerated Weight Bearing: Full Weight Assistance Devices: Wheelchair, Walker Follow Up: See PCP after discharge from SNF. Insulin Orders - SNF Basal | Correction | Custom Orders: Diagnosis: Diabetes Initiate hypo and hyperglycemia protocols for BG <70 and BG >375. May check BG PRN for signs/symptoms of dysglycemia. Frequency of BG checks: [AC/Meal/HS] Basal Insulin: [X] Humalog 100 units / ml inject subq as follows: 30 U sq bid [] Other: [] Correction Insulin: - Select the type of insulin below [Lantus ]100 units /ml insulin inject subq per orders indicate below [] LOW DOSE [X] MODERATE DOSE [] MODERATE/HIGH DOSE [] HIGH DOSE GB UNITS GB UNITS GB UNITS GB UNITS 61-140 0 UNITS 61-140 0 UNITS 61-140 0 UNITS 61-140 0 UNITS 141-175 1 UNITS 141-175 1 UNITS 141-175 2 UNITS 141-175 3 UNITS 176-225 2 UNITS 176-225 3 UNITS 176-225 4 UNITS 176-225 5 UNITS 226-275 3 UNITS 226-275 5 UNITS 226-275 6 UNITS 226-275 7 UNITS 276-325 4 UNITS 276-325 7 UNITS 276-325 8 UNITS 276-325 9 UNITS 326-375 5 UNITS 326-375 9 UNITS 326-375 10 UNITS 326-375 11 UNITS >375 CONTACT MD >375 CONTACT MD >375 CONTACT MD >375 CONTACT MD"
[2020-04-18] MEDS: ASPIRIN EC 81 MG TABLET PO SCH (09:26)
[2020-04-18] MEDS: HEPARIN 5,000 UNIT/ML VIAL SUBQ SCH (09:26)
[2020-04-18] MEDS: INSULIN NPH HUMAN 300 UNIT/3 ML VIAL SUBQ SCH (09:28)
[2020-04-18] MEDS: NYSTATIN POWDER 15 GM TOP SCH (10:58)
--- NOTE | 2020-04-18 11:41 | DISCHARGE SUMMARY ---
Discharge Summary Admit Date: 04/10/20 Discharge Date: 04/18/20 Discharging Provider: Dr Gabby Khoury Primary Care Provider: Dr Fidel Starr Code Status: Do Not Attempt Resuscitation Discharge Disposition: SNF DC/Xfer Discharge Facility Name: [facility] History of Present Illness: From the admission H&P of Dr. Blas Ramey: This is a 75-year-old male with a past medical history significant for type 2 diabetes mellitus on insulin, BPH, morbid obesity, seizure disorder, and reported history of stroke who presents today from his primary care provider's office due to dyspnea and elevated heart rate. His tells me that today they went to the primary care provider as he had been complaining of dysuria and urgency for the past few days and they are concerned he may have had a urinary tract infection. He also became more short of breath over this past few days and he wanted to address this as well. At his primary care provider's office, he was found to be tachycardic in the 120s and quite dyspneic and so he was referred to the emergency department immediately. The patient states he began feeling short of breath over the weekend. He reports no cough except for today. He has not noticed any lower extremity edema. He reports no fevers or chills. He denies any chest pain. Both he and his deny any prior history of atrial fibrillation. His tells me that his primary care provider was about to order a Holter monitor for the patient in hopes of detecting an irregular heartbeat. He does complain of some nasal congestion and sore throat. He has not left the house since August except for doctor appointments. He was diagnosed with seizures a couple of months ago and has been on Keppra. He has been seeing a neurologist and he has told the patient and his that his prior aphasic episodes where he was hospitalized here were strokes. The patient is on aspirin and Plavix. His has not noticed any bleeding except for today there was a little bit of hematuria. He has not had any dark tarry stools. He is chronically anemic. She does notice easy bruising when the patient injects insulin. In the emergency department, he was found to be afebrile with a temperature of 37.4 C. Initial heart is in the 110s and in atrial fibrillation. He was tachypneic with respiratory rate in the high 20s. He was saturating 95% on room air. His labs were significant for white count of 14 with a left shift. His hemoglobin is 8.6. His creatinine was 1.7. Lactic acid was 1.3. His troponin was 9.6. His BNP was 185. Urinalysis was significant for positive nitrites, large Leukocyte Estrace, 25 WBCs, and moderate bacteria, as well as large occult blood and too numerous to count RBCs. He was given vancomycin and ceftriaxone IV in the emergency department. He underwent a CT angiogram chest which was negative for pulmonary embolism but did show evidence of congestive heart failure. Given the above findings, Hospitalist was consulted for admission. I did discuss goals of care with the patient and his and he would like to be a DNR. - HOSPITAL COURSE Hospital Course: (1) Sepsis We suspected that he was septic secondary to urinary tract infection. His white count was elevated and he did have renal dysfunction. He was also tachycardic initially. Treatment with empiric antibiotics, using Vanco and Ceftriaxone, was started, but iv fluids were iniitially on hold due to CHF on CXR. (2) Proteus bacteremia The blood culture quickly turned positive for gram neg rods and the iv Vanco was stopped and iv Zosyn was started. An Echo was done that showed no obvious endocarditis. Repeat blood cultures were neg. The identification was Proteus from the blood culture and when sensitivities showed it was garcia-sensitive, Zosyn was stopped and he was returned to Ceftriaxone iv. He completed a 10-day course of iv antibiotics while here and discharged with a prescription for 4 more days using oral Keflex. (3) Urinary tract infection due to Proteus The urine culture also grew Proteus with the same sensitivity profile, and was treated as in #2. (4) Acute kidney injury His baseline craet was 1.1-1.2, except at an January 2020 discharge, creat was 1.4. At this admission, creat was 1.7. On admission he received a CT with dye contrast, as well as Vancomycin. He has not been hypotensive and his Echocardiogram did not show a reduced ejection fraction. Ultrasound was done and did not show hydronephrosis or obstruction. Yet his creatinine continued to climb up to 2.9. A repeat urinalysis did not show casts. Dr Barreto did speak to Dr. Bethany Dunn, nephrology, and he advisedd iv hydration and stated that this type of DAVIDE tends to resolve in 5 to 7 days. We avoided nephrotoxic agents. At discharge, the creat had improved to 1.7. (5) Atrial fibrillation This was present on a prior EKGs (02/09/20) but then, it was a new diagnosis for him. He was put on beta romario for rate control. Anticoagulation therapy was discussed with patient, since he was already on Plavix. The novel anticoagulation agents are contraindicated in people who have a BMI over than 50. We started Coumadin and watched his INR daily. At discharge, he was on new Metoprolol and Coumadin and the INR was 1.4. He was discharged to a SNF, for rehab and with orders to follow INR daily until he reaches a goal INR of 2-3. (6) Diabetes mellitus Here he was on a carb-controlled diet, NPH Insulin and sliding scale Regular Insulin. His Metformin was stopped due to DAVIDE. (7) Acute right-sided heart failure The Echo showed right-sided failure. Moderate right ventricular enlargement. Moderate to severe increase in left atrial volume index. Severe right atrial enlargement. Mild tricuspid regurgitation. RVSP at rest was 79 mmHg. As compared to prior Echo, pulmonary HTN had increased. He had received iv fluids for the DAVIDE and thus, he required several days of Lasix and was discharged with prn Lasix dosing. (8) Anemia due to multiple mechanisms His hemoglobin was stable at 8-9, which is his baseline. He does appear to have a history of vitamin B12 deficiency and iron deficiency which may potentially be contributing to his anemia. We continued his oral iron and vitamin B12 supplements. We checked stool for occult blood, befoe starting anticoagulation for the atrial fibrillation and fecal occult blood was negative. (9) BPH (benign prostatic hyperplasia) He was kept on his Flomax, Terazosin and Oxybutinin. (10) Morbid obesity with BMI of 60.0-69.9, adult He was using his sleep apnea machine. He was able to cooperate with PT OT. He was discharged to SNF for further rehab. (11) Hx of seizures He was kept on his Keppra dose while here. (12) Hx of CAD He was kept on his Atorvastatin, baby aspirin and Plavix, the B-romario was new. (13) Hx of sleep apnea He was on his on home BIPAP machine while here. - ALLERGIES Allergies/Adverse Reactions: Allergies Allergy/AdvReac Type Severity Reaction Status Date / Time No Known Drug Allergies Allergy Verified 11/21/19 17:28 - MEDICATIONS Home Medications: Ambulatory Orders Medication Instructions Recorded Confirmed Finasteride [Proscar] 5 mg PO DAILY 11/22/19 04/11/20 Oxybutynin Chloride [Oxybutynin 30 mg PO DAILY 11/22/19 04/11/20 Chloride ER] Terazosin HCl 10 mg PO QPM 11/22/19 04/11/20 Aspirin [Aspirin EC] 81 mg PO DAILY #100 tablet. 12/21/19 04/11/20 Clopidogrel [Plavix] 75 mg PO DAILY #30 tablet 12/21/19 04/11/20 levETIRAcetam [Keppra] 500 mg PO BID #100 tablet 02/09/20 04/11/20 Atorvastatin Calcium 40 mg PO QPM 04/11/20 04/11/20 Citalopram Hydrobromide 40 mg PO DAILY 04/11/20 04/11/20 [Citalopram HBr] Losartan Potassium 25 mg PO DAILY 04/11/20 04/11/20 Oxybutynin Chloride [Oxybutynin 15 mg PO QPM 04/11/20 04/11/20 Chloride ER] Tamsulosin [Flomax] 0.4 mg PO DAILY 04/11/20 04/11/20 Cephalexin [Keflex] 500 mg PO BID #6 capsule 04/18/20 Ferrous Sulfate [Feosol] 325 mg PO DAILY tablet 04/18/20 Furosemide [Lasix] 20 mg PO DAILY PRN #30 tablet 04/18/20 Insulin Aspart [NovoLOG] 1 - 9 unit SUBQ 04/18/20 0800,1200,1700,2100 pen Insulin NPH Human Isophane 30 units PO BID #1 amp 04/18/20 [Humulin N] Insulin NPH Human [Humulin N] 30 unit SUBQ BID vial 04/18/20 Metoprolol Tartrate [Lopressor] 50 mg PO BID #60 tablet 04/18/20 Nystatin [Nystop] 1 applic TOP BID bottle 04/18/20 Warfarin [Coumadin] 10 mg PO QDWARFARIN #60 tablet 04/18/20 - PHYSICAL EXAM AT DISCHARGE General Appearance: positive: No acute distress, Alert, Other (Morbidly obese) Eyes Bilateral: positive: Normal inspection, EOMI ENT: positive: ENT inspection nml, No signs of dehydration Neck: positive: Nml inspection (Obese) Respiratory: positive: No respiratory distress, Breath sounds nml Cardiovascular: positive: No murmur, Irregularly irregular Skin: positive: Warm, Dry, Pallor Extremities: positive: Non-tender, Other (Trace edema) Neurologic/Psychiatric: positive: Oriented x3 - LABS Result Diagrams: 04/18/20 05:27 04/18/20 05:27 - DIAGNOSTIC IMAGING Diagnostic Imaging Results: Final report reviewed - SEPSIS Current Stage of Sepsis: Resolved Possible source of Sepsis: Genitourinary Sepsis Criteria: Recorded Respiratory Rate greater than 20, WBC count greater than 12,000 or less than 4000, Renal: urine output less than 0.5ml/kg/hr for 2 hours or creatinine gr - FOLLOW UP Follow Up: Plan to see PCP after discharge from SNF. - TIME SPENT Time Spent in Discharge (Minutes): 60
[2020-04-18] MEDS: WARFARIN 5 MG TABLET PO SCH (14:03)
== END 2020-04-18 15:50 | DRG 871 ==
LOC: ED 16:57 → MS2 21:00
PROVIDERS: ADMIT Internal Medicine; ATTEND Internal Medicine
DX: A41.9 Sepsis, unspecified organism (principal); A41.59 Other Gram-negative sepsis; J96.02 Acute respiratory failure with hypercapnia; N39.0 Urinary tract infection, site not specified; N17.9 Acute kidney failure, unspecified; Z68.44 Body mass index [BMI] 60.0-69.9, adult; R65.20 Severe sepsis without septic shock; N28.9 Disorder of kidney and ureter, unspecified; I48.91 Unspecified atrial fibrillation; Z79.4 Long term (current) use of insulin; I10 Essential (primary) hypertension; I50.811 Acute right heart failure; E11.9 Type 2 diabetes mellitus without complications; D50.9 Iron deficiency anemia, unspecified; D51.3 Other dietary vitamin B12 deficiency anemia; E66.01 Morbid (severe) obesity due to excess calories; I51.7 Cardiomegaly; I31.3 Pericardial effusion (noninflammatory); I25.10 Atherosclerotic heart disease of native coronary artery without angina pectoris; N40.0 Benign prostatic hyperplasia without lower urinary tract symptoms; G40.909 Epilepsy, unspecified, not intractable, without status epilepticus; Z86.73 Personal history of transient ischemic attack (TIA), and cerebral infarction without residual deficits; G47.30 Sleep apnea, unspecified; Z79.02 Long term (current) use of antithrombotics/antiplatelets; Z79.82 Long term (current) use of aspirin; R31.9 Hematuria, unspecified; Z87.891 Personal history of nicotine dependence; Z51.5 Encounter for palliative care; Z66 Do not resuscitate; F03.90 Unspecified dementia, unspecified severity, without behavioral disturbance, psychotic disturbance, mood disturbance, and anxiety; E11.43 Type 2 diabetes mellitus with diabetic autonomic (poly)neuropathy; K31.84 Gastroparesis; I27.20 Pulmonary hypertension, unspecified; R32 Unspecified urinary incontinence; Z20.828 Contact with and (suspected) exposure to other viral communicable diseases
CPT/HCPCS: 36415; 36600; 71045; 71275; 76770; 80048; 80053; 80202; 81001; 82272; 82274; 82607; 82728; 82746; 82803; 83540; 83605; 83690; 83735; 83880; 84100; 84300; 84466; 84484; 85025; 85610; 85730; 87040; 87077; 87086; 87181; 93005; 93306; 94640; 96360; 97161; 97165; 97530; 99223; 99284; 99285; A9270; J1815; J3370; J7120; J8499; Q9967; U0004; 81003

== ENCOUNTER 2020-06-29 | Outpatient (CLI) | payer MEDICARE, MEDICAID | END 2020-06-29 11:03 | disposition critical access hospital (66) | DX: T17.920A Food in respiratory tract, part unspecified causing asphyxiation, initial encounter (principal) | CPT/HCPCS: A0425; A0427 ==

== ENCOUNTER 2020-06-29 11:17 | Emergency (ER) | payer MEDICARE, MEDICAID ==
[2020-06-29] MEDS ORDERED: MORPHINE 2 MG/ML CARPUJECT IVP STA (11:27)
[2020-06-29] MEDS ORDERED: FUROSEMIDE 40 MG/4 ML VIAL IVP STA (11:29)
--- NOTE | 2020-06-29 11:30 | ED Physician Documentation ---
PD HPI DYSPNEA - Stated complaint Stated Complaint: CHOKING - History obtained from History obtained from: Patient, Family ( reported to EMS that the patient started choking on food (eating bagel with peanut butter), with difficulty breathing, stridorous sounds. No apnea nor discoloration per se. EMS called and they encountered pt decreased LOC, sats 70% and labored breathing, coarse lung sounds. FM O2=sats 90.), EMS - History of Present Illness Timing - onset: How many minutes ago (20), Today Timing - onset during: Eating Timing - duration: Minutes Timing - details: Abrupt onset, Still present (he is starting to have less labored breathing and responding to commands on arrival Still work of breathing with accessory muscle use.) Inciting event(s): FB / choking (bagel with peanut butter). No: URI Improved by: O2 Associated symptoms: Bilateral edema (chronic). No: Fever, Cough, Hemoptysis, Wheezing Similar symptoms before: Has not had sx before (history of sleep apnea, morbid obesity, asthma but no home oxygen, MDIs. Denies recent URI symptoms.) Recently seen: Not recently seen (last hospitalization few months ago for UTI, rapid atrial fib, and altered mentation.) Review of Systems Unable to obtain: Other (respiratory difficulty, so limited ability to answer questions.) Constitutional: denies: Fever Nose: denies: Congestion Cardiac: denies: Chest pain / pressure Respiratory: denies: Cough GI: denies: Abdominal Pain, Vomiting Neurologic: reports: Generalized weakness. denies: Focal weakness, Headache Immunocompromised: denies: Immunocompromised PD PAST MEDICAL HISTORY - Past Medical History Cardiovascular: Congestive heart failure, High cholesterol, Atrial fibrillation, Murmur Respiratory: Shortness of breath, Sleep apnea Neuro: Dementia, CVA, Seizure disorder Endocrine/Autoimmune: Type 2 diabetes GI: None, Colon polyps : Benign prostate hypertrophy, Incontinence, Renal insuffiency, Kidney stones HEENT: Chronic vision loss, Chronic hearing loss Psych: Depression Musculoskeletal: Osteoarthritis, Fatigue, Chronic back pain Derm: Other (candidiasis) - Past Surgical History Past Surgical History: Yes General: Colonoscopy Ortho: Spine surgery - Present Medications Home Medications: Ambulatory Orders Medication Instructions Recorded Confirmed Finasteride [Proscar] 5 mg PO DAILY 11/22/19 06/29/20 Oxybutynin Chloride [Oxybutynin 30 mg PO DAILY 11/22/19 06/29/20 Chloride ER] Terazosin HCl 10 mg PO QPM 11/22/19 06/29/20 levETIRAcetam [Keppra] 500 mg PO BID #100 tablet 02/09/20 06/29/20 Atorvastatin Calcium 40 mg PO QPM 04/11/20 06/29/20 Citalopram Hydrobromide 40 mg PO DAILY 04/11/20 06/29/20 [Citalopram HBr] Losartan Potassium 25 mg PO DAILY 04/11/20 06/29/20 Oxybutynin Chloride [Oxybutynin 15 mg PO QPM 04/11/20 06/29/20 Chloride ER] Tamsulosin [Flomax] 0.4 mg PO DAILY 04/11/20 06/29/20 Ferrous Sulfate [Feosol] 325 mg PO DAILY tablet 04/18/20 06/29/20 Furosemide [Lasix] 20 mg PO DAILY PRN #30 tablet 04/18/20 06/29/20 Insulin Aspart [NovoLOG] 1 - 9 unit SUBQ 04/18/20 06/29/20 0800,1200,1700,2100 pen Insulin NPH Human Isophane 30 units PO BID #1 amp 04/18/20 06/29/20 [Humulin N] Insulin NPH Human [Humulin N] 30 unit SUBQ BID vial 04/18/20 06/29/20 Metoprolol Tartrate [Lopressor] 50 mg PO BID #60 tablet 04/18/20 06/29/20 Nystatin [Nystop] 1 applic TOP BID bottle 04/18/20 06/29/20 Warfarin [Coumadin] 4 mg PO 1400 06/29/20 06/29/20 Warfarin [Coumadin] 6 mg PO DAILY 06/29/20 06/29/20 Warfarin [Coumadin] 10 mg PO OAW 06/29/20 06/29/20 - Allergies Allergies/Adverse Reactions: Allergies Allergy/AdvReac Type Severity Reaction Status Date / Time No Known Drug Allergies Allergy Verified 11/21/19 17:28 - Social History Does the pt smoke?: No Smoking Status: Former smoker Does the pt drink ETOH?: No Does the pt have substance abuse?: No - Immunizations Immunizations are current?: Yes - POLST Patient has POLST: Yes POLST Status: Full Code PD ED PE NORMAL - Vitals Vital signs reviewed: Yes - General General: Other (morbidly obese, opens eyes and weed thinner hands to command. coarse breath sounds bilaterally. Accessory muscle use for breathing. Limited talking, but no noted stridor. Has some hoarseness. No coughing. ) - HEENT HEENT: Moist mucous membranes, Pharynx benign - Neck Neck: Supple, no meningeal sign - Cardiac Cardiac: No murmur. No: RRR (irregular and mildly tachy) - Respiratory Respiratory: No: Clear bilaterally (coarse sounds bilaterally. Some exp wheezing difuse. ) - Abdomen Abdomen: Soft, Non tender, Non distended, Other (markedly obese) - Derm Derm: Warm and dry. No: Normal color (somewhat pale. ) - Extremities Extremities: No calf tenderness / cord, Other (1+ edema in both lower legs and ankles. ) - Neuro Neuro: Alert and oriented X 3 Eye Opening: To Voice Motor: Obeys Commands Verbal: Confused GCS Score: 13 Results - Vitals Vitals: Vital Signs - 24 hr 06/29/20 06/29/20 06/29/20 11:15 11:29 11:33 Temperature 37.1 C Heart Rate 85 87 91 Respiratory 25 H 29 H Rate Blood Pressure 124/109 H 88/63 L O2 Saturation 95 90 L 06/29/20 06/29/20 06/29/20 11:48 12:03 12:15 Temperature Heart Rate 80 85 92 Respiratory 25 H 26 H 15 Rate Blood Pressure 108/94 H 132/117 H 73/34 L O2 Saturation 92 93 90 L 06/29/20 06/29/20 06/29/20 12:30 12:45 13:00 Temperature Heart Rate 88 89 71 Respiratory 21 19 17 Rate Blood Pressure 81/56 L 97/82 H 128/91 H O2 Saturation 94 85 L 83 L 06/29/20 06/29/20 06/29/20 13:15 13:51 14:04 Temperature 36.8 C Heart Rate 79 56 L 62 Respiratory 25 H 20 20 Rate Blood Pressure 130/99 H 93/53 L 82/49 L O2 Saturation 83 L 90 L 90 L 06/29/20 14:29 Temperature Heart Rate 73 Respiratory 21 Rate Blood Pressure 84/54 L O2 Saturation 95 Oxygen O2 Source [With Activity] Room air O2 Source Mechanical ventilator - Labs Labs: Laboratory Tests 06/29/20 06/29/20 06/29/20 11:23 11:23 11:23 WBC 22.8 H RBC 3.00 L Hgb 8.7 L Hct 29.0 L MCV 96.7 H MCH 29.0 MCHC 30.0 L RDW 19.7 H Plt Count 365 MPV 9.0 Neut # (Auto) Not Reportable Lymph # (Auto) Not Reportable Pettis # (Auto) Not Reportable Eos # (Auto) Not Reportable Baso # (Auto) Not Reportable Absolute Nucleated RBC Not Reportable Total Counted 100 Band Neuts % (Manual) 19 H Abnorm Lymph % (Manual) 0 Nucleated RBC % Not Reportable Neutrophils # (Manual) 20.5 H Lymphocytes # (Manual) 1.8 Monocytes # (Manual) 0.2 Eosinophils # (Manual) 0.2 Basophils # (Manual) 0.0 Differential Comment MANUAL DIFFERENTIAL Manual Slide Review Indicated WBC Morphology NORMAL APPEARANCE Platelet Estimate NORMAL (130-450,000) Platelet Morphology NORMAL APPEARANCE RBC Morph Micro Appear 1+ ANISOCYTOSIS Bld Gas Analysis Time Sample Site ABG pH ABG pCO2 ABG pO2 ABG HCO3 ABG Total CO2 ABG O2 Saturation ABG Base Excess Chung Test Respiration Rate O2 Delivery Device Vent Mode FiO2 Tidal Volume PEEP Pressure Support Vent Sodium 139 Potassium 4.8 Chloride 108 Carbon Dioxide 21 Anion Gap 10.0 BUN 34 H Creatinine 1.6 H Estimated GFR (MDRD) 42 L Glucose 103 H Calcium 8.3 L Total Bilirubin 0.9 AST 11 ALT 10 Alkaline Phosphatase 73 Troponin I High Sens 8.1 B-Natriuretic Peptide Total Protein 6.9 Albumin 3.6 Globulin 3.3 Albumin/Globulin Ratio 1.1 Lipase 22 Nasal Adenovirus (PCR) Nasal B. parapertussis DNA (PCR) Nasal Coronavir 229E PCR Nasal Coronavir HKU1 PCR Nasal Coronavir NL63 PCR Nasal Coronavir OC43 PCR Nasal Enterovir/Rhinovir PCR Nasal Influenza B PCR Nasal Influenza A PCR Nasal Parainfluen 1 PCR Nasal Parainfluen 2 PCR Nasal Parainfluen 3 PCR Nasal Parainfluen 4 PCR Nasal RSV (PCR) Nasal B.pertussis DNA PCR Nasal C.pneumoniae (PCR) He Human Metapneumo PCR Nasal M.pneumoniae (PCR) Nasal SARS-CoV-2 (PCR) 06/29/20 06/29/20 06/29/20 11:23 13:10 13:25 WBC RBC Hgb Hct MCV MCH MCHC RDW Plt Count MPV Neut # (Auto) Lymph # (Auto) Pettis # (Auto) Eos # (Auto) Baso # (Auto) Absolute Nucleated RBC Total Counted Band Neuts % (Manual) Abnorm Lymph % (Manual) Nucleated RBC % Neutrophils # (Manual) Lymphocytes # (Manual) Monocytes # (Manual) Eosinophils # (Manual) Basophils # (Manual) Differential Comment Manual Slide Review WBC Morphology Platelet Estimate Platelet Morphology RBC Morph Micro Appear Bld Gas Analysis Time 1331 Sample Site RIGHT RADIAL ABG pH 7.27 L ABG pCO2 40 ABG pO2 59 L ABG HCO3 18.0 L ABG Total CO2 19.2 L ABG O2 Saturation 84 L* ABG Base Excess -8.2 L Chung Test POSITIVE Respiration Rate 20 O2 Delivery Device VENTILATOR Vent Mode SIMV FiO2 50.00 Tidal Volume 500 PEEP 5 Pressure Support Vent 12 Sodium Potassium Chloride Carbon Dioxide Anion Gap BUN Creatinine Estimated GFR (MDRD) Glucose Calcium Total Bilirubin AST ALT Alkaline Phosphatase Troponin I High Sens B-Natriuretic Peptide 394 H Total Protein Albumin Globulin Albumin/Globulin Ratio Lipase Nasal Adenovirus (PCR) NOT DETECTED Nasal B. parapertussis DNA (PCR) NOT DETECTED Nasal Coronavir 229E PCR NOT DETECTED Nasal Coronavir HKU1 PCR NOT DETECTED Nasal Coronavir NL63 PCR NOT DETECTED Nasal Coronavir OC43 PCR NOT DETECTED Nasal Enterovir/Rhinovir PCR NOT DETECTED Nasal Influenza B PCR NOT DETECTED Nasal Influenza A PCR NOT DETECTED Nasal Parainfluen 1 PCR NOT DETECTED Nasal Parainfluen 2 PCR NOT DETECTED Nasal Parainfluen 3 PCR NOT DETECTED Nasal Parainfluen 4 PCR NOT DETECTED Nasal RSV (PCR) NOT DETECTED Nasal B.pertussis DNA PCR NOT DETECTED Nasal C.pneumoniae (PCR) NOT DETECTED He Human Metapneumo PCR NOT DETECTED Nasal M.pneumoniae (PCR) NOT DETECTED Nasal SARS-CoV-2 (PCR) NOT DETECTED - Rads (name of study) chest xray Radiology: Prelim report reviewed (moderate interstitial prominence, enlarged heart. No infiltrates focally.), See rad report soft tissue neck Radiology: Prelim report reviewed (no obvious FB.), See rad report repeat CXR post intubation Radiology: Prelim report reviewed (NG tube at lower/mid esophagus, no remark on ETT. ), EMP read contemporaneously (ETT hard to visualize but appears at level of clavicles. ), See rad report PD MEDICAL DECISION MAKING - ED course Complexity details: reviewed results, considered differential, d/w patient, d/w learning consultant (Consulted with anesthesia and surgery prior to the patient arrival due to the history presented by EMS. They were present in the department soon after the patient arrival.) ED course: The patient arrived significantly work of breathing and hypoxic in the 80s despite facemask. This did improve gradually. He was placed on BiPAP which helped quite a bit over just a few minutes. However with concern for persistent foreign body versus aspiration, anesthesia did elect to do a fiberoptic evaluation with presumed intubation after. The did not see any residual foreign bodies or food above the vocal cords. However there was appearance of thick mucus that look like peanut butter coming up from between the cords suggesting significant aspiration. The patient appears to have an acute aspiration from a choking episode on a bagel and peanut butter. He is significantly obese with sleep apnea previously but no underlying lung disease per se. He will need further evaluation by specialist due to a need likely for ICU care and also bronchoscopy presumably. We contacted [facility] to ask about transfer. The classified it as a trauma from the choking episode and had me talk with the trauma surgeon on-call who accepted transfer of the patient to the ER for reevaluation on his debility and possibly going to the OR for bronchoscopy promptly. The patient had a prolonged ER course for good evaluation of the airway and stabilization of it with anesthesia providing fiberoptic laryngoscopy and then intubation in a awake format due to his body habitus and concern for foreign body still. CXR did not visualize the ETT well (? at level of clavicles but is at good depth). Product Accountant looked again with fiberoptic and verified they were in trachea above level of the willy. Sats improved with oxygen and then was able to wean down on FIO2, presuming effect of the aspiration of food to the upper airway. There was then more prolonged duration as are EMS declined transferring the patient and we had to call for [place] ambulance to bring the patient to [facility]. The patient remained stable with significantly decreased work of breathing and maintaining saturations in the 90s percent on lowering doses of oxygen. He was given small fluid bolus. His blood pressure was softly normal around 95-109 s ystolic. He was given IV Zosyn for concern of aspiration. - Critical Care Time(min): 50 Time Includes: Direct patient care, Reassess patient, Coordinate care, Medical consult Data interpretation: CXR Departure - Departure Disposition: 02 Transfer Acute Care Hosp Clinical Impression: Choking episode, Aspiration pneumonitis, Hypoxia, Morbid obesity Atrial fibrillation Qualifiers: Atrial fibrillation type: longstanding persistent Qualified Code(s): I48.11 - Longstanding persistent atrial fibrillation Condition: Stable Record reviewed to determine appropriate education?: Yes Discharge Date/Time: 06/29/20 14:56
[2020-06-29 11:35] LABS: BASOPHILS % (AUTO) 0.2 %; EOSINOPHILS % (AUTO) 0.4 %; HGB - HEMOGLOBIN 8.7 g/dL (14.0-18.0); LYMPHOCYTES % (AUTO) 8.3 %; MEAN CORPUSCULAR VOLUME 96.7 fL (80.0-94.0); MONOCYTES % (AUTO) 3.2 %; NEUTROPHILS % (AUTO) 87.1 %; PLT - PLATELET COUNT 365 10^3/uL (130-450); RED CELL DISTRIBUTION WIDTH 19.7 % (12.0-15.0); WHITE BLOOD COUNT 22.8 x10^3/uL (4.8-10.8)
--- NOTE | 2020-06-29 11:41 | XRAY Report ---
PROCEDURE: Neck Soft Tissue INDICATIONS: choking episode TECHNIQUE: 2 views of the neck were acquired. COMPARISON: Correlation is made with the prior neck CT, 12/19/2019. Correlation is also made with the accompanying chest radiograph, 06/29/2020. FINDINGS: Airway: The airway appears patent. Soft tissues: Prevertebral soft tissues are normal in thickness. The epiglottis and aryepiglottic f olds appear normal. No soft tissue gas. Bones: No suspicious bony lesions. Visualized cervical spine is normally aligned. IMPRESSION: No significant soft tissue abnormality is seen by plain film. Reviewed by: Carlos Lorenzo MD on 06/29/2020 10:[address] [facility] Approved by: Carlos Lorenzo MD on 06/29/2020 10:[address] [facility] Station ID: [id number]
--- NOTE | 2020-06-29 11:43 | XRAY Report ---
PROCEDURE: Chest 1 View X-Ray INDICATIONS: choking episode/dyspnea TECHNIQUE: One view of the chest was acquired. COMPARISON: 04/10/2020, 12/19/2019 FINDINGS: Surgical changes and devices: None. Lungs and pleura: Low lung volumes can be seen, causing a crowded appearance to the lung markings. O n the semiupright images, no large pneumothorax or large pleural effusions can be seen. No focal infi ltrates are seen. Generalized interstitial prominence can be seen. Mediastinum: Mediastinal contours appear normal. Heart size is moderately enlarged. Bones and chest wall: No suspicious bony lesions. Overlying soft tissues appear unremarkable. IMPRESSION: Moderate cardiomegaly and interstitial prominence. Please correlate with patient examination, history , and laboratory values for underlying congestive heart failure. If there is strong clinical concern for aspiration pneumonia, please consider a short-term follow-up 2 view chest series, performed in deep inspiration, as aspiration pneumonia can have a delayed radiog raphic appearance. Reviewed by: Carlos Lorenzo MD on 06/29/2020 10:42 AM [facility] Approved by: Carlos Lorenzo MD on 06/29/2020 10:42 AM [facility] Station ID: [id number]
[2020-06-29 11:45] LABS: ALBUMIN 3.6 g/dL (3.2-5.5); ALBUMIN/GLOBULIN RATIO 1.1 (1.0-2.2); BILIRUBIN,TOTAL 0.9 mg/dL (0.2-1.0); CALCIUM 8.3 mg/dL (8.5-10.3); CREATININE 1.6 mg/dL (0.6-1.2); TOTAL PROTEIN 6.9 g/dL (6.7-8.2)
[2020-06-29] MEDS ORDERED: LIDOCAINE OINTMENT 5% 35.44 GM TUBE ONE (12:01)
[2020-06-29] MEDS ORDERED: LIDOCAINE TOPICAL 4% 50 ML BOTTLE ONE (12:01)
[2020-06-29] MEDS ORDERED: OXYMETAZOLINE HCL 100 SPRAYS BOTTLE NAS ONE (12:05)
[2020-06-29 12:19] LABS: ABNORMAL LYMPHS % (MANUAL) 0 %
[2020-06-29 12:29] LABS: BAND NEUTROPHILS % (MANUAL) 19 %; EOSINOPHILS # (MANUAL) 0.2 10^3/uL (0-0.7); LYMPHOCYTES # (MANUAL) 1.8 10^3/uL (1.5-3.5); LYMPHOCYTES % (MANUAL) 8 %; MONOCYTES # (MANUAL) 0.2 10^3/uL (0.0-1.0)
[2020-06-29 12:30] LABS: DIFFERENTIAL COMMENT MANUAL DIFFERENTIAL; PLATELET ESTIMATE, MANUAL NORMAL (130-450,000) (NORMAL); PLATELET MORPHOLOGY NORMAL APPEARANCE (NORMAL); RBC MORPHOLOGY (MULTIPLE) 1+ ANISOCYTOSIS (NORMAL)
[2020-06-29] MEDS ORDERED: KETAMINE 500 MG/10 ML VIAL ONE (12:33)
[2020-06-29] MEDS ORDERED: PIPERACILLIN/TAZOBACTAM 4.5 GM in SODIUM CHLORIDE 0.9% MINIBAG 100 ML IV STA (12:43)
[2020-06-29] MEDS ORDERED: KETAMINE 500 MG/10 ML VIAL IVP STA ×2 (12:46→13:31)
--- NOTE | 2020-06-29 13:31 | XRAY Report ---
PROCEDURE: Chest 1 View X-Ray INDICATIONS: NT ET placement TECHNIQUE: One view of the chest was acquired. COMPARISON: Chest x-ray, 1 view 06/29/2020. FINDINGS: Surgical changes and devices: There is a catheter at midline projecting to mid thorax, presumably wit hin the midesophagus. Lungs and pleura: No pleural effusions or pneumothorax. Bilateral perihilar infiltrates compatible w ith pulmonary edema or bilateral pneumonia. Mediastinum: Mediastinal contours appear normal. Heart size is moderately increased. Bones and chest wall: No suspicious bony lesions. Overlying soft tissues appear unremarkable. IMPRESSION: 1. The NG tube tip is in the area of mid esophagus. 2. Moderate cardiac megaly. Bilateral perihilar infiltrates may be secondary to pulmonary edema or bi lateral pneumonia. Reviewed by: Tatianna Echols MD on 06/29/2020 1:29 PM PST Approved by: Tatianna Echols MD on 06/29/2020 1:29 PM PST Station ID: [id number]
[2020-06-29 13:35] LABS: ABG BASE EXCESS -8.2 mmol/L (-2.0-3.0); ABG PCO2 40 mmHg (34-45); ABG PH 7.27 (7.35-7.45); ABG PO2 59 mmHg (80-100); ABG TCO2 19.2 MMOL/L (21.0-29.0); ALLEN TEST POSITIVE
[2020-06-29 13:39] LABS: ABG OXYGEN SATURATION 84 % (94-98)
--- NOTE | 2020-06-29 13:52 | ANESTHESIA PROCEDURE NOTE ---
Anesthesia Intubation Template - Intubation Blade: positive: Glidescope Tube: Size-enter number (7.5), Cuffed Route: Nasal Placement Confirmation: End tidal CO2, Bilateral breath sounds, Other Complications: No complications (SEE CONSULT NOTE)
[2020-06-29] MEDS ORDERED: SODIUM CHLORIDE 0.9% 1,000 ML IV STA (13:54)
[2020-06-29] MEDS ORDERED: fentaNYL 100 MCG/2 ML VIAL IVP STA (13:54)
--- NOTE | 2020-06-29 14:27 | ANESTHESIA PROCEDURE NOTE ---
Diagnosis: Aspiration food, SOB, decreased SAT Procedure: Awake nasal intubation Consent for Procedure(s) Verified and Reviewed: No Height and Weight: Height 5 ft 10 in Weight (kg) 201 kg Body Mass Index 63.6 Vital Signs: Temp Pulse Resp BP Pulse Ox 37.1 C 56 L 20 93/53 L 90 L 06/29/20 11:15 06/29/20 13:51 06/29/20 13:51 06/29/20 13:51 06/29/20 13:51 Allergies No Known Drug Allergies Allergy (Verified 11/21/19 17:28) Requesting Provider: MD Jr Location: ER [facility] ASA classification: 3-Severe systemic disease Is this case an emergency?: Yes Anes. Monitoring and Equipment: Non-invasive BP, Pulse oximetery Anes. Procedure Start Time: 11:26 Anes. Procedure Stop Time: 13:29 Procedure Notes: Call to ER for morbidly obese patient suspected of aspirating food and now with increased WOB, SOB, and decreased O2 saturation. Pt assessed to have diminished lung sounds throughout with crackles at B mid lung region. Pt with increased work of breathing not resolved by sitting up. Continues to cough up pale brown frothy sputum, smells of peanut butter. Procedure: Afrin atomized into R nares and a 32 nasal trumpet placed, covered in 5% Lidocaine ointment. 4% Lidocaine atomized through nasal airway. Fiberoptic glide loaded with 7.5ETT passed nasal by Flroidalma Gill CRNA. Pt not tolerating, Ketamine 20mg with glycopyrulate 0.3mg. More tolerable after meds. 7.5ETT placed with +ETCO2. Secured. NGT placed at L nares, positve for pale, brown, output. ETT found to be out of airway, patient spontaneously breathing without obstruction. Additional 30mg Ketamine given. Fiberscope again passed nasal to level of vocal cords by Bethany Aranda CRNA, advanced. Tube passed and cuff inflated. Pt unable to phonate and ETT with ETCO2. BBS. Secured. Pt placed to vent with PSV at spontaneous rate. Call for PCXR for placement.
[2020-06-29 14:30] VITALS: BP 84/54
[2020-06-29 14:32] LABS: C. PNEUMONIAE- RESP PCR PANEL NOT DETECTED
== END 2020-06-29 14:56 | disposition short-term general hospital (02) ==
LOC: EDUNIT# → ED 11:17
DX: J69.0 Pneumonitis due to inhalation of food and vomit (principal); T17.928A Food in respiratory tract, part unspecified causing other injury, initial encounter; I48.91 Unspecified atrial fibrillation; I50.9 Heart failure, unspecified; E11.9 Type 2 diabetes mellitus without complications; Z79.4 Long term (current) use of insulin; Z79.01 Long term (current) use of anticoagulants; Z87.891 Personal history of nicotine dependence; Z20.828 Contact with and (suspected) exposure to other viral communicable diseases
CPT/HCPCS: 31500; 36415; 36600; 70360; 71045; 80053; 82803; 83690; 83880; 84484; 85025; 87631; 93005; 94660; 96365; 96375; 99291; A9270; 0202U; 94770